=== PATIENT | female | born 1960 | race Caucasian/White ===

== ENCOUNTER 2023-03-23 12:19 | Inpatient (IN) | payer MEDICARE, MEDICAID, SELFPAY ==
[2023-03-23] VITALS (34 sets, daily range): BP systolic 110–135; BP diastolic 51–84; PULSE 70–110; RESP 12–26; TEMP 36.4–37.1; O2SAT 91–100; BMI 48.9
--- NOTE | ~2023-03-23 | XR_ITS ---
EXAMINATION: XR chest 2V DATE: 03/23/2023 13:04 INDICATION: Shortness of breath TECHNIQUE: AP and lateral views of the chest are obtained. COMPARISON: None available FINDINGS: There are airspace opacities of the right middle lower lung zone. There is a small right pl eural effusion. No pneumothorax is identified. Cardiomegaly is noted. There is a mild diffuse interst itial pattern. A dual-lead cardiac pacemaker of the left chest wall ends with leads in expected locat ions. There is mild thoracic spondylosis. IMPRESSION: 1. Small right pleural effusion. 2. Right basilar airspace opacities, consistent with atelectasis versus pneumonia. 3. Cardiomegaly with mild pulmonary edema. Reviewed, dictated and finalized at location F. COLOR PRESS OPERATOR IMPRESSION: 1. Small right pleural effusion. 2. Right basilar airspace opacities, consistent with atelectasis versus pneumon ia. 3. Cardiomegaly with mild pulmonary edema.
--- NOTE | 2023-03-23 12:25 | ECG_ITS ---
Measurements Intervals [place] Rate: 85 P: DE: 0 QRS: 11 QRSD: 100 T: -29 QT: 302 QTc: 361 Interpretive Statements ATRIAL FIBRILLATION LOW QRS VOLTAGE IN PRECORDIAL LEADS BORDERLINE ST-T WAVE ABNORMALITY- DIFFUSE LEADS ABNORMAL ECG NO PREVIOUS ECG AVAILABLE FOR COMPARISON Electronically Signed On 03-23-2023 15:41:55 CHECKER LOADER by Yared Briceno D.O.
[2023-03-23 12:47] LABS: Basophils Percent Auto 0.8 % (0.2-1.2); Eosinophils Absolute Auto 0.1 K/mm3 (0-0.3); Eosinophils Percent Auto 1.2 % (0-4.4); Immature Granulocyte Absolute 0.02 K/mm3 (0.00-0.031); Immature Granulocyte Percent A 0.4 % (0-0.5); Lymphocytes Percent Auto 23.9 % (18.3-44.2); Mean Corpuscular HGB Conc 26.5 g/dl (32-36); Mean Corpuscular Hemoglobin 19.2 pg (26-34); Mean Corpuscular Volume 72.7 fl (80-100); Mean Platelet Volume 10.1 fl (7.4-10.4); Monocytes Absolute Auto 0.5 K/mm3 (0.1-0.6); Monocytes Percent Auto 10.5 % (2.6-8.5); Neutrophils Absolute Auto 3.2 K/mm3 (1.3-6.7); Neutrophils Percent Auto 63.2 % (45.5-73.1); Platelet Count Result 189 k/mm3 (150-375); Red Cell Distribution Width 20.9 % (11.5-14.5)
[2023-03-23 12:53] LABS: Hematocrit 18.9 % (37.0-47.0)
[2023-03-23 13:04] LABS: Alanine Aminotransferase 17 U/L (6-35); Albumin Level 3.8 g/dL (3.5-5.1); Alkaline Phosphatase 65 U/L (38-126); Anion Gap 15 mmol/L (8-16); Aspartate Amino Transferase 43 U/L (14-36); Bilirubin,Total 1.4 mg/dL (0.2-1.3); Blood Urea Nitrogen 13 mg/dL (7-17); Carbon Dioxide 25 mmol/L (22-30); Chloride 98 mmol/L (98-107); Estimated CRCL calculation 94 ml/min; Estimated Glomerular Filt Rate > 60; Glucose 123 mg/dL (65-110); Potassium 3.4 mmol/L (3.4-5.0); Sodium 138 mmol/L (137-145)
[2023-03-23 13:05] LABS: Anisocytosis 2+ (NORMAL); Hypochromasia 2+ (NORMAL); Platelet Estimate Adequate (Adequate); Schistocytes None Seen (NORMAL); Target Cells 2+ (NORMAL)
--- NOTE | 2023-03-23 13:21 | PC.NURSE ---
unable to visualize veins for IV and type and screen. 2 attempts made by DHEERAJ Chávez. called Edwina from vascular access for assistance. no further orders at this time
--- NOTE | 2023-03-23 13:38 | ED.RECABL ---
HPI - Recheck/Abnormal Lab/Rx General Chief Complaint: Recheck/Abnormal Lab/Rx Stated Complaint: low hemoglobin Time Seen by Provider: 03/23/23 13:09 History of Present Illness HPI narrative: Patient is a 62-year-old female with history of AFib, CHF, hypothyroidism, hyperlipidemia presenting with low hemoglobin. Patient states that she struggles with chronic dyspnea related to her heart failure. States that she always feels somewhat unwell but she has been more short of breath lately. She saw her PCP recently obtained blood work and she received a call today that her hemoglobin is low. She reports chronic lightheadedness. No chest pain or palpitations. States that her legs are little bit swollen. She denies hemoptysis, hematemesis, melena, hematochezia. Related Data Home Medications Medication Instructions Recorded Confirmed Farxiga 10 mg PO DAILY 03/23/23 03/23/23 Vitamin D2 50,000 units PO DAILY 03/23/23 03/23/23 acetaminophen 1,000 mg PO Q6H PRN Pain (Scale 03/23/23 03/23/23 Score 1-3) bumetanide 2 mg tablet 2 mg PO DAILY 03/23/23 03/23/23 diltiazem HCl 360 mg capsule,24 360 mg PO DAILY 03/23/23 03/23/23 hr,extended release ferrous sulfate 325 mg PO DAILY 03/23/23 03/23/23 folic acid 1,000 mcg PO DAILY 03/23/23 03/23/23 levothyroxine 25 mcg tablet 25 mcg PO DAILY 03/23/23 03/23/23 potassium chloride 20 mEq 20 meq PO BID 03/23/23 03/23/23 tablet,extended release rivaroxaban 20 mg tablet (Xarelto) 20 mg PO DAILY 03/23/23 03/23/23 Allergies Allergy/AdvReac Type Severity Reaction Status Date / Time No Known Allergies Allergy Unknown Verified 03/23/23 12:20 Review of Systems Review of Systems: All systems reviewed & are unremarkable except as noted in HPI and below PMFSH Past Medical History Medical History (Updated 04/02/23 @ 22:18 by Britney Vallejo MD) Chronic anticoagulation Chronic atrial fibrillation Congestive heart failure Diverticulitis Dyslipidemia Hypothyroidism Obstructive sleep apnea on CPAP Surgical History Surgical History (Updated 03/26/23 @ 12:23 by Raisa Burton APRN) History of permanent cardiac pacemaker placement (09/2016) Biotronik dual chamber pacemaker implant by Dr. Garvey Family History Family History Mother Acute myocardial infarction, Onset Age: 73 Cerebrovascular accident, Onset Age: 73 Diabetes mellitus Father Multiple myeloma Social History Social History (Updated 03/23/23 @ 15:51 by Sumaya Hyatt PA-C) Social History: Surrogate medical decision maker: Gracy Mouser, friend. Code status: Do not resuscitate. Smoking status: Former smoker Alcohol intake: current Alcohol use details: Social alcohol use in moderation. Substance use: never Lack of Transportation: No Lack of Food: Never True Current Housing: I Have Housing Concerned About Future Housing: No Difficulty Paying Gas/Electric Bills: No Difficulty Paying for Meds: No Currently Unemployed: No Education: High School Diploma/GED Difficulty w/ Childcare or Family Care: No Additional living arrangements comments: The patient lives alone. She has no children. Caregiver comes in 3 days weak. Spiritual care concerns: No Exam Narrative: GENERAL: Chronically ill-appearing female sitting in bed in no acute distress, pleasant and cooperative HEAD: Normocephalic, atraumatic. EYES: PERRLA and EOMI. ENT: grossly unremarkable NECK: Supple. CHEST: Clear to auscultation. No respiratory distress. HEART: irregularly irregular rhythm, normal rate ABDOMEN: Soft, nontender, nondistended EXTREMITIES: Normal range of motion. bilateral lower extremity edema to upper calves SKIN: Warm, dry, no rash. NEURO: No focal deficits. Alert and oriented x3. PSYCH: Normal mood and affect. Course Vital Signs Vital signs: Vital Signs Temperature 97.7 F 03/23/23 12:21 Pulse Rate 98
[2023-03-23 14:35] LABS: Lipase 137 U/L (23-300); Magnesium 1.7 mg/dL (1.6-2.3)
[2023-03-23 14:37] LABS: NT Pro B Type Natriuretic Pept 332 pg/mL (19.9-100); Troponin I < 0.012 ng/mL (0.000-0.034)
[2023-03-23 14:38] LABS: Influenza A QL RT-PCR Negative (Negative); Influenza B QL RT-PCR Negative (Negative); SARS-CoV-2 RNA PCR Negative (Negative)
[2023-03-23 14:40] LABS: INR 2.7; Partial Thromboplastin Time 39.7 SECONDS (22.3-36.8); Prothrombin Time 30.9 Seconds (11.1-14.7)
[2023-03-23 14:49] LABS: Iron 19 ug/dL (37-170)
[2023-03-23 14:58] LABS: Percent Iron Saturation 4 % (20-50)
[2023-03-23] MEDS: SODIUM CHLORIDE 0.9% IV 250 ML 30 ML IV CONT (15:03)
[2023-03-23] MEDS: TUBING, BLOOD PLUM PUMP TUBING 1 EACH XX ×2 (15:04→18:58)
--- NOTE | 2023-03-23 15:44 | PM.IMHP ---
H&P: HPI History of Present Illness Date/Time: 03/23/23 15:30 Chief Complaint: Anemia. Narrative: This is a pleasant 62-year-old female with chronic atrial fibrillation on anticoagulation, congestive heart failure, and obstructive sleep apnea on CPAP who presented to the emergency department for evaluation of anemia. The patient provides the following history. She had routine labs drawn a couple of days ago and received a call today that she needed to come to the ED as her hemoglobin was low. With further questioning she endorses fatigue, weakness, and increasing dyspnea on lesser and lesser exertion. She has not noticed any source for blood loss and denies epistaxis, hematemesis, hematochezia, melena, and hematuria. Her stool is light brown and Hemoccult negative on ED physician exam today. She has a history of anemia had been prescribed iron supplementations although she stopped taking them as it caused her significant constipation. Vital signs have been stable since arrival. Hemoglobin and hematocrit were 5.0 and 18.9% respectively with an MCV of 72.7, INR was 2.7. She is being admitted in this setting for blood transfusion and anemia workup. She has never had a colonoscopy however reports having a negative Cologuard 3 years ago. Review of Systems Review of Systems: Twelve systems were reviewed. No fever, chills, or sweats. She has been feeling a bit lightheaded. No syncope. She denies exertional chest pain. Mild chest tightness which she attributes to the shortness of breath. No cough. Appetite has been okay. No epigastric or abdominal pain. She denies bloating and belching. No indigestion symptoms. Except as documented, all other systems were reviewed and are negative. [facility] Past Medical History Medical History (Updated 03/23/23 @ 15:59 by Sumaya Hyatt PA-C) Chronic anticoagulation Chronic atrial fibrillation Congestive heart failure Diverticulitis Dyslipidemia Hypothyroidism Obstructive sleep apnea on CPAP Surgical History Surgical History (Updated 03/23/23 @ 15:54 by Sumaya Hyatt PA-C) History of permanent cardiac pacemaker placement (09/2016) Biotronik dual chamber pacemaker implant by Dr. Garvey Family History Family History Mother Acute myocardial infarction, Onset Age: 73 Cerebrovascular accident, Onset Age: 73 Diabetes mellitus Father Multiple myeloma Social History Social History (Updated 03/23/23 @ 15:51 by Sumaya Hyatt PA-C) Social History: Surrogate medical decision maker: Gracy Ramyr, friend. Code status: Do not resuscitate. Smoking status: Former smoker Alcohol intake: current Alcohol use details: Social alcohol use in moderation. Substance use: never Lack of Transportation: No Lack of Food: Never True Current Housing: I Have Housing Concerned About Future Housing: No Difficulty Paying Gas/Electric Bills: No Difficulty Paying for Meds: No Currently Unemployed: No Education: High School Diploma/GED Difficulty w/ Childcare or Family Care: No Additional living arrangements comments: The patient lives alone. She has no children. Caregiver comes in 3 days weak. Spiritual care concerns: No Meds Home Medications and Allergies Home Medications Medication Instructions Recorded Confirmed Type Farxiga 10 mg PO DAILY 03/23/23 03/23/23 History Vitamin D2 50,000 units PO DAILY 03/23/23 03/23/23 History acetaminophen 1,000 mg PO Q6H PRN Pain (Scale 03/23/23 03/23/23 History Score 1-3) bumetanide 2 mg tablet 2 mg PO DAILY 03/23/23 03/23/23 History diltiazem HCl 360 mg capsule,24 360 mg PO DAILY 03/23/23 03/23/23 History hr,extended release ferrous sulfate 325 mg PO DAILY 03/23/23 03/23/23 History folic acid 1,000 mcg PO DAILY 03/23/23 03/23/23 History levothyroxine 25 mcg tablet 25 mcg PO DAILY 03/23/23 03/23/23 History potassium chloride 20 mEq 20 meq PO BID 03/23/23
[2023-03-23 15:56] LABS: Ferritin 6.74 ng/mL (11.1-264)
--- NOTE | 2023-03-23 16:38 | ADMGEN ---
This patient, Michelle Odom, was admitted to Medical Room 250-01. Patient/family oriented to hospital policies and general routines including ID bracelet, bed and alarms, visiting hours, pain management, procedures, bathroom and other care routines, personal items, smoking policy, room service/diet, and visiting hours. Information on how to activate the Rapid Response Team has been discussed. Patient/Family are encouraged to report perceived risks to care and to ask questions if they do not understand what they are told or what they should do.
[2023-03-23] MEDS: SODIUM CHLORIDE 0.9% IV 250 ML 30 ML (18:58)
[2023-03-23 21:33] LABS: Hematocrit 22.1 % (37.0-47.0)
[2023-03-23 21:54] LABS: Hemoglobin 6.5 g/dL (12.0-15.0)
[2023-03-23 21:56] LABS: Troponin I < 0.012 ng/mL (0.000-0.034)
[2023-03-23] MEDS: FUROSEMIDE INJ 40 MG/4 ML VIAL 20 MG IV PUSH (22:20)
[2023-03-23] MEDS: IRON SUCROSE COMPLEX 500 MG in SODIUM CHLORIDE 0.9% IV 250 ML 78.57 MG IVPB (23:08)
[2023-03-24] VITALS (14 sets, daily range): BP systolic 99–125; BP diastolic 51–78; PULSE 63–98; RESP 16–20; TEMP 36.3–37.1; O2SAT 89–94
[2023-03-24 05:51] LABS: Mean Corpuscular HGB Conc 29.1 g/dl (32-36); Mean Corpuscular Hemoglobin 21.5 pg (26-34); Mean Corpuscular Volume 73.8 fl (80-100); Platelet Count Result 141 k/mm3 (150-375); Red Blood Count 2.98 M/mm3 (4.2-5.4); Red Cell Distribution Width 20.9 % (11.5-14.5); White Blood Count 4.1 K/mm3 (4.5-10.0)
[2023-03-24 06:04] LABS: Hemoglobin 6.4 g/dL (12.0-15.0)
[2023-03-24 06:06] LABS: Anion Gap 13 mmol/L (8-16); Blood Urea Nitrogen 14 mg/dL (7-17); Calcium 8.3 mg/dL (8.4-10.2); Carbon Dioxide 25 mmol/L (22-30); Chloride 99 mmol/L (98-107); Estimated CRCL calculation 94 ml/min; Estimated Glomerular Filt Rate > 60; Glucose 130 mg/dL (65-110); Magnesium 1.6 mg/dL (1.6-2.3); Potassium 2.6 mmol/L (3.4-5.0); Sodium 137 mmol/L (137-145)
[2023-03-24] MEDS: LEVOTHYROXINE SODIUM 25 MCG TABLET PO (06:25)
[2023-03-24] MEDS: POTASSIUM CHLORIDE 20 MEQ ER TABLET 80 MEQ PO (07:07)
[2023-03-24] MEDS: POTASSIUM CHLORIDE INJ 40 MEQ in SODIUM CHLORIDE 0.9% IV 500 ML 130 MEQ IVPB (07:07)
[2023-03-24] MEDS: MAGNESIUM SULF 4 GM/WATER100ML 4 GM/100 ML BAG IVPB (07:08)
[2023-03-24] MEDS: FERROUS SULFATE 325 MG TABLET DR PO (08:17)
[2023-03-24] MEDS: FOLIC ACID 1 MG TABLET PO (08:17)
[2023-03-24] MEDS: EMPAGLIFLOZIN 25 MG TABLET PO (08:17)
[2023-03-24] MEDS: POTASSIUM CHLORIDE 20 MEQ ER TABLET PO ×2 (08:17→16:02)
[2023-03-24] MEDS: dilTIAZem HCL CD 180 MG CAP.24HR 360 MG PO (08:18)
[2023-03-24 09:06] LABS: Immature Reticulocyte Fraction 44.2 % (3.0-15.9); Reticulocyte Percent 1.04 % (0.7-4.3); Reticulocytes Absolute 0.03 M/mm3 (0.02-0.1)
[2023-03-24] MEDS: SODIUM CHLORIDE 0.9% IV 250 ML 30 ML IV CONT (09:34)
[2023-03-24 09:48] LABS: Free T4 Free Thyroxine Reflex 1.96 ng/dL (0.78-2.19)
[2023-03-24 10:28] LABS: Total Triiodothyronine (T3) 1.08 NG/ML (0.97-1.69)
--- NOTE | 2023-03-24 14:16 | PM.IMPN ---
Progress Note: A&P Assessment and Plan (1) Microcytic anemia: Code(s): D50.9 - Iron deficiency anemia, unspecified Status: Chronic Assessment and Plan: H&H 6.4, 22 this morning. Finished 3/3 units of blood and H&H at 7.6. hematology consulted for input on further evaluation and treatment. non-compliant with iron supplementation due to constipation no evidence of bleeding, occult stool ordered retic count and iron panel indicative of iron deficiency anemia Will repeat iron infusion (2) Congestive heart failure: Code(s): I50.9 - Heart failure, unspecified Status: Chronic Assessment and Plan: Monitor daily weights and I/O. s/p 1 dose Lasix (3) Hypothyroidism: Code(s): E03.9 - Hypothyroidism, unspecified Status: Chronic Assessment and Plan: TSH elevated on admission, T4/T3 WNL continue levothyroxine and follow up outpatient as she was recently started on medication (4) Chronic atrial fibrillation: Code(s): I48.20 - Chronic atrial fibrillation, unspecified Status: Chronic Assessment and Plan: controlled, continue home meds (5) Chronic anticoagulation: Code(s): Z79.01 - long term care social worker (current) use of anticoagulants Status: Chronic Assessment and Plan: will hold anticoagulants for now (6) Obstructive sleep apnea on CPAP: Code(s): G47.33 - Obstructive sleep apnea (adult) (pediatric) Status: Chronic Assessment and Plan: bipap/cpap ordered Subjective Date/time seen: 03/24/23 14:16 Interval history: Patient is a 62 YO female with PMH of chronic atrial fibrillation on anticoagulation, congestive heart failure, recent hypothyroidism diagnosis, chronic iron deficiency anemia, and obstructive sleep apnea on CPAP who admitted from ED for evaluation of anemia. She does report feeling fatigued, weakness, and increasing dyspnea on lesser and lesser exertion. She has not noticed any source for blood loss and denies epistaxis, hematemesis, hematochezia, melena, and hematuria. Her stool is light brown and Hemoccult negative on ED physician exam. Occult stool ordered. She had been prescribed iron supplementations, but stopped taking them after only a few days due to constipation. H&H this morning was 6.4 & 22, still awaiting her 3rd unit of blood. Potassium came up to 3.3 and H&H 2 hours post transfusion was 7.6, hematology consulted for input. Her TSH is elevated, but T4 and T3 WNL and she has only been on levothyroxine for a short time. She also wanted her code status changed to DNR, and says she can provide the paperwork for this. Will continue to monitor and transfuse if needed, electrolyte repletion and iron supplementation. Review of Systems Review of Systems: Twelve systems were reviewed. No fever, chills, or sweats. She has been feeling a bit lightheaded. No syncope. She denies exertional chest pain. Mild chest tightness which she attributes to the shortness of breath. No cough. Appetite has been okay. No epigastric or abdominal pain. She denies bloating and belching. No indigestion symptoms. Except as documented, all other systems were reviewed and are negative. Exam Narrative: General: Nontoxic-appearing female sitting up in bed. HEENT: PERRL, EOMI. Neck: Supple. No JVD. Respiratory: Respirations are nonlabored. Lungs clear to auscultation. Cardiovascular: Irregularly irregular rate and rhythm. Gastrointestinal: Abdomen is soft, obese, nontender, and nondistended with positive bowel sounds. No guarding or rebound tenderness. Skin: Warm and dry. Generalized pallor. Extremities: No cyanosis or clubbing. Legs are large with nonpitting and pitting edema. Neurological: Alert and oriented x3. Cranial nerves 2-12 are grossly intact. No gross focal deficits to casual conversation. Psychiatric: Pleasant and cooperative with appropriate mood and affect. Objective Data Vital Signs Vital Signs: Vi
[2023-03-24 14:39] LABS: Hematocrit 26.2 % (37.0-47.0); Hemoglobin 7.6 g/dL (12.0-15.0)
[2023-03-24 14:47] LABS: Potassium 3.3 mmol/L (3.4-5.0)
[2023-03-24] MEDS: IRON SUCROSE COMPLEX 500 MG in SODIUM CHLORIDE 0.9% IV 250 ML 78.57 MG IVPB (16:02)
[2023-03-25] VITALS (10 sets, daily range): BP systolic 98–128; BP diastolic 55–68; PULSE 55–95; RESP 16–18; TEMP 36.4–36.8; O2SAT 90–94
[2023-03-25] MEDS: LEVOTHYROXINE SODIUM 25 MCG TABLET PO (05:18)
[2023-03-25 05:42] LABS: Hematocrit 25.6 % (37.0-47.0); Hemoglobin 7.5 g/dL (12.0-15.0); Mean Corpuscular HGB Conc 29.3 g/dl (32-36); Mean Corpuscular Hemoglobin 22.4 pg (26-34); Mean Corpuscular Volume 76.4 fl (80-100); Mean Platelet Volume 9.4 fl (7.4-10.4); Platelet Count Result 144 k/mm3 (150-375); Red Blood Count 3.35 M/mm3 (4.2-5.4); Red Cell Distribution Width 20.7 % (11.5-14.5); White Blood Count 4.9 K/mm3 (4.5-10.0)
[2023-03-25 05:52] LABS: Anion Gap 8 mmol/L (8-16); Blood Urea Nitrogen 11 mg/dL (7-17); Calcium 8.3 mg/dL (8.4-10.2); Carbon Dioxide 27 mmol/L (22-30); Chloride 103 mmol/L (98-107); Estimated CRCL calculation 83 ml/min; Estimated Glomerular Filt Rate > 60; Glucose 136 mg/dL (65-110); Potassium 3.5 mmol/L (3.4-5.0); Sodium 138 mmol/L (137-145)
[2023-03-25 06:37] LABS: IFOB Positive Control Positive; Immunochemical Fecal Occult Bl Negative (N)
[2023-03-25] MEDS: FERROUS SULFATE 325 MG TABLET DR PO (08:10)
[2023-03-25] MEDS: dilTIAZem HCL CD 180 MG CAP.24HR 360 MG PO (08:10)
[2023-03-25] MEDS: EMPAGLIFLOZIN 25 MG TABLET PO (08:10)
[2023-03-25] MEDS: FOLIC ACID 1 MG TABLET PO (08:10)
[2023-03-25] MEDS: POTASSIUM CHLORIDE 20 MEQ ER TABLET PO ×2 (08:10→16:40)
--- NOTE | 2023-03-25 12:15 | PM.IMPN ---
Progress Note: A&P Assessment and Plan (1) Microcytic anemia: Code(s): D50.9 - Iron deficiency anemia, unspecified Status: Chronic Assessment and Plan: H&H 6.4, 22 this morning. Finished 3/3 units of blood and H&H at 7.6. hem/onc consulted for input on further evaluation and treatment. non-compliant with iron supplementation due to constipation no evidence of bleeding, occult stool negative retic count and iron panel indicative of iron deficiency anemia Will repeat iron infusion (2) Congestive heart failure: Code(s): I50.9 - Heart failure, unspecified Status: Chronic Assessment and Plan: Monitor daily weights and I/O. restart Bumex 2 mg today, continue to monitor BP (3) Hypothyroidism: Code(s): E03.9 - Hypothyroidism, unspecified Status: Chronic Assessment and Plan: TSH elevated on admission, T4/T3 WNL continue levothyroxine and follow up outpatient as she was recently started on medication (4) Chronic atrial fibrillation: Code(s): I48.20 - Chronic atrial fibrillation, unspecified Status: Chronic Assessment and Plan: controlled, continue home meds (5) Chronic anticoagulation: Code(s): Z79.01 - manager terminal (current) use of anticoagulants Status: Chronic Assessment and Plan: will hold anticoagulants for now (6) Obstructive sleep apnea on CPAP: Code(s): G47.33 - Obstructive sleep apnea (adult) (pediatric) Status: Chronic Assessment and Plan: bipap/cpap ordered Subjective Date/time seen: 03/25/23 12:15 Interval history: Patient sitting up in chair this morning, denies any pain or abdominal discomfort, but feels bloated after eating. She has not had her Bumex since admission and lung sounds are mildly diminshed at the bases. She is satting fine on room air, but will restart today and monitor BP as she has been running soft. Her H&H improved only to 7.5 after 3 units of PRBC yesterday. Consult placed to hem/onc for further evaluation and recommendations, may need to take place outpatient if not available inpatient. Occult stool was negative. Will continue to monitor, replete iron. Transfuse if needed. Review of Systems Review of Systems: Twelve systems were reviewed. No fever, chills, or sweats. She has been feeling a bit lightheaded. No syncope. She denies exertional chest pain. Mild chest tightness which she attributes to the shortness of breath. No cough. Appetite has been okay. No epigastric or abdominal pain. She denies bloating and belching. No indigestion symptoms. Except as documented, all other systems were reviewed and are negative. Exam Narrative: General: Nontoxic-appearing female sitting up in chair. HEENT: PERRL, EOMI. Neck: Supple. No JVD. Respiratory: Respirations are nonlabored. Lungs clear to auscultation. Cardiovascular: Irregularly irregular rate and rhythm. Gastrointestinal: Abdomen is soft, obese, nontender, and nondistended with positive bowel sounds. No guarding or rebound tenderness. Skin: Warm and dry. Generalized pallor. Extremities: No cyanosis or clubbing. Legs are large with nonpitting and pitting edema in feet. Neurological: Alert and oriented x3. Cranial nerves 2-12 are grossly intact. No gross focal deficits to casual conversation. Psychiatric: Pleasant and cooperative with appropriate mood and affect. Objective Data Vital Signs Vital Signs: Vital Signs - 24 hr 03/24/23 13:53 03/24/23 16:00 03/24/23 20:16 Temperature 97.7 F 97.5 F L Pulse Rate 64 73 74 Respiratory Rate 16 20 Blood Pressure 99/51 L 125/69 Pulse Oximetry 91 90 Oxygen Delivery 03/24/23 20:00 03/24/23 20:00 03/25/23 00:00 Temperature Pulse Rate 76 81 Respiratory Rate Blood Pressure Pulse Oximetry Oxygen Delivery Room Air 03/25/23 04:00 03/25/23 05:27 03/25/23 08:09 Temperature 97.5 F L Pulse Rate 69 64 95 Respiratory Rate 16
[2023-03-25] MEDS: IRON SUCROSE COMPLEX 500 MG in SODIUM CHLORIDE 0.9% IV 250 ML 78.57 MG IVPB (13:08)
[2023-03-26] VITALS (10 sets, daily range): BP systolic 97–119; BP diastolic 49–64; PULSE 60–77; RESP 17–18; TEMP 36.4–36.8; O2SAT 90–93
[2023-03-26 05:33] LABS: Hematocrit 26.5 % (37.0-47.0); Hemoglobin 7.7 g/dL (12.0-15.0); Mean Corpuscular HGB Conc 29.1 g/dl (32-36); Mean Corpuscular Hemoglobin 22.9 pg (26-34); Mean Corpuscular Volume 78.9 fl (80-100); Mean Platelet Volume 10.1 fl (7.4-10.4); Platelet Count Result 146 k/mm3 (150-375); Red Blood Count 3.36 M/mm3 (4.2-5.4); Red Cell Distribution Width 21.8 % (11.5-14.5); White Blood Count 5.6 K/mm3 (4.5-10.0)
[2023-03-26 05:38] LABS: Anion Gap 5 mmol/L (8-16); Blood Urea Nitrogen 9 mg/dL (7-17); Calcium 8.5 mg/dL (8.4-10.2); Carbon Dioxide 28 mmol/L (22-30); Chloride 104 mmol/L (98-107); Estimated CRCL calculation 94 ml/min; Estimated Glomerular Filt Rate > 60; Glucose 128 mg/dL (65-110); Lipase 77 U/L (23-300); Potassium 3.8 mmol/L (3.4-5.0); Sodium 137 mmol/L (137-145)
[2023-03-26] MEDS: LEVOTHYROXINE SODIUM 25 MCG TABLET PO (06:06)
[2023-03-26] MEDS: BUMETANIDE 1 MG TABLET 2 MG PO (08:13)
[2023-03-26] MEDS: EMPAGLIFLOZIN 25 MG TABLET PO (08:14)
[2023-03-26] MEDS: FOLIC ACID 1 MG TABLET PO (08:14)
[2023-03-26] MEDS: dilTIAZem HCL CD 180 MG CAP.24HR 360 MG PO (08:14)
[2023-03-26] MEDS: POTASSIUM CHLORIDE 20 MEQ ER TABLET PO ×2 (08:14→17:34)
[2023-03-26] MEDS: FERROUS SULFATE 325 MG TABLET DR PO ×2 (08:14→17:34)
--- NOTE | 2023-03-26 09:03 | P.CDI_ITS ---
CDI Query Clarification Request Documented history of CHF. CHF noted in the assessment. Bumex listed as a home medication. Patient receiving Bumex. Elevated BNP on 03/23/23 lab work. Pulmonary edema noted on the 03/23/23 chest xray. Please specify type and acuity of heart failure if known. * Acute * Chronic * Acute on Chronic * Unknown * Systolic * Diastolic * Combined Systolic and Diastolic * Unknown
--- NOTE | 2023-03-26 12:08 | PDONCCN ---
HPI - Date of Consult Date/Time: 03/26/23 17:47 <Stef Carreon - 03/26/23 17:50> 03/26/23 12:08 <Raisa Burton - 03/26/23 12:23> Requesting Physician: Anirudh Dhaliwal MD <Stef Carreon - 03/26/23 17:50> Anirudh Dhaliwal MD <Raisa Burton - 03/26/23 12:23> Primary Care Provider: Jayson Chandra MD <Stef Carreon - 03/26/23 17:50> Jayson Chandra MD <Raisa Burton - 03/26/23 12:23> - Consult Narrative Reason for consult: anemia <Raisa Burton - 03/26/23 12:23> Narrative: Michelle Odom is a 62 year old female <Stef Carreon - 03/26/23 17:50> Michelle Odom is a 62 year old female with a past medical history of Afib, CHF, diverticulitis, HLD, BHAVIN, admitted to the hospital for anemia after having routine labs drawn at her PCP (Hgb 5, Hct 18.9, MCV 72.7). She denies any blood in her stool or urine. She endorses being more fatigued, weak, and short of breath on exertion. She states she has never had a colonoscopy but her last Cologuard was negative 3 years ago. She had a negative occult stool test this hospital stay. She has received 3 units of blood and 3 iron infusions. She has been taking oral iron but reports some constipation with it. Most recent labs are are notable for Hgb 7.7, Hct 26.5, MCV 78.9, Plt 146,000, Iron 19, TIBC 483, % sat 4, Ferritin 6.74, Vit B 12 743. <Raisa Burton - 03/26/23 12:23> Review of Systems - Review of Systems All systems reviewed & are unremarkable except as noted in HPI and bel <Raisa Burton - 03/26/23 12:23> - Constitutional Reports fatigue, Reports lack of energy, Reports weakness <Raisa Burton - 03/26/23 12:23> - Cardiovascular Reports shortness of breath with activity <KddominickPayamRaisa - 03/26/23 12:23> - Respiratory Reports dyspnea on exertion <KddominickRaisa - 03/26/23 12:23> - Gastrointestinal Denies black, tarry stools, Denies change in stools <KddominickRaisa - 03/26/23 12:23> [facility] Medical History: Medical History (Last Updated 03/23/23 @ 15:54 by Sumaya Hyatt PA-C) Chronic anticoagulation Chronic atrial fibrillation Congestive heart failure Diverticulitis Dyslipidemia Hypothyroidism Obstructive sleep apnea on CPAP <LauriStefvasquez Ayoub - 03/26/23 17:50> Medical History (Last Updated 03/23/23 @ 15:54 by Sumaya Hyatt PA-C) Chronic anticoagulation Chronic atrial fibrillation Congestive heart failure Diverticulitis Dyslipidemia Hypothyroidism Obstructive sleep apnea on CPAP <KddominickRaisa - 03/26/23 12:23> Surgical History: Surgical History (Last Updated 03/23/23 @ 15:54 by Sumaya Hyatt PA-C) History of permanent cardiac pacemaker placement Onset Date: 09/2016 Biotronik dual chamber pacemaker implant by Dr. Garvey <LauriStef eaton - 03/26/23 17:50> Surgical History (Last Updated 03/23/23 @ 15:54 by Sumaya Hyatt PA-C) History of permanent cardiac pacemaker placement Onset Date: 09/2016 Biotronik dual chamber pacemaker implant by Dr. Garvey <KddominickRaisa - 03/26/23 12:23> Family History: Family History (Last Reviewed 03/23/23 @ 17:41 by Telma Balderas, DHEERAJ) Mother Acute myocardial infarction, Onset Age: 73 Cerebrovascular accident, Onset Age: 73 Diabetes mellitus Father Multiple myeloma <LauriStefvasquez Ayoub - 03/26/23 17:50> Family History (Last Reviewed 03/23/23 @ 17:41 by Telma Balderas, DHEERAJ) Mother Acute myocardial infarction, Onset Age: 73 Cerebrovascular accident, Onset Age: 73 Diabetes mellitus Father Multiple myeloma <MichealRaisa - 03/26/23 12:23> - Social History Social History: Social History (Last Updated 03/23/23 @ 15:51 by Sumaya Hyatt PA-C) Alcohol Use: Alcohol intake: current Alcohol use details: Social alcohol use in moderation. Substance
--- NOTE | 2023-03-26 14:45 | PM.IMPN ---
Progress Note: A&P Assessment and Plan (1) Microcytic anemia: Code(s): D50.9 - Iron deficiency anemia, unspecified Status: Chronic Assessment and Plan: Finished 3/3 units of blood on 03/23/23 hem/onc consulted for input on further evaluation and treatment. non-compliant with iron supplementation due to constipation no evidence of bleeding, occult stool negative Retic count and iron panel indicative of iron deficiency anemia. Iron infusion 500 mg IV push x3. Heme Onc recommending repeat iron studies, MMA, T ESR and nutritional studies. If severe iron deficiency is not corrected may need bone marrow biopsy as an outpatient. H&H today 7.7/26.5 -stable (2) Congestive heart failure: Code(s): I50.9 - Heart failure, unspecified Status: Chronic Assessment and Plan: Monitor daily weights and I/O. restart Bumex 2 mg, continue to monitor BP (3) Hypothyroidism: Code(s): E03.9 - Hypothyroidism, unspecified Status: Chronic Assessment and Plan: TSH elevated on admission, T4/T3 WNL continue levothyroxine and follow up outpatient as she was recently started on medication (4) Chronic atrial fibrillation: Code(s): I48.20 - Chronic atrial fibrillation, unspecified Status: Chronic Assessment and Plan: controlled, continue home meds (5) Chronic anticoagulation: Code(s): Z79.01 - snf (current) use of anticoagulants Status: Chronic Assessment and Plan: will hold anticoagulants for now (6) Obstructive sleep apnea on CPAP: Code(s): G47.33 - Obstructive sleep apnea (adult) (pediatric) Status: Chronic Assessment and Plan: bipap/cpap ordered Subjective Date/time seen: 03/26/23 14:45 Interval history: Patient is doing well today but does continue to complain shortness of breath. She has been diagnosed with COPD in the past. She has not put inhalers although she does not think this helps. Discussed with her this could be her anemia were also her heart and lower lungs. She states that she has had this problem for many months which makes me believe this is probably more pulmonary related. Hematology consulting on patient today a recommending further testing. Hopeful for discharge tomorrow if hematology clears her. Will continue to monitor her labs. Exam Narrative: GENERAL: Comfortable, no acute distress HENMT: moist mucous membranes EYES: EOM intact b/l NECK: no lymphadenopathy RESPIRATORY: distant breath sounds although clear CARDIO: distant heart sounds, irregular rhythm, rate controlled GI: soft, nontender, bowel sounds present SKIN: no rashes EXTREMITIES: no edema, redness or tenderness Objective Data Vital Signs Vital Signs: Vital Signs - 24 hr 03/25/23 16:00 03/25/23 19:51 03/25/23 20:00 Temperature 98.2 F Pulse Rate 62 58 L Respiratory Rate 18 Blood Pressure 128/68 Pulse Oximetry 94 Oxygen Delivery Room Air 03/25/23 20:00 03/26/23 00:00 03/26/23 04:00 Temperature Pulse Rate 79 77 72 Respiratory Rate Blood Pressure Pulse Oximetry Oxygen Delivery 03/26/23 06:00 03/26/23 08:00 03/26/23 13:34 Temperature 97.6 F 98.3 F Pulse Rate 60 64 Respiratory Rate 18 17 Blood Pressure 119/62 97/49 L Pulse Oximetry 90 93 Oxygen Delivery Room Air 03/26/23 14:10 03/26/23 08:00 03/26/23 12:00 Temperature Pulse Rate 74 72 Respiratory Rate Blood Pressure 104/60 Pulse Oximetry Oxygen Delivery Intake/Output Intake/Output: Intake & Output 03/23/23 03/24/23 03/25/23 03/26/23 23:59 23:59 23:59 23:59 Intake Total 1380 2860 1425 1030 Output Total 250 7018 720 3127 Balance 1130 1860 1125 370 Meds/Results Medications: Active Medications Generic Name Dose Route Start Last Admin Trade Name Freq PRN Reason Stop Dose Admin Acetaminophen 1,000 mg 03/23/23 20:44
[2023-03-27] VITALS: PULSE 68
[2023-03-27 04:00] VITALS: PULSE 70
[2023-03-27 04:53] VITALS: BP 113/58; PULSE 98; RESP 18; TEMP 36.4; O2SAT 86
[2023-03-27] MEDS: LEVOTHYROXINE SODIUM 25 MCG TABLET PO (05:55)
[2023-03-27 06:15] LABS: Hematocrit 27.1 % (37.0-47.0); Hemoglobin 7.7 g/dL (12.0-15.0); Mean Corpuscular HGB Conc 28.4 g/dl (32-36); Mean Corpuscular Hemoglobin 23.4 pg (26-34); Mean Corpuscular Volume 82.4 fl (80-100); Mean Platelet Volume 10.2 fl (7.4-10.4); Platelet Count Result 167 k/mm3 (150-375); Red Blood Count 3.29 M/mm3 (4.2-5.4); Red Cell Distribution Width 23.3 % (11.5-14.5); White Blood Count 5.8 K/mm3 (4.5-10.0)
[2023-03-27 06:52] LABS: Iron 175 ug/dL (37-170)
[2023-03-27 07:02] LABS: Percent Iron Saturation 41 % (20-50)
[2023-03-27 07:18] LABS: Anion Gap 8 mmol/L (8-16); Blood Urea Nitrogen 8 mg/dL (7-17); Calcium 8.5 mg/dL (8.4-10.2); Carbon Dioxide 26 mmol/L (22-30); Chloride 102 mmol/L (98-107); Estimated CRCL calculation 95 ml/min; Estimated Glomerular Filt Rate > 60; Glucose 121 mg/dL (65-110); Potassium 3.5 mmol/L (3.4-5.0); Sodium 136 mmol/L (137-145)
[2023-03-27 08:00] VITALS: PULSE 80
[2023-03-27 08:01] LABS: Folic Acid 17.1 ng/mL (2.76->20)
[2023-03-27 10:14] VITALS: BP 118/59; PULSE 70; O2SAT 95
[2023-03-27] MEDS: dilTIAZem HCL CD 180 MG CAP.24HR 360 MG PO (10:16)
[2023-03-27] MEDS: BUMETANIDE 1 MG TABLET 2 MG PO (10:16)
[2023-03-27] MEDS: ASCORBIC ACID 500 MG TABLET PO (10:17)
[2023-03-27] MEDS: FOLIC ACID 1 MG TABLET PO (10:17)
[2023-03-27] MEDS: POTASSIUM CHLORIDE 20 MEQ ER TABLET PO (10:17)
[2023-03-27] MEDS: EMPAGLIFLOZIN 25 MG TABLET PO (10:17)
[2023-03-27] MEDS: FERROUS SULFATE 325 MG TABLET DR PO (10:17)
--- NOTE | 2023-03-27 10:53 | PM.DS ---
DS: Admitting Diagnosis Discharge Date 03/27/23 Admitting Diagnosis Iron deficiency anemia DS: Discharge Diagnosis Discharge Diagnosis (1) Microcytic anemia: Code(s): D50.9 - Iron deficiency anemia, unspecified Status: Chronic (2) Congestive heart failure: Code(s): I50.9 - Heart failure, unspecified Status: Chronic (3) Hypothyroidism: Code(s): E03.9 - Hypothyroidism, unspecified Status: Chronic (4) Chronic atrial fibrillation: Code(s): I48.20 - Chronic atrial fibrillation, unspecified Status: Chronic (5) Chronic anticoagulation: Code(s): Z79.01 - snf (current) use of anticoagulants Status: Chronic (6) Obstructive sleep apnea on CPAP: Code(s): G47.33 - Obstructive sleep apnea (adult) (pediatric) Status: Chronic DS: Summary Hospital Course Hospital Course: This is a 62-year-old female with chronic AFib on anticoagulation, CHF and obstructive sleep apnea the presents to the ED for evaluation knee me a. She was found to have a low hemoglobin hematocrit on labs she had done as an outpatient and was told to come to the ED. upon arrival her vital signs were stable and her hemoglobin macro 4 5/18.9 with an MCV of 72.7 and INR of 2.7. She was scheduled for 3 units of blood. She did states that she had Cologuard 3 years ago that came back clear but is never had a colonoscopy. Her occult stool was negative. She does have a family history of anemia where her siblings and mother have all needed transfusions in the past although this is the extent of information she has. Her anemia panel was consistent with iron deficiency anemia and she received 3 days of iron infusions as well. Hematology was consulted. Hematology ran further blood work on the patient and her requesting that she follow-up in their office. After transfusion patient's H&H remained stable. Recommend supplementation at home and a follow-up with Hematology as an outpatient. Time Spent with Patient Time attestation: Total time spent providing and/or coordinating discharge services: DS: Data Data Completed and Pending Labs on day of discharge: Labs from last 24 hours 03/27/23 05:21 WBC 5.8 RBC 3.29 L Hgb 7.7 L Hct 27.1 L MCV 82.4 MCH 23.4 L MCHC 28.4 L RDW 23.3 H Plt Count 167 MPV 10.2 Sodium 136 L Potassium 3.5 Chloride 102 Carbon Dioxide 26 Anion Gap 8 BUN 8 Creatinine 0.70 Estim Creat Clear Calc 95 Estimated GFR > 60 Glucose 121 H Calcium 8.5 Iron 175 H TIBC 425 % Saturation 41 Nely Transferrin Receptr Pending Ferritin 623.00 H Vitamin B12 830.0 Methylmalonic Acid Pending Folate 17.1 Discharge Plan Discharge Attending physician on discharge: Shun Masters Consulting providers: Stef Carreon Discharging Clinician: Eboni Hall Patient Disposition: Home, Self-Care Activity: as tolerated Diet: regular Discharge Instructions: Please make an outpatient follow up appointment with [facility] for further work up for anemia. [phone]. Continue oral iron twice daily with vitamin c 500mg daily. Discharge disposition: Take medications as prescribed Advise iron supplementation as an outpatient. To help with constipation can take MiraLax or Colace tablet as needed. Please take Vitamin C with iron supplement Do not take Iron supplement with milk Monitor blood pressures Avoid social areas, you wear a mask when in social settings Encouraged to continue with yearly vaccinations Return to the emergency department if he developed sudden shortness of breath, chest pain, dizziness, loss of consciousness, nausea, vomiting, upset stomach or intractable diarrhea Return to the emergency department if you develop fever greater than 100.4 Outpatient labs ordered and advise repeat labs in 1 week. Can follow up with PCP or GI reguarding lab results. Please follow-up with GI as an outpatient.
[2023-03-30 05:06] LABS: Methylmalonic Acid 145 nmol/L (87-318)
[2023-03-31 18:41] LABS: Soluble Transferrin Receptor 8.01 mg/L (0.76-1.76)
== END 2023-03-27 12:00 | disposition home or self-care (01) | DRG 812 ==
LOC: ANHED 13:45 → ANH2MED 15:42
PROVIDERS: Emergency Medicine; Internal Medicine; Nurse Practitioner; Nurse Practitioner Family; Physician Assistant; Admitting Provider Internal Medicine; Emergency Provider Emergency Medicine; PCP Family Medicine Adolescent Medicine; Visit Provider Internal Medicine Critical Care Medicine
DX: D50.9 Iron deficiency anemia, unspecified (principal); I48.20 Chronic atrial fibrillation, unspecified; K59.00 Constipation, unspecified; E03.9 Hypothyroidism, unspecified; G47.33 Obstructive sleep apnea (adult) (pediatric); I50.9 Heart failure, unspecified; Z20.822 Contact with and (suspected) exposure to COVID-19; E78.5 Hyperlipidemia, unspecified; Z66 Do not resuscitate; Z79.01 Long term (current) use of anticoagulants; Z95.0 Presence of cardiac pacemaker; Z87.891 Personal history of nicotine dependence; Z91.198 Patient's noncompliance with other medical treatment and regimen for other reason
CPT/HCPCS: 36415; 36430; 71046; 80048; 80053; 82274; 82607; 82728; 82746; 83540; 83550; 83690; 83735; 83880; 83921; 84132; 84238; 84439; 84443; 84480; 84484; 85014; 85018; 85025; 85027; 85046; 85610; 85730; 86850; 86900; 86901; 86920; 87636; 93005; 96361; 96365; 96366; 96367; 96375; 99285; A9270; G0378; J1756; J1940; J3475; J3480; J7040; J7050; P9016

== ENCOUNTER 2023-05-09 00:13 | Day surgery (SDC) | payer MEDICARE, MEDICAID, SELFPAY ==
[2023-04-27 13:50] VITALS: BMI 48.7
--- NOTE | 2023-05-07 12:02 | SUR.PREOP ---
Patient called regarding upcoming procedure. Reviewed preop instructions, appointment times, and procedure prep.
--- NOTE | 2023-05-08 15:20 | PM.HPGS ---
History of Present Illness History of Present Illness Consent: Risks, benefits, and alternatives have been discussed and questions answered. Patient agrees to proceed with procedure. Chief complaint: Iron Deficiency Anemia Narrative: Michelle Odom is a 62 year old female Was recently admitted for severe anemia. She received 3 units of blood. Hemoglobin was 5.0 before transfusion. When she was admitted in February a stool Hemoccult done by the emergency room physician was negative. Review of Systems Review of Systems: All systems reviewed & are unremarkable except as noted in HPI and below PMFSH Past Medical History Medical History Chronic anticoagulation Chronic atrial fibrillation Congestive heart failure Diverticulitis Dyslipidemia Hypothyroidism Obstructive sleep apnea on CPAP Surgical History Surgical History History of permanent cardiac pacemaker placement (09/2016) Biotronik dual chamber pacemaker implant by Dr. Garvey Family History Family History Mother Acute myocardial infarction, Onset Age: 73 Cerebrovascular accident, Onset Age: 73 Diabetes mellitus Father Multiple myeloma Social History Social History Social History: Surrogate medical decision maker: Gracy Banuelos, friend. Code status: Do not resuscitate. Years smoked: 35 Smoking status: Former smoker Tobacco type: cigarettes Alcohol intake: current Alcohol use details: Social alcohol use in moderation. Substance use: never Substance use type: does not use Lack of Transportation: No Lack of Food: Never True Current Housing: I Have Housing Concerned About Future Housing: No Difficulty Paying Gas/Electric Bills: No Difficulty Paying for Meds: No Currently Unemployed: No Education: High School Diploma/GED Difficulty w/ Childcare or Family Care: No Living arrangements: with family Additional living arrangements comments: The patient lives alone. She has no children. Caregiver comes in 3 days weak. Spiritual care concerns: No Meds Home Medications and Allergies Home Medications Medication Instructions Recorded Confirmed Type Vitamin D2 50,000 units PO WEEKLY 03/23/23 05/09/23 History acetaminophen 1,000 mg PO Q6H PRN Pain (Scale 03/23/23 05/09/23 History Score 1-3) bumetanide 2 mg tablet 2 mg PO DAILY 03/23/23 05/09/23 History diltiazem HCl 360 mg capsule,24 360 mg PO DAILY 03/23/23 05/09/23 History hr,extended release folic acid 1,000 mcg PO DAILY 03/23/23 05/09/23 History levothyroxine 25 mcg tablet 25 mcg PO DAILY 03/23/23 05/09/23 History potassium chloride 20 mEq 20 meq PO BID 03/23/23 05/09/23 History tablet,extended release rivaroxaban 20 mg tablet (Xarelto) 20 mg PO DAILY 03/23/23 05/09/23 History ascorbic acid (vitamin C) 500 mg 500 mg PO DAILY #30 tabs 03/27/23 05/09/23 Rx tablet (Vitamin C) ferrous sulfate 325 mg (65 mg 325 mg PO BID #60 tabs 03/27/23 05/09/23 Rx iron) tablet,delayed release dapagliflozin propanediol 10 mg 10 mg PO DAILY 04/27/23 05/09/23 History tablet (Farxiga) Allergies Allergy/AdvReac Type Severity Reaction Status Date / Time amiodarone Allergy Severe Hives Verified 05/09/23 09:11 Exam Const: General: alert Orientation/consciousness: patient oriented x3 Resp: Auscultation: clear to auscultation bilaterally Cardio: Rhythm: regular rhythm GI: GI Palp: Yes Soft to palpation and No Tenderness to palpation present (GI) Neuro: General: patient oriented x3 Assessment and Plan Assessment and plan (1) Microcytic anemia: Code(s): D50.9 - Iron deficiency anemia, unspecified Status: Chronic Assessment and Plan: EGD with possible biopsy or dilatation or cautery.Colonoscopy with
[2023-05-09 09:13] VITALS: BP 138/72; PULSE 85; RESP 18; TEMP 36.2; O2SAT 95; BMI 48.4
[2023-05-09] MEDS: LACTATED RINGERS 1,000 ML 150 ML IV CONT (09:24)
--- NOTE | 2023-05-09 09:30 | WPDANESEPPF ---
Anes - Initial Pre Proc Eval Procedure: Operation Date: 05/09/23 10:30 Proposed Procedures p Esophagogastroduodenoscopy & Colonoscopy - Facundo Loja MD Date/Time: 05/09/23 09:30 Surgeon: Facundo Loja MD Pre Op Diagnosis: Iron Deficiency Anemia Patient Data Age: 62 Gender: F Height: 1.6 m Weight: 124.1 kg Last Vital Signs Temp 97.1 F L 05/09/23 09:13 Pulse 85 05/09/23 09:13 Resp 18 05/09/23 09:13 BP 138/72 05/09/23 09:13 Pulse Ox 95 05/09/23 09:13 O2 Del Method Room Air 05/09/23 09:13 Allergies Allergy/AdvReac Type Severity Reaction Status Date / Time amiodarone Allergy Severe Hives Verified 05/09/23 09:11 Home Medications Medication Instructions Recorded Confirmed Type Vitamin D2 50,000 units PO WEEKLY 03/23/23 05/09/23 History acetaminophen 1,000 mg PO Q6H PRN Pain (Scale 03/23/23 05/09/23 History Score 1-3) bumetanide 2 mg tablet 2 mg PO DAILY 03/23/23 05/09/23 History diltiazem HCl 360 mg capsule,24 360 mg PO DAILY 03/23/23 05/09/23 History hr,extended release folic acid 1,000 mcg PO DAILY 03/23/23 05/09/23 History levothyroxine 25 mcg tablet 25 mcg PO DAILY 03/23/23 05/09/23 History potassium chloride 20 mEq 20 meq PO BID 03/23/23 05/09/23 History tablet,extended release rivaroxaban 20 mg tablet (Xarelto) 20 mg PO DAILY 03/23/23 05/09/23 History ascorbic acid (vitamin C) 500 mg 500 mg PO DAILY #30 tabs 03/27/23 05/09/23 Rx tablet (Vitamin C) ferrous sulfate 325 mg (65 mg 325 mg PO BID #60 tabs 03/27/23 05/09/23 Rx iron) tablet,delayed release dapagliflozin propanediol 10 mg 10 mg PO DAILY 04/27/23 05/09/23 History tablet (Farxiga) Patient hx anesthesia problems: none Family hx anesthesia problems: none Results Review: All pre-operative results and documents have been reviewed as part of the pre-operative evaluation. [facility] Past Medical History Medical History (Updated 04/02/23 @ 22:18 by Britney Vallejo MD) Chronic anticoagulation Chronic atrial fibrillation Congestive heart failure Diverticulitis Dyslipidemia Hypothyroidism Obstructive sleep apnea on CPAP Surgical History Surgical History (Updated 03/26/23 @ 12:23 by Raisa Burton APRN) History of permanent cardiac pacemaker placement (09/2016) Biotronik dual chamber pacemaker implant by Dr. Garvey Family History Family History Mother Acute myocardial infarction, Onset Age: 73 Cerebrovascular accident, Onset Age: 73 Diabetes mellitus Father Multiple myeloma Social History Social History (Updated 03/23/23 @ 15:51 by Sumaya Hyatt PA-C) Social History: Surrogate medical decision maker: Gracy Ramyr, friend. Code status: Do not resuscitate. Years smoked: 35 Smoking status: Former smoker Tobacco type: cigarettes Alcohol intake: current Alcohol use details: Social alcohol use in moderation. Substance use: never Substance use type: does not use Lack of Transportation: No Lack of Food: Never True Current Housing: I Have Housing Concerned About Future Housing: No Difficulty Paying Gas/Electric Bills: No Difficulty Paying for Meds: No Currently Unemployed: No Education: High School Diploma/GED Difficulty w/ Childcare or Family Care: No Living arrangements: with family Additional living arrangements comments: The patient lives alone. She has no children. Caregiver comes in 3 days weak. Spiritual care concerns: No Anes - Eval Final PreProcedure Day of Procedure 05/09/23 09:30 Patient weight: morbidly obese Heart: irregular rhythm Lungs: clear to auscultation Airway: Mallampati scale Neurological: alert and oriented Last oral intake: >/= 8 hours ASA classification: III Emergent: no Anesthetic plan: proceed Anesthesia type and monitoring: general GIVS and standard monitoring Results Review: All pre-operative results and documents hav
--- NOTE | 2023-05-09 10:49 | SUR.OPER ---
EGD: Start 10:39, End 10:44 Colonoscopy: Start 10:49, End 10:59
[2023-05-09 11:08] VITALS: BP 106/62; PULSE 59; RESP 20; O2SAT 92
[2023-05-09 11:18] VITALS: BP 108/64; PULSE 52; RESP 18; O2SAT 92
[2023-05-09 11:28] VITALS: BP 115/75; PULSE 52; RESP 16; O2SAT 94
== END 2023-05-09 11:46 | disposition home or self-care (01) ==
PROVIDERS: PCP Internal Medicine; Visit Provider Internal Medicine Gastroenterology
PROC: 0DJ08ZZ Inspection of Upper Intestinal Tract, Via Natural or Artificial Opening Endoscopic (ICD-10-PCS; CPT 43235; principal; 2023-05-09 10:30)
DX: D50.9 Iron deficiency anemia, unspecified (principal); K57.30 Diverticulosis of large intestine without perforation or abscess without bleeding; K64.8 Other hemorrhoids; K21.00 Gastro-esophageal reflux disease with esophagitis, without bleeding; K29.70 Gastritis, unspecified, without bleeding; I48.20 Chronic atrial fibrillation, unspecified; I50.9 Heart failure, unspecified; E78.5 Hyperlipidemia, unspecified; E03.9 Hypothyroidism, unspecified; G47.33 Obstructive sleep apnea (adult) (pediatric); Z79.01 Long term (current) use of anticoagulants; Z79.84 Long term (current) use of oral hypoglycemic drugs; Z95.0 Presence of cardiac pacemaker; Z87.891 Personal history of nicotine dependence; E66.01 Morbid (severe) obesity due to excess calories; Z68.42 Body mass index [BMI] 45.0-49.9, adult
CPT/HCPCS: 45378; 43239; 88305; J2704; J7120

== ENCOUNTER 2023-06-13 09:21 | Outpatient (CLI) | payer MEDICARE, MEDICAID, SELFPAY ==
[2023-06-13 09:44] LABS: Hematocrit 44.2 % (37.0-47.0); Hemoglobin 14.7 g/dL (12.0-15.0); Mean Corpuscular HGB Conc 33.3 g/dl (32-36); Mean Corpuscular Hemoglobin 32.3 pg (26-34); Mean Corpuscular Volume 97.1 fl (80-100); Mean Platelet Volume 10.2 fl (7.4-10.4); Platelet Count Result 162 k/mm3 (150-375); Red Blood Count 4.55 M/mm3 (4.2-5.4); Red Cell Distribution Width 21.7 % (11.5-14.5); White Blood Count 4.2 K/mm3 (4.5-10.0)
[2023-06-13 15:43] LABS: Iron 121 ug/dL (37-170)
[2023-06-13 15:55] LABS: Anion Gap 7 mmol/L (8-16); Blood Urea Nitrogen 11 mg/dL (7-17); Carbon Dioxide 24 mmol/L (22-30); Chloride 108 mmol/L (98-107); Estimated Glomerular Filt Rate > 60; Glucose 113 mg/dL (65-110); Percent Iron Saturation 38 % (20-50); Potassium 4.8 mmol/L (3.4-5.0); Sodium 139 mmol/L (137-145)
== END 2023-06-13 09:22 | disposition home or self-care (01) ==
LOC: ANHLAB 09:24
PROVIDERS: PCP Internal Medicine; Visit Provider Internal Medicine Hematology & Oncology
DX: D64.9 Anemia, unspecified (principal)
CPT/HCPCS: 36415; 80048; 82607; 82728; 83540; 83550; 85027

== ENCOUNTER 2024-01-10 08:41 | Outpatient (CLI) | payer MEDICARE, MEDICAID, SELFPAY ==
[2024-01-10 11:08] LABS: Basophils Absolute Auto 0.1 K/mm3 (0.0-0.1); Basophils Percent Auto 1.3 % (0.2-1.2); Eosinophils Absolute Auto 0.1 K/mm3 (0-0.3); Eosinophils Percent Auto 2.9 % (0-4.4); Hematocrit 44.1 % (37.0-47.0); Hemoglobin 14.2 g/dL (12.0-15.0); Immature Granulocyte Absolute 0.01 K/mm3 (0.00-0.031); Immature Granulocyte Percent A 0.2 % (0-0.5); Immature Platelet Fraction Pct 6.6 % (0.9-11.2); Lymphocytes Absolute Auto 1.31 K/mm3 (0.9-3.2); Lymphocytes Percent Auto 29.1 % (18.3-44.2); Mean Corpuscular HGB Conc 32.2 g/dl (32-36); Mean Corpuscular Hemoglobin 34.9 pg (26-34); Mean Corpuscular Volume 108.4 fl (80-100); Mean Platelet Volume 11.2 fl (7.4-10.4); Monocytes Absolute Auto 0.7 K/mm3 (0.1-0.6); Monocytes Percent Auto 16.2 % (2.6-8.5); Neutrophils Absolute Auto 2.3 K/mm3 (1.3-6.7); Neutrophils Percent Auto 50.3 % (45.5-73.1); Platelet Count Result 143 k/mm3 (150-375); Red Blood Count 4.07 M/mm3 (4.2-5.4); Red Cell Distribution Width 14.7 % (11.5-14.5); White Blood Count 4.5 K/mm3 (4.5-10.0)
[2024-01-10 11:28] LABS: Iron 106 ug/dL (37-170)
[2024-01-10 11:38] LABS: Percent Iron Saturation 28 % (20-50)
[2024-01-10 13:03] LABS: Platelet Estimate Slightly Decreased (Adequate)
[2024-01-10 13:04] LABS: Anisocytosis 1+; Macrocytosis 1+ (NORMAL); Schistocytes None Seen
== END 2024-01-10 08:42 | disposition home or self-care (01) ==
PROVIDERS: PCP Internal Medicine; Visit Provider Internal Medicine Hematology & Oncology
DX: D64.9 Anemia, unspecified (principal)
CPT/HCPCS: 36415; 82728; 83540; 83550; 85025; 85055

== ENCOUNTER 2024-06-12 09:32 | Outpatient (CLI) | payer MEDICARE, MEDICAID, SELFPAY ==
--- NOTE | ~2024-06-12 | XR_ITS ---
Right Knee Technique: AP and lateral views were obtained. Clinical History: Pain Findings: No fracture or dislocation is seen. There is severe degenerative change of the medial and p atellofemoral compartments, with joint space narrowing and extensive osteophyte formation. There is m oderate degenerative change of the lateral compartment. Soft tissues are unremarkable. No joint effus ion is seen. Impression: Advanced tricompartmental degenerative change of the knee, as detailed above. Reviewed, dictated and finalized at location [facility] Impression: Advanced tricompartmental degenerative change of the knee, as detailed above.
--- NOTE | ~2024-06-12 | XR_ITS ---
Left Knee Technique: AP, lateral, and sunrise views were obtained. Clinical History: Patellofemoral disorder Findings: No fracture or dislocation is seen. Osseous alignment is anatomic. There is moderate tricom partmental degenerative change with tricompartmental osteophyte formation. No joint effusion is seen. Impression: Moderate tricompartmental degenerative change. Reviewed, dictated and finalized at [facility]. E RACE TIMER Impression: Moderate tricompartmental degenerative change.
--- OUTSIDE RECORDS SUMMARY | 2024-06-12 09:57 | XMS_ITS | Patient Health Record ---
Author Organization [facility] Address [address] [place] [address] Care Team Providers Care Grants Specialist Name Role Phone Jahaira Luis Primary Care Provider [phone] Allergies Allergen (clinical drug ingredient) Drug/Non Drug Allergy documented on EMR Reaction Allergy Type Onset Date Status amiodarone Amiodarone Unknown Drug Allergy Activ e codeine Codeine Unknown Drug Allergy Active Results Component Value Reference Range Notes Urinalysis In-House, Routine Reviewed date:12/10/2023 10:38:57 AM Interpretation: Performing Lab: Notes/Report: Urine-Color dark brown Appearance clear Leukocytes small Nitrite, Urine positive Urobilinogen,Semi-Qn 1.0 Protein 30 pH 6.5 Occult Blood small Specific [place] 1.020 Ketones trace Bilirubin small Glucose 250 Hemoglobin A1c CLIA Waived Reviewed date:05/28/2024 09:46:21 AM Interpretation: Performing Lab: Notes/Report: Hemoglobin A1c 5.7 4.0 - 6.4 % CMP 14 Comprehensive Metabol ic Panel* Reviewed date:06/04/2024 05:27:32 PM Interpretation: Performing Lab:[facility] [place], [address] [facility], [place], Phone - [phone], Director - Mak Notes/Report: Glucose 140 70-99 mg/dL BUN 11 8-27 mg/dL Creatinine 0.70 0.57-1.00 mg/dL eGFR 98 >59 mL/min/1.73 BUN/Creatinine Ratio 16 12-28 Sodium 140 134-144 mmol/L Potassium 3.7 3.5-5.2 mmol/L Chloride 99 96-106 mmol/L Carbon Dioxide, Total 22 20-29 mmol/L Calcium 8.8 8.7-10.3 mg/dL Protein, Total 8.0 6.0-8.5 g/dL Albumin 3.4 3.9-4.9 g/dL Globulin, Total 4.6 1.5-4.5 g/dL Bilirubin, Total 3.8 0.0-1.2 mg/dL Alkaline Phosphatase 143 44-121 IU/L AST (SGOT) 104 0-40 IU/L ALT (SGPT) 48 0-32 IU/L C-Reactive Protein, Quant Reviewed date:06/11/2024 04:26:10 PM Interpretation: Performing [facility] [address] [place] [address], Phone - [phone], [facility] Notes/Report: Test(s) 386900-Xuup-Pbjfz/Kidney Ab (RDL) was developed and its performance characteristics determined by [facility]. It has not been cleared or approved by the Food and Drug Administration. C-Reactive Protein, Quant 10 0-10 mg/L Hepatic Function Panel (7)* Reviewed date:06/11/2024 04:26:10 PM Interpretation: Performing Lab:[facility] [address] [facility], Phone - [phone], [facility] Notes/Report: Test(s) 216639-Vutq-Dlkbg/Kidney Ab (RDL) was developed and its performance characteristics determined by [employer] It has not been cleared or approved by the Food and Drug Administration. Protein, Total 7.4 6.0-8.5 g/dL Albumin 3.3 3.9-4.9 g/dL Bilirubin, Total 3.4 0.0-1.2 mg/dL Bilirubin, Direct 1.57 0.00-0.40 mg/dL Alkaline Phosphatase 130 44-121 IU/L AST (SGOT) 134 0-40 IU/L ALT (SGPT) 60 0-32 IU/L Prothrombin Time (PT) Reviewed date:06/11/2024 04:26:10 PM Interpretation: Performing Lab:[facility] [place], [address] [facility], Phone - [phone], [facility] Notes/Report: Test(s) 158092-Uiid-Baqqb/Kidney Ab (RDL) was developed and its performance characteristics determined by [employer]). It has not been cleared or approved by the Food and Drug Administration. INR 1.7 0.9-1.2 Reference interval is for non-anticoagulated patients. . Suggested INR therapeutic range for Vitamin K antagonist therapy: Standard Dose (moderate intensity therapeutic range): 2.0 - 3.0 Higher intensity therapeutic range 2.5 - 3.5 Prothrombin Time 18.3 9.1-12.0 sec Anti-liver/kidney Ab (LKM-1) Reviewed date:06/11/2024 04:26:10 PM Interpretation: Performing Lab:[facility], Phone - [phone], Director - [facility] Notes/Report: Test(s) 391389-Jhor-Wipcc/Kidney Ab (RDL) was developed and its performance characteristics determined by [employer] It has not been cleared or approved by the Food and Drug Administration. Anti-Liver/Kidney Ab (RDL) <20 <20 Units Negative: <20 Equivocal: 20 - 25 Positive: >25 Lipid Panel* Reviewed date:06/04/2024 05:27:32 PM Interpretation: Performing Lab:[facility], Phone - [phone], Director - [facility] Notes/Report: Cholesterol, Total 126 100-199 mg/dL Triglycerides 119 0-149 mg/dL HDL Cholesterol 28 >39 mg/dL VLDL Cholesterol Wilner 22 5-40 mg/dL LDL Chol Calc ([facility]) 76 0-99 mg/dL TSH Rfx on Abnormal to Free T4 Reviewed date:06/04/2024 05:27:32 PM Interpretation: Performing Lab:[facility], Phone - [phone], Director - [facility] Notes/Report: TSH 2.930 0.450-4.500 uIU/mL CBC With Differential/Platel et* Reviewed date:06/04/2024 05:27:32 PM Interpretation: Performing Lab:[facility], Phone - [phone], Director - [facility] Notes/Report: WBC 7.3 3.4-10.8 x10E3/uL RBC 3.72 3.77-5.28 x10E6/uL Hemoglobin 11.4 11.1-15.9 g/dL Hematocrit 35.8 34.0-46.6 % MCV 96 79-97 fL MCH 30.6 26.6-33.0 pg MCHC 31.8 31.5-35.7 g/dL RDW 19.0 11.7-15.4 % Platelets 167 150-450 x10E3/uL Neutrophils 69 Not Estab. % Lymphs 17 Not Estab. % Monocytes 12 Not Estab. % Eos 1 Not Estab. % Basos 1 Not Estab. % Neutrophils (Absolute) 5.1 1.4-7.0 x10E3/uL Lymphs (Absolute) 1.3 0.7-3.1 x10E3/uL Monocytes(Absolute) 0.8 0.1-0.9 x10E3/uL Eos (Absolute) 0.0 0.0-0.4 x10E3/uL Baso (Absolute) 0.1 0.0-0.2 x10E3/uL Immature Granulocytes 0 Not Estab. % Immature Grans (Abs) 0.0 0.0-0.1 x10E3/uL Iron and TIBC* Reviewed date:06/04/2024 05:27:32 PM Interpretation: Performing Lab:[facility] [address], Phone - [phone], Director - [facility] Notes/Report: Iron Bind.Cap.(TIBC) 353 250-450 ug/dL UIBC 210 118-369 ug/dL Iron 143 27-139 ug/dL Iron Saturation 41 15-55 % HIV Screen *HIV 1, 2 Ab, p24 Ag Reviewed date:06/04/2024 05:27:32 PM Interpretation: Performing Lab:[facility] [place], [address] [place], [place] [address] [facility], Phone - [phone], Director - [facility] Notes/Report: HIV Ab/p24 Ag Screen Non Reactive Non Reactive HIV-1/HIV-2 antibodies and HIV-1 p24 antigen were NOT detected. There is no laboratory evidence of HIV infection. HIV Negative Hepatitis B Surface Antigen (HBsAg Screen) Reviewed date:06/04/2024 05:27:32 PM Interpretation: Performing Lab:[facility] [address] [place] [address], Phone - [phone], Director - Mak Notes/Report: HBsAg Screen Negative Negative Hepatitis C Virus Antibody w /Rflx to Quantitative Real-time PCR ([id number]) Reviewed date:06/04/2024 05:27:32 PM Interpretation: Performing Lab:[facility] [place], [address] [facility], Phone - [phone], Director - Mak Notes/Report: HCV Ab Non Reactive Non Reactive Interpretation: Not infected with HCV unless early or acute infection is suspected (which may be delayed in an immunocompromised individual), or other evidence exists to indicate HCV infection. Reason For Referral Reason [facility] [place] Diagnosis 1 Chronic diastolic co ngestive heart failure (I50.32) Referral Organization [facility] Referring Provider First Name Luis Referring Provider Last Name Jahaira Referring Provider Speciality Internal edicine Referred Provider Specialty Cardiology General Notes Kat Geronimo 01:56:02 PM >Referral Faxed., Kat Geronimo 06/29/2023 01:58:17 PM >Referral Letter & message sent to client Clinical Notes [facility], [address], [place] [address], , New Pt , Referral Priority Routine 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 Kirby in [facility] . Referral sent to Dr. Kirby and Letter to patient. Clinical Notes Dr. Inder Kirby, [address], [address], [facility] [address], , Referral Priority Routine Reason BILATERAL KNEE PAIN, SUSPECTED PATELLOFEMORAL SYNDROME Diagnosis 1 Patellofemoral disor ders, unspecified knee (M22.2X9) Referral Organization [facility] Referring Provider First Name Luis Referring Provider Last Name Jahaira Referring Provider Speciality Internal M edicine Referred Provider Specialty Orthopedic S urgery Referral Priority Routine Reason ABNL and worsening L FT's. Diagnosis 1 Abnormal liver enzym es (R74.8) Referral Organization [facility] Referring Provider First Name Luis Referring Provider Last Name Jahaira Referring Provider Speciality Internal M edicine Referred Provider Specialty Gastroentero logy Referral Priority Routine Medications Medication SIG (Take, Route, Frequency, Duration) Notes Start Date End Date Status Semaglutide 3 MG 1 tablet Orally daily for 30 days stop acetaminophen and iron 05/28/2024 Active Farxiga 10 MG 1 tablet Orally Once a day for 30 days Active Folic Acid 1 MG 1 tablet Orally Once a day Not-Taking hydrOXYzine Pamoate 25 MG 1 capsule Orally every 6 hours for 15 days As needed itching 06/04/2024 Active Klor-Con M20 20 MEQ 2 TABLETS Orally twice a day Active Omeprazole 40 MG 1 capsule 30 minutes before morning meal Orally Once a day for 30 day(s) 05/23/2023 Active Cyproheptadine HCl 4 MG 1 tablet Orally at night for 30 days As needed itching stop acetaminophen and iron Active Bumetanide 2 MG 1 tablet Orally TWICE DAILY Active Macrobid 100 MG 1 capsule with food Orally twice a day for 5 12/10/2023 Active Xarelto 20 MG 1 tablet with food Orally Once a day for 30 days Active Levothyroxine Sodium 50 MCG 1 tablet in the morning on an empty stomach Orally Once a day for 30 days Active dilTIAZem HCl ER 360 MG 1 capsule Orally Once a day for 30 days Active Ergocalciferol 1.25 MG (01535 UT) 1 capsule Orally weekly Active Baclofen 10 MG 1 tablet as needed Orally Twice a day for 7 days As needed pain 02/15/2024 Active Immunizations Vaccine Route Administration Date Status Comme nts FLU VAC NO PRSV 4VAL 6 mo+ IM Intramuscular 02/07/2023 Adm inistered Social History Tobacco Use: Social History Observation Description Date Details (start date - stop date) Never Smoker NA - NA Sex Assigned At : Social History Observation Description Sex Assigned At Female Dont use, Tobacco Use/Smoking Question Answer Notes Are you a nonsmoker Tobacco Control (Standard) Question Answer Notes Tobacco use: Nonsmoker Problems Problem Type SNOMED Code ICD Code Onset Dates Problem Status W/U Status Risk Notes Problem Morbid obesity (disorder) (699400870) Morbid (severe) obesity due to excess calories (E66.01) Active confirmed Problem Disorder of patellofemoral joint (342853753) Patellofemoral disorders, unspecified knee (M22.2X9) Active confirmed Problem Hyperlipidemia (10461759) Hyperlipidemia (E78.5) Active confirmed Problem Vitamin D deficiency (10412576) Vitamin D deficiency (E55.9) Active confirmed Problem Iron deficiency anemia (75579477) Iron deficiency anemia (D50.9) Active confirmed Problem Restless legs syndrome (44318104) Restless leg syndrome (G25.81) 01/11/20 Active confirmed Problem Chronic fatigue syndrome (05119547) Chronic fatigue (R53.82) Active confirmed Problem Atrial fibrillation (35319291) Atrial fibrillation (I48.91) Active confirmed Problem Disorder caused by alcohol (disorder) (721887842) Alcohol use disorder (F10.99) Active confirmed Problem Obstructive sleep apnea syndrome (82410582) BHAVIN on CPAP (G47.33) Active confirmed Problem Type II diabetes mellitus without complication (639095884) Controlled type 2 diabetes mellitus without complication, without long-term current use of insulin (E11.9) 01/11/20 Active confirmed Problem Hypothyroidism (67348415) Hypothyroidism (acquired) (E03.9) Active confirmed Problem Chronic diastolic heart failure (716822483) Chronic diastolic congestive heart failure (I50.32) 01/11/20 Active confirmed Vital Signs Heart Rate 98 /min 05/28/2024 Temperature 97.2 degrees Fahrenheit 12/10/2023 Respiratory Rate 16 /min 05/28/2024 Blood pressure diastolic 80 mm Hg 05/28/2024 Oximetry 95 % 05/28/2024 Height 63 in 05/28/2024 Blood pressure systolic 122 mm Hg 05/28/2024 Weight 303.0 lbs 05/28/2024 BMI 53.67 kg/m2 05/28/2024 Encounters Encounter Location Date Provider Diagnosis [address] [place] [address] 12/10/2023 Luis Campo [address] [place] [address] 06/04/2024 Luis Campo [address] [address] 06/27/2023 Luis Campo Chronic diastolic congestive heart failure I50.32 ; Atrial fibrillation I48.91 ; Controlled type 2 diabetes mellitus without complication, without long-term current use of insulin E11.9 ; Hyperlipidemia E78.5 ; Vitamin D deficiency E55.9 ; Alcohol use disorder F10.99 ; Iron deficiency anemia D50.9 and Hypothyroidism (acquired) E03.[address] [place] [address] 12/10/2023 Luis Campo UTI (urinary tract infection) N39.0 ; Chronic diastolic congestive heart failure I50.32 ; Atrial fibrillation I48.91 ; Controlled type 2 diabetes mellitus without complication, without long-term current use of insulin E11.9 ; Hyperlipidemia E78.5 ; Nutritional counseling Z71.3 ; Restless leg syndrome G25.81 ; Chronic fatigue R53.82 ; Hypothyroidism (acquired) E03.9 and Vitamin D deficiency E55.[address] [address] 05/28/2024 Luis Campo Controlled type 2 diabetes mellitus without complication, without long-term current use of insulin E11.9 ; Patellofemoral disorders, unspecified knee M22.2X9 ; Chronic diastolic congestive heart failure I50.32 ; Hyperlipidemia E78.5 ; Atrial fibrillation I48.91 ; Hypothyroidism (acquired) E03.9 ; Restless leg syndrome G25.81 ; Exposure to potential infection Z20.9 ; Abnormal liver enzymes R74.8 ; Screening for colon cancer Z12.11 ; Breast cancer screening by mammogram Z12.31 and Pruritus L29.[address] [place] [address] 07/06/2023 Luis Campo [address] [place] [address] 07/27/2023 Luis Campo [place] [address] [address] [place] [address] 06/18/2023 Luis Campo [address] [address] 07/10/2023 Luis Campo [address] [address] 07/19/2023 Luis Campo [address] [address] 09/17/2023 Luis Campo BHAVIN on CPAP G47.[address] [address] 10/08/2023 Luis Campo Controlled type 2 diabetes mellitus without complication, without long-term current use of insulin E11.[address] [address] 01/03/2024 Luis Campo Atrial fibrillation I48.[address] [address] 02/05/2024 Luis Campo Atrial fibrillation I48.[address] [address] 02/15/2024 Luis Campo [address] [address] 05/28/2024 Luis Campo [address] [address] 05/29/2024 Luis Campo Abnormal liver enzym es R74.8 and Patellofemoral disorders, unspecified knee M22.2X9 [address] [address] 06/04/2024 Luis Campo Pruritus L29.9 Assessments Encounter Date Diagnosis (ICD Code) Assessment Notes Treatment Notes Treatment Clinical Notes Section Notes 05/29/2024 Abnormal liver enzymes (ICD-10 - R74.8) 06/04/2024 Pruritus (ICD-10 - L29.9) 02/05/2024 Atrial fibrillation (ICD-10 - I48.91) 01/03/2024 Atrial fibrillation (ICD-10 - I48.91) 05/28/2024 Controlled type 2 diabetes mellitus without complication, without long-term current use of insulin (ICD-10 - E11.9) 06/27/2023 Atrial fibrillation (ICD-10 - I48.91) 06/27/2023 Chronic diastolic congestive heart failure (ICD-10 - I50.32) DISCUSSED DIET, ACTIVITY, MED SCHEDULE. 09/17/2023 BHAVIN on CPAP (ICD-10 - G47.33) 10/08/2023 Controlled type 2 diabetes mellitus without complication, without long-term current use of insulin (ICD-10 - E11.9) 12/10/2023 UTI (urinary tract infection) (ICD-10 - N39.0) 12/10/2023 Chronic diastolic congestive heart failure (ICD-10 - I50.32) 05/28/2024 Patellofemoral disorders, unspecified knee (ICD-10 - M22.2X9) 05/29/2024 Patellofemoral disorders, unspecified knee (ICD-10 - M22.2X9) 06/27/2023 Controlled type 2 diabetes mellitus without complication, without long-term current use of insulin (ICD-10 - E11.9) 12/10/2023 Atrial fibrillation (ICD-10 - I48.91) 05/28/2024 Chronic diastolic congestive heart failure (ICD-10 - I50.32) 12/10/2023 Controlled type 2 diabetes mellitus without complication, without long-term current use of insulin (ICD-10 - E11.9) 05/28/2024 Hyperlipidemia (ICD-10 - E78.5) 06/27/2023 Hyperlipidemia (ICD-10 - E78.5) 12/10/2023 Hyperlipidemia (ICD-10 - E78.5) 05/28/2024 Atrial fibrillation (ICD-10 - I48.91) 05/28/2024 Hypothyroidism (acquired) (ICD-10 - E03.9) 12/10/2023 Nutritional counseling (ICD-10 - Z71.3) 06/27/2023 Vitamin D deficiency (ICD-10 - E55.9) 06/27/2023 Alcohol use disorder (ICD-10 - F10.99) 05/28/2024 Restless leg syndrome (ICD-10 - G25.81) 12/10/2023 Restless leg syndrome (ICD-10 - G25.81) 12/10/2023 Chronic fatigue (ICD-10 - R53.82) 06/27/2023 Iron deficiency anemia (ICD-10 - D50.9) 05/28/2024 Exposure to potential infection (ICD-10 - Z20.9) 05/28/2024 Abnormal liver enzymes (ICD-10 - R74.8) 12/10/2023 Hypothyroidism (acquired) (ICD-10 - E03.9) 06/27/2023 Hypothyroidism (acquired) (ICD-10 - E03.9) 12/10/2023 Vitamin D deficiency (ICD-10 - E55.9) 05/28/2024 Screening for colon cancer (ICD-10 - Z12.11) 05/28/2024 Breast cancer screening by mammogram (ICD-10 - Z12.31) 05/28/2024 Pruritus (ICD-10 - L29.9) Plan Of Treatment Future Test Test Name Order Date Xray : Knee, left 2 views 05/28/2024 Xray : Knee, right 2 views 05/28/2024 Ultrasound : Right Upper Quadrant 2024 Insurance Providers Payer Name Payer Address Payer Phone Subscriber Number Group Number Insured Name Patient Relationship to Insured Coverage Start Date Coverage End Date MEDICARE PART A [address] [place] [phone] [id number] Sarah Odom Self - patient is the insured 9 MEDICAID [address] [place] [address] [id number] Sarah Odom Self - patient is the insured 9 Medical (General) History Surgical History Surgery Date(Month/Year) Hospitalization History Reason Date(Month/Year) Fluid in chest 12/2021 Pacemaker 2017
--- OUTSIDE RECORDS SUMMARY | 2024-06-12 09:57 | XMS_ITS | Data Portability ---
Author Organization [facility] CTPatti Barth Address [address] [place] [address] Assessment No assessment recorded. Plan of Treatment Reminders Order Date Submit Date Provider Last Modified By Organization Details Last Modified Time Details Appointments None recorded. Lab afp (alpha-fet oprotein) tumor marker, serum or plasma 2016 KIRSTY CADET, [facility], [place], [address], 7 06:16:09 lipid panel, serum 2016 017 KIRSTY SCHULZRP, [address] [facility] [address], [address], [place], [address], 7 06:16:08 CMP, serum or plasma 2016 017 KIRSTY CADET, [address] [facility] [address], [address], [place], [address], 7 06:16:07 unlisted lab - compliance drug analysis, ur 2016 017 KIRSTY LABTELLYRP, [address] [facility] [address], [address], [place], [address], 7 06:16:06 PT/PTT, plasma 2016 017 KIRSTY CADET, [address] [facility] [address], [address], [place], [address], 7 06:16:08 Referral home health referral - Please call patient to schedule appt. Thank you 2018 019 [facility], 7 [facility], [place], [address], 0 13:57:29 gastroente rologist referral - Please call patient to schedule appt. Thank you 2016 017 kathe Sommer MD, [address] [place], [address], 7 14:26:30 Procedures None recorded. Surgeries None recorded. Imaging None recorded. Medication Orders folic acid 1 mg tablet 2018 019 [facility], [address] [place], [address], 9 13:57:40 thiamine HCl (vitamin B1) 100 mg tablet 2018 019 [facility], [address] [place], [address], 9 13:57:42 Ativan 1 mg tablet 2018 019 [facility] [address], [address] [place], [address], 9 13:37:34 Ativan 1 mg tablet 2018 019 [facility] [address], [address] [place], [address], 9 13:37:34 hydroxyzin e HCl 25 mg tablet 2018 019 [facility] [address], [address] [place], [address], 9 13:57:41 baclofen 10 mg tablet 2016 017 [email or web address] [address], [address] [place], [address], 9 12:40:50 thiamine HCl (vitamin B1) 100 mg tablet 2016 017 [facility], [address] [place], [address], 7 16:01:05 folic acid 1 mg tablet 2016 017 [email or web address] [address], [address] [place], [address], 9 12:40:41 Patient TargetsNo targets recorded. Patient Instructions Encounter Date Encounter Id Patient Instructions Last Modified By Organization Details Last Modified Time 02/08/2017 [id number] influenza (flu) vaccine: care instructions [facility] Not available 02/08/2017 15:58:10 knee arthritis: care instructions [facility] Not available 02/08/2017 15:58:10 mammogram: about this test si Not available 02/08/2017 15:58:09 deciding about using medicines to quit smoking si Not available 02/08/2017 15:58:09 Quitting Tobacco : Care Instructions [facility] Not available 02/08/2017 15:58:09 substance use disorder: care instructions [facility] Not available 02/08/2017 15:58:10 chronic obstructive pulmonary disease (COPD): care instructions [facility] Not available 02/08/2017 15:58:10 learning about copd and how to prevent lung infections [facility] Not available 02/08/2017 15:58:10 sleep apnea: car e instructions [facility] Not available 02/08/2017 15:58:09 12/18/2018 [id number] substance use disorder: care instructions [facility] Not available 12/18/2018 13:37:15 Reason for Referral Please call patient to sched e appt. Thank you Referring Physician: Lorena Rios, Internal Medicine, Encounter Date: 02/08/2017 Home Health Referral for Alc oholism Please call patient to schedule appt. Thank you Referring Physician: Lorena Rios, Internal Medicine, Encounter Date: 12/18/2018 Results Created Date Observation Date Name Description Value Unit Range Abnormal Flag Note LastModifiedBy Organization Detail LastModifiedTime 02/09/20 17 02/14/2017 drug scree n, urine summary FINAL ===== ===== ===== ===== ===== ===== ===== ===== ===== ===== ===== ===== ===== === TOXAS SURE COMP DRUG EDWARD SIS,U R ===== ===== ===== ===== ===== ===== ===== ===== ===== ===== ===== ===== ===== === Test Resul t Flag Units Drug Prese nt Cital opram PRESE NT Desme thylc alexandra pram PRESE NT Desme thylc alexandra pram is an expec laina metab olite of cital opram or the enant iomer ic form, escit alopr am. Aceta minop hen PRESE NT Dilti azem PRESE NT ===== ===== ===== ===== ===== ===== ===== ===== ===== ===== ===== ===== ===== === Test Resul t Flag Units Ref Range Creat inine 92 mg/dL >=20 ===== ===== ===== ===== ===== ===== ===== ===== ===== ===== ===== ===== ===== === Decla red Medic ation s: Medic ation list was not provi ded. ===== ===== ===== ===== ===== ===== ===== ===== ===== ===== ===== ===== ===== === For clini jose consu ltati on, plezan e call . ===== ===== ===== ===== ===== ===== ===== ===== ===== ===== ===== ===== ===== === Not Available [facility] [address] [facility] [address], [place], [address], 02/15/2017 06:16:06 02/09/20 17 02/14/2017 drug scree n, urine pdf . Not Available [facility] [address] [facility], [place], [address], 02/15/2017 06:16:06 02/09/2002/09/2017 CMP, serum or plasm a glucose, serum TNP Test not perfo rmed Not Available [facility] ([facility]) [address] [place], [address], 02/15/2017 06:16:07 02/09/2002/09/2017 CMP, serum or plasm a BUN TNP mg/dL No urine speci men recei alexandra. Not Available [facility] ([facility]) [address] [place], [address], 02/15/2017 06:16:07 02/09/2002/09/2017 CMP, serum or plasm a creatinine, serum TNP Test not perfo rmed Not Available [facility] ([facility]) [address] [place], [address], 02/15/2017 06:16:07 02/09/2002/09/2017 CMP, serum or plasm a eGFR if nonafricn AM TNP mL/mi n/1.7 3 Unabl e to calcu late resul t since non-n umeri c resul t obtai joe for compo nent test. Not Available [facility] ([facility]) [address] [place], [address], 02/15/2017 06:16:07 02/09/20 17 02/09/2017 CMP, serum or plasm a eGFR if africn AM TNP mL/mi n/1.7 3 Unabl e to calcu late resul t since non-n umeri c resul t obtai joe for compo nent test. Not Available [facility] ([facility]) [address] [facility], [place], [address], 02/15/2017 06:16:07 02/09/20 17 02/09/2017 CMP, serum or plasm a BUN/creatini ne ratio TNP No urine speci men recei alexandra. Not Available [facility] ([facility]) [address] [place], [address], 02/15/2017 06:16:07 02/09/20 17 02/09/2017 CMP, serum or plasm a sodium, serum TNP Test not perfo rmed Not Available [facility] ([facility]) [address] [place], [address], 02/15/2017 06:16:07 02/09/2002/09/2017 CMP, serum or plasm a potassium, serum TNP Test not perfo rmed Not Available [facility] ([facility]) [address] [place], [address], 02/15/2017 06:16:07 02/09/2002/09/2017 CMP, serum or plasm a chloride, serum TNP Test not perfo rmed Not Available [facility] ([facility]) [address] [place], [address], 02/15/2017 06:16:07 02/09/2002/09/2017 CMP, serum or plasm a carbon dioxide, total TNP mmol/ L No urine speci men recei alexandra. Not Available [facility] ([facility]) [address] [place], [address], 02/15/2017 06:16:07 02/09/2002/09/2017 CMP, serum or plasm a calcium, serum TNP Test not perfo rmed Not Available [facility] ([facility]) [address] [place], [address], 02/15/2017 06:16:07 02/09/2002/09/2017 CMP, serum or plasm a protein, total, serum TNP Test not perfo rmed Not Available [facility] ([facility]) [address] [facility], [place], [address], 02/15/2017 06:16:07 02/09/2002/09/2017 CMP, serum or plasm a albumin, serum TNP Test not perfo rmed Not Available [facility] ([facility]) [address] [place], [address], 02/15/2017 06:16:07 02/09/2002/09/2017 CMP, serum or plasm a globulin, total TNP g/dL Unabl e to calcu late resul t since non-n umeri c resul t obtai joe for compo nent test. Not Available [facility] ([facility]) [address] [facility], [place], [address], 02/15/2017 06:16:07 02/09/2002/09/2017 CMP, serum or plasm a A/G ratio TNP No urine speci men recei alexandra. Not Available [facility] ([facility]) [address] [facility], [place], [address], 02/15/2017 06:16:07 02/09/2002/09/2017 CMP, serum or plasm a bilirubin, total TNP Test not perfo rmed Not Available [facility] ([facility]) [address] [place], [address], 02/15/2017 06:16:07 02/09/2002/09/2017 CMP, serum or plasm a alkaline phosphatase, S TNP Test not perfo rmed Not Available [facility] ([facility]) [address] [facility], [place], [address], 02/15/2017 06:16:07 02/09/2002/09/2017 CMP, serum or plasm a AST (SGOT) TNP IU/L No urine speci men recei alexandra. Not Available [facility] ([facility]) [address] [facility], [place], [address], 02/15/2017 06:16:07 02/09/2002/09/2017 CMP, serum or plasm a ALT (SGPT) TNP Test not perfo rmed Not Available [facility] ([facility]) [address] [facility], [place], [address], 02/15/2017 06:16:07 02/09/2002/09/2017 lipid panel , serum cholesterol, total TNP mg/dL No urine speci men recei alexandra. Not Available [facility] ([facility]) [address] [facility], [place], [address], 02/15/2017 06:16:07 02/09/2002/09/2017 lipid panel , serum triglyceride s TNP mg/dL No urine speci men recei alexandra. Not Available [facility] ([facility]) [address] [facility], [place], [address], 02/15/2017 06:16:07 02/09/2002/09/2017 lipid panel , serum HDL cholesterol TNP Test not perfo rmed Not Available [facility] ([facility]) [address] [place], [address], 02/15/2017 06:16:07 02/09/2002/09/2017 lipid panel , serum VLDL cholesterol jose TNP mg/dL No urine speci men recei alexandra. Not Available [facility] ([facility]) [address] [place], [address], 02/15/2017 06:16:07 02/09/2002/09/2017 lipid panel , serum LDL cholesterol calc TNP mg/dL No urine speci men recei alexandra. Not Available [facility] ([facility]) [address] [facility], [place], [address], 02/15/2017 06:16:07 02/09/2002/09/2017 lipid panel , serum comment: MEDICAID NURSE Not Available [facility] ([facility]) [address] [facility], [place], [address], 02/15/2017 06:16:07 02/09/2002/09/2017 lipid panel , serum LDL/HDL ratio TNP ratio _unit s Unabl e to calcu late resul t since non-n umeri c resul t obtai joe for compo nent test. LDL/H DL Ratio Men Women 1/2 Avg.R isk 1.0 1.5 Avg.R isk 3.6 3.2 2X Avg.R isk 6.2 5.0 3X Avg.R isk 8.0 6.1 Not Available [facility] ([facility]) [address] [facility], [place], [address], 02/15/2017 06:16:07 02/09/2002/09/2017 PT/PT T, plasm a INR TNP No urine speci men recei alexandra. Refer ence inter guadalupe is for non-a ntico agula laina patie nts. Sugge sted INR thera peuti c range for Vitam in K antag onist thera py: Stand polo Dose (mode rate inten sity thera peuti c range ): 2.0 - 3.0 Highe r inten sity thera peuti c range 2.5 - 3.5 Not Available [facility] ([facility]) [address] [facility], [place], [address], 02/15/2017 06:16:08 02/09/2002/09/2017 PT/PT T, plasm a prothrombin time TNP sec No urine speci men recei alexandra. Not Available [facility] ([facility]) [address] [facility], [place], [address], 02/15/2017 06:16:08 02/09/20 17 02/09/2017 PT/PT T, plasm a APTT TNP Test not perfo rmed Not Available [facility] ([facility]) [address] [facility], [place], [address], 02/15/2017 06:16:08 02/09/20 17 02/09/2017 afp (alph a-fet oprot ein) tumor marke r, serum or plasm a AFP, serum, tumor marker TNP NG/mL No urine speci men recei alexandra. Eusebio ECLIA metho dolog y Not Available [facility] ([facility]) [address] [facility], [place], [address], 02/15/2017 06:16:09 02/09/20 17 02/09/[address] probl em request problem TNP No urine speci men recei alexandra. TEST: 81377 0 Comp. Metab olic Panel (14) 24091 0 Lipid Panel With LDL/H DL Ratio 77881 1 PT and PTT 47229 3 AFP, Serum , Tumor Marke r Not Available [facility] ([facility]) [address] [facility], [place], [address], 02/15/2017 06:16:09 09/20/19 18 09/19/2017 cardi ac stres s test No observ ation record ed. [email or web address] [address], [place], [address], 09/20/2017 16:57:00 10/02/19 18 10/01/2017 XR, chest , 2 view No observ ation record ed. [facility] (Imaging) [address] [place], [address], 10/01/2017 15:22:44 07/10/19 21 07/09/2020 XR, shoul elvira, 2 or more view No observ ation record ed. [facility] [address] [place], [address], 07/09/2020 15:38:27 01/10/20 22 01/09/2022 XR, chest No observ ation record ed. [address] [facility] [address] [place], [address], 01/13/2022 09:42:27 01/10/20 22 01/09/2022 CT, abdom en + pelvi s, w/o contr ast No observ ation record ed. [address] [facility] [address] [place], [address], 01/13/2022 09:43:16 01/11/20 22 01/09/2022 CT, abdom en + pelvi s, w/o contr ast No observ ation record ed. [address] [facility] [address] [place], [address], 01/13/2022 09:43:31 01/29/20 22 01/28/2022 XR, chest No observ ation record ed. [facility] [address] [place], [address], 01/31/2022 12:36:56 01/31/20 22 01/30/2022 XR, chest No observ ation record ed. [facility] [address] [place], [address], 01/31/2022 14:46:51 Result Notes None recorded. Problems Name Problem SNOMED Code Status Onset Date Resolution Date Notes Provider Name and Address Organization Details Recorded Time Cardiac pacemaker in situ 078217120 Active 019 TAINA Arceo [place] - [place] 9 12:42:39 Current drinker 706896 Active 019 TAINA Arceo [place] [facility] 9 12:43:09 Problem Notes None recorded. Procedures Surgical History Date Name Laterality Status Provider Name and Address Organization Details Recorded Time Pacemaker completed [employer] Gaming [place] [facility] 02/08/2017 15:01:52 Imaging Results Imaging Date Name Status LastModified by Organiz [facility] Details LastModified Time 09/19/2017 cardiac stress test completed [facility] [address], [place], [address], 09/20/2017 16:57:00 10/01/2017 XR, chest, 2 view completed [facility] ([facility] [address] [place], [address], 10/01/2017 15:22:44 07/09/2020 XR, shoulder, 2 or more view completed [facility] [address] [place], [address], 07/09/2020 15:38:27 01/09/2022 XR, chest completed [email or web address] [address] [place], [address], 01/13/2022 09:42:27 01/09/2022 CT, abdomen + pelvis, w/o contrast completed [email or web address] [address] [place], [address], 01/13/2022 09:43:16 01/09/2022 CT, abdomen + pelvis, w/o contrast completed [email or web address] [address] [place], [address], 01/13/2022 09:43:31 01/28/2022 XR, chest completed [email or web address] [address] [place], [address], 01/31/2022 12:36:56 01/30/2022 XR, chest completed [facility] [address] [place], [address], 01/31/2022 14:46:51 Procedure Notes None recorded. Medical Equipment None Reported. Allergies Allergen ID Allergen Name Allergen Category Reaction Reaction Severity Criticality Documentation Date Start Date Code Code System Note Provider Name and Address Organization Details Recorded Time 186706 Wellbutri n medicatio n hives itching moderate Not available Not available 12/18/2018 37306 RxNorm Not Available Not Available Not Available Medications Name Sig Start Date Stop Date Status Note LastModified by Organization Details LastModified Time furosemide 40 mg tablet active Not Available Not Available Not Available metformin 500 mg tablet active Not Available Not Available Not Available atorvastati n 20 mg tablet active Not Available Not Available Not Available bumetanide 2 mg tablet TAKE 1 TABLET BY MOUTH TWICE DAILY active Not Available Not Available No t Available flecainide 150 mg tablet active Not Available Not Available Not Available amiodarone 200 mg tablet TAKE 1 TABLET BY MOUTH TWICE DAILY active Not Available Not Available No t Available warfarin 7.5 mg tablet active Not Available Not Available Not Available Ativan 1 mg tablet Take 1 tablet every day by oral route as directed for 7 days. 2018 active Not Available Not Available Not Avai lable diltiazem ER 360 mg capsule,24 hr,extended release active Not Available Not Available Not Available diltiazem CD 360 mg capsule,ext ended release 24 hr active Not Available Not Available Not Available levothyroxi ne 25 mcg tablet active Not Available Not Available Not Available ketorolac 0.5 % eye drops active Not Available Not Available Not Available cyproheptad ine 4 mg tablet TAKE 1 TABLET BY MOUTH AT NIGHT active Not Available Not Available No t Available citalopram 20 mg tablet TAKE ONE TABLET DAILY 12/18 completed Not Available Not Available Not Available potassium chloride ER 20 mEq tablet,exte nded release(par t/cryst) active Not Available Not Available Not Available prednisolon e acetate 1 % eye drops,suspe nsion active Not Available Not Available Not Available magnesium oxide 400 mg (241.3 mg magnesium) tablet active Not Available Not Available Not Available ciprofloxac in 0.3 % eye drops active Not Available Not Available No t Available baclofen 10 mg tablet Take 1 tablet 3 times a day by oral route as needed for 30 days. 12/18 completed Not Available Not Available Not Available levothyroxi ne 50 mcg tablet Take 1 tablet every day by oral route. 12/18 completed Not Available Not Available Not Available warfarin 5 mg tablet 12/18 completed Not Available Not Available Not Available flecainide 100 mg tablet Take 1 tablet every 12 hours by oral route. active Not Available Not Available No t Available folic acid 1 mg tablet TAKE ONE TABLET DAILY 2018 active Not Available Not Available Not Avai lable hydroxyzine HCl 25 mg tablet TAKE 1 TABLET BY MOUTH EVERY DAY NEEDED active Not Available Not Available No t Available hydrochloro thiazide 25 mg tablet Take 1 tablet every day by oral route. 12/18 completed Not Available Not Available Not Available methylpredn isolone 4 mg tablets in a dose pack active Not Available Not Available Not Available Vitamin D2 1,250 mcg (50,000 unit) capsule 12/18 completed Not Available Not Available Not Available Vitamin B-1 100 mg tablet TAKE ONE TABLET DAILY 2018 active Not Available Not Available Not Avai lable metformin ER 500 mg tablet,exte nded release 24 hr active Not Available Not Available Not Available Ventolin HFA 90 mcg/actuati on aerosol inhaler active Not Available Not Available Not Available bupropion HCl XL 150 mg 24 hr tablet, extended release 12/18 completed Not Available Not Available Not Available Xarelto 20 mg tablet active Not Available Not Available No t Available Eliquis 5 mg tablet Take 1 tablet twice a day by oral route. 12/18 completed Not Available Not Available Not Available Farxiga 10 mg tablet TAKE 1 TABLET BY MOUTH EVERY DAY active Not Available Not Available No t Available Incruse Ellipta 62.5 mcg/actuati on powder for inhalation active Not Available Not Available N ot Available Vitals Date Recorded Body height Body mass index (BMI) Body weight Systolic blood pressure Diastolic blood pressure Provider Name and Address Organization Details Last Updated DateTime 12/18/2018 161.93 cm 51 kg/m2 210548.7 5 g 112 mm[Hg] 64 mm[Hg] Ivelisse Gray [place] [facility] 9 12:54:00 Date Recorded Body height Body mass index (BMI) Body weight Body temperature Oxygen saturation Oxygen saturation in Arterial blood by Pulse oximetry Heart rate Systolic blood pressure Diastolic blood pressure Provider Name and Address Organization Details Last Updated DateTime 7 161.93 cm 47.7 kg/m2 573767. 49 g 98 [degF] 95 % 95 % 78 /min 128 mm[Hg] 78 mm[Hg] [employer] MA [facility] 7 15:07:44 Social History Question Answer Notes LastModified by Organizat ion Details LastModified Time Tobacco Smoking Status Former Smoker cigarettes [employer] [place] null, [facility] 02/08/2017 15:03:47 Do You Or Have You Ever Used E-cigarettes Or Vape? Never Used Electronic Cigarettes [email or web address] Information not available 12/18/2018 What Was The Date Of Your Most Recent Tobacco Screening? 02/08/2017 Information not available 11/21/2018 Do You Or Have You Ever Used Smokeless Tobacco? Never Used Smokeless Tobacco [email or web address] Information not available 12/18/2018 How Much Tobacco Do You Smoke? 1 PPW Information not available 02/08/2017 How Many Years Have You Smoked Tobacco? 30 Information not available 02/08/2017 Sex: Unknown Functional Status None recorded. Mental Status None recorded. Family History Relationship Description Onset Age of this Age Resolved Age Notes LastModified by Organization Details LastModified Time Mother Diabetes mellitus [email or web address] Not available 02/08 15:02:30 Mother Heart disease [email or web address] Not available 02/08 15:03:06 Mother Hypertensive disorder [email or web address] Not available 02/08 15:03:15 Mother Myocardial infarction [email or web address] Not available 01/28 15:03:30 Brother Heart disease [email or web address] Not available 02/08 15:03:06 Brother Myocardial infarction [email or web address] Not available 01/28 15:03:30 Maternal Grandmother Diabetes mellitus [email or web address] Not available 12/18 12:44:43 Maternal Aunt Diabetes mellitus [email or web address] Not available 12/18 12:44:51 Medical History Condition Response Coronary Artery Disease N Other N High Blood Pressure N Atrial Fibrillation Y Kidney or Bladder Problems N Thyroid Problems N COPD Y Blood Clots N GI Problems N Skin Problems N Anemia N Heart Attack ([place]) N Diabetes N Muscle, Joint, or Bone Problems N Seizures/Epilepsy N Acid Reflux (GERD) N Cancer N Stroke N Asthma N Allergies N High Cholesterol N Hepatitis N Liver Disease N Headaches N Heart Failure N Osteoporosis N Gynecological History Statement/Question Response If Post Menopausal, Age at Menopause 51 Date of LMP Age at Menarche 12 Current Control Method Menopause Age at First Child LMP Unknown Obstetrics History GPAL:G 0 P 0 0 0 0 Type Value Living 0 Total 0 Immunizations Vaccine Type Date Status Note Provider Nam e and Address Organization Details Recorded Time Influenza, split virus, quadrivalent, preservative 7 completed Not Available [facility] 05/17/2019 02:39:18 Past Encounters Encounter ID Performer Location Encounter Start Date Encounter Closed Date Diagnosis/Indication Diagnosis SNOMED-CT Code Diagnosis ICD10 Code Diagnosis Note [id number] [facility] [address] [place] [id number] 02/08/2017 14:29:17 02/12/2017 11:32:03 Screening for malignant neoplasm of colon 696020931 Z12.11 she refuses now. Screening mammography 24 020211 Z12.31 She refuses . Cardiac pa cemaker in situ 533473334 Z95.0 uNDER THE CARE OF HER CARDIOLOGI ST. On examina tion - edema of legs 391421314 R60.0 UNDER THE CARE OF HER CARDIOLOGI ST. Chronic ob structive pulmonary disease 54643452 J44.9 STABLE. 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 Alcoholism 7495936 F10.2 0 Administra tion of influenza vaccine [id number] Z23 Osteoarthr itis of knee [id number] M17.0 SHE REFUSES THE X-RAY. OR PT. Adult heal th examination [id number] Z00.00 wILL OBTAIN COPIES OF MEDICAL RECORD FROM [facility]. [id number] MD Kyle Coker (Adult Med) [address] [place] [phone] 12/18/2018 11:42:09 12/18/2018 13:55:58 Alcoholism 2621318 F10.20 Discussed with patient, will prescribe ativan for 2 weeks , hopefully will help her to quit drinking. Pruritic disorder 205355 002 L29.9 Health Concerns Section Related Observation LastModified by Organization Detai ls LastModified Time None Recorded Concern Status LastModified by Organization Details LastModified Time None Recorded Advance Directives Directive None Recorded Payers Encounter Date Sequence Insurance Name Policy Number Policy Kidd Covered Member ID Kidd Member ID Guarantor Name 02/08/2017 1 [facility] (MEDICAID HMO) [id number] Sarah Odom [id number] Sarah Odom 12/18/2018 1 [facility] (MEDICAID HMO) [id number] Sarah Odom [id number] Sarah Odom Notes Date Note Type Note Provider Name and Address Organization Details Recorded Time 02/08/2017 text/html First time. history of pacemaker seeing her bagman/woman, alcoholism, a cigarettes smoker 20 pK-year, chronic swelling of legs. Still drinks Griselda. NKDA. had bursted appendix about 10 years ago. On CAPA for thr Sleep apnea. Lorena Rios MD Attn: Accounting,[address] [place], [address], [facility] 02/08/2017 16:04:17 12/18/2018 text/html Skin rashes with itching, on wellbutrin from her bagman/woman, but she dose not like, so she stopped, a regular drinker, allergic to wellbutrin. Lorena Rios MD Attn: Accounting[address] [place], [address], [facility] 12/18/2018 16:29:55 OBGyn Episode No OBEpisode recorded.
--- OUTSIDE RECORDS SUMMARY | 2024-06-12 09:57 | XMS_ITS ---
Author Organization [facility] Address [address] [place] [address] Care Team Providers Care Fishery Division Chief Name Role Phone Luis Campo Primary Care Provider [phone] Medications Medication SIG (Take, Route, Frequency, Duration) Notes Start Date End Date Status hydrOXYzine Pamoate 25 MG 1 capsule Orally every 6 hours for 15 days As needed itching 06/04/2024 Active Social History Sex Assigned At : Social History Observation Description Sex Assigned At Female Encounters Encounter Location Date Provider Diagnosis [address] [address] 06/04/2024 Luis Campo Pruritus L29.9 Assessments Encounter Date Diagnosis (ICD Code) Assessment Notes Treatment Notes Treatment Clinical Notes Section Notes 06/04/2024 Pruritus (ICD-10 - L29.9) Plan Of Treatment Medication Medication Name Sig Start Date Stop Date Notes hydrOXYzine Pamoate 25 MG 1 capsule Oral ly every 6 hours for 15 days 06/04/2024 Progress Notes * Sarah PATELDOB:1960 ( 63 yo F)Acc No.[id number]:06/04/2024 Patient: Sarah WICK :1960 A ge:63 Y S ex:Female Address:[address] [place] [address], [phone] * Refills Start hydrOXYzine Pamoate Capsule, 25 MG, Orally, 60 Capsule, 1 capsule, every 6 hours, 15 days, Refills=1 Subjective: * Chief Complaints: * * Medical History: * Surgical History: * Hospitalization/Major Diagno stic Procedure: * Medications: Objective: * Vitals: * Physical Examination: Assessment: * Assessment: 1. dEgardo fitzpatrick - L29.9 (Primary) Plan: * Treatment: * Procedure Codes: * true * Date: Generated for Kelly castrejon/David/Beth on: 0 06/12/2024 09:57 AM POLICE MANAGER
--- OUTSIDE RECORDS SUMMARY | 2024-06-12 09:57 | XMS_ITS | Clinical Summary ---
Author Organization [facility] Address [address] [place] [address] Care Team Providers Care Shooter Helper Name Role Phone Luis Campo MD Primary Care Provider [phone] Allergies Active Allergy Reactions Criticality Noted Date Comments Amiodarone Hives High 06/13/2023 Medications bumetanide (BUMEX) 2 mg tablet Take 2 mg by mouth daily. 05/30/2023 Active diltiaZEM (CARDIZEM CD) 360 mg Controlled Delivery 24 hour capsule Take 360 mg by mouth daily. 04/28/2023 Active ferrous sulfate 325 mg (65 mg iron) Tablet, Delayed Release (E.C.) Take 325 mg by mouth 2 times daily. 03/27/2023 Active levothyroxine 25 mcg tablet Take 25 mcg by mouth daily. 03/09/2023 Active potassium chloride (KLOR-CON) 20 mEq Extended Release tablet Take 20 mEq by mouth daily. 05/30/2023 Active folic acid (FOLVITE) 1 mg tablet Take 1 mg by mouth daily. Active dapagliflozin propanediol (Farxiga) 10 mg Tablet Take 5 mg by mouth daily. Active rivaroxaban (Xarelto) 20 mg Tablet Take 20 mg by mouth daily with supper. Active Active Problems No known active problems Encounters Date Type Department Care Team Description 05/22/2024 External Device Data [facility] ABSTRACTION Provider, Abstract 05/13/2024 External Device Data [facility] ABSTRACTION Provider, Abstract from Last 3 Months Family History Medical History Relation Name Comments Heart Disease Brother Multiple myeloma Father Diabetes Mother Heart Disease Mother Relation Name Status Comments Brother Father Mother Social History Tobacco Use Types Packs/Day Years Used Date Smoking Tobacco: Former Cigarettes 0.3 30 Q uit: 2011 Smokeless Tobacco: Never Tobacco Cessation:Counseling Given: Not Answered Comments Unknown Sex and Gender Information Value Date Recorded Sex Assigned at Not on file Legal Sex Female 10:38 AM LABOR TRAINING MANAGER Gender Identity Not on file Sexual Orientation Not on file Last Filed Vital Signs Vital Sign Reading Time Taken Comments Blood Pressure 116/77 06/13/2023 8:35 AM LABOR TRAINING MANAGER Pulse 93 06/13/2023 8:35 AM LABOR TRAINING MANAGER Temperature 36.4 C (97.6 F) 06/13/2023 8:35 AM LABOR TRAINING MANAGER Respiratory Rate 18 06/13/2023 8:35 AM LABOR TRAINING MANAGER Oxygen Saturation 90% 06/13/2023 8:35 AM LABOR TRAINING MANAGER Inhaled Oxygen Concentration - - Weight 122.7 kg (270 lb 6.4 oz) 06/13/2023 8:35 AM LABOR TRAINING MANAGER Height 160 cm (5' 3 ) 06/13/2023 8:35 AM LABOR TRAINING MANAGER Body Mass Index 47.9 06/13/2023 8:35 AM LABOR TRAINING MANAGER Plan of Treatment Health Maintenance Due Date Last Done Comments Pre-Diabetes and Diabetes Screening 1960 DTAP/TDAP/TD VACCINES (1 - Tdap) 1980 CERVICAL CANCER SCREENING 10/28/1991 BREAST CANCER SCREENING 2001 FIT-DNA Q 3 years 2006 FIT/FOBT Q 1 year 2006 Flex Sig/CT Colonography Q 5 years 2006 ZOSTER VACCINE (1 of 2) 10/28/2011 RSV VACCINE (60+ or ) (1 - Risk 60-74 years 1-dose series) 2021 INFLUENZA VACCINE (#1) 2023 COLORECTAL SCREENING 05/09/2033 05/09/2023 Colorectal Cancer Screening 05/09/2033 PNEUMOCOCCAL VACCINE 0-64 YEARS Aged Out No longer eligible based on patient's age to complete this topic Insurance MEDICAID [place] MEDICARE PART A AND B Care Teams Shooter Helper Relationship Specialty Start Date End Date Luis Campo MD [address] [facility] [address] [place] [address] PCP - General Internal Medicine 04/16/23
--- OUTSIDE RECORDS SUMMARY | 2024-06-12 09:58 | XMS_ITS ---
Author Organization [facility] Address [address] [place] [address] Care Team Providers Care Hvac Mechanic Name Role Phone Luis Campo Primary Care Provider Reason For Referral Reason ABNL and worsening L FT's. Diagnosis 1 Abnormal liver enzym es (R74.8) Referral Organization [facility] Referring Provider First Name Luis Referring Provider Last Name Jahaira Referring Provider Speciality Internal M edicine Referred Provider Specialty Gastroentero logy Referral Priority Routine REASON FOR VISIT imaging order Social History Sex Assigned At : Social History Observation Description Sex Assigned At Female Encounters Encounter Location Date Provider Diagnosis [address] [address] 05/29/2024 Luis Campo Abnormal liver enzym es R74.8 and Patellofemoral disorders, unspecified knee M22.2X9 Assessments Encounter Date Diagnosis (ICD Code) Assessment Notes Treatment Notes Treatment Clinical Notes Section Notes 05/29/2024 Abnormal liver enzymes (ICD-10 - R74.8) 05/29/2024 Patellofemoral disorders, unspecified knee (ICD-10 - M22.2X9) Plan Of Treatment Medication Medication Name Sig Start Date Stop Date Notes Naproxen 500 MG 1 tablet with food o r milk as needed Orally every 12 hrs 05/28/2024 stop acetaminophen a nd iron Future Test Test Name Order Date Ultrasound : Right Upper Quadrant 2024 Referrals Referral Date Details 05/29/2024 05/29/2024, ABNL and worsening LFT's. Progress Notes * Aletha PATEL:1960 ( 63 yo F)Acc No.[id number]:05/29/2024 Patient: Sarah WICK :1960 A ge:63 Y S ex:Female Address:[address] [place] [address], [phone] * Refills Stop Naproxen Tablet, 500 MG, Orally, 1 tablet with food or milk as needed, every 12 hrs Subjective: * Chief Complaints: * I maging order * Medical History: * Surgical History: * Hospitalization/Major Diagno stic Procedure: * Medications: Objective: * Vitals: * Physical Examination: Assessment: * Assessment: 1. A bnormal liver enzymes - R74.8 (Primary) 2 . P atellofemoral disorders, unspecified knee - M22.2X9 Plan: * Treatment: 2. P atellofemoral disorders, unspecified knee Stop Naproxen Tablet, 500 MG, 1 tablet with food or milk as needed, Orally, every 12 hrs As needed KNEE PAIN, Notes to Pharmacist: stop acetaminophen and iron. * Procedure Codes: * true * Date: Generated for Kelly castrejon/David/Funmilayosmitting on: 0 06/12/2024 09:57 AM DROSS SKIMMER Consultation Request Notes Referral Date Referring Provider Referred Provider Not es 05/29/2024 Luis Campo , ROZ and sheryl aguillon LFT's.
--- OUTSIDE RECORDS SUMMARY | 2024-06-12 09:58 | XMS_ITS ---
Author Organization [facility] Address [address] [place] [address] Care Team Providers Care Certified Nurses Aide Name Role Phone Luis Campo Primary Care Provider REASON FOR VISIT Labs-fasting Social History Sex Assigned At : Social History Observation Description Sex Assigned At Female Encounters Encounter Location Date Provider Diagnosis [address] [address] 06/04/2024 Luis Campo Plan Of Treatment No Information Progress Notes * Sarah PATELDOB:1960 ( 63 yo F)Acc No.[id number]:06/04/2024 UNLOCKED PROGRESS NOTE Patient: Sarah WICK Provider: Devyn Campo :1960 A ge:63 Y S ex:Female Date:06/04/2024 Address:[address] [place], [place] [phone] Check In:09:15 AM AIRFLIGHT ATTENDANTS SUPERVISOR Subjective: * Chief Complaints: * 1 . Labs-fasting. * Medical History: Objective: * Vitals: Assessment: Plan: * Treatment: * * Electronic signature of Larry Campo , [id number] on 06/12/2024 at 09:57 AM AIRFLIGHT ATTENDANTS SUPERVISOR Sign off status: Pending * Provider: Devyn Campo Date: 0 06/04/2024 Generated for Kelly castrejon/David/eTransmitting on: 0 06/12/2024 09:57 AM AIRFLIGHT ATTENDANTS SUPERVISOR
== END 2024-06-12 09:33 | disposition home or self-care (01) ==
PROVIDERS: PCP Internal Medicine; Visit Provider Internal Medicine
DX: M17.0 Bilateral primary osteoarthritis of knee (principal); M22.2X9 Patellofemoral disorders, unspecified knee
CPT/HCPCS: 73560

== ENCOUNTER 2024-07-06 10:58 | Inpatient (IN) | payer MEDICARE, MEDICAID, SELFPAY ==
[2024-07-06] VITALS (39 sets, daily range): BP systolic 78–114; BP diastolic 45–80; PULSE 69–140; RESP 12–24; TEMP 36.4–36.9; O2SAT 96–100; BMI 54.0
--- NOTE | ~2024-07-06 | XR_ITS ---
Portable chest x-ray Comparison: 07/06/2024 Clinical History: Effusion Findings: Small right pleural effusion present. Left lung clear. Cardiomediastinal silhouette is st able, with pacemaker device. Bones and soft tissues are unremarkable. Impression: Small right pleural effusion. Reviewed, dictated and finalized at [facility]. Impression: Small right pleural effusion.
--- NOTE | ~2024-07-06 | US_ITS ---
EXAMINATION: US abdomen limited DATE: 07/07/2024 14:14 INDICATION: Abnormal liver function tests. TECHNIQUE: Multiple grayscale and Doppler ultrasound images of the abdomen were obtained. COMPARISON: CT abdomen 08/23/2005 FINDINGS: The pancreas is not well visualized. There is diffuse hepatic steatosis. The gallbladder is normal in size and contains sludge. No gallstones or gallbladder wall thickening. There is no sonogr aphic Skelton's sign. The common duct is not visualized. IMPRESSION: 1. Diffuse hepatic steatosis. 2. Common duct not visualized. Reviewed, dictated and finalized at location B.
--- NOTE | ~2024-07-06 | XR_ITS ---
Clinical Indication: Shortness of breath PA and lateral views of the chest: Comparison: 03/23/2023 Findings: Moderate right pleural effusion present. Left lung clear. Cardiomediastinal silhouette is stable, with pacemaker device. Bones and soft tissues are unremarkable. Impression: Moderate right pleural effusion. Reviewed, dictated and finalized at location . Impression: Moderate right pleural effusion.
--- NOTE | 2024-07-06 11:05 | ED.SOB ---
HPI - SOB/Dyspnea General Chief Complaint: Shortness of Breath/Dyspnea Stated Complaint: SOB Time Seen by Provider: 07/06/24 11:04 Source: patient Mode of arrival: EMS Limitations: no limitations History of Present Illness HPI Narrative: 63 years old white female came to the ED from home by ambulance complaining of shortness of breath on exertion, dizziness, feeling like about to pass out with standing and any activities for the last 7 days. Patient lives alone, have a caregiver, She is telling me that she been vomiting in the last 4-5 days on average 1 vomitus every 2 hours, no diarrhea, constipation lately. Patient's drinks alcohol daily, did not drink for over 1 week. History of atrial fibrillation, chronic anticoagulation, congestive heart failure, diverticulitis, hyperlipidemia, hypothyroidism, sleep apnea on CPAP and iron deficiency anemia, unspecified Patient currently on Xarelto Related Data Home Medications ?Medication ?Instructions ?Recorded ?Confirmed ?Last Taken ?Type Vitamin D2 50,000 units PO WEEKLY 03/23/23 07/06/24 Unknown History bumetanide 2 mg tablet 2 mg PO DAILY 03/23/23 07/06/24 07/05/24 History diltiazem HCl 360 mg capsule,24 360 mg PO DAILY 03/23/23 07/06/24 07/06/24 History hr,extended release levothyroxine 25 mcg tablet 25 mcg PO DAILY 03/23/23 07/06/24 07/06/24 History potassium chloride 20 mEq 20 meq PO BID 03/23/23 07/06/24 07/06/24 History tablet,extended release rivaroxaban 20 mg tablet (Xarelto) 20 mg PO DAILY 03/23/23 07/06/24 07/06/24 History dapagliflozin propanediol 10 mg 10 mg PO DAILY 04/27/23 07/06/24 07/06/24 History tablet (Farxiga) Allergies Allergy/AdvReac Type Severity Reaction Status Date / Time amiodarone Allergy Severe Hives Verified 07/08/24 09:24 codeine AdvReac Mild Itching Verified 07/08/24 09:24 Review of Systems Review of Systems: All systems reviewed & are unremarkable except as noted in HPI and below PMFSH Past Medical History Medical History Hypothyroidism Congestive heart failure Dyslipidemia Obstructive sleep apnea on CPAP Diverticulitis Chronic anticoagulation Chronic atrial fibrillation Surgical History Surgical History History of permanent cardiac pacemaker placement (09/2016) Biotronik dual chamber pacemaker implant by Dr. Garvey Family History Family History Mother Acute myocardial infarction, Onset Age: 73 Cerebrovascular accident, Onset Age: 73 Diabetes mellitus Father Multiple myeloma Social History Social History Social History: Surrogate medical decision maker: Gracy Ramyr, friend. Code status: Do not resuscitate. Years smoked: 35 Smoking status: Former smoker Tobacco type: cigarettes Smoking end date: 06/28/16 Alcohol intake: current Drinks per week: 21 Alcohol use details: Social alcohol use in moderation. Substance use: never Substance use type: does not use Do You Feel Safe in your Home?: Yes Lack of Transportation: No Lack of Food: Never True Current Housing: I Have Housing Concerned About Future Housing: No Difficulty Paying Gas/Electric Bills: No Difficulty Paying for Meds: No Currently Unemployed: No Education: High School Diploma/GED Difficulty w/ Childcare or Family Care: No Living arrangements: with family Additional living arrangements comments: The patient lives alone. She has no children. Caregiver comes in 3 days weak. Spiritual care concerns: No Exam Narrative: General appearance: Well-developed, well-nourished Skin: Pale, multiple skin sores on the abdomen and forearms, trace edema lower extremity bilaterally Head: Normocephalic, nontraumatic Eyes: Clear conjunctiva ENT: Oropharynx normal, ears normal, nose normal Neck: Supple, nontender Chest and respiratory: Airway patent, no respiratory distress, no accessory muscle use Heart: Tachycardia, irregular irregularity Abdomen: Soft, nontender, no organomegaly, quiet bowel sounds, rectal exam showed hard stool, guaiac positive, no gross blood Vascular: Normal peripheral pulses, normal capillary refill. Musculoskeletal: Normal range of motion, nontender back Neurologic: Alert and oriented ?3, JUSTICE COURT DEPUTY CLERK is normal as tested, no gross motor deficit Course Vital Signs Vital signs: Vital Signs Temperature 36.9 C 07/06/24 10:55 Pulse Rate 122 H 07/06/24 10:55 Respiratory Rate 18 03/09/25 10:55 Blood Pressure 112/65 07/06/24 10:55 Pulse Oximetry 97 07/06/24 10:55 Oxygen Delivery Room Air 07/06/24 10:55 Temperature 36.8 C 07/09/24 00:00 Pulse Rate 110 H 07/08/24 20:28 Respiratory Rate 18 07/09/24 00:00 Blood Pressure 116/71 07/09/24 00:00 Pulse Oximetry 96 07/09/24 00:00 Oxygen Delivery Room Air 07/08/24 20:00 Oxygen Flow Rate 8 07/08/24 10:22 MDM - SOB/Dyspnea MDM Narrative Medical decision making narrative: Patient came to the ED with shortness of breath, weakness, near-syncope Vital signs showing heart rate of 122, AFib with RVR otherwise insignificant Physical examination showing very exhausted tired looking patient, tachycardia, irregular irregularity, pale skin, positive guaiac stool Differential diagnosis include alcohol withdrawal, anemia, GI bleed, electrolyte imbalance, dehydration, urinary tract infection, pneumonia, AFib with RVR, coronary artery disease Blood workup today includes CBC, CMP, troponin hemoglobin of 4.6, hematocrit 16.0, potassium 3.2, creatinine 1.1, calcium 8.0, total bilirubin 3.6 AST 87 ALT 48 Chest x-ray showed no acute abnormality Urine analysis showed Diagnosis anemia secondary to GI bleed, AFib with heart rate fluctuated between 90 and 120 Admit to hospitalist Differential Diagnosis Differential diagnosis: Likely other (As above) Medical Records Attestation: I reviewed the patient's medical records. Lab Data Attestation: I reviewed the patient's lab results. 07/08/24 04:20 07/08/24 04:20 Labs: Lab Results 07/06/24 07/06/24 Range/Units 11:37 12:24 WBC 10.2 H (4.5-10.0) K/mm3 RBC 1.62 L (4.2-5.4) M/mm3 Hgb 4.6 L* D (12.0-15.0) g/dL Hct 16.0 L* (37.0-47.0) % MCV 98.8 (80-100) fl MCH 28.4 (26-34) pg MCHC 28.8 L (32-36) g/dl RDW 22.7 H (11.5-14.5) % Plt Count 266 D (150-375) k/mm3 MPV 11.3 H (7.4-10.4) fl Immature Gran % (Auto) 0.5 (0-0.5) % Neut % (Auto) 75.6 H (45.5-73.1) % Lymph % (Auto) 14.0 L (18.3-44.2) % [place] % (Auto) 9.3 H (2.6-8.5) % Eos % (Auto) 0.4 (0-4.4) % Baso % (Auto) 0.2 (0.2-1.2) % Lymph # (Auto) 1.43 (0.9-3.2) K/mm3 [place] # (Auto) 1.0 H (0.1-0.6) K/mm3 Eos # (Auto) 0.0 (0-0.3) K/mm3 Baso # (Auto) 0.0 (0.0-0.1) K/mm3 Abs Immat Gran (auto) 0.05 H (0.00-0.031) K/mm3 Absolute Neuts (auto) 7.7 H (1.3-6.7) K/mm3 Absolute Nucleated RBC 0.140 H (0.0-0.012) K/mm3 Band Neutrophils % Not Reportable Nucleated RBC % 1.4 H (0.0-0.2) % Platelet Estimate Adequate (Adequate) Polychromasia 1+ Hypochromasia 2+ Anisocytosis 2+ Target Cells 1+ Schistocytes None seen Sodium 134 L (137-145) mmol/L Potassium 3.2 L (3.4-5.0) mmol/L Chloride 100 (98-107) mmol/L Carbon Dioxide 20 L (22-30) mmol/L Anion Gap 14 H (4-12) mmol/L BUN 30 H D (7-17) mg/dL Creatinine 1.14 H (0.7-1.0) mg/dL Estim Creat Clear Calc 61 ml/min Estimated GFR 48 L (59 - ) Glucose 182 H (65-110) mg/dL Calcium 8.0 L (8.4-10.2) mg/dL Total Bilirubin 3.6 H (0.2-1.3) mg/dL AST 87 H (14-36) U/L ALT 43 H (6-35) U/L Alkaline Phosphatase 105 (38-126) U/L Total Protein 7.0 (6.3-8.2) g/dL Albumin 2.7 L (3.5-5.1) g/dL Lipase 171 (23-300) U/L Influenza A (RT-PCR) Negative (Negative) Influenza B (RT-PCR) Negative (Negative) RSV (RT-PCR) Negative (Negative) SARS-CoV-2 RNA (RT-PCR) Negative (Negative) Blood Type A Positive Antibody Screen Negative Crossmatch See Detail Imaging Data Radiologist's impression: Impressions Chest X-Ray 07/06/24 11:35 Impression: Moderate right pleural effusion. ECG Data EKG #1: Attestation: I personally reviewed and interpreted this ECG as follows: ECG completion date: 07/06/24 Prior ECG tracings: available for review Interpretation: Atrial fibrillation with RVR at 1:22 a.m., nonspecific ST and T-wave abnormality, no previous EKG available for comparison Critical Care Time Critical Care Time Critical Care Time: Yes Total Critical Care Time: 30 Discharge Plan Discharge Clinical Impression: GI bleed, Anemia, Atrial fibrillation Patient Disposition: Still a Patient Condition: Stable
--- NOTE | 2024-07-06 11:06 | ECG_ITS ---
Test Date: 2024-07-06 11:09:06 Measurements Intervals [place] Rate: 122 P: 0 [place]: 0 QRS: 10 QRSD: 95 T: 208 QT: 252 QTc: 360 Interpretive Statements ATRIAL FIBRILLATION WITH RAPID VENTRICULAR RESPONSE NONSPECIFIC ST & T-WAVE ABNORMALITY No previous ECG available for comparison Electronically Signed On 07-07-2024 11:11:31 CDT by Dudley Abernathy M.D.
--- OUTSIDE RECORDS SUMMARY | 2024-07-06 11:16 | XMS_ITS ---
Author Organization [facility] Address [address] [place] [address] Care Team Providers Care Water Fitness Instructor Name Role Phone Luis Campo Primary Care Provider [phone] Medications Medication SIG (Take, Route, Frequency, Duration) Notes Start Date End Date Status hydrOXYzine Pamoate 25 MG 1 capsule Orally every 6 hours for 15 days As needed itching 06/04/2024 Active Social History Sex Assigned At : Social History Observation Description Sex Assigned At Female Encounters Encounter Location Date Provider Diagnosis [address] [address] 06/04/2024 Luis Campo Pruritus L29.9 Assessments Encounter Date Diagnosis (ICD Code) Assessment Notes Treatment Notes Treatment Clinical Notes Section Notes 06/04/2024 Pruritus (ICD-10 - L29.9) Plan Of Treatment Medication Medication Name Sig Start Date Stop Date Notes hydrOXYzine Pamoate 25 MG 1 capsule Oral ly every 6 hours for 15 days 06/04/2024 Progress Notes * Sarah PATELDOB:1960 ( 63 yo F)Acc No.[id number]:06/04/2024 Patient: Sarah WICK :1960 A ge:63 Y S ex:Female Address:[address] [place] [address], [address] * Refills Start hydrOXYzine Pamoate Capsule, 25 MG, Orally, 60 Capsule, 1 capsule, every 6 hours, 15 days, Refills=1 Subjective: * Chief Complaints: * * Medical History: * Surgical History: * Hospitalization/Major Diagno stic Procedure: * Medications: Objective: * Vitals: * Physical Examination: Assessment: * Assessment: 1Wade fitzpatrick - L29.9 (Primary) Plan: * Treatment: * Procedure Codes: * true * Date: Generated for Kelly castrejon/David/Beth on: 0 07/06/2024 11:16 AM CDT
--- OUTSIDE RECORDS SUMMARY | 2024-07-06 11:16 | XMS_ITS | Data Portability ---
Author Organization [place] - [facility] [employer], Main Office Address [address] [place] [address] Assessment Encounter Date Assessment Date Assessment LastModified by Organization Details LastModified Time 11/08/2023 11/08/2023 Assessment: Mild COPD Persistent early REM onset Very severe OSAHS, AHI = 68 Atrial fibrillation s/p 8 cardioversions Plan: The following were reviewed and explained to the patient: primary care/referral note PFT 10/08/17 FEV1 2.03 L (83%), BD 150 mL = 8% [facility] home sleep study 08/14/16 AHI = 68 [facility] titration sleep study 10/18/16, sleep onset = 136 minutes, REM onset = 28 minutes, ResMed AirFit P10 nasal pillows @ 12 cmH2O, PLMI = 0.0 [facility] titration sleep study 06/24/20 sleep onset = 59 minutes, REM onset = 47 minutes, ResMed AirFit P10 nasal pillows @ 14 cmH2O, PLMI = 0.0 PAP compliance downloaded and interpreted x 20 minutes. Data reviewed and explained to the patient. Average apnea/hypopnea index (AHI) is 1.7. Patient used PAP > 4 hours 68% of the time. PAP is set at 14 cmH2O. PAP will remain at 14 cmH2O. Keep humidifier level at 5. Keep ramp automatic mode. Keep humidifier level at 5. Keep EPR off. Oxygen supplementation: none Patient is benefiting from PAP therapy. Encouraged patient to maintain PAP use more than 70% of the time. Statement of PAP use and benefits will be sent to the home care store. Educated the patient on problems and solutions associated with positive airway pressure (PAP) use. Difficulty tolerating pressure, mask leaks, intolerance of interface, nasal congestion, claustrophobic response, dry mouth, and unintentional mask removal during sleep were covered. Dry mouth is a normal occurrence for people who just start out on PAP therapy because they are not used to air blowing in to the throat to hold open. Dry mouth is exacerbated for people who wear nasal PAP mask and whose jaw drops open during sleep. Not only does this create a much less efficient therapy because of leakage, it also causes dry mouth. There are a couple solutions to help prevent this type of problem. A simple solution would be to wear a chinstrap which essentially holds the jaw in place. A second solution would be a switch to a full face mask which covers both the nose and mouth. Although this is another easy solution, using a full face mask for some could seem claustrophobic or confining. There is no silver bullet solution as no single mask is right for everybody. Sometimes it takes a bit of experimentation to find a PAP mask which best meets the patient's needs as well as fits comfortably. Another tactic is to use a humidifier on your PAP machine. Most new PAP machines have integrated humidifiers. Humidification is ames when dealing with symptoms of dry mouth because the humidifier can supply both warm and room temperate air. Even a small amount of humidity in the airflow will help nasal passages to stay hydrated. If a person is using both a full face mask and a PAP machine with a heated humidifier and is still experiencing dry mouth, an ill-fitted PAP mask might be causing the problem. Leakage can be caused by a mask that is to large or small, the wrong style mask, the cushion is degraded or simply because the mask's straps aren't adjusted correctly. If leakage occurs, dry air from the room can leak in while humidification escapes. The result is reduced humidification within the circuit and resulting in dry throat and mouth. Finally, beyond factors involving the PAP machine and mask, dry mouth can also be caused or worsened by dehydration. The general recommendation to during eight 8 oz. glasses of water a day might be too little for many people. When people drink large amounts of coffee or other caffeine beverages, or sweat a lot during the day, making sure to rehydrate is an important part of PAP therapy. ResMed Air Sense 11 auto set unit with heated humidifier, supplies and ResMed small AirFit P10 for Her nasal pillows at 14 cmH2O ordered. Further titration will be based on clinical response. Provided the patient with a list of local home care stores where positive airway pressure (PAP) units, accoutrement, and services are available. Home care store selection is based on patient's insurance carrier. Patient will setup an appointment with [facility] for supplies and pressure adjustments. A major predictor of success with use of PAP is follow-up with both the respiratory supplier and the treating physician. The respiratory supplier optimally will follow-up within two weeks after starting use while the treating physician optimally will follow-up within 90 days after starting therapy to assess adherence and effectiveness of treatment. The download results can show the treating physician information about adherence to treatment, residual AHI while on treatment and presence of large mask leakage. This information is especially helpful if the patient has residual sleepiness despite treatment. General information on sleep disordered breathing, evaluation of sleep disordered breathing, treatment with PAP therapy, and living with PAP therapy were covered. We discussed with the patient the impact of weight on: Sleep disordered breathing Hyperlipidemia Hypertension CHF We discussed with the patient the benefit of PAP therapy on: Sleep disordered breathing Hypertension Atrial fibrillation CHF Educated the patient on sleep hygiene measures. Relaxing rituals to rest easy, understanding foods with positive and negative impact on sleep, creating a peaceful sleep environment, timing of exercise, using herbal sleep aids, and practicing sleep-friendly meditation were covered. To determine how much sleep is needed, the patient will assess where she falls on the spectrum, examine what lifestyle factors such as work schedules and stress are affecting the quality and quantity of sleep. In general, adults need 7-9 hours of sleep. Educated the patient regarding foods that promote sleep. These include but are not limited to cherries, bananas, toast, oatmeal, and warm milk. Educated the patient regarding foods and drinks to avoid before bedtime. These include but are not limited to aged cheese, chocolate, spicy foods, tomato-based sauces, soy, ginseng tea and processed meat. Advocated influenza vaccination annually and pneumonia vaccination in 2026. Advocated weight loss through diet and exercise. Patient's ideal body weight according to height and gender is up to 125 lbs. Encouraged patient to adjust caloric intake to maintain/achieve ideal body weight, emphasizing on fruits, vegetables, whole grains, and fat-free or low-fat products. These include lean meats, poultry, fish, beans, eggs, and nuts and foods that are low in saturated fats, trans-fats, cholesterol, salt (sodium), and glycemic index. Stressed the importance of regular exercise up to the patient's capacity limits. In this case, we recommend regular (4 x a week or more) walking or other light activity. Patient to monitor BP daily and bring records to PCP for further management. Follow-up: 3 months, January 2024 Not available 11/08/2023 09:54:41 03/12/2024 03/12/2024 Assessment: Mild COPD Persistent early REM onset Very severe OSAHS, AHI = 68 Atrial fibrillation s/p 8 cardioversion Plan: The following were reviewed and explained to the patient: PFT 10/08/17 FEV1 2.03 L (83%), BD 150 mL = 8% [facility] home sleep study 08/14/16 AHI = 68 [facility] titration sleep study 10/18/16, sleep onset = 136 minutes, REM onset = 28 minutes, ResMed AirFit P10 nasal pillows @ 12 cmH2O, PLMI = 0.0 [facility] titration sleep study 06/24/20 sleep onset = 59 minutes, REM onset = 47 minutes, ResMed AirFit P10 nasal pillows @ 14 cmH2O, PLMI = 0.0 PAP compliance downloaded and interpreted x 20 minutes. Data reviewed and explained to the patient. Average apnea/hypopnea index (AHI) is 1.4. Patient used PAP > 4 hours 64% of the time. PAP is set at 14 cmH2O. PAP will remain at 14 cmH2O. Keep ramp off Keep EPR off. Keep humidifier level at 5. Oxygen supplementation: none Patient is benefiting from PAP therapy. Encouraged patient to maintain PAP use more than 70% of the time. Statement of PAP use and benefits will be sent to the home care store. Educated the patient on problems and solutions associated with positive airway pressure (PAP) use. Difficulty tolerating pressure, mask leaks, intolerance of interface, nasal congestion, claustrophobic response, dry mouth, and unintentional mask removal during sleep were covered. Dry mouth is a normal occurrence for people who just start out on PAP therapy because they are not used to air blowing in to the throat to hold open. Dry mouth is exacerbated for people who wear nasal PAP mask and whose jaw drops open during sleep. Not only does this create a much less efficient therapy because of leakage, it also causes dry mouth. There are a couple solutions to help prevent this type of problem. A simple solution would be to wear a chinstrap which essentially holds the jaw in place. A second solution would be a switch to a full face mask which covers both the nose and mouth. Although this is another easy solution, using a full face mask for some could seem claustrophobic or confining. There is no silver bullet solution as no single mask is right for everybody. Sometimes it takes a bit of experimentation to find a PAP mask which best meets the patient's needs as well as fits comfortably. Another tactic is to use a humidifier on your PAP machine. Most new PAP machines have integrated humidifiers. Humidification is ames when dealing with symptoms of dry mouth because the humidifier can supply both warm and room temperate air. Even a small amount of humidity in the airflow will help nasal passages to stay hydrated. If a person is using both a full face mask and a PAP machine with a heated humidifier and is still experiencing dry mouth, an ill-fitted PAP mask might be causing the problem. Leakage can be caused by a mask that is to large or small, the wrong style mask, the cushion is degraded or simply because the mask's straps aren't adjusted correctly. If leakage occurs, dry air from the room can leak in while humidification escapes. The result is reduced humidification within the circuit and resulting in dry throat and mouth. Finally, beyond factors involving the PAP machine and mask, dry mouth can also be caused or worsened by dehydration. The general recommendation to during eight 8 oz. glasses of water a day might be too little for many people. When people drink large amounts of coffee or other caffeine beverages, or sweat a lot during the day, making sure to rehydrate is an important part of PAP therapy. Provided the patient with a list of local home care stores where positive airway pressure (PAP) units, accoutrement, and services are available. Home care store selection is based on patient's insurance carrier. Patient will setup an appointment with [facility] for supplies and pressure adjustments. A major predictor of success with use of PAP is follow-up with both the respiratory supplier and the treating physician. The respiratory supplier optimally will follow-up within two weeks after starting use while the treating physician optimally will follow-up within 90 days after starting therapy to assess adherence and effectiveness of treatment. The download results can show the treating physician information about adherence to treatment, residual AHI while on treatment and presence of large mask leakage. This information is especially helpful if the patient has residual sleepiness despite treatment. General information on sleep disordered breathing, evaluation of sleep disordered breathing, treatment with PAP therapy, and living with PAP therapy were covered. We discussed with the patient the impact of weight on: Sleep disordered breathing Hyperlipidemia Hypertension CHF We discussed with the patient the benefit of PAP therapy on: Sleep disordered breathing Hypertension Atrial fibrillation CHF Educated the patient on sleep hygiene measures. Relaxing rituals to rest easy, understanding foods with positive and negative impact on sleep, creating a peaceful sleep environment, timing of exercise, using herbal sleep aids, and practicing sleep-friendly meditation were covered. To determine how much sleep is needed, the patient will assess where she falls on the spectrum, examine what lifestyle factors such as work schedules and stress are affecting the quality and quantity of sleep. In general, adults need 7-9 hours of sleep. Educated the patient regarding foods that promote sleep. These include but are not limited to cherries, bananas, toast, oatmeal, and warm milk. Educated the patient regarding foods and drinks to avoid before bedtime. These include but are not limited to aged cheese, chocolate, spicy foods, tomato-based sauces, soy, ginseng tea and processed meat. Advocated influenza vaccination annually and pneumonia vaccination in 2026. Advocated weight loss through diet and exercise. Patient's ideal body weight according to height and gender is up to 125 lbs. Encouraged patient to adjust caloric intake to maintain/achieve ideal body weight, emphasizing on fruits, vegetables, whole grains, and fat-free or low-fat products. These include lean meats, poultry, fish, beans, eggs, and nuts and foods that are low in saturated fats, trans-fats, cholesterol, salt (sodium), and glycemic index. Stressed the importance of regular exercise up to the patient's capacity limits. In this case, we recommend regular (4 x a week or more) walking or other light activity. Patient to monitor BP daily and bring records to PCP for further management. Follow-up: 1 year, February 2025 Not available 03/12/2024 10:27:04 Plan of Treatment Reminders Order Date Submit Date Provider Last Modified By Organization Details Last Modified Time Details Appointments Any 15 025 09:15AM Inder Kirby MD Not available Not available Not available Lab None record ed. Referral None record ed. Procedures None record ed. Surgeries None record ed. Imaging None record ed. Medication Orders None record ed. Patient TargetsNo targets recorded. Patient InstructionsNo instructions recorded. Reason for Referral None Reported. Results Created Date Observation Date Name Description Value Unit Range Abnormal Flag Note LastModifiedBy Organization Detail LastModifiedTime 11/07/19 24 10/08/2017 compl ete PFT w/ post [facility] hodil ator denia metry * No observ ation record ed. [facility] Not Available 2023 18:08:51 11/07/19 24 10/18/2016 polys omnog lula, titra tion study No observ ation record ed. [facility] Not Available 2023 18:08:51 11/07/19 24 08/14/2016 home sleep study No observ ation record ed. [facility] Not Available 2023 18:08:51 11/08/19 24 06/24/2020 polys omnog lula, titra tion study No observ ation record ed. [facility] Not Available 2023 10:17:44 11/08/19 24 10/18/2016 polys omnog lula, titra tion study No observ ation record ed. [facility] Not Available 2023 15:05:21 Result Notes None recorded. Problems Name Problem SNOMED Code Status Onset Date Resolution Date Notes Provider Name and Address Organization Details Recorded Time Body mass index 40+ - severely obese 730497230 Active 2017 Not Available [facility] 3 01:07:53 Cardiac pacemaker in situ 758770499 Active 2019 Not Available [facility] 3 01:07:54 Atrial fibrillation 83094026 Active 2019 Not Available [facility] 3 01:07:54 Hyperlipidemi a 49104147 Active 2019 Not Available [facility] 3 01:07:54 Obstructive sleep apnea syndrome 00476493 Active 2017 Not Available [facility] 3 01:07:54 Notes:Medical History: Alcoh ol abuse Persistent early REM onset Obesity with very severe OSAHS, AHI = 68, 08/14/16, on CPAP c/o IVRC Hypothyroidism Hyperlipidemia Hypertension Atrial fibrillation on Xarelto/diltiazem Diastolic CHF RLS Iron deficiency Vit D deficiency Procedure History: Pacemaker placement 2017 Bilateral cataract extraction with IOL 2022 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 Procedures Surgical History Date Name Laterality Status Provider Name and Address Organization Details Recorded Time cardioversion completed Not Available [facility] 06/28/2022 00:54:26 Pacemaker completed Not Available [facility] 0 06/28/2022 00:54:26 Imaging Results Imaging Date Name Status LastModified by Organization Details LastModified Time 10/08/2017 complete PFT w/ post bronchodilator spirometry* completed [facility] Information not available 11/07/2023 18:08:51 10/18/2016 polysomnogram, titration study completed [facility] Information not available 11/07/2023 18:08:51 08/14/2016 home sleep study completed [facility] Informat ion not available 11/07/2023 18:08:51 06/24/2020 polysomnogram, titration study completed [facility] Information not available 11/08/2023 10:17:44 10/18/2016 polysomnogram, titration study completed [facility] Information not available 11/08/2023 15:05:21 Procedure Notes None recorded. Medical Equipment None Reported. Allergies Allergen ID Allergen Name Allergen Category Reaction Reaction Severity Criticality Documentation Date Start Date Code Code System Note Provider Name and Address Organization Details Recorded Time 49980 amiodaron e medicatio n hives severe Not available 11/08/2023 703 RxNorm Teresa Casillas CMA null, [place] - [facility] [employer] [facility] 4 09:14:47 Medications Name Sig Start Date Stop Date Status Note LastModified by Organization Details LastModified Time furosemide 40 mg tablet TAKE 1 TABLET DAILY IN THE MORNING active Not Available Not Available No t Available metformin 500 mg tablet Take 1 tablet twice a day by oral route. 11/07 completed Not Available Not Available Not Available atorvastati n 20 mg tablet Take 1 tablet every day by oral route. active Not Available Not Available No t Available bumetanide 2 mg tablet active Not Available Not Available Not Available diltiazem ER 180 mg capsule,24 hr,extended release active Not Available Not Available Not Available flecainide 150 mg tablet TAKE 1/2 TABLET BY MOUTH TWICE DAILY 12/18 completed Not Available Not Available Not Available diltiazem CD 180 mg capsule,ext ended release 24 hr TAKE ONE CAPSULE DAILY AT BEDTIME 02/09 completed Not Available Not Available Not Available tizanidine 4 mg tablet Take 1 tablet as needed by oral route at bedtime. active Not Available Not Available No t Available amiodarone 200 mg tablet TAKE ONE TABLET 3 TIMES DAILY 11/07 completed Not Available Not Available Not Available warfarin 7.5 mg tablet 05/07 completed Not Available Not Available Not Available Claritin 10 mg tablet Take 1 tablet every day by oral route for 90 days. 05/06 completed Not Available Not Available Not Available milk thistle 175 mg tablet Take by oral route. 05/06 completed Not Available Not Available Not Available warfarin 2.5 mg tablet Take 1 tablet every day by oral route. 06/27 completed Not Available Not Available Not Available diltiazem ER 360 mg capsule,24 hr,extended release TAKE 1 CAPSULE DAILY 11/07 completed Not Available Not Available Not Available diltiazem CD 360 mg capsule,ext ended release 24 hr active Not Available Not Available Not Available omeprazole 40 mg capsule,del ayed release active Not Available Not Available Not Available levothyroxi ne 25 mcg tablet 11/07 completed Not Available Not Available Not Available ketorolac 0.5 % eye drops active Not Available Not Available Not Available cyproheptad ine 4 mg tablet TAKE 1 TABLET BY MOUTH AT NIGHT active Not Available Not Available No t Available citalopram 20 mg tablet TAKE ONE TABLET DAILY 05/07 completed Not Available Not Available Not Available potassium chloride ER 20 mEq tablet,exte nded release(par t/cryst) Take 1 tablet every day by oral route. active Not Available Not Available No t Available prednisolon e acetate 1 % eye drops,suspe nsion active Not Available Not Available Not Available magnesium oxide 400 mg (241.3 mg magnesium) tablet TAKE ONE TABLET TWICE DAILY active Not Available Not Available No t Available lorazepam 0.5 mg tablet 06/27 completed Not Available Not Available Not Available ciprofloxac in 0.3 % eye drops 11/07 completed Not Available Not Available Not Available baclofen 10 mg tablet active Not Available Not Available No t Available Tylenol 500 mg tablet Take 2 tablets every 6 hours by oral route. 11/07 completed Not Available Not Available Not Available levothyroxi ne 50 mcg tablet TAKE 1 TABLET BY MOUTH EVERY DAY IN THE MORNING ON AN EMPTY STOMACH active Not Available Not Available No t Available cephalexin 500 mg capsule 11/21 completed Not Available Not Available Not Available lisinopril 10 mg tablet 02/09 completed Not Available Not Available Not Available promethazin e 25 mg tablet 11/07 completed Not Available Not Available Not Available warfarin 5 mg tablet Take 1 tablet every day by oral route. 05/07 completed Not Available Not Available Not Available flecainide 100 mg tablet TAKE ONE TABLET TWICE DAILY 11/21 completed Not Available Not Available Not Available folic acid 1 mg tablet TAKE ONE TABLET DAILY active Not Available Not Available No t Available hydroxyzine HCl 25 mg tablet TAKE 1 TABLET BY MOUTH EVERY DAY NEEDED active Not Available Not Available No t Available hydrochloro thiazide 25 mg tablet TAKE ONE TABLET DAILY IN THE MORNING 12/18 completed Not Available Not Available Not Available lorazepam 1 mg tablet TAKE ONE TABLET DAILY FOR 7 DAYS 12/02 completed Not Available Not Available Not Available ferrous sulfate 325 mg (65 mg iron) tablet,marvin yed release TAKE 1 TABLET BY MOUTH TWICE DAILY active Not Available Not Available No t Available Vitamin D2 1,250 mcg (50,000 unit) capsule Take 1 capsule every week by oral route. active Not Available Not Available No t Available Vitamin B-1 100 mg tablet TAKE ONE TABLET DAILY 05/07 completed Not Available Not Available Not Available cefdinir 300 mg capsule Take 1 capsule every 12 hours by oral route for 7 days. 12/18 completed Not Available Not Available Not Available metformin ER 500 mg tablet,exte nded release 24 hr 11/07 completed Not Available Not Available Not Available Ventolin HFA 90 mcg/actuati on aerosol inhaler INHALE 2 PUFFS EVERY 4-6 HOURS NEEDED active Not Available Not Available No t Available escitalopra m 10 mg tablet active Not Available Not Available Not Available bupropion HCl XL 150 mg 24 hr tablet, extended release Take 1 tablet every day by oral route. 2019 active Not Available Not Available Not Avai lable nitrofurant oin monohydrate /macrocryst als 100 mg capsule active Not Available Not Available Not Available Xarelto 20 mg tablet Take 1 tablet every day by oral route. active Not Available Not Available No t Available Eliquis 5 mg tablet Take 1 tablet twice a day by oral route. 06/27 completed Not Available Not Available Not Available Farxiga 10 mg tablet active Not Available Not Available No t Available Incruse Ellipta 62.5 mcg/actuati on powder for inhalation INHALE 1 PUFF ONCE EVERY DAY DIRECTED active Not Available Not Available No t Available Spiriva Respimat 1.25 mcg/actuati on solution for inhalation Inhale 2 puffs every day by inhalatio n route as directed for 30 days. 11/21 completed Not Available Not Available Not Available Vitals Date Recorded Body mass index (BMI) Body height Pain severity - 0-10 verbal numeric rating [Score] - Reported Body weight Provider Name and Address Organization Details Last Updated DateTime 08/18/2020 53.1 kg/m2 160.02 cm 2 954183.71 g Not Available [facility] 06/28/2022 00:55:34 Date Recorded Body height Provider Name an d Address Organization Details Last Updated DateTime 10/05/2020 160.02 cm Not Available [facility] 3 00:55:31 Date Recorded Body height Provider Name an d Address Organization Details Last Updated DateTime 06/21/2021 160.02 cm Not Available [facility] 3 00:55:31 Date Recorded Body weight Body mass index (BMI) Body height Body temperature Heart rate Oxygen saturation Oxygen saturation in Arterial blood by Pulse oximetry Systolic blood pressure Diastolic blood pressure Provider Name and Address Organization Details Last Updated DateTime 4 672525. 05 g 50 kg/m2 160.02 cm 98.1 [degF] 67 /min 97 % 97 % 118 mm[Hg] 64 mm[Hg] Teresa Casillas CMA [facility] [employer] 4 09:13:00 Date Recorded Heart rate Respiratory rate Provider N kal and Address Organization Details Last Updated DateTime 11/08/2023 67 /min 15 /min Inder Kirby MD [address] [place] [address], [facility] [address], [place], [address], [facility] [employer] 11/08/2023 09:27:39 Date Recorded Body height Body mass index (BMI) Body weight Body temperature Heart rate Oxygen saturation Oxygen saturation in Arterial blood by Pulse oximetry Systolic blood pressure Diastolic blood pressure Provider Name and Address Organization Details Last Updated DateTime 160.02 cm 51 kg/m2 307721. 6 g 98.1 [degF] 92 /min 95 % 95 % 120 mm[Hg] 66 mm[Hg] Kassandra Lilly MA [employer] 4 10:28:34 Date Recorded Heart rate Respiratory rate Provider N kal and Address Organization Details Last Updated DateTime 03/12/2024 92 /min 14 /min Inder Kirby MD [address] [facility], [facility] [address], [place], [address], [employer] 03/12/2024 10:31:02 Social History Question Answer Notes LastModified by Organization Details LastModified Time Tobacco Smoking Status Former Smoker quit 2017 [facility] 06/28/2022 00:48:51 Do You Have An Advance Directive? Yes MIGRATION.0301 [id number] Information not available 06/28/2022 What Is Your Level Of Alcohol Consumption? Occasional MIGRATION.0301 [id number] Information not available 06/28/2022 What Is Your Level Of Caffeine Consumption? Moderate MIGRATION.0301 [id number] Information not available 06/28/2022 How Much Tobacco Do You Chew? None MIGRATION.0301 [id number] Information not available 06/28/2022 In The 14 Days Before Symptom Onset, Have You Had Close Contact With A Laboratory-confi rmed COVID-19 While That Case Was Ill? No MIGRATION.0301 [id number] Information not available 06/28/2022 In The 14 Days Before Symptom Onset, Have You Had Close Contact With A Person Who Is Under Investigation For COVID-19 While That Person Was Ill? No MIGRATION.0301 [id number] Information not available 06/28/2022 What Type Of Diet Are You Following? REGULAR MIGRATION.0301 [id number] Information not available 06/28/2022 Which Illicit Or Recreational Drugs Have You Used? None MIGRATION.0301 [id number] Information not available 06/28/2022 Do You Or Have You Ever Used E-cigarettes Or Vape? Never Used Electronic Cigarettes MIGRATION.0301 903745 Information not available 06/28/2022 Do You Have An Electrostatic Air Filter? Yes Information not available 03/12/2024 What Is Your Occupation? Disabled MIGRATION.0301 [id number] Information not available 06/28/2022 Have There Been Any Changes To Your Family Or Social Situation? No MIGRATION.0301 [id number] Information not available 06/28/2022 What Is The Fluoride Status Of Your Home? Unknown MIGRATION.0301 557095 Information not available 06/28/2022 Are There Any Guns Present In Your Home? No MIGRATION.0301 521072 Information not available 06/28/2022 Do You Have A Humidifier? No Information not available 03/12/2024 Do You Use Insect Repellent Routinely? No MIGRATION.0301 943136 Information not available 06/28/2022 Where Do You Live? SingleLevelHouse MIGRATION.0301 [id number] Information not available 06/28/2022 Do You Have Moisture Problems In Your Home? No Information not available 03/12/2024 What Was The Date Of Your Most Recent Tobacco Screening? 03/12/2024 Information not available 03/12/2024 Do You Have Any Pets? Yes MIGRATION.0301 506374 Information not available 06/28/2022 Do You Use Your Seat Belt Or Car Seat Routinely? Yes MIGRATION.0301 612137 Information not available 06/28/2022 Do You Have Smoke And Carbon Monoxide Detectors In Your Home? Yes MIGRATION.0301 106534 Information not available 06/28/2022 At What Age Did You Start Smoking Tobacco? 16 MIGRATION.0301 940924 Information not available 06/28/2022 Are You Passively Exposed To Smoke? No MIGRATION.0301 652961 Information not available 06/28/2022 Do You Or Have You Ever Used Smokeless Tobacco? Never Used Smokeless Tobacco MIGRATION.0301 686440 Information not available 06/28/2022 Are There Any Smokers In Your House? No MIGRATION.0301 474287 Information not available 06/28/2022 Do You Feel Stressed (tense, Restless, Nervous, Or Anxious, Or Unable To Sleep At Night)? AP9940-7 MIGRATION.0301 523703 Information not available 06/28/2022 Do You Use Sunscreen Routinely? No MIGRATION.0301 300471 Information not available 06/28/2022 Have You Recently Traveled Abroad? No MIGRATION.0301 714192 Information not available 06/28/2022 Sex: Unknown Functional Status Question Answer Note LastModified by Organizat ion Details LastModified Time What is your exercise level? None [id number] Information not available 06/28/2022 Mental Status None recorded. Family History Relationship Description Onset Age of this Age Resolved Age Notes LastModified by Organization Details LastModified Time Mother Heart disease MIGRATION.107 [id number] Not available 06/28/2022 00:54:28 Brother Heart disease MIGRATION.652 [id number] Not available 06/28/2022 00:54:29 Mother Hypertensive disorder [email or web address] Not available 2023 09:35:45 Mother Diabetes mellitus [email or web address] Not available 2023 09:35:51 Mother Cerebrovascu lar accident [email or web address] Not available 02/2024 09:35:27 Brother Obstructive sleep apnea syndrome [email or web address] Not available 2023 09:35:14 Father Multiple myeloma [email or web address] Not available 2023 09:35:40 Maternal Grandmother Neoplasm of brain [email or web address] Not available 2023 09:36:09 Paternal Grandfather Malignant tumor of larynx [email or web address] Not available 2023 09:36:27 Maternal Grandfather Myocardial infarction [email or web address] Not available 11/07 09:36:38 Maternal Aunt Heart disease [email or web address] Not available 2023 09:36:49 Maternal Aunt End-stage renal disease [email or web address] Not available 2023 09:36:56 Medical History Condition Response NERVE DISEASE N BLINDNESS N RHEUMATIC FEVER N KIDNEY STONES N BLADDER PROBLEMS N OTHER # 1 N POLIO N LUNG DISEASE/DISORDER N RADIATION / CHEMOTHERAPY N COPD Y Other # 2 N BLOOD DISEASES N SURGERY N EAR OR HEARING PROBLEMS N MUMPS N BOWEL PROBLEMS N DEPRESSION (INCLUDING POST ) N STROKE/TIA N ULCERS N BENIGN PROSTATIC HYPERPLASIA N MEASLES N MYOCARDIAL INFARCTION N OBESITY N GERD/NAUSEA N ANEURYSM N URINARY/BLADDER/KIDNEY PROBLEMS N INPATIENT PSYCH CARE N CORONARY ARTERY DISEASE (CAD) N ADDICTION CONCERNS Y Impotence N ENDOMETRIOSIS N USE OF BLOOD THINNERS N SKIN PROBLEMS N GASTROINTESTINAL DISORDER N PERIPHERAL VASCULAR DISEASE N MUSCLE,JOINT OR BONE PROBLEMS N GASTROINTESTINAL BLEEDING N BLOOD CLOTS N ASTHMA N CATARACTS N ERECTILE DYSFUNCTION N VARICOSITIES N GI PROBLEMS N Low Testosterone N INFERTILITY N AIDS/HIV N LIVER DISEASE N MALE HYPOGONADISM N HYPERTENSION N Deficiency Y ANXIETY DISORDER Y BLOOD TRANSFUSION N ANEMIA/BLOOD DISORDER N CHRONIC EAR INFECTIONS N BRONCHITIS N TUBERCULOSIS N GLAUCOMA N FOOT PROBLEM N DIVERTICULITIS N SLEEP APNEA N CHICKENPOX N INFECTIOUS DISEASE N PROSTATE N HEART ARRHYTHMIA N INSOMNIA N HIGH CHOLESTEROL / HYPERLIPIDEMIA Y EYE PROBLEMS N HYPERTHYROIDISM N NEUROLOGICAL PROBLEMS N EDEMA N CHRONIC PAIN SYNDROME N HYPOTHYROIDISM N CONSTIPATION N CAROTID BLOCKAGE N BACK / NECK PROBLEMS N HAVE YOU BEEN HOSPITALIZED OR SEEN IN [facility] IN THE PAST YEAR ? N ATHEROSCLEROSIS N BREAST PROBLEMS N DIALYSIS N ECZEMA N OSTEOPOROSIS N ARTHRITIS N APPENDICITIS N DIABETES, TYPE Y BAD TEETH N ENT N HEARTBURN / REFLUX N AUTISM SPECTRUM DISORDER (ASD) N HEPATITIS / LIVER DISEASE N PULMONARY DISEASE N GOUT N SLEEP DISORDER N ALZHEIMER'S DISEASE N Brain Problems N DEMENTIA N HERPES N SEIZURES/EPILEPSY N HEADACHES/MIGRAINES N VASCULAR DISEASE N PACEMAKER N Blood Disorder N DIZZINESS N HEART DISEASE/HEART PROBLEMS N KIDNEY DISEASE N MULTIPLE SCLEROSIS N CANCER: SPECIFY N CARDIAC ARRHYTHMIA N ANESTHESIA COMPLICATIONS N ATRIAL FIBRILLATION Y Gall Stones N PULMONARY EMBOLISM N AUTOIMMUNE DISEASE N Gynecological History Statement/Question Response Menses Monthly N If Post Menopausal, Age at Menopause 51 Obstetrics History GPAL:G 0 P 0 0 0 0 Immunizations Vaccine Type Date Status Note Provider Nam e and Address Organization Details Recorded Time pneumococcal polysaccharide PPV23 0 completed Not Available [employer] 06/28/2022 01:26:25 Past Encounters Encounter ID Performer Location Encounter Start Date Encounter Closed Date Diagnosis/Indication Diagnosis SNOMED-CT Code Diagnosis ICD10 Code Diagnosis Note [id number] [facility] [address] [place] [id number] 0 06/28/2020 00:00:00 06/28/2020 14:15:58 [id number] [facility] Internal Med [address] [address] 07/09/2020 00:00:00 07/09/2020 14:24:10 [id number] [facility] Ortho [address] [address] 08/18/2020 00:00:00 08/18/2020 15:39:52 [id number] [facility] Internal Med [facility] [address] [place] [address] 10/05/2020 00:00:00 10/19/2020 21:54:12 [id number] [facility] Med [facility] [address] [place] [address] [address] 06/21/2021 00:00:00 06/21/2021 11:56:37 [id number] Inder Kirby MD [facility] Pulmon[address] [address] 11/08/2023 08:50:58 11/09/2023 08:33:22 Obstructive sleep apnea syndrome 76747205 G47.33 [id number] Inder Kirby MD [facility] [address] [address] 03/12/2024 10:12:02 04/28/2024 10:29:11 Obstructive sleep apnea syndrome 34950925 G47.33 Health Concerns Section Related Observation LastModified by Organization Detai ls LastModified Time None Recorded Concern Status LastModified by Organization Details LastModified Time None Recorded Advance Directives Directive Y: Payers Encounter Date Sequence Insurance Name Policy Number Policy Kidd Covered Member ID Kidd Member ID Guarantor Name 11/08/2023 1 [place]ARE[place] Michelle D Ardison [id number] Michelle Ardison 11/08/2023 2 [place] [facility] Michelle Ardison [id number] Michelle Ardison 03/12/2024 1 [place] Michelle D Ardison [id number] Michelle Ardison 03/12/2024 2 [place] [facility] Michelle Ardison [id number] Michelle Ardison Notes Date Note Type Note Provider Name and Address Organization Details Recorded Time 11/08/2023 text/html Primary care/Ref erring provider: Luis Campo MD CC: My CPAP unit is showing a warning message that it needs to be replaced soon. During the [facility] home sleep study on 08/14/16, AHI = 68. During the [facility] titration sleep study 10/18/16 During the [facility] titration sleep study on 06/24/20, sleep onset = 59 minutes, REM onset = 47 minutes, PLMI = 0.0. At home since 06/28/20, the patient uses a [employer]Med AirSense 10 autoset unit with heated humidification. The patient does not need the ramp to start low and go up slowly on the pressure anymore. There is some xerostomia in a.m. There is no hose/mask condensation with water.The patient wears a [employer] small AirFit P10 for Her nasal pillows without chin strap. There is no claustrophobia, no nostril/nose bridge irritation, no facial rash, no facial numbness, no nosebleeding. The patient feels more refreshed upon waking and daytime alertness is improved. Energy levels are sustained for the remainder of the day. At home, the patient sleeps from 10 pm to 6 am and wakes up without an alarm. Snoring: heavy, since .Snorting: noChoking: noCoughing: yesGasping: noGagging: noSighing: yesWitnessed apnea: yesTwitching or jerking of leg(s), arm(s), body, head: noTeeth grinding: noTeeth clenching: noSleeptalking: noSleepwalking: noSleep crying: noBedwetting: noTongue/lip/gum/cheek biting: noSleeping with open mouth: yesSleep paralysis: noHypnagogic hallucinations: noHypnopompic hallucinations: noVivid dreams: noDifficulty with sleep onset: yesDifficulty with sleep maintenance: yesSleep interruptions: nocturia x 4Patient wakes up with: xerostomia, mobility impairment, dexterity impairmentDaytime cataplexy: noMorning hypersomnolence: noAfternoon hypersomnolence: noCaffeine sources in diet: tea 3 glasses per day, soda 1 can per day, chocolate 1 candy bar per week Associated medical and psychiatric conditions:Congestive heart failure: yesCoronary artery disease: noMyocardial infarction: noHypertension: yesArrhythmias: yesStroke: noBronchial asthma: noChronic obstructive pulmonary disease: noDepression: noBipolar disorder: noAnxiety: noPanic disorder: noPosttraumatic stress disorder: noAttention deficit and hyperactivity disorder: noObsessive Compulsive disorder: noSchizophrenia: noSchizoaffective disorder: noPersonality disorder: noChronic analgesic use: noChronic sedative/hypnotic use: no EPWORTH SLEEPINESS SCALE (ESS) CHANCE OF DOZING SCORE0 = would never doze1 = slight chance of dozing2 = moderate chance of dozing3 = high chance of dozing SITUATION AND CHANCE OF DOZINGSitting and reading - 0Watching television - 1Sitting inactive in a public place (e.g. a theater or meeting) - 0As a passenger in a car for an hour without a break - 0Lying down to rest in the afternoon when circumstances permit - 0Sitting and talking to someone - 0Sitting quietly after lunch without alcohol - 0In a car, while stopped for a few minutes in the traffic - 0TOTAL SCORE 1Subjectively, patient has a slight chance of dozing. Inder Kirby MD [address] [place] [address], [address], [place] [facility] 11/08/2023 09:54:55 03/12/2024 text/html Primary care/Ref erring provider: Luis Campo MD During the [facility] home sleep study on 08/14/16, AHI = 68. During the [facility] titration sleep study 10/18/16 During the [facility] titration sleep study on 06/24/20, sleep onset = 59 minutes, REM onset = 47 minutes, PLMI = 0.0. At home since 12/07/23, the patient uses a ResMed AirSense 11 autoset unit with heated humidification. The patient does not need the ramp to start low and go up slowly on the pressure anymore. There is some xerostomia in a.m. There is no hose/mask condensation with water.The patient wears [employer]Med small AirFit P10 for Her nasal pillows without chin strap. There is no claustrophobia, no nostril/nose bridge irritation, no facial rash, no facial numbness, no nosebleeding. The patient feels more refreshed upon waking and daytime alertness is improved. Energy levels are sustained for the remainder of the day. At home, the patient sleeps from 10 pm to 6 am and wakes up without an alarm. Snoring: heavy, since .Snorting: noChoking: noCoughing: yesGasping: noGagging: noSighing: yesWitnessed apnea: yesTwitching or jerking of leg(s), arm(s), body, head: noTeeth grinding: noTeeth clenching: noSleeptalking: noSleepwalking: noSleep crying: noBedwetting: noTongue/lip/gum/cheek biting: noSleeping with open mouth: yesSleep paralysis: noHypnagogic hallucinations: noHypnopompic hallucinations: noVivid dreams: noDifficulty with sleep onset: yesDifficulty with sleep maintenance: yesSleep interruptions: nocturia x 4Patient wakes up with: xerostomia, mobility impairment, dexterity impairmentDaytime cataplexy: noMorning hypersomnolence: noAfternoon hypersomnolence: noCaffeine sources in diet: tea 3 glasses per day, soda 1 can per day, chocolate 1 candy bar per week Associated medical and psychiatric conditions:Congestive heart failure: yesCoronary artery disease: noMyocardial infarction: noHypertension: yesArrhythmias: yesStroke: noBronchial asthma: noChronic obstructive pulmonary disease: noDepression: noBipolar disorder: noAnxiety: noPanic disorder: noPosttraumatic stress disorder: noAttention deficit and hyperactivity disorder: noObsessive Compulsive disorder: noSchizophrenia: noSchizoaffective disorder: noPersonality disorder: noChronic analgesic use: noChronic sedative/hypnotic use: no EPWORTH SLEEPINESS SCALE (ESS) CHANCE OF DOZING SCORE0 = would never doze1 = slight chance of dozing2 = moderate chance of dozing3 = high chance of dozing SITUATION AND CHANCE OF DOZINGSitting and reading - 0Watching television - 0Sitting inactive in a public place (e.g. a theater or meeting) - 0As a passenger in a car for an hour without a break - 0Lying down to rest in the afternoon when circumstances permit - 0Sitting and talking to someone - 0Sitting quietly after lunch without alcohol - 0In a car, while stopped for a few minutes in the traffic - 0TOTAL SCORE 0Subjectively, patient has no chance of dozing. Inder Kirby MD [address] [place] [address], [place], [address], [place] [facility] 03/12/2024 10:36:27 OBGyn Episode No OBEpisode recorded.
--- OUTSIDE RECORDS SUMMARY | 2024-07-06 11:16 | XMS_ITS | Data Portability ---
Author Organization [facility] CTPatti Barth Address [address] [place] [address] Assessment No assessment recorded. Plan of Treatment Reminders Order Date Submit Date Provider Last Modified By Organization Details Last Modified Time Details Appointments None recorded. Lab afp (alpha-fet oprotein) tumor marker, serum or plasma 2016 KIRSTY CADET, [facility] [place], [address], [place], [address], 7 06:16:09 lipid panel, serum 2016 017 KIRSTY SCHULZRP, [address] [facility], [address], [place], [address], 7 06:16:08 CMP, serum or plasma 2016 017 KIRSTY CADET, [address] [facility], [address], [place], [address], 7 06:16:07 unlisted lab - compliance drug analysis, ur 2016 017 KIRSTY LABTELLYRP, [address] [facility] [address], [address], [place], [address], 7 06:16:06 PT/PTT, plasma 2016 017 KIRSTY CADET, [address] [facility] [address], [address], [place], [address], 7 06:16:08 Referral home health referral - Please call patient to schedule appt. Thank you 2018 019 [facility], 7 [facility], [place], [address], 0 13:57:29 gastroente rologist referral - Please call patient to schedule appt. Thank you 2016 017 kathe Sommer MD, [address] [place], [address], 7 14:26:30 Procedures None recorded. Surgeries None recorded. Imaging None recorded. Medication Orders folic acid 1 mg tablet 2018 019 [facility], [address] [place], [address], 9 13:57:40 thiamine HCl (vitamin B1) 100 mg tablet 2018 019 [facility], [address] [place], [address], 9 13:57:42 Ativan 1 mg tablet 2018 019 [facility], [address] [place], [address], 9 13:37:34 Ativan 1 mg tablet 2018 019 [facility], [address] [place], [address], 9 13:37:34 hydroxyzin e HCl 25 mg tablet 2018 019 [facility], [address] [place], [address], 9 13:57:41 baclofen 10 mg tablet 2016 017 [facility], [address] [place], [address], 9 12:40:50 thiamine HCl (vitamin B1) 100 mg tablet 2016 017 [facility], [address] [place], [address], 7 16:01:05 folic acid 1 mg tablet 2016 017 [email or web address], [address] [place], [address], 9 12:40:41 Patient TargetsNo targets recorded. Patient Instructions Encounter Date Encounter Id Patient Instructions Last Modified By Organization Details Last Modified Time 02/08/2017 [id number] influenza (flu) vaccine: care instructions [facility] Not available 02/08/2017 15:58:10 knee arthritis: care instructions [facility] Not available 02/08/2017 15:58:10 mammogram: about this test si Not available 02/08/2017 15:58:09 deciding about using medicines to quit smoking si Not available 02/08/2017 15:58:09 Quitting Tobacco : Care Instructions [facility] Not available 02/08/2017 15:58:09 substance use disorder: care instructions [facility] Not available 02/08/2017 15:58:10 chronic obstructive pulmonary disease (COPD): care instructions [facility] Not available 02/08/2017 15:58:10 learning about copd and how to prevent lung infections [facility] Not available 02/08/2017 15:58:10 sleep apnea: car e instructions [facility] Not available 02/08/2017 15:58:09 12/18/2018 [id number] substance use disorder: care instructions [facility] Not available 12/18/2018 13:37:15 Reason for Referral [...] jose consu ltati on, plezan e call [phone]. ===== ===== ===== ===== ===== ===== ===== ===== ===== ===== ===== ===== ===== === Not Available [facility] [address], [place], [address], 02/15/2017 06:16:06 02/09/20 17 02/14/2017 drug scree n, urine pdf . Not Available [facility] [address] [facility], [place], [address], 02/15/2017 06:16:06 02/09/2002/09/2017 CMP, serum or plasm a glucose, serum TNP Test not perfo rmed Not Available [facility] ([facility]) [address] [place], [address], 02/15/2017 06:16:07 02/09/2002/09/2017 CMP, serum or plasm a BUN TNP mg/dL No urine speci men recei alexandra. Not Available [facility] ([facility]) [address] [place], [address], 02/15/2017 06:16:07 02/09/2002/09/2017 CMP, serum or plasm a creatinine, serum TNP Test not perfo rmed Not Available [facility] ([facility]) [address] [place], [address], 02/15/2017 06:16:07 02/09/2002/09/2017 CMP, serum or plasm a eGFR if nonafricn AM TNP mL/mi n/1.7 3 Unabl e to calcu late resul t since non-n umeri c resul t obtai joe for compo nent test. Not Available [facility] ([facility]) [address] [place], [address], 02/15/2017 06:16:07 02/09/20 17 02/09/2017 CMP, serum or plasm a eGFR if africn AM TNP mL/mi n/1.7 3 Unabl e to calcu late resul t since non-n umeri c resul t obtai joe for compo nent test. Not Available [facility] ([facility]) [address] [facility], [place], [address], 02/15/2017 06:16:07 02/09/20 17 02/09/2017 CMP, serum or plasm a BUN/creatini ne ratio TNP No urine speci men recei alexandra. Not Available [facility] ([facility]) [address] [place], [address], 02/15/2017 06:16:07 02/09/20 17 02/09/2017 CMP, serum or plasm a sodium, serum TNP Test not perfo rmed Not Available [facility] ([facility]) [address] [place], [address], 02/15/2017 06:16:07 02/09/2002/09/2017 CMP, serum or plasm a potassium, serum TNP Test not perfo rmed Not Available [facility] ([facility]) [address] [place], [address], 02/15/2017 06:16:07 02/09/2002/09/2017 CMP, serum or plasm a chloride, serum TNP Test not perfo rmed Not Available [facility] ([facility]) [address] [place], [address], 02/15/2017 06:16:07 02/09/2002/09/2017 CMP, serum or plasm a carbon dioxide, total TNP mmol/ L No urine speci men recei alexandra. Not Available [facility] ([facility]) [address] [place], [address], 02/15/2017 06:16:07 02/09/2002/09/2017 CMP, serum or plasm a calcium, serum TNP Test not perfo rmed Not Available [facility] ([facility]) [address] [place], [address], 02/15/2017 06:16:07 02/09/2002/09/2017 CMP, serum or plasm a protein, total, serum TNP Test not perfo rmed Not Available [facility] ([facility]) [address] [facility], [place], [address], 02/15/2017 06:16:07 02/09/2002/09/2017 CMP, serum or plasm a albumin, serum TNP Test not perfo rmed Not Available [facility] ([facility]) [address] [place], [address], 02/15/2017 06:16:07 02/09/2002/09/2017 CMP, serum or plasm a globulin, total TNP g/dL Unabl e to calcu late resul t since non-n umeri c resul t obtai joe for compo nent test. Not Available [facility] ([facility]) [address] [facility], [place], [address], 02/15/2017 06:16:07 02/09/2002/09/2017 CMP, serum or plasm a A/G ratio TNP No urine speci men recei alexandra. Not Available [facility] ([facility]) [address] [facility], [place], [address], 02/15/2017 06:16:07 02/09/2002/09/2017 CMP, serum or plasm a bilirubin, total TNP Test not perfo rmed Not Available [facility] ([facility]) [address] [place], [address], 02/15/2017 06:16:07 02/09/2002/09/2017 CMP, serum or plasm a alkaline phosphatase, S TNP Test not perfo rmed Not Available [facility] ([facility]) [address] [facility], [place], [address], 02/15/2017 06:16:07 02/09/2002/09/2017 CMP, serum or plasm a AST (SGOT) TNP IU/L No urine speci men recei alexandra. Not Available [facility] ([facility]) [address] [facility], [place], [address], 02/15/2017 06:16:07 02/09/2002/09/2017 CMP, serum or plasm a ALT (SGPT) TNP Test not perfo rmed Not Available [facility] ([facility]) [address] [facility], [place], [address], 02/15/2017 06:16:07 02/09/2002/09/2017 lipid panel , serum cholesterol, total TNP mg/dL No urine speci men recei alexandra. Not Available [facility] ([facility]) [address] [facility], [place], [address], 02/15/2017 06:16:07 02/09/2002/09/2017 lipid panel , serum triglyceride s TNP mg/dL No urine speci men recei alexandra. Not Available [facility] ([facility]) [address] [facility], [place], [address], 02/15/2017 06:16:07 02/09/2002/09/2017 lipid panel , serum HDL cholesterol TNP Test not perfo rmed Not Available [facility] ([facility]) [address] [place], [address], 02/15/2017 06:16:07 02/09/2002/09/2017 lipid panel , serum VLDL cholesterol jose TNP mg/dL No urine speci men recei alexandra. Not Available [facility] ([facility]) [address] [place], [address], 02/15/2017 06:16:07 02/09/2002/09/2017 lipid panel , serum LDL cholesterol calc TNP mg/dL No urine speci men recei alexandra. 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 LDL/H DL Ratio Men Women 1/2 Avg.R isk 1.0 1.5 Avg.R isk 3.6 3.2 2X Avg.R isk 6.2 5.0 3X Avg.R isk 8.0 6.1 Not Available [facility] ([facility]) [address] [facility], [place], [address], 02/15/2017 06:16:07 02/09/2002/09/2017 PT/PT T, plasm a [...] range 2.5 - 3.5 Not Available [facility] ([facility]) [address] [facility], [place], [address], 02/15/2017 06:16:08 02/09/2002/09/2017 PT/PT T, plasm a prothrombin time TNP sec No urine speci men recei alexandra. Not Available [facility] ([facility]) [address] [facility], [place], [address], 02/15/2017 06:16:08 02/09/20 17 02/09/2017 PT/PT T, plasm a APTT TNP Test not perfo rmed Not Available [facility] ([facility]) [address] [facility], [place], [address], 02/15/2017 06:16:08 02/09/20 17 02/09/2017 afp (alph a-fet oprot ein) tumor marke r, serum or plasm a AFP, serum, tumor marker TNP NG/mL No urine speci men recei alexandra. Eusebio ECLIA metho dolog y Not Available [facility] ([facility]) [address] [facility], [place], [address], 02/15/2017 06:16:09 02/09/20 17 02/09/[address] probl em request problem TNP No urine speci men recei alexandra. TEST: 95793 0 Comp. Metab olic Panel (14) 17645 0 Lipid Panel With LDL/H DL Ratio 29799 1 PT and PTT 30545 3 AFP, Serum , Tumor Marke r Not Available [facility] ([facility]) [address] [facility], [place], [address], 02/15/2017 06:16:09 09/20/19 18 09/19/2017 cardi ac stres s test No observ ation record ed. [email or web address] [facility] [address], [place], [address], 09/20/2017 16:57:00 10/02/19 18 10/01/2017 XR, chest , 2 view No observ ation record ed. [facility] (Im[facility]) [address] [place], [address], 10/01/2017 15:22:44 07/10/19 21 07/09/2020 XR, shoul elvira, 2 or more view No observ ation record ed. [facility] [address] [place], [address], 07/09/2020 15:38:27 01/10/20 22 01/09/2022 XR, chest No observ ation record ed. [address] [facility] [address] [place], [address], 01/13/2022 09:42:27 01/10/20 22 01/09/2022 CT, abdom en + pelvi s, w/o contr ast No observ ation record ed. [address] [facility] [address] [place], [address], 01/13/2022 09:43:16 01/11/20 22 01/09/2022 CT, abdom en + pelvi s, w/o contr ast No observ ation record ed. [address] [facility] [address] [place], [address], 01/13/2022 09:43:31 01/29/20 22 01/28/2022 XR, chest No observ ation record ed. [facility] [address] [place], [address], 01/31/2022 12:36:56 01/31/20 22 01/30/2022 XR, chest No observ ation record ed. [facility] [address] [place], [address], 01/31/2022 14:46:51 Result Notes None recorded. Problems Name Problem SNOMED Code Status Onset Date Resolution Date Notes Provider Name and Address Organization Details Recorded Time Cardiac pacemaker in situ 411800251 Active 019 TAINA Arceo [place] - [place] 9 12:42:39 Current drinker 946932 Active 019 TAINA Arceo [place] - [place] 9 12:43:09 Problem Notes None recorded. Procedures Surgical History Date Name Laterality Status Provider Name and Address Organization Details Recorded Time Pacemaker completed Pee Gaming [place] [facility] [address] [address] 02/08/2017 15:01:52 Imaging Results Imaging Date Name Status LastModified by [facility] Details LastModified Time 09/19/2017 cardiac stress test completed [facility] [address], [place], [address], 09/20/2017 16:57:00 10/01/2017 XR, chest, 2 view completed [facility] ([facility]) [address] [place], [address], 10/01/2017 15:22:44 07/09/2020 XR, shoulder, 2 or more view completed [facility] [address] [place], [address], 07/09/2020 15:38:27 01/09/2022 XR, chest completed [email or web address] [address] [place], [address], 01/13/2022 09:42:27 01/09/2022 CT, abdomen + pelvis, w/o contrast completed [email or web address] [address] [place], [address], 01/13/2022 09:43:16 01/09/2022 CT, abdomen + pelvis, w/o contrast completed [email or web address] [address] [place], [address], 01/13/2022 09:43:31 01/28/2022 XR, chest completed [email or web address] [address] [place], [address], 01/31/2022 12:36:56 01/30/2022 XR, chest completed [email or web address] [address] [place], [address], 01/31/2022 14:46:51 Procedure Notes None recorded. Medical Equipment None Reported. Allergies Allergen ID Allergen Name Allergen Category Reaction Reaction Severity Criticality Documentation Date Start Date Code Code System Note Provider Name and Address Organization Details Recorded Time 550412 Wellbutri n medicatio n hives itching moderate Not available Not available 12/18/2018 63064 RxNorm Not Available Not Available Not Available [...] Updated DateTime 12/18/2018 161.93 cm 51 kg/m2 105646.7 5 g 112 mm[Hg] 64 mm[Hg] Ivelisse Gray [place] - [facility] 9 12:54:00 Date Recorded Body height Body mass index (BMI) Body weight Body temperature Oxygen saturation Oxygen saturation in Arterial blood by Pulse oximetry Heart rate Systolic blood pressure Diastolic blood pressure Provider Name and Address Organization Details Last Updated DateTime 7 161.93 cm 47.7 kg/m2 366454. 49 g 98 [degF] 95 % 95 % 78 /min 128 mm[Hg] 78 mm[Hg] Pee Gaming MA [facility] [address] 7 15:07:44 Social History Question Answer Notes LastModified by Organizat ion Details LastModified Time Tobacco Smoking Status Former Smoker cigarettes Pee Gaming [place] null, [facility] [address] 02/08/2017 15:03:47 Do You Or Have You Ever Used E-cigarettes Or Vape? Never Used Electronic Cigarettes [email or web address] Information not available 12/18/2018 What Was The Date Of Your Most Recent Tobacco Screening? 02/08/2017 Information not available 11/21/2018 Do You Or Have You Ever Used Smokeless Tobacco? Never Used Smokeless Tobacco [email or web address] Information not available 12/18/2018 How Much Tobacco [...] available 01/28 15:03:30 Maternal Grandmother Diabetes mellitus [email or web address] Not available 12/18 12:44:43 Maternal Aunt Diabetes mellitus [email or web address] Not available 12/18 12:44:51 Medical History Condition Response Coronary Artery Disease N Other N High Blood Pressure N Atrial Fibrillation Y Kidney or Bladder Problems N Thyroid Problems N GI Problems N COPD Y Blood Clots N Skin Problems N Anemia N Heart Attack (NM) N Diabetes N Muscle, Joint, or Bone Problems N Seizures/Epilepsy N Acid Reflux (GERD) N Cancer N Stroke N Asthma N Allergies N High Cholesterol N Hepatitis N Liver Disease N Headaches N Osteoporosis N Heart Failure N Gynecological History Statement/Question Response If Post [...] virus, quadrivalent, preservative 7 completed Not Available [facility] 05/17/2019 02:39:18 Past Encounters Encounter ID Performer Location Encounter Start Date Encounter Closed Date Diagnosis/Indication Diagnosis SNOMED-CT Code Diagnosis ICD10 Code Diagnosis Note [id number] [facility] [address] [place] [phone] 02/08/2017 14:29:17 02/12/2017 11:32:03 Screening for malignant neoplasm of colon 872001352 Z12.11 she refuses now. Screening mammography 24 811608 Z12.31 She refuses . Cardiac pa cemaker in situ 565840625 Z95.0 uNDER THE CARE OF HER CARDIOLOGI ST. On examina tion - edema of legs 988789154 R60.0 UNDER THE CARE OF HER CARDIOLOGI ST. Chronic ob structive pulmonary disease 59135958 J44.9 STABLE. 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 Alcoholism 7417075 F10.2 0 Administra tion of influenza vaccine 06938307 Z23 Osteoarthr itis of knee 488448072 M17.0 SHE REFUSES THE X-RAY. OR PT. Adult heal th examination 669944398 Z00.00 wILL OBTAIN COPIES OF MEDICAL RECORD FROM [facility]. [id number] MD Kyle Coker (Adult Med) [address] [place] [phone] 12/18/2018 11:42:09 12/18/2018 13:55:58 Alcoholism 2935576 F10.20 Discussed with patient, will prescribe ativan for 2 weeks , hopefully will help her to quit drinking. Pruritic disorder 640337 002 L29.9 Health Concerns Section Related Observation LastModified by Organization Detai ls LastModified Time None Recorded Concern Status LastModified by Organization Details LastModified Time None Recorded Advance Directives Directive None Recorded Payers Encounter Date Sequence Insurance Name Policy Number Policy Kidd Covered Member ID Kidd Member ID Guarantor Name 02/08/2017 1 [facility] (MEDICAID HMO) [id number] Sarah Odom [id number] Sarah Odom 12/18/2018 1 [facility] (MEDICAID HMO) [id number] Sarah Odom [id number] Sarah Odom Notes Date Note Type Note Provider Name and Address Organization Details Recorded Time 02/08/2017 text/html First time. 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 Still drinks Griselda. NKDA. had bursted appendix about 10 years ago. On CAPA for thr Sleep apnea. Lorena Rios MD Attn: Accounting,[address] [place], [address], [facility] 02/08/2017 16:04:17 12/18/2018 text/html Skin rashes with itching, on wellbutrin from her yard worker, but she dose not like, so she stopped, a regular drinker, allergic to wellbutrin. Lorena Rios MD Attn: Accounting,[address] [place], [address], [facility] 12/18/2018 16:29:55 OBGyn Episode No OBEpisode recorded.
--- OUTSIDE RECORDS SUMMARY | 2024-07-06 11:17 | XMS_ITS | Clinical Summary ---
Author Organization [facility] Address [address] [place] [address] Care Team Providers Care Architect Name Role Phone Luis Campo MD Primary Care Provider [phone] Allergies Active Allergy Reactions Criticality Noted Date [...] Encounters Date Type Department Care Team Description 06/18/2024 External Device Data [facility] ABSTRACTION Provider, Abstract 05/22/2024 External Device Data [facility] ABSTRACTION Provider, Abstract 05/13/2024 External Device Data [facility] ABSTRACTION Provider, Abstract from Last 3 Months Family History Medical History Relation Name Comments Heart Disease Brother Multiple myeloma Father Diabetes Mother Heart Disease Mother Relation Name Status Comments Brother Father Mother Social History Tobacco Use Types Packs/Day Years Used Date Smoking Tobacco: Former Cigarettes 0.3 30 Q uit: 2012 Smokeless Tobacco: Never Tobacco Cessation:Counseling Given: Not Answered Comments Unknown Sex and Gender Information Value Date Recorded Sex Assigned at Not on file Legal Sex Female 10:38 AM 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 Gender Identity Not on file Sexual Orientation Not on file Last Filed Vital Signs Vital Sign Reading Time Taken Comments Blood Pressure 116/77 06/13/2023 8:35 AM RADAR ENGINEER Pulse 93 06/13/2023 8:35 AM RADAR ENGINEER Temperature 36.4 C (97.6 F) 06/13/2023 8:35 AM RADAR ENGINEER Respiratory Rate 18 06/13/2023 8:35 AM RADAR ENGINEER Oxygen Saturation 90% 06/13/2023 8:35 AM RADAR ENGINEER Inhaled Oxygen Concentration - - Weight 122.7 kg (270 lb 6.4 oz) 06/13/2023 8:35 AM RADAR ENGINEER Height 160 cm (5' 3 ) 06/13/2023 8:35 AM RADAR ENGINEER Body Mass Index 47.9 06/13/2023 8:35 AM RADAR ENGINEER Plan of Treatment Health Maintenance Due Date Last Done Comments DTAP/TDAP/TD VACCINES (1 - Tdap) 1980 CERVICAL CANCER SCREENING 10/28/1991 BREAST CANCER SCREENING 2001 FIT-DNA Q 3 years 2006 FIT/FOBT Q 1 year 2006 Flex Sig/CT Colonography Q 5 years 2006 ZOSTER VACCINE (1 of 2) 10/28/2011 RSV VACCINE (60+ or ) (1 - Risk 60-74 years 1-dose series) 2021 INFLUENZA VACCINE (#1) 2023 COLORECTAL SCREENING 05/09/2033 05/09/2023 Colorectal Cancer Screening 05/09/2033 Insurance MED[place]ID [place]ARE PART A AND B Care Teams Architect Relationship Specialty Start Date End Date Luis Campo MD [address] [facility] [address] [place] [address] PCP - General Internal Medicine 04/16/23
--- OUTSIDE RECORDS SUMMARY | 2024-07-06 11:17 | XMS_ITS | CONTINUITY OF CARE DOCUMENT ---
Author Name mario martin Address Unknown Organization [facility] Address [address] [place] [address] Phone [phone] Care Team Providers Care Assembly Loader Name Role Phone Timbo BELTRÁN, Melvina Unavailable SHMUEL ABDUL MD Unavailable SHMUEL ABDUL MD Unavailable [phone] PROBLEMS Condition Status Date Provider Notes CHF active Melvina Izquierdo MD Atrial fibrillation - on joonr win, nl LV fcn 03/16,m s/p unsuccessful CDVN 10/2017 active Melvina Izquierdo MD FAMILY HISTORY OF HEART DISEASE active Juan Izquierdo MD Shortness of breath, BHAVIN on CPAP active Med Izquierdo MD HTN essential active Melvina Izquierdo MD Obesity active Melvina Izquierdo MD [place]ron[place] dc (MRI Safe) pm active Melvina hampton MD Family History of CVA or Stroke: completed - T suzette Izquierdo MD Family History of Hyperlipidemia: completed - Melvina Izquierdo MD Family History of Hypertension: completed - To alicia Izquierdo MD Family History of Hypertension: completed - To alicia Izquierdo MD Family History of Sudden Car diac : completed - Melvina Izquierdo MD Sleep apnea, obstructive active James Barker Sick sinus syndrome active Angela presley MD Itching active Melvina Izquierdo MD ENCOUNTERS Date Type Provider Location Encounter Diag nosis - In-person encounter Office Visit Melvina Izquierdo MD [facility] - In-person encounter Office Visit Melvina Izquierdo MD [facility] Itching - In-person encounter Office Visit [facility] - In-person encounter Office Visit Angela Garvey MD [facility] Sick sinus syndrome - In-person encounter Office Visit Angela Garvey MD [facility] - In-person encounter Office Visit Melvina Izquierdo MD [facility] Atrial fibrillation - on xarelto, nl LV fcn 03/16,m s/p unsuccessful CDVN 10/2017 - In-person encounter Office Visit Melvina Izquierdo MD [facility] Atrial fibrillation - on xarelto, nl LV fcn 03/16,m s/p unsuccessful CDVN 10/2017 - In-person encounter Office Visit Melvina Izquierdo MD [facility] - In-person encounter Office Visit Angela Garvey MD [facility] Sleep apnea, obstructive - In-person encounter Office Visit Angela Garvey MD [facility] - In-person encounter Office Visit Melvina Izquierdo MD [facility] Biotron[place] dc (MRI Safe) pm - In-person encounter Office Visit Melvina Izquierdo MD [facility] - In-person encounter Office Visit Melvina Izquierdo MD [facility] Atrial fibrillation - on xarelto, nl LV fcn 03/16,m s/p unsuccessful CDVN 10/2017Family History of CVA or Stroke:Family History of Hyperlipidemia:Family History of Hypertension:Family History of Hypertension:Family History of Sudden Cardiac : - In-person encounter Office Visit Melvina Izquierdo MD [facility] Shortness of breath, BHAVIN on CPAP - In-person encounter Office Visit Angela Garvey MD [facility] - In-person encounter Office Visit Angela Garvey MD [facility] - In-person encounter Office Visit Angela Garvey MD [facility] - In-person encounter Office Visit Angela Garvey MD [facility] - In-person encounter Office Visit Angela Garvey MD [facility] - In-person encounter Office Visit Angela Garvey MD [facility] - In-person encounter Office Visit Melvina Izquierdo MD [facility] - In-person encounter Office Visit Melvina Izquierdo MD [facility] FAMILY HISTORY OF HEART DISEASEShortness of breath, BHAVIN on CPAPHTN essentialObesity VITAL SIGNS Date Observation Value Provider Body Mass Index (Ratio) 46.86 kg/m2 Giorgio Tinoco blood pressure, diastolic 71 mm[Hg] Dc subhash Acosta blood pressure, systolic 131 mm[Hg] [facility] mo Acosta oxygen saturation, oximetry 94 % Michaelle Acosta pulse rate 100 /min Michaelle jacobo blood pressure, cuff size large Kelly Acosta respiratory rate E&M 16 /min Sammie Acosta weight E&M 273 [lb_av] Michaelle jacobo height E&M 64 [in_i] Michaelle jacobo Body Mass Index (Ratio) 53.38 kg/m2 Juan Izquierdo MD blood pressure, diastolic 87 mm[Hg] Roberto Corrales blood pressure, systolic 131 mm[Hg] Parisa stity Antoni respiratory rate E&M 16 /min Chastit elva Amatoue weight E&M 311 [lb_av] Chastity Antoni pulse rate 83 /min Chastity Antoni height E&M 64 [in_i] Chastity Antoni Body Mass Index (Ratio) 48.91 kg/m2 Taew on Prem blood pressure, diastolic 86 mm[Hg] Cy vera Adams blood pressure, systolic 130 mm[Hg] Mary yanelis Adams pulse rate 94 /min Sabrina Campbel l oxygen saturation, oximetry 93 % Sabrinayanelis Adams respiratory rate E&M 18 /min Sabrina Adams blood pressure, cuff size regular Cy vera Adams weight E&M 285 [lb_av] Sabrina Campbel l height E&M 64 [in_i] Sabrina Campbel l Body Mass Index (Ratio) 49.77 kg/m2 Jord en Paxton blood pressure, cuff size regular Cy vera Adams blood pressure, diastolic 90 mm[Hg] Cy jasmynea Adams blood pressure, systolic 126 mm[Hg] Mary yanelis Adams oxygen saturation, oximetry 95 % Sabrinayanelis Adams respiratory rate E&M 16 /min Sabrina Adams pulse rate 89 /min Sabrina Lachobel l weight E&M 290 [lb_av] Sabrina Campbel l height E&M 64 [in_i] Sabrina Campbel l Body Mass Index (Ratio) 50.46 kg/m2 Juan Izquierdo MD blood pressure, diastolic 93 mm[Hg] To nsha Castillo blood pressure, systolic 135 mm[Hg] Med Castillo respiratory rate E&M 16 /min Tonsha Castillo oxygen saturation, oximetry 95 % Tonsha Castillo pulse rate 82 /min Tonsha Castillo weight E&M 294 [lb_av] Tonsha Castillo height E&M 64 [in_i] Tonsha Castillo Body Mass Index (Ratio) 50.63 kg/m2 Juan Izquierdo MD blood pressure, cuff size large Ke rri Gruenenfelder blood pressure, diastolic 60 mm[Hg] Ke rri Gruenenfelder blood pressure, systolic 110 mm[Hg] Ker ri Temouenenfelder oxygen saturation, oximetry 96 % Carol Havener respiratory rate E&M 18 /min Carol G jonasnfelder pulse rate 103 /min Carol Grharoldoe lder weight E&M 295 [lb_av] Carol Gradelanenfe lder height E&M 64 [in_i] Carol Gradelanenfe lder Body Mass Index (Ratio) 50.46 kg/m2 Juan Izquierdo MD blood pressure, diastolic 80 mm[Hg] Da jacky Ezio blood pressure, systolic 138 mm[Hg] Dac ia Ezio oxygen saturation, oximetry 92 % Ynes Ezio respiratory rate E&M 18 /min Ynes V oss pulse rate 91 /min Ynes Ezio weight E&M 294 [lb_av] Ynes Ezio height E&M 64 [in_i] Ynes Ezio Body Mass Index (Ratio) 50.97 kg/m2 Warren Barker blood pressure, cuff size large Ke rri Gruenenfelder blood pressure, diastolic 82 mm[Hg] Ke rri Gruenenfelder blood pressure, systolic 130 mm[Hg] Ker ri Eloinaelder oxygen saturation, oximetry 95 % Carol Gruenenfelder respiratory rate E&M 20 /min Carol G ruenenfelder pulse rate 105 /min Carol Gruenenfe lder weight E&M 297 [lb_av] Carol Gruenenfe lder height E&M 64 [in_i] Carol Gruenenfe lder Body Mass Index (Ratio) 50.12 kg/m2 Paolo deepti Grangerte blood pressure, cuff size large Ke rri Gruenenfelder blood pressure, diastolic 80 mm[Hg] Ke rri Gruenenfelder blood pressure, systolic 110 mm[Hg] Ker ri Gruenenfelder oxygen saturation, oximetry 95 % Carol Gruenenfelder respiratory rate E&M 22 /min Carol G ruenenfelder pulse rate 107 /min Acrol Gruenenfe lder weight E&M 292 [lb_av] Carol Gruenenfe lder height E&M 64 [in_i] Carol Gruenenfe lder Body Mass Index (Ratio) 50.97 kg/m2 Juan Izquierdo MD blood pressure, cuff size large Ke rri Gruenenfelder blood pressure, diastolic 90 mm[Hg] Ke rri Gruenenfelder blood pressure, systolic 122 mm[Hg] Ker ri Gruenenfelder oxygen saturation, oximetry 96 % Carol Gruenenfelder respiratory rate E&M 22 /min Carol G ruenenfelder pulse rate 100 /min Carol Gruenenfe lder weight E&M 297 [lb_av] Carol Gruenenfe lder height E&M 64 [in_i] Carol Gruenenfe lder Body Mass Index (Ratio) 48.91 kg/m2 Juan Izquierdo MD blood pressure, diastolic 90 mm[Hg] Jeffry Bellodeepti Calabrese blood pressure, systolic 131 mm[Hg] Sherie Calabrese oxygen saturation, oximetry 94 % Ayaan Calabrese respiratory rate E&M 20 /min Jarrett Calabrese pulse rate 95 /min Ayaan cabral weight E&M 285 [lb_av] Ayaan Cortez nspablo height E&M 64 [in_i] Ayaan cabral Body Mass Index (Ratio) 49.84 kg/m2 Juan Izquierdo MD blood pressure, diastolic 90 mm[Hg] Jeffry Madhu Calabrese blood pressure, systolic 147 mm[Hg] Sherie Yocasta Calabrese oxygen saturation, oximetry 96 % Ayaan Calabrese respiratory rate E&M 18 /min Jarrett Calabrese pulse rate 94 /min Ayaan cabral weight E&M 290.4 [lb_av] Ayaan zunigaon height E&M 64 [in_i] Ayaan cabral Body Mass Index (Ratio) 47.13 kg/m2 Juan Izquierdo MD blood pressure, diastolic 92 mm[Hg] Jeffry Calabrese blood pressure, systolic 142 mm[Hg] Sherie Dorcasmark anthony Calabrese oxygen saturation, oximetry 98 % Ayaan Calabrese respiratory rate E&M 18 /min Jarrett Calabrese pulse rate 96 /min Ayaan cabral weight E&M 274.6 [lb_av] Ayaan khan height E&M 64 [in_i] Ayaan cabral Body Mass Index (Ratio) 48.91 kg/m2 Toñito Garvey MD blood pressure, diastolic 90 mm[Hg] Jeffry Calabrese blood pressure, systolic 140 mm[Hg] Sherie Calabrese oxygen saturation, oximetry 96 % Ayaan Calabrese respiratory rate E&M 18 /min Jarrett Calabrese pulse rate 82 /min Ayaan cabral weight E&M 285 [lb_av] Ayaan cabral height E&M 64 [in_i] Ayaan cabral Body Mass Index (Ratio) 45.96 kg/m2 Toñito Garvey MD blood pressure, diastolic 98 mm[Hg] Jeffry Calabrese blood pressure, systolic 154 mm[Hg] Sherie Calabrese oxygen saturation, oximetry 97 % Ayaan Calabrese respiratory rate E&M 18 /min Jarrett Calabrese pulse rate 79 /min Ayaan cabral weight E&M 267.8 [lb_av] Ayaan khan height E&M 64 [in_i] Ayaan cabral height E&M 64 [in_i] Carol michael Body Mass Index (Ratio) 45.31 kg/m2 Toñito Garvey MD blood pressure, cuff size regular Ke rri Maya blood pressure, diastolic 83 mm[Hg] Ke rri Maya blood pressure, systolic 123 mm[Hg] Khushbu Trejo oxygen saturation, oximetry 93 % Carol Trejo respiratory rate E&M 16 /min Carol christopher pulse rate 95 /min Carol michael weight E&M 264 [lb_av] Carol dodgeer height E&M 64 [in_i] Carol dodgeer Body Mass Index (Ratio) 43.05 kg/m2 Toñito Garvey MD blood pressure, diastolic 99 mm[Hg] Jeffry Calabrese blood pressure, systolic 144 mm[Hg] Sherie Calabrese oxygen saturation, oximetry 96 % AyaanJenny Thorpeenson respiratory rate E&M 20 /min Nathalie Thorpeenson pulse rate 63 /min Ayaan Cortez janpablo weight E&M 250.8 [lb_av] Ayaan zunigaon height E&M 64 [in_i] Ayaan Cortez jan Body Mass Index (Ratio) 42.74 kg/m2 Toñito Garvey MD blood pressure, cuff size regular Ke fermin Trejo blood pressure, diastolic 94 mm[Hg] Ke rrkhoa Trejo blood pressure, systolic 126 mm[Hg] Khushbu Trejo oxygen saturation, oximetry 95 % Carol Trejo respiratory rate E&M 16 /min Carol christopher pulse rate 67 /min Carol Christina [facility] weight E&M 249 [lb_av] Carol Christina [facility] height E&M 64 [in_i] Carol Chirstina [facility] Body Mass Index (Ratio) 42.32 kg/m2 Juna Izquierdo MD blood pressure, resting Yes Mary Calabrese blood pressure, diastolic 93 mm[Hg] Jeffry Calabrese blood pressure, systolic 131 mm[Hg] Sherie Calabrese oxygen saturation, oximetry 93 % Ayaan Calabrese respiratory rate E&M 18 /min Jarrett Calabrese pulse rate 80 /min Ayaan Cortez misha weight E&M 246.6 [lb_av] Ayaan khan height E&M 64 [in_i] Ayaan montoyaon Body Mass Index (Ratio) 40.85 kg/m2 Juan Izquierdo MD blood pressure, cuff size regular Ke rri Eloinaioana blood pressure, diastolic 66 mm[Hg] Dale rrkhoa Duvallioana blood pressure, systolic 99 mm[Hg] Khushbu Duvallioana oxygen saturation, oximetry 96 % Carol Duvallioana respiratory rate E&M 16 /min Carol Ruiz patriciabrianaroyce pulse rate 126 /min Carol Christina lder weight E&M 238 [lb_av] Carol Christina lder height E&M 64 [in_i] Carol Christina lder ALLERGIES No Known Drug Allergies RESULTS Date Observation Value Provider Reference Range Interpretation Location 06/10 magnesium, serum 2.2 mg/dL [facility] 1.6-2.3 06/10 prothrombin time (patient) 11.5 s [facility] 9.1-12.0 06/10 international normalized ratio (INR) 1.1 [facility] 0.8-1.2 06/10 lipoprotein, beta, serum, point, quantitative, calculated 97 mg/dL [facility] 0-99 06/10 very low density lipoproteins 20 mg/dL [facility] 5-40 06/10 HDL cholesterol, serum 95 mg/dL [facility] >39 06/10 triglyceride, serum, random 99 mg/dL [facility] 0-149 06/10 cholesterol, serum 212 mg/dL [facility] 100-199 High 06/10 calcium, serum 9.2 mg/dL [facility] 8.7-10.2 06/10 carbon dioxide, venous blood 24 mmol/L [facility] 20-29 06/10 chloride, serum 103 mmol/L [facility] 96-106 06/10 potassium, serum 4.6 mmol/L [facility] 3.5-5.2 06/10 sodium, serum 143 mmol/L [facility] 594-976 9380/0 2/11 urea nitrogen/creatinin e ratio, serum 18 [facility] 9-23 06/10 eGFR if 106 mL/min/{1.7 3_m2} [facility] >59 06/10 eGFR if not 92 mL/min/{1.7 3_m2} [facility] >59 06/10 creatinine, serum 0.73 mg/dL [facility] 0.57-1.00 06/10 urea nitrogen, blood 13 mg/dL [facility] 6-24 06/10 blood glucose, random 101 mg/dL [facility] 65-99 High 06/10 basophil count, absolute 0.0 x10E3/uL [facility] 0.0-0.2 06/10 Eosinophil Absolute Count 0.1 X10E3/UL [facility] 0.0-0.4 06/10 monocyte count, blood, automated 0.5 X10E3/UL [facility] 0.1-0.9 06/10 lymphocyte count, blood, automated 1.3 X10E3/UL [facility] 0.7-3.1 06/10 Absolute Neutrophils 3.7 X10E3/UL [facility] 1.4-7.0 06/10 basophils as percent of blood leukocytes 1 % [facility] Not Estab. 06/10 eosinophils as percent of blood leukocytes 1 % [facility] Not Estab. 06/10 monocytes as percent of blood leukocytes 9 % [facility] Not Estab. 06/10 lymphocytes as percent of blood leukocytes 22 % [facility] Not Estab. 06/10 neutrophils as percent of blood leukocytes 67 % [facility] Not Estab. 06/10 platelet count 214 X10E3/UL [facility] 280-349 7707/0 2/11 red blood cell distribution width 11.6 % [facility] 11.7-15.4 Low 06/10 mean corpuscular hemoglobin concentration, RBC 33.7 G/DL [facility] 31.5-35.7 06/10 mean corpuscular hemoglobin, RBC 32.9 pg [facility] 26.6-33.0 06/10 mean corpuscular volume, RBC 97 fL [facility] 79-97 06/10 hematocrit, blood 41.5 % [facility] 34.0-46.6 06/10 hemoglobin, blood 14.0 g/dL [facility] 11.1-15.9 06/10 erythrocyte (RBC) count 4.26 X10E6/UL [facility] 3.77-5.28 06/10 leukocyte count, blood 5.6 X10E3/UL [facility] 3.4-10.8 07/09 thyroid stimulating hormone, serum 3.050 u[IU]/mL [facility] 0.450-4.500 07/09 hemoglobin A1C, blood, as % of total hemoglobin 6.2 % [facility] 4.8-5.6 High 07/09 lipoprotein, beta, serum, point, quantitative, calculated 78 mg/dL [facility] 0-99 07/09 very low density lipoproteins 20 mg/dL [facility] 5-40 07/09 HDL cholesterol, serum 85 mg/dL [facility] >39 07/09 triglyceride, serum, random 101 mg/dL [facility] 0-149 07/09 cholesterol, serum 183 mg/dL [facility] 262-703 2817/0 3/12 alanine aminotransferase (SGPT), serum 67 1/L [facility] 0-32 High 07/09 aspartate aminotransferase (SGOT), serum 42 1/L [facility] 0-40 High 07/09 alkaline phosphatase, serum 93 1/L [facility] 39-117 07/09 bilirubin, serum, total 0.6 mg/dL [facility] 0.0-1.2 07/09 albumin/globulin ratio, serum 1.3 [facility] 1.2-2.2 07/09 globulin, serum 3.3 [facility] 1.5-4.5 07/09 albumin, serum 4.2 g/dL [facility] 3.5-5.5 07/09 protein, total, serum 7.5 g/dL [facility] 6.0-8.5 07/09 calcium, serum 9.4 mg/dL [facility] 8.7-10.2 07/09 carbon dioxide, venous blood 25 mmol/L [facility] 20-29 07/09 chloride, serum 99 mmol/L [facility] 96-106 07/09 potassium, serum 4.2 mmol/L [facility] 3.5-5.2 07/09 sodium, serum 143 mmol/L [facility] 053-218 4514/0 3/12 urea nitrogen/creatinin e ratio, serum 20 [facility] 9-23 07/09 eGFR if 93 mL/min/{1.7 3_m2} [facility] >59 07/09 eGFR if not 80 mL/min/{1.7 3_m2} [facility] >59 07/09 creatinine, serum 0.82 mg/dL [facility] 0.57-1.00 07/09 urea nitrogen, blood 16 mg/dL [facility] 6-24 07/09 blood glucose, random 109 mg/dL [facility] 65-99 High 07/09 basophil count, absolute 0.0 x10E3/uL [facility] 0.0-0.2 07/09 Eosinophil Absolute Count 0.1 X10E3/UL [facility] 0.0-0.4 07/09 monocyte count, blood, automated 0.7 X10E3/UL [facility] 0.1-0.9 07/09 lymphocyte count, blood, automated 1.7 X10E3/UL [facility] 0.7-3.1 07/09 Absolute Neutrophils 4.6 X10E3/UL [facility] 1.4-7.0 07/09 basophils as percent of blood leukocytes 0 % [facility] Not Estab. 07/09 eosinophils as percent of blood leukocytes 1 % [facility] Not Estab. 07/09 monocytes as percent of blood leukocytes 9 % [facility] Not Estab. 07/09 lymphocytes as percent of blood leukocytes 24 % [facility] Not Estab. 07/09 neutrophils as percent of blood leukocytes 66 % [facility] Not Estab. 07/09 platelet count 237 X10E3/UL [facility] 778-377 8260/0 3/12 red blood cell distribution width 14.1 % [facility] 12.3-15.4 07/09 mean corpuscular hemoglobin concentration, RBC 33.3 G/DL [facility] 31.5-35.7 07/09 mean corpuscular hemoglobin, RBC 33.7 pg [facility] 26.6-33.0 High 07/09 mean corpuscular volume, RBC 101 fL [facility] 79-97 High 07/09 hematocrit, blood 41.4 % [facility] 34.0-46.6 07/09 hemoglobin, blood 13.8 g/dL [facility] 11.1-15.9 07/09 erythrocyte (RBC) count 4.09 X10E6/UL [facility] 3.77-5.28 07/09 leukocyte count, blood 7.0 X10E3/UL [facility] 3.4-10.8 06/02 coagulation managed by Bessy Mendoza RN Bessy Mendoza 06/02 international normalized ratio (INR) 1.8 Sabrina Adams Normal 06/02 prothrombin time (patient) 21.5 s Sabrina Adams 05/18 coagulation managed by Manisha Blakely RN Manisha Blakely RN 05/18 international normalized ratio (INR) 1.4 Sabrinayanelis Adams Normal 05/18 prothrombin time (patient) 16.9 s Sabrina Adams 05/04 coagulation managed by Kenneth Meza RN Kenneth Meza RN 05/04 international normalized ratio (INR) 3.2 Sabrinayanelis Adams Normal 05/04 prothrombin time (patient) 37.8 s Sabrina Adams coagulation managed by Lolly Gary international normalized ratio (INR) 3.3 Ayaan Calabrese Normal prothrombin time (patient) 40.1 s Ayaan Calabrese coagulation managed by Lolly Gary international normalized ratio (INR) 1.9 Sabrina Adams Normal prothrombin time (patient) 23.1 s Sabrina Adams coagulation managed by Michelle Urban international normalized ratio (INR) 11.6 Michelle Urban Normal prothrombin time (patient) 100 s Michelle Urban coagulation managed by Michelle Urban international normalized ratio (INR) 8 Sabrina Adams Normal prothrombin time (patient) 96.0 s Sabrina Adams coagulation managed by Kenneth Meza RN international normalized ratio (INR) 2.1 Estevan Swenson Normal prothrombin time (patient) 25.1 s Albert Lea Swenson 01/22 coagulation managed by Michelle Urban 01/22 international normalized ratio (INR) 1.7 Ynes Ezio Normal 01/22 prothrombin time (patient) 20.6 s Ynes Ezio 12/06 coagulation managed by Michelle Urban 12/06 international normalized ratio (INR) 2.3 Ynes Ezio Normal 12/06 prothrombin time (patient) 27.8 s Ynes Ezio 11/29 coagulation managed by Kenneth Meza RN 11/29 international normalized ratio (INR) 1.6 Sabrina Adams Normal 11/29 prothrombin time (patient) 18.9 s Sabrina Adams 11/22 coagulation managed by Kenneth Meza RN 11/22 prothrombin time (patient) 18.9 s Kenneth Meza RN 11/22 international normalized ratio (INR) 1.9 Kenneth Meza RN Normal 11/17 magnesium, serum 2.1 mg/dL [facility] 1.6-2.3 11/17 prothrombin time (patient) 17.7 s [facility] 9.1-12.0 High 11/17 international normalized ratio (INR) 1.8 [facility] 0.8-1.2 High 11/17 calcium, serum 9.2 mg/dL [facility] 8.7-10.2 11/17 carbon dioxide, venous blood 22 mmol/L [facility] 20-29 11/17 chloride, serum 103 mmol/L [facility] 96-106 11/17 potassium, serum 4.4 mmol/L [facility] 3.5-5.2 11/17 sodium, serum 141 mmol/L [facility] 633-013 1212/0 7/21 urea nitrogen/creatinin e ratio, serum 27 [facility] 9-23 High 11/17 eGFR if 106 mL/min/{1.7 3_m2} [facility] >59 11/17 eGFR if not 92 mL/min/{1.7 3_m2} [facility] >59 11/17 creatinine, serum 0.73 mg/dL [facility] 0.57-1.00 11/17 urea nitrogen, blood 20 mg/dL [facility] 6-24 11/17 blood glucose, random 108 mg/dL [facility] 65-99 High 11/12 coagulation managed by Kenneth Meza RN 11/12 international normalized ratio (INR) 2.0 Ynes Ezio Normal 11/12 prothrombin time (patient) 24.3 s Ynes Ezio 10/22 coagulation managed by Kenneth Meza RN 10/22 international normalized ratio (INR) 2.0 Sabrina Adams Normal 10/22 prothrombin time (patient) 24.5 s Sabrina Adams 09/19 coagulation managed by Kenneth Meza RN 09/19 international normalized ratio (INR) 2.1 Ynes Ezio Normal 09/19 prothrombin time (patient) 25.0 s Ynes Ezio 08/14 coagulation managed by Manisha Blakely RN 08/14 international normalized ratio (INR) 3.0 Ynes Ezio Normal 08/14 prothrombin time (patient) 36.5 s Ynes Ezio 07/30 coagulation managed by Kenneth Meza RN 07/30 international normalized ratio (INR) 2.8 Ynes Ezio Normal 07/30 prothrombin time (patient) 33.8 s Ynes Ezio 07/23 coagulation managed by Kenneth Meza RN 07/23 international normalized ratio (INR) 1.6 Ynes Ezio Normal 07/23 prothrombin time (patient) 19.5 s Ynes Ezio 07/17 pro brain natriuretic peptide 277 pg/mL [facility] 0-287 07/17 magnesium, serum 2.2 mg/dL [facility] 1.6-2.3 07/17 lipoprotein, beta, serum, point, quantitative, calculated 153 mg/dL [facility] 0-99 High 07/17 very low density lipoproteins 22 mg/dL [facility] 5-40 07/17 HDL cholesterol, serum 95 mg/dL [facility] >39 07/17 triglyceride, serum, random 110 mg/dL [facility] 0-149 07/17 cholesterol, serum 270 mg/dL [facility] 100-199 High 07/17 hemoglobin A1C, blood, as % of total hemoglobin 5.5 % [facility] 4.8-5.6 07/17 alanine aminotransferase (SGPT), serum 49 1/L [facility] 0-32 High 07/17 aspartate aminotransferase (SGOT), serum 33 1/L [facility] 0-40 07/17 alkaline phosphatase, serum 73 1/L [facility] 39-117 07/17 bilirubin, serum, total 0.5 mg/dL [facility] 0.0-1.2 07/17 albumin/globulin ratio, serum 1.4 [facility] 1.2-2.2 07/17 globulin, serum 3.1 [facility] 1.5-4.5 07/17 albumin, serum 4.2 g/dL [facility] 3.5-5.5 07/17 protein, total, serum 7.3 g/dL [facility] 6.0-8.5 07/17 calcium, serum 8.9 mg/dL [facility] 8.7-10.2 07/17 carbon dioxide, venous blood 23 mmol/L [facility] 18-07/17 chloride, serum 97 mmol/L [facility] 96-106 07/17 potassium, serum 4.4 mmol/L [facility] 3.5-5.2 07/17 sodium, serum 136 mmol/L [facility] 865-085 6065/0 3/20 urea nitrogen/creatinin e ratio, serum 18 [facility] 9-23 07/17 eGFR if 99 mL/min/{1.7 3_m2} [facility] >59 07/17 eGFR if not 86 mL/min/{1.7 3_m2} [facility] >59 07/17 creatinine, serum 0.78 mg/dL [facility] 0.57-1.00 07/17 urea nitrogen, blood 14 mg/dL [facility] 6-24 07/17 blood glucose, random 93 mg/dL [facility] 65-99 07/16 coagulation managed by Kenneth Meza RN 07/16 international normalized ratio (INR) 1.2 Ynes Ezio Normal 07/16 prothrombin time (patient) 14.8 s Ynes Ezio 05/30 coagulation managed by Kenneth Meza RN 05/30 international normalized ratio (INR) 2.1 Ynes Ezio Normal 05/30 prothrombin time (patient) 24.9 s Ynes Ezio 05/23 coagulation managed by Mary Barajas RN 05/23 international normalized ratio (INR) 1.9 Ynes Ezio Normal 05/23 prothrombin time (patient) 22.8 s Ynes Ezio 05/16 coagulation managed by Mary Barajas RN Mary Barajas RN 05/16 international normalized ratio (INR) 1.3 Ynes Ezio Normal 05/16 prothrombin time (patient) 15.9 s Ynes Ezio coagulation managed by Zara Karl Barajas RN international normalized ratio (INR) 2.1 Carol Trejo Normal prothrombin time (patient) 24.8 s Carol Trejo 06/21 coagulation managed by Kenneth Meza RN 06/21 international normalized ratio (INR) 1.3 Ynes Ezio Normal 06/21 prothrombin time (patient) 15.8 s Ynes Ezio 06/17 coagulation managed by Kenneth Meza RN 06/17 international normalized ratio (INR) 1.3 Ynes Ezio Normal 06/17 prothrombin time (patient) 15.5 s Ynes Ezio 05/12 international normalized ratio (INR) 1.2 Kenneth Meza RN Normal 05/12 prothrombin time (patient) 14.0 s Kenneth Meza RN 10/07 anion gap, serum 17.3 [facility] - 10/07 albumin/globulin ratio, serum 1.6 g/dL [facility] 1.1 - 2.5 10/07 globulin, serum 2.8 [facility] 2.3 - 3.8 10/07 urea nitrogen/creatinin e ratio, serum 25.0 [facility] - 10/07 Estimated Glomerular Filtration Rate (calc) 79.4 (?) [facility] 59.0 - 10/07 chloride, serum 98.7 mmol/L [facility] 98.0 - 107.0 10/07 potassium, serum 4.3 mmol/L [facility] 3.5 - 5.1 10/07 sodium, serum 139.0 mmol/L [facility] 136.0 - 145.0 10/07 creatinine, serum 0.8 mg/dL [facility] 0.5 - 1.0 10/07 carbon dioxide, venous blood 23.0 mmol/L [facility] 22.0 - 29.0 10/07 albumin, serum 4.5 g/dL [facility] 3.5 - 5.2 10/07 calcium, serum 9.0 mg/dL [facility] 8.6 - 10.2 10/07 aspartate aminotransferase (SGOT), serum 18.0 1/L [facility] 0.0 - 32.0 10/07 alkaline phosphatase, serum 65.0 1/L [facility] 40.0 - 130.0 10/07 alanine aminotransferase (SGPT), serum 32.0 1/L [facility] 0.0 - 33.0 10/07 protein, total, serum 7.3 g/dL [facility] 6.6 - 8.7 10/07 bilirubin, serum, total 0.4 mg/[facility] - 1.2 10/07 urea nitrogen, blood 20.0 mg/dL [facility] 6.0 - 20.0 10/07 blood glucose, random 113.0 mg/dL [facility] 74.0 - 99.0 High 10/07 red blood cell distribution width, size density 51.8 fL [facility] 10/07 immature granulocytes, percentage of total cells, blood 0.1 % [facility] 10/07 nucleated red blood cells as percent of blood leukocytes 0.3 % [facility] 10/07 red blood cell (erythrocyte) count, per high power field 0.0 10*3/UL [facility] 10/07 eosinophils as percent of blood leukocytes 1.4 % [facility] 10/07 neutrophils as percent of blood leukocytes 69.3 % [facility] 10/07 Absolute Neutrophils 4.9 CELLS/UL [facility] 1.5 - 7.8 10/07 basophils as percent of blood leukocytes 0.4 % [facility] - 10/07 Absolute Basophils 0.0 CELLS/UL [facility] 0.0 - 0.2 10/07 monocytes as percent of blood leukocytes 6.2 % [facility] - 10/07 Absolute Monocytes 0.4 CELLS/UL [facility] 0.2 - 1.0 10/07 lymphocytes as percent of blood leukocytes 22.6 % [facility] 10/07 Absolute Lymphocytes 1.6 CELLS/UL [facility] 0.9 - 3.9 10/07 mean platelet volume 10.9 (?) [facility] - 10/07 platelet count 208.0 THOUSAND/UL [facility] 100.0 - 400.0 10/07 mean corpuscular hemoglobin concentration, RBC 31.7 G/DL [facility] 31.0 - 38.0 10/07 mean corpuscular hemoglobin, RBC 32.8 pg [facility] 25.0 - 35.0 10/07 mean corpuscular volume, RBC 103.6 fL [facility] 75.0 - 100.0 High 10/07 hematocrit, blood 42.6 % [facility] 35.0 - 55.0 10/07 hemoglobin, blood 13.5 g/dL [facility] 11.5 - 16.5 10/07 erythrocyte count, whole blood 4.1 MILLION/UL [facility] 3.5 - 5.5 10/07 trichomonas vaginalis, urine None seen [facility] 10/07 urine crystals, microscopic None seen [facility] 10/07 casts, urine, microscopic None seen [facility] 10/07 mucus on urinalysis None seen [facility] Not Estab. 10/07 bacteria, urine microscopy Moderate [facility] None seen / Few 10/07 epithelial cells, urine > 10 / lpf [facility] 0 - 10 /lpf (non renal) 10/07 RBC urine by microscopy 4 - 10 /hpf [facility] 0 - 3 /hpf 10/07 WBC urine on microscopy 0 - 5 /hpf [facility] 0 - 5 /hpf 10/07 Nitrite Urine Negative [facility] Negative 10/07 urobilinogen, urine 0.2 E.U./dL mg/dl [facility] 0.2 - 1.0 10/07 specific gravity, urine 1.020 [facility] 1.001 - 1.035 10/07 KETONES, URINE Negative [facility] Negative 10/07 bilirubin, urine Negative [facility] Negative 10/07 Glucose Urine Negative [facility] Negative 10/07 clarity, urine, point Cloudy [facility] Clear Abnormal 10/07 urine color Yellow [facility] yellow to beatriz 2017/0 6/10 activated partial thromboplastin time 32.4 SECONDS [facility] 23.0 - 33.0 10/07 prothrombin time (patient) 10.2 s [facility] 9.0 - 11.5 10/07 international normalized ratio (INR) 1.0 [facility] 0.9 - 1.1 08/15 magnesium, serum 2.2 mg/dL [facility] 1.6 - 2.6 08/15 urea nitrogen/creatinin e ratio, serum 25.0 [facility] - 08/15 Estimated Glomerular Filtration Rate (calc) 110.7 (?) [facility] 59.0 - 08/15 chloride, serum 98.3 mmol/L [facility] 98.0 - 107.0 08/15 potassium, serum 4.2 mmol/L [facility] 3.5 - 5.1 08/15 sodium, serum 140.0 mmol/L [facility] 136.0 - 145.0 08/15 creatinine, serum 0.6 mg/dL [facility] 0.5 - 1.0 08/15 carbon dioxide, venous blood 23.0 mmol/L [facility] 22.0 - 29.0 08/15 calcium, serum 9.2 mg/dL [facility] 8.6 - 10.2 08/15 urea nitrogen, blood 15.0 mg/dL [facility] 6.0 - 20.0 08/15 blood glucose, random 108.0 mg/dL [facility] 74.0 - 99.0 High 08/15 prothrombin time (patient) 10.5 s [facility] 9.0 - 11.5 08/15 international normalized ratio (INR) 1.0 [facility] 0.9 - 1.1 HISTORY OF MEDICATION USE Medication Status Instructions Dates Provider Indications Com ments diltiazem HCl 360 mg capsule,extended release 24hr active Take 1 capsule by mouth once a day 06/26 Zehra Zapata Farxiga 10 mg tablet active TAKE 1 TABL ET ONCE DAILY [facility] bumetanide 2 mg tablet active TAKE 1 TABLET ONCE DAILY metformin 500 mg tablet extended release 24 hr completed TAKE 1 TABLET ONCE DAILY 01/15 - 01/15 Melvina Izquierdo MD methylprednisolone 4 mg tablets,dose pack active Take 1 tablet as directed Take tablets per package instructions. 08/30 Giorgio Tinoco hydroxyzine HCl 25 mg tablet active Take 1 tablet by mouth once a day as needed 08/30 Giorgio Tinoco Klor-Con M20 20 mEq tablet,ER particles/crystals active TAKE 1 TABLET ONCE A DAY 08/02 Renita Wolff diltiazem HCl 360 mg capsule,extended release 24hr completed TAKE 1 CAPSULE ONCE DAILY 05/05 - 06/26 Zehra Benny Xarelto 20 mg tablet active TAKE 1 TABL ET EVERY NIGHT 05/04 [facility] amiodarone 200 mg tablet completed Take 1 tablet once a day - 08/30 Giorgio Tinoco amiodarone 200 mg tablet completed Take 1 tablet by mouth once a day 06/08 - 01/15 Melvina Izquierdo MD atorvastatin 20 mg tablet active TAKE 1 TABLET ONCE DAILY 06/08 [facility] metformin 500 mg tablet extended release 24hr completed Take 1 tablet by mouth once a day 05/28 - 01/15 [facility] Farxiga 10 mg tablet completed Take 1 tabl et by mouth once a day - [facility] amiodarone 200 mg tablet completed Take 1 tablet by mouth once a day - 06/08 Zehra Zapata bumetanide 2 mg tablet completed Take 1 tablet by mouth once a day - [facility] flecainide 150 mg tablet completed TAKE 1 TABLET TWICE A DAY. 10/14 - 05/07 Melvina Izquierdo MD potassium chloride 20 mEq tablet,ER particles/crystals completed Take 1 tablet by mouth once a day 07/15 - 08/02 Renita Wolff furosemide 40 mg tablet completed TAKE 1 TABLET EVERY MORNING - 05/07 Giorgio Quick M20 20 mEq tablet,ER particles/crystals completed - 01/12 Kindra Corrales diltiazem HCl 360 mg capsule,extended release 24hr completed Take 1 capsule by mouth once a day - 05/05 Kenneth Meza RN furosemide 40 mg tablet completed Take 1 tablet by mouth once a day - Melvina Izquierdo MD Cardizem CD 360 mg capsule,extended release 24hr completed Take 1 capsule by mouth every night 11/12 - 01/02 Lin Navas TRAZODONE HCL 50 MG TABS completed 1 tablet every night 06/09 - 01/12 Melvina Izquierdo MD metformin 500 mg tablet completed TAKE ONE TABLET BY MOUTH TWICE DAILY 06/08 - 01/07 Melvina Izquierdo MD VITAMIN D3 99756 UNIT ORAL TABLET completed Take 1 tablet by mouth once a week 07/10 - 01/19 Zehra Zapata bupropion HCl 150 mg tablet extended release 24 hr completed Take 1 tablet once a day 05/24 - 01/12 Kindra Corrales Xarelto 20 mg tablet completed Take 1 tabl et by mouth every night 05/14 - 05/04 Shanon Rushing COUMADIN 7.5 MG ORAL TABLET completed Take 1 tab on Sat and Sun 01/23 - 06/02 Melvina Izquierdo MD magnesium oxide 400 mg (241.3 mg magnesium) tablet completed Take 1 tablet by mouth twice a day 11/16 - 01/12 Melvina Izquierdo MD ADVAIR DISKUS 250-50 MCG/DOSE INHALATION AEROSOL POWDER BREATH ACTIVATED completed 1 puff twice daily 08/14 - 11/26 Carol Trejo atorvastatin 20 mg tablet completed Take 1 tablet by mouth once a day 06/20 - 06/08 Bright Catalan furosemide 40 mg tablet completed Take 1 tablet by mouth every morning 05/24 - 01/02 Lin Navas COUMADIN 5 MG ORAL TABLET completed one one tab Mon through Fri ONLY 06/17 - 06/02 Bessy Mendoza COUMADIN 5 MG ORAL TABLET completed one tab daily 05/09 - 11/26 Ayaan Calabrese THIAMINE CAPSULE completed once a day - 01/12 Ayaan Calabrese FOLIC ACID 1 MG ORAL TABLET completed ONE TAB. DAILY - 11/26 Carol Trejo ELIQUIS 5 MG ORAL TABLET completed one tablet twice daily 05/08 - 05/09 Kenneth Meza RN levothyroxine 50 mcg tablet completed T1 AM ES 12/16 - 01/12 Kindra Corrales flecainide 150 mg tablet completed Take 1 tablet by mouth twice a day 12/20 - 10/14 Malissa Amaro potassium chloride 20 mEq tablet,ER particles/crystals completed 1 tablet by mouth once a day 11/06 - 06/13 Melvina Izquierdo MD HYDROCHLOROTHIAZIDE 25 MG ORAL TABLET completed one tablet each AM 11/06 - 07/16 Melvina Izquierdo MD CEPHALEXIN 500 MG ORAL CAPSULE completed one tablet 4 times a day 10/27 - 11/26 Ayaan Calabrese PERCOCET 5-325 MG ORAL TABLET completed one tablet each 6 hours PRN moderate pain 10/27 - 11/26 Ayaan Calabrese AMIODARONE HCL 200 MG ORAL TABLET completed ONE TAB.three times daily 09/15 - 11/26 Ayaan Calabrese AMIODARONE HCL 200 MG ORAL TABLET completed ONE TAB.three times DAILY 06/05 - 11/26 Ayaan Calabrese FLECAINIDE ACETATE 100 MG ORAL TABLET completed one tab twice daily 08/28 - 09/15 Angela Garvey MD MAGNESIUM OXIDE 400 MG ORAL TABLET completed ONE TAB TWICE A DAY 08/28 - 11/26 Ayaan Calabrese POTASSIMIN TABLET completed take one pill a day 06/05 - 11/26 Carol Trejo CITALOPRAM HYDROBROMIDE 20 MG ORAL TABLET completed take one pill a day 06/05 - 11/26 Carol Trejo YISEL LA 360 MG ORAL TABLET EXTENDED RELEASE 24 HOUR completed TAKE ONE TAB AT NIGHT 06/05 - 01/01 Malissa Amaro previous dose doubled XARELTO 20 MG ORAL TABLET completed Take one tablet daily 06/05 - 05/08 Gail Rodrigues RN SOCIAL HISTORY Date Observation Value Provider social history reviewed E&M revi ewed - no changes required Giorgio Ahmedzai smoking, year quit 2016 Michaelle Acosta number of years as a smoker 30 a Michaelle Acosta smoking history, tot al pack/day 0.5 Michaelle Acosta cigarette use yes Michaelle Brantley ceci smoking status Former smoker Michaelle ramirez social history reviewed E&M revi ewed - no changes required Giorgio Ahmedzai smoking, year quit 2016 Chastity Antoni number of years as a smoker 30 a Chastity Antoni smoking history, tot al pack/day 0.5 Chastity Antoni cigarette use yes Chastity Antoni smoking status Former smoker Parisastestiven Hog ue social history reviewed E&M revi ewed - no changes required Melvina Izquierdo MD social history E&M S moking History: Edgardo mares is a former smoker. Malissa Amaro social history reviewed E&M revi ewed - no changes required Mailssa Amaro smoking, year quit 2017 Sabrina leiva number of years as a smoker 30 a Sabrina Adams smoking history, tot al pack/day 0.5 Sabrina Adams cigarette use yes Sabrina lezama smoking status Former smoker Sabrina watson social history reviewed E&M revi ewed - no changes required Miguel Angel Matta smoking, year quit 2017 Sabirna Denise leiva number of years as a smoker 30 a Sabrina Adams smoking history, tot al pack/day 0.5 Sabrina Adams cigarette use yes Sabrina Davies teja smoking status Former smoker Sabrina watson social history E&M S moking History: P atjoselyn is a former smoker. Melvina Izquierdo MD social history reviewed E&M revi ewed - no changes required Melvina Izquierdo MD smoking, year quit 2016 Tonsha Mo ss number of years as a smoker 30 a Tonsha Castillo smoking history, tot al pack/day 0.5 Tonsha Castillo cigarette use yes Tonsha Castillo smoking status Former smoker Tonsha Castillo social history E&M S moking History: P suzan is a former smoker. Melvina Izquierdo MD social history reviewed E&M revi ewed - no changes required Melvina Izquierdo MD alcohol use, average drinks per day social Carol Trejo alcohol use yes Carol dodgeer smoking, year quit 2016 Carol rangel number of years as a smoker 30 a Carol Orourkeer smoking history, tot al pack/day 0.5 Carol Orourkeer cigarette use yes Carol triplett smoking status Former smoker Carol garciaer social history reviewed E&M revi ewed - no changes required Melvina Izquierdo MD alcohol use, average drinks per day social Ynes Ezio alcohol use yes Ynes Ezio smoking, year quit 2017 Ynes Nina s number of years as a smoker 30 a Ynes Ezio smoking history, tot al pack/day 0.5 Ynes Ezio cigarette use yes Ynes Ezio smoking status Former smoker Ynes Ezio social history reviewed E&M revi ewed - no changes required James Barker social history E&M S moking History: Edgardo mares is a former smoker. James Barker alcohol use, average drinks per day social Carol Gradelanemitchelder alcohol use yes Carol Grharoldoe lder smoking, year quit 2016 Carol Tiffany enenfelder number of years as a smoker 30 a Carol Eloinaelder smoking history, tot al pack/day 0.5 Carol Gradelanemitchelder cigarette use yes Carol Eloina elder smoking status Former smoker Carol Swenson nfelder number of grandchildren Angela Schuster social history E&M S moking History: Edgardo mares is a former smoker. Ko Schuster social history reviewed E&M revi ewed - no changes required Ko Schuster alcohol use, average drinks per day social Carol Katherinnemitchelder alcohol use yes Carol Sanford lder smoking, year quit 2016 Carol Allen enenfelder number of years as a smoker 30 a Carol Eloinaelder smoking history, tot al pack/day 0.5 Carol Gradelanemitchelder cigarette use yes Carol Eloina elder smoking status Former smoker Carol Pandeyne nfelder social history E&M S moking History: Edgardo mares is a former smoker. Melvina Izquierdo MD social history reviewed E&M revi ewed - no changes required Melvina Izquierdo MD alcohol use, average drinks per day social Carol Gruenenfelder alcohol use yes Carol Eloinae lder smoking, year quit 2017 Carol Allen enmassieler number of years as a smoker 30 a Carol Orourkeer smoking history, tot al pack/day 0.5 Carol Orourkeer cigarette use yes Carol triplett smoking status Former smoker Carol garciaer social history E&M S moking History: Edgardo mares is a former smoker. Melvina Izquierdo MD social history reviewed E&M revi ewed - no changes required Melvina Izquierdo MD alcohol use, average drinks per day social Ayaan Calabrese alcohol use yes Ayaan Cortez nson smoking, year quit 2016 Ayaan Calabrese number of years as a smoker 30 a Ayaan Thorpeenson smoking history, tot al pack/day 0.5 Ayaan Calabrese cigarette use yes Ayaan Thorpe enson smoking status Former smoker Ayaan Woods alcohol use, average drinks per day social Ayaan Calabrese alcohol use yes Ayaan Thorpee nson smoking, year quit 2016 Ayaan Calabrese number of years as a smoker 30 a Ayaan Thorpeenson smoking history, tot al pack/day 0.5 Ayaan Calabrese cigarette use yes Ayaan Maurilio enson smoking status Former smoker Ayaan Woods number of grandchildren Melvina Izquierdo MD T suzette Izquierdo MD social history reviewed E&M revi ewed - no changes required Melvina Izquierdo MD social history E&M S moking History: Edgardo mares is a former smoker. Melvina Izquierdo MD alcohol use, average drinks per day social Ayaan Calabrese alcohol use yes Ayaan Cortez nson smoking, year quit 2016 Ayaan Calabrese number of years as a smoker 30 a Ayaan Calabrese smoking history, tot al pack/day 0.5 Ayaan Calabrese cigarette use yes Ayaan khan smoking status Former smoker Ayaan Woods smoking status Former smoker Angela kang MD social history E&M S moking History: Edgardo mares is a former smoker. Angela Garvey MD social history reviewed E&M revi ewed - no changes required Angela Garvey MD alcohol use, average drinks per day social Ayaan Calabrese alcohol use yes Ayaan cabral smoking, year quit 2016 Ayaan Calabrese number of years as a smoker 30 a Ayaan Calabrese smoking history, tot al pack/day 0.5 Ayaan Calabrese cigarette use yes Ayaan khan social history reviewed E&M revi ewed - no changes required Mary Noe alcohol use, average drinks per day social Ayaan Calabrese alcohol use yes Ayaan cabral smoking, year quit 2016 Ayaan Calabrese number of years as a smoker 30 a Ayaan Calabrese smoking history, tot al pack/day 0.5 Ayaan Calabrese cigarette use yes Ayaan khan smoking status Former smoker Ayaan Woods alcohol use, average drinks per day social Mary Noe alcohol use yes Mary Noe smoking, year quit 2016 Mary Sin nicholson number of years as a smoker 30 a Mary Noe smoking history, tot al pack/day 0.5 Mary Neo cigarette use yes Mary Noe smoking status Former smoker Mary Noe social history reviewed E&M revi ewed - no changes required Mary Noe social history E&M S moking History: Edgardo mares is a former smoker. [facility] social history reviewed E&M revi ewed - no changes required [facility] smoking, year quit 2017 Carol Allen juan carlos alcohol use, average drinks per day social Carol Swensonroyce alcohol use yes Carol Christina fernanda number of years as a smoker 30 a Carol Swensonjoseer smoking history, tot al pack/day 0.5 Carol Swensonjoseer cigarette use yes Carol Duvall ioana smoking status Former smoker Carol meyerioana social history E&M S moking History: Edgardo mares currently smokes every day. P atient has been counseled to quit. [facility] social history reviewed E&M revi ewed - no changes required [facility] alcohol use, average drinks per day social Ayaan Calabrese smoking/tobacco cess ation, patient education and counseling yes Ayaan Calabrese alcohol use yes Ayaan Cortez misha number of years as a smoker 30 a Ayaan Calabrese smoking history, tot al pack/day 0.5 [facility] cigarette use yes Ayaan Thorpe bill smoking status Current every day smoker Kal Calabrese number of grandchildren Angela Garvey MD smoking/tobacco cess ation, patient education and counseling yes Angela Garvey MD social history E&M S moking History: P atjoselyn currently smokes every day. P atient has been counseled to quit. Angela Garvey MD social history reviewed E&M revi ewed - no changes required Angela Garvey MD alcohol use, average drinks per day social Carol Trejo alcohol use yes Carol Plascenciahollyparish fernanda number of years as a smoker 30 a Carol Maya smoking history, tot al pack/day 2 a day Carol Maya cigarette use yes Carol Plascenciahollymitch ioana smoking status Current every day smoker K lilakhoa Maya social history reviewed E&M revi ewed - no changes required Melvina Izquierdo MD alcohol use, average drinks per day social Ayaan Thorpeenson alcohol use yes Ayaan Cortez nson number of years as a smoker 30 a Ayaan Thorpeenson smoking history, tot al pack/day 2 a day Ayaan Thorpeenson cigarette use yes Ayaan Thorpe enson smoking status Current every day smoker M mikaylaLashaenavneet Calabrese social history reviewed E&M revi ewed - no changes required Melvina Izquierdo MD alcohol use, average drinks per day social Carol Trejo alcohol use yes Carol Sanford michael number of years as a smoker 30 a Carol Maya smoking history, tot al pack/day 2 a day Carol Trejo cigarette use yes Carol Eloina triplett smoking status Current every day smoker Devyn choudhury Maya FAMILY HISTORY Family Member Condition Mother Family History of Koenig dden Cardiac : Mother Family History of Hy pertension: Mother Family History of Di abetes: Mother Family History of Hy pertension: Mother Family History of Hy perlipidemia: Mother Family History of Di abetes: Mother Family History of CV A or Stroke: Father Negative FH of Coron prabhakar Artery Disease Mother Family History of Koenig dden Cardiac : Mother Family History of Hy pertension: Mother Family History of Hy perlipidemia: Mother Family History of Di abetes: Mother Family History of CV A or Stroke: INSURANCE PROVIDERS Payer name Policy type / Coverage type Shlomo red constitution party ID [place] Medicare [id number] [facility] Medicaid 3 [id number] ADVANCE DIRECTIVES Name Date DISCUSSED - NO DECISION MADE TREATMENT PLAN Date Name Performer [id number],S, Giorgio Ahmedza i [id number],S, Giorgio Ahmedza i [id number],S, Giorgio Ahmedza i [id number],S, Giorgio Ahmedza i [id number],S, Giorgio Ahmedza i [id number],S, Giorgio Ahmedza i [id number],S, Giorgio Ahmedza i [id number],S, Giorgio Ahmedza i [id number],S, Giorgio Ahmedza i [id number],S, Giorgio Ahmedza i [id number],S, Giorgio Ahmedza i [id number],S, Giorgio Ahmedza i [id number],B, Melvina Izquierdo MD [id number],W, Melvina Izquierdo MD [id number],S, Melvina Izquierdo MD [id number],S, Melvina Izquierdo MD [id number],W, Melvina Izquierdo MD Cardiology Giorgio Ahmedzai Cardiology Giorgio Ahmedzai Cardiology Giorgio Ahmedzai Cardiology Giorgio Ahmedzai Cardiology Giorgio Ahmedzai Cardiology Giorgio Ahmedzai Telehealth Giorgio Ahmedzai Telehealth Giorgio medzai Telehealth Giorgio Ahmedzai Telehealth Giorgio Ahmedzai Telehealth Giorgio Ahmedzai Telehealth Giorgio Ahmedza Cardiology Melvina Izquierdo MD Cardiology Melvina Izquierdo MD Cardiology Melvina Izquierdo MD Cardiology Melvina Izquierdo MD Cardiology Melvina Izquierdo MD Electrophysiology fo llow up: H er updated medication list for this problem includes: Cardizem Cd 360 Mg Oral Capsule Extended Release 24 Hour (Diltiazem hcl coated beads) ..... One daily at night Flecainide 150mg (Flecainide acetate) ..... Half a tablet twice a day Malissa Amaro Electrophysiology fo llow up: B P today: 130/86 P rior BP: 126/90 (06/27/2019) Labs Reviewed: C reat: 0.73 (06/10/2019) C hol: 212 (06/10/2019) HDL: 95 (06/10/2019) Malissa Amaro Electrophysiology fo llow up: H er updated medication list for this problem includes: Cardizem Cd 360 Mg Oral Capsule Extended Release 24 Hour (Diltiazem hcl coated beads) ..... One daily at night Furosemide 40mg (Furosemide) ..... Take 1 tablet daily in the morning Orders: 9 9214 MOD Complex ([id number]) F VC - 65925 (89315) F RC - 81147 (02569) D LCO - 69993 (22569) S chedule Followup (*) Malissa Amaro Electrophysiology fo llow up: T he following medications were removed from the medication list: Cardizem La 360 Mg Oral Tablet Extended Release 24 Hour (Diltiazem hcl coated beads) ..... Take one tab at night Her updated medication list for this problem includes: Cardizem Cd 360 Mg Oral Capsule Extended Release 24 Hour (Diltiazem hcl coated beads) ..... One daily at night Flecainide 150mg (Flecainide acetate) ..... Half a tablet twice a day Malissa Amaro Electrophysiology fo llow up: H er updated medication list for this problem includes: Flecainide 150mg (Flecainide acetate) ..... Half a tablet twice a day Malissa Amaro Electrophysiology ho spital follow up : H er updated medication list for this problem includes: Furosemide 40mg (Furosemide) ..... Take 1 tablet daily in the morning Cardizem La 360 Mg Oral Tablet Extended Release 24 Hour (Diltiazem hcl coated beads) ..... Once daily Miguel Angel Matta Electrophysiology ho spital follow up : B P today: 126/90 P rior BP: 135/93 (06/09/2019) Prior 10 Yr Risk Heart Disease: Not enough information (01/22/2018) Labs Reviewed: C reat: 0.73 (06/10/2019) C hol: 212 (06/10/2019) HDL: 95 (06/10/2019) Her updated medication list for this problem includes: Furosemide 40mg (Furosemide) ..... Take 1 tablet daily in the morning Cardizem La 360 Mg Oral Tablet Extended Release 24 Hour (Diltiazem hcl coated beads) ..... Once daily Miguel Angel Matta Electrophysiology ho spital follow up : H er updated medication list for this problem includes: Flecainide 150mg (Flecainide acetate) ..... One tablet twice a day Miguel Angel Matta Electrophysiology ho spital follow up :Needs to be reporgrammed to a lower rate of 70bpm n ormal device function w ell healing scar Miguel Angel Matta Cardiology Melvina Izquierdo MD Cardiology Melvina Izquierdo MD Cardiology Melvina Izquierdo MD Cardiology Melvina Izquierdo MD Cardiology Follow up Melvina devine MD Cardiology Follow up Melvina devine MD Cardiology Follow up Melvina devine MD Cardiology Follow up Melvina devine MD Cardiology Follow up Melvina devine MD Cardiology Follow up Melvina devine MD Cardiology follow up :Her activity has increased, and she walks 2-3 miles a day. Melvina Izquierdo MD Cardiology follow up :Wears CPAP daily. Melvina Izquierdo MD Cardiology follow up:Wears CPAP daily. Melvina Izquierdo MD Cardiology follow up :The patient complains of palpitations and dizziness, but denies syncope and presyncope. Her symptoms are unchanged since her last visit. She has increased her activity by walking for 2-3 months. Patient has been treated with coumadin, Flecainide and cardioversion. I NR 1.7 Melvina Izquierdo MD Electrophysiology Fo llow u p:CDVN on 11/23/17, successfully converted to SR, but reverted back into a-fib in <30 seconds. Echo at that time showed normal LVF with EF 55%, mod LAE, and mild-mod MR. EKG today shows A-fib with HR 92 bpm. H x of prior synchronized CDVN 09/15/16. I recommend that the patient lose 40 pounds before attempting EP ablation for A-fib. I offered the patient to get second opinion at [facility] for [facility]. Her updated medication list for this problem includes: Flecainide Acetate 150 Mg Oral Tablet (Flecainide acetate) ..... One tablet twice a day, increased from 100mg twice a day Coumadin 5 Mg Oral Tablet (Warfarin sodium) ..... 1 & 1/2 tab daily Orders: E KG (CPT-99745) C OMPREHENSIVE METABOLIC PANEL, W/EGFR (83521) THYROID PANEL WITH TSH, 3RD GENERATION (6044) O ther ([id number]) S chedule Followup (*) 9 5706 HIGH Complex (CPT-69172) M AGNESIUM (622) James Barker Electrophysiology Follow u p:Com pliant with CPAP. James Barker Electrophysiology Fo llow u p:BP today: 130/82 P rior BP: 110/80 (11/16/2017) Labs Reviewed: C reat: 0.73 (11/17/2017) C hol: 270 (07/17/2017) HDL: 95 (07/17/2017) Her updated medication list for this problem includes: Lasix 40 Mg Oral Tablet (Furosemide) ..... One tablet once daily in the morning Cardizem La 360 Mg Oral Tablet Extended Release 24 Hour (Diltiazem hcl coated beads) ..... Once daily James Barker Electrophysiology Fo llow u p:Her updated medication list for this problem includes: Lasix 40 Mg Oral Tablet (Furosemide) ..... One tablet once daily in the morning Cardizem La 360 Mg Oral Tablet Extended Release 24 Hour (Diltiazem hcl coated beads) ..... Once daily Orders: F VC - 22506 (20871) F RC - 43097 (46271) D LCO - 29826 (30636) 9 9296 HIGH Complex (CPT-38747) James Barker Electrophysiology Follow up Paolo Schuster Electrophysiology Fo llow up :The patient was encouraged to lose weight for better health. Ko Schuster Electrophysiology Fo llow up :Most recent device check shows 100% Afib burden. [facility] [place] Electrophysiology Fo llow up : B P today: 110/80 P rior BP: 122/90 (11/12/2017) Labs Reviewed: C reat: 0.78 (07/17/2017) C hol: 270 (07/17/2017) HDL: 95 (07/17/2017) Ko Schuster Cardiology Follow up Melvina devine MD Cardiology Follow up Melvina devine MD Cardiology Follow up Melvina devine MD Cardiology Follow up Melvina devine MD Cardiology Follow up Melvina devine MD Cardiology Melvina Izquierdo MD Cardiology: B P today: 131/90 P rior BP: 147/90 (07/16/2017) Labs Reviewed: C reat: 0.78 (07/17/2017) C hol: 270 (07/17/2017) HDL: 95 (07/17/2017) Melvina Izquierdo MD Cardiology:May be an ginal equivalent, but as patient is a former smoker, will first attempt medical therapy with inhaler and referring to pulmonology as there was moderate obstruction on her last PFT. Melvina Izquierdo MD Cardiology Melvina Izquierdo MD Cardiology Melvina Izquierdo MD Cardiology Melvina Izquierdo MD Cardiology:Check TSH and mag. Ad d Lasix, stop HCTZ. Melvina Izquierdo MD Cardiology:Check TSH and mag. Ad d Lasix, stop HCTZ. Melvina Izquierdo MD Cardiology Melvina Izquierdo MD Cardiology:Has lost 11 pounds si nce last month. Melvina Izquierdo MD Cardiology Melvina Izquierdo MD Cardiology Melvina Izquierdo MD Cardiology: s/p card ioversion on 03/12/2017. Remote check shows patient is back in afib. However, her sxs have significantly improved. Continue present medication. Patient is going to go back on Coumadin and will follow witht he office for protimes. Her insurance denied NOAC. Melvina Izquierdo MD Electrophysiology: B P today: 140/90 P rior BP: 154/98 (12/01/2016) Labs Reviewed: C reat: 0.8 (10/07/2016) Angela Garvey MD Electrophysiology:EK G shows intermittent ventricular paced rhythm. Plan for JUANA/Cardioversion with Dr. Izquierdo. She will start Coumadin 5mg daily. The following medications were removed from the medication list: Amiodarone Hcl 200 Mg Oral Tablet (Amiodarone hcl) ..... One tab.three times daily Her updated medication list for this problem includes: Flecainide Acetate 100 Mg Oral Tablet (Flecainide acetate) ..... One tablet twice daily Angela Garvey MD Cardiology:She will take Amiodarone once daily until finished with current Rx S tart Flecinide 100mg twice daily once finished with Amiodarone Orders: S NOMED-CT: [id number] Current Medications Documented (SCT-[id number]) 9 9214 MOD Complex (CPT-78538) Her updated medication list for this problem includes: Flecainide Acetate 100 Mg Oral Tabs (Flecainide acetate) ..... One tablet twice daily Amiodarone Hcl 200 Mg Tabs (Amiodarone hcl) ..... One tab.three times daily [facility] Electrophysiology Ho [facility]ital Follow up :Plan for cardioversion. H er updated medication list for this problem includes: Amiodarone Hcl 200 Mg Tabs (Amiodarone hcl) ..... One tab.three times daily [facility] Cardiology [facility] Cardiology:Successfu l synchronized cardioversion on 09/15/2016. She was started on Amiodarone 200mg daily. EKG shows AFIB with rate of 90 bpm. Permanent PM vs ablation. With patient with severe sleep apnea reccommend permanent pacemaker implantation. [facility] EP Faxed 09/01/16 1108 : H er updated medication list for this problem includes: Cardizem Cd 180 Mg Oral [id number]-ome (Diltiazem hcl coated beads) ..... Take one pill twice a day Orders: C ardioversion - [facility] (CPT-17295) 9 9245 HIGH Complex (CPT-37883) [facility] EP Faxed 09/01/16 1108 : O rders: C ardioversion - [facility] (CPT-10359) 9 9245 HIGH Complex (CPT-10942) Her updated medication list for this problem includes: Flecainide Acetate 100 Mg Oral Tabs (Flecainide acetate) ..... One tab twice daily [facility] Cardiology Melvina Izquierdo MD Cardiology Melvina Izquierdo MD Cardiology Melvina Izquierdo MD Cardiology Melvina Izquierdo MD Cardiology [facility] Follow up To alicia Izquierdo MD Cardiology [facility] Follow up To alicia Izquierdo MD Cardiology [facility] Follow up To alicia Izquierdo MD Cardiology [facility] Follow up To alicia Izquierdo MD Cardiology [facility] Follow up :will schedule JUANA/cv and an EP consult Melvina Izquierdo MD Date Name DLCO - 46967 FRC - 10390 FVC - 80062 MAGNESIUM PROTHROMBIN TIME WIT H INR LIPID PANEL CBC (INCLUDES DIFF/P LT) BASIC METABOLIC PANE L W/EGFR JUANA/CV - GC Vitamin D, 25-Hydrox y TSH, 3RD GENERATION W/REFLEX TO FT4 HEMOGLOBIN A1c CBC (INCLUDES DIFF/P LT) COMPREHENSIVE METABO LIC PANEL, W/EGFR LIPID PANEL TSH, 3RD GENERATION W/REFLEX TO FT4 Vitamin D, 25-Hydrox y COMPREHENSIVE METABO LIC PANEL, W/EGFR LIPID PANEL CBC (H/H, RBC, INDIC ES, WBC, PLT) HEMOGLOBIN A1c INR Strip MAGNESIUM Other THYROID PANEL WITH T SH, 3RD GENERATION COMPREHENSIVE METABO LIC PANEL, W/EGFR DLCO - 09742 FRC - 92661 FVC - 50931 MAGNESIUM PROTHROMBIN TIME WIT H INR BASIC METABOLIC PANE L W/EGFR DLCO - 71213 FRC - 53120 FVC - 14845 JUANA/CV - GC INR Strip TSH, 3RD GENERATION W/REFLEX TO FT4 HEMOGLOBIN A1c MAGNESIUM PROBNP, N TERMINAL LIPID PANEL COMPREHENSIVE METABO LIC PANEL, W/EGFR JUANA/CV - GC BASIC METABOLIC PANE L W/EGFR COMPREHENSIVE METABO LIC PANEL, W/EGFR DLCO - 49939 FRC - 10309 FVC - 23343 Cardioversion - GC Cardioversion - GC Other THYROID PANEL WITH T SH, 3RD GENERATION PROTHROMBIN TIME WIT H INR CBC (INCLUDES DIFF/P LT) PARTIAL THROMBOPLAST IN TIME, ACTIVATED URINALYSIS, COMPLETE W/REFLEX TO CULTURE COMPREHENSIVE METABO LIC PANEL W/EGFR Pacemaker Dual Chamb er - GC Complete Echo BASIC METABOLIC PANE L W/EGFR PROTHROMBIN TIME WIT H INR Cardioversion - [facility] BASIC METABOLIC PANE L W/EGFR PROTHROMBIN TIME WIT H INR MAGNESIUM HISTORY OF PROCEDURES Procedure Date Procedure Name Provider Procedure Notes S mesha Schedule Followup Angela castellanos MD SK 1 year completed Schedule Followup Angela castellanos MD Please schedule a follow-up appointment with Dr. Izquierdo in 3 months. Edgardo mancilla schedule a follow-up appointment with me in 1 year. completed EKG Angela presley MD completed EKG Melvina Izquierdo MD completed ICM Interrogation, Remote (Prof) Melvina Izquierdo MD INTERROGATION EVAL REMOTE </30 D CV MNTR SYS completed ICM Interrogation, Remote (Tech) Melvina Izquierdo MD INTERROGATION EVAL REMOTE </30 D TECH REVIEW completed ICM Interrogation, Remote (Prof) Melvina Izquierdo MD INTERROGATION EVAL REMOTE </30 D CV MNTR SYS completed ICM Interrogation, Remote (Tech) Melvina Izquierdo MD INTERROGATION EVAL REMOTE </30 D TECH REVIEW completed ICM Interrogation, Remote (Prof) Melvina Izquierdo MD INTERROGATION EVAL REMOTE </30 D CV MNTR SYS completed Pacemaker Interrogation, Remote (Tech) Melvina Izquierdo MD INTERROGATION REMOTE </90 D HANDSTITCHING MACHINE ARMHOLE FELLER REVIEW completed Pacemaker Interrogation, Remote (Prof) Melvina Izquierdo MD INTERROGATION EVAL REMOTE </90 D 1/2/FIRE LIEUTENANT LEAD P completed ICM Interrogation, Remote (Prof) Melvina Izquierdo MD INTERROGATION EVAL REMOTE </30 D CV MNTR SYS completed ICM Interrogation, Remote (Tech) Melvina Izquierdo MD INTERROGATION EVAL REMOTE </30 D TECH REVIEW completed ICM Interrogation, Remote (Prof) Melvina Izquierdo MD INTERROGATION EVAL REMOTE </30 D CV MNTR SYS completed ICM Interrogation, Remote (Tech) Melvina Izquierdo MD INTERROGATION EVAL REMOTE </30 D TECH REVIEW completed ICM Interrogation, Remote (Prof) Melvina Izquierdo MD INTERROGATION EVAL REMOTE </30 D CV MNTR SYS completed Pacemaker Interrogation, Remote (Tech) Melvina Izquierdo MD INTERROGATION REMOTE </90 D HANDSTITCHING MACHINE ARMHOLE FELLER REVIEW completed Pacemaker Interrogation, Remote (Prof) Melvina Izquierdo MD INTERROGATION EVAL REMOTE </90 D 1/2/FIRE LIEUTENANT LEAD P completed ICM Interrogation, Remote (Prof) Melvina Izquierdo MD INTERROGATION EVAL REMOTE </30 D CV MNTR SYS completed ICM Interrogation, Remote (Tech) Melvina Izquierdo MD INTERROGATION EVAL REMOTE </30 D TECH REVIEW completed ICM Interrogation, Remote (Prof) Melvina Izquierdo MD INTERROGATION EVAL REMOTE </30 D CV MNTR SYS completed ICM Interrogation, Remote (Tech) Melvina Izquierdo MD INTERROGATION EVAL REMOTE </30 D TECH REVIEW completed Poonam Izquierdo MD completed Poonam Black MD completed Poonam Black MD completed ICM Interrogation, Remote (Prof) Melvina Izquierdo MD INTERROGATION EVAL REMOTE </30 D CV MNTR SYS completed Pacemaker Interrogation, Remote (Tech) Melvina Izquierdo MD INTERROGATION REMOTE </90 D HANDSTITCHING MACHINE ARMHOLE FELLER REVIEW completed Pacemaker Interrogation, Remote (Prof) Melvina Izquierdo MD INTERROGATION EVAL REMOTE </90 D 1/2/FIRE LIEUTENANT LEAD P completed Poonam Black MD completed Poonam Izquierdo MD completed ICM Interrogation, Remote (Prof) Melvina Izquierdo MD INTERROGATION EVAL REMOTE </30 D CV MNTR SYS completed ICM Interrogation, Remote (Tech) Melvina Izquierdo MD INTERROGATION EVAL REMOTE </30 D TECH REVIEW completed Poonam Haines MD complet ed Schedule Followup Angela castellanos MD in [address] Izquierdo completed EKG Angela presley MD completed ICM Interrogation, Remote (Prof) Melvina Izquierdo MD INTERROGATION EVAL REMOTE </30 D CV MNTR SYS completed ICM Interrogation, Remote (Tech) Melvina Izquierdo MD INTERROGATION EVAL REMOTE </30 D TECH REVIEW completed Poonam Mcclure MD complet ed Poonam Marrero MD complete d Poonam Mcclure MD complet ed Schedule Followup Angela castellanos MD 1 week after procedure completed EKG Angela presley MD completed Poonam Izquierdo MD completed ICM Interrogation, Remote (Prof) Melvina Izquierdo MD INTERROGATION EVAL REMOTE </30 D CV MNTR SYS completed Pacemaker Interrogation, Remote (Tech) Melvina Izquierdo MD INTERROGATION REMOTE </90 D HANDSTITCHING MACHINE ARMHOLE FELLER REVIEW completed Pacemaker Interrogation, Remote (Prof) Melvina Izquierdo MD INTERROGATION EVAL REMOTE </90 D 1/2/FIRE LIEUTENANT LEAD P completed Regadenoson, 4 units Melvina Izquierdo MD completed Cardiolite, 2 units Melvina Izquierdo MD completed SPECT Images Frederic Mcclure MD compl eted Stress EKG Frederic Mcclure MD complet ed Poonam presley MD completed ICM Interrogation, Remote (Prof) Melvina Izquierdo MD INTERROGATION EVAL REMOTE </30 D CV MNTR SYS completed ICM Interrogation, Remote (Tech) Melvina Izquierdo MD INTERROGATION EVAL REMOTE </30 D TECH REVIEW completed Poonam Izquierdo MD completed Poonam presley MD completed ICM Interrogation, Remote (Prof) Melvina Izquierdo MD INTERROGATION EVAL REMOTE </30 D CV MNTR SYS completed ICM Interrogation, Remote (Tech) Melvina Izquierdo MD INTERROGATION EVAL REMOTE </30 D TECH REVIEW completed Poonam presley MD completed Poonam Izquierdo MD completed ICM Interrogation, Remote (Prof) Melvina Izquierdo MD INTERROGATION EVAL REMOTE </30 D CV MNTR SYS completed Pacemaker Interrogation, Remote (Tech) Melvina Izquierdo MD INTERROGATION REMOTE </90 D HANDSTITCHING MACHINE ARMHOLE FELLER REVIEW completed Pacemaker Interrogation, Remote (Prof) Melvina Izquierdo MD INTERROGATION EVAL REMOTE </90 D 1/2/FIRE LIEUTENANT LEAD P completed Poonam presley MD completed ICM Interrogation, Remote (Prof) Melvina Izquierdo MD INTERROGATION EVAL REMOTE </30 D CV MNTR SYS completed ICM Interrogation, Remote (Tech) Melvina Izquierdo MD INTERROGATION EVAL REMOTE </30 D TECH REVIEW completed Poonam presley MD completed Poonam Izquierdo MD completed Poonam Izquierdo MD completed Poonam Izquierdo MD completed SNOMED-CT: [id number] Current Medications Documented Melvina Izquierdo MD completed ICM Interrogation, Remote (Prof) Melvina Izquierdo MD INTERROGATION EVAL REMOTE </30 D CV MNTR SYS completed ICM Interrogation, Remote (Tech) Melvina Izquierdo MD INTERROGATION EVAL REMOTE </30 D TECH REVIEW completed FVC / MVV with bronchodilator - 41449 Angela Garvey MD completed BLOOD COUNT HEMOGLOBIN Angela almonte MD completed FRC - 88671 Angela presley MD completed SpO2 - 68187 Angela presley MD completed DLCO - 43034 Angela presley MD completed EKG Angela presley MD completed SNOMED-CT: 961775816531475 Current Medications Documented Angela Garvey MD completed ICM Interrogation, Remote (Prof) Melvina Izquierdo MD INTERROGATION EVAL REMOTE </30 D CV MNTR SYS completed Pacemaker Interrogation, Remote (Tech) Melvina Izquierdo MD INTERROGATION REMOTE </90 D HANDSTITCHING MACHINE ARMHOLE FELLER REVIEW completed Pacemaker Interrogation, Remote (Prof) Melvina Izquierdo MD INTERROGATION EVAL REMOTE </90 D 1/2/FIRE LIEUTENANT LEAD P completed ICM Interrogation, Remote (Prof) Melvina Izquierdo MD INTERROGATION EVAL REMOTE </30 D CV MNTR SYS completed ICM Interrogation, Remote (Tech) Melvina Izquierdo MD INTERROGATION EVAL REMOTE </30 D TECH REVIEW completed ICM Interrogation, Remote (Prof) Melvina Izquierdo MD INTERROGATION EVAL REMOTE </30 D CV MNTR SYS completed ICM Interrogation, Remote (Tech) Melvina Izquierdo MD INTERROGATION EVAL REMOTE </30 D TECH REVIEW completed Schedule Followup Angela castellanos MD In 3 months completed SNOMED-CT: [id number] Current Medications Documented Angela Garvey MD completed SNOMED-CT: 242422523562724 Current Medications Documented Angela Garvey MD completed EKG Angela presley MD completed SNOMED-CT: 011200768173612 Current Medications Documented Angela Garvey MD completed EKG Angela presley MD completed EKG Angela presley MD completed EKG Angela presley MD completed FVC / MVV with bronchodilator - 48149 Angela Garvey MD completed BLOOD COUNT HEMOGLOBIN Angela almonte MD completed FRC - 88618 Angela presley MD completed SpO2 - 26110 Angela presley MD completed DLCO - 23225 Angela presley MD completed EKG Angela presley MD completed SNOMED-CT: 628710952577462 Current Medications Documented Angela Garvey MD completed HAYLEE Izquierdo MD co mpleted SNOMED-CT: 40361694 Physical Exam, Performed: Pulse Exam of Foot Melvina Izquierdo MD completed SNOMED-CT: 226864241161610 Current Medications Documented Melvina Izquierdo MD completed SNOMED-CT: 50383199 Physical Exam, Performed: Pulse Exam of Foot Melvina Izquierdo MD completed EKG Melvina Izquierdo MD completed SNOMED-CT: 810170730558813 Current Medications Documented Melvina Izquierdo MD completed Event Monitor Melvina Izquierdo MD comple laina
--- OUTSIDE RECORDS SUMMARY | 2024-07-06 11:17 | XMS_ITS ---
Author Organization [facility] Address [address] [place] [address] Care Team Providers Care Sexual Assault Response Coordinator Name Role Phone Luis Campo Primary Care Provider REASON FOR VISIT itching medication not working Medications Medication SIG (Take, Route, Frequency, Duration) Notes Start Date End Date Status Cholestyramine 4 GM 1 packet mixed with water or non-carbonated drink Orally twice a day for 30 days for itching due to liver disease 06/17/2024 Active Cyproheptadine HCl 4 MG 1 tablet Orally Twice a day for 30 days As needed itching stop acetaminophen and iron Active Social History Sex Assigned At : Social History Observation Description Sex Assigned At Female Encounters Encounter Location Date Provider Diagnosis [address] [address] 06/16/2024 Luis Campo Pruritus L29.9 Assessments Encounter Date Diagnosis (ICD Code) Assessment Notes Treatment Notes Treatment Clinical Notes Section Notes 06/16/2024 Pruritus (ICD-10 - L29.9) Plan Of Treatment Medication Medication Name Sig Start Date Stop Date Notes Cholestyramine 4 GM 1 packet mixed with water or non-carbonated drink Orally twice a day for 30 days 06/17/2024 Cyproheptadine HCl 4 MG 1 tablet Orally Twice a day for 30 days stop acetaminophen a nd iron Progress Notes * Michelle PATELDOB: [birth year] (63 yo F)Acc No.[id number]:06/16/2024 Patient: Christiana RDISON, Michelle :1960 A ge:63 Y S ex:Female Address:[address] [place] [address], [id number] * Refills Refill Cyproheptadine HCl Tablet, 4 MG, Orally, 60 Tablet, 1 tablet, Twice a day, 30 days, Refills=1 Start Cholestyramine Packet, 4 GM, Orally, 60, 1 packet mixed with water or non-carbonated drink, twice a day, 30 days, Refills=1 Subjective: * Chief Complaints: * I tching medication not working * Medical History: * Surgical History: * Hospitalization/Major Diagno stic Procedure: * Medications: Objective: * Vitals: * Physical Examination: Assessment: * Assessment: 1. Edgardo fitzpatrick - L29.9 S pecify :POSSIBLE DRUG REACTION (AMIODARONE) Plan: * Treatment: * Procedure Codes: * true * Date: Generated for Kelly castrejon/David/Beth on: 0 07/06/2024 11:17 AM CDT
--- OUTSIDE RECORDS SUMMARY | 2024-07-06 11:17 | XMS_ITS ---
Author Organization [facility] Address [address] [place] [address] Care Team Providers Care Rad Tech Name Role Phone Luis Campo Primary Care Provider REASON FOR VISIT Labs-fasting Social History Sex Assigned At : Social History Observation Description Sex Assigned At Female Encounters Encounter Location Date Provider Diagnosis [address] [address] 06/04/2024 Luis Campo Plan Of Treatment No Information Progress Notes * Michelle PATELDOB: [birth year] (63 yo F)Acc No.[id number]:06/04/2024 UNLOCKED PROGRESS NOTE Patient: Michelle WICK Provider: Devyn Campo :1960 A ge:63 Y S ex:Female Date:06/04/2024 Address:[address] [place], [place] [id number] Check In:09:15 AM METAL POURER Subjective: * Chief Complaints: * 1 . Labs-fasting. * Medical History: Objective: * Vitals: Assessment: Plan: * Treatment: * * Electronic signature of Larry Campo , [id number] on 07/06/2024 at 11:17 AM CDT Sign off status: Pending * Provider: Devyn Campo Date: 0 06/04/2024 Generated for Kelly castrejon/David/Funmilayosmitting on: 0 07/06/2024 11:17 AM CDT
[2024-07-06 11:41] LABS: Basophils Percent Auto 0.2 % (0.2-1.2); Eosinophils Percent Auto 0.4 % (0-4.4); Immature Granulocyte Absolute 0.05 K/mm3 (0.00-0.031); Immature Granulocyte Percent A 0.5 % (0-0.5); Lymphocytes Absolute Auto 1.43 K/mm3 (0.9-3.2); Mean Corpuscular HGB Conc 28.8 g/dl (32-36); Mean Corpuscular Hemoglobin 28.4 pg (26-34); Mean Corpuscular Volume 98.8 fl (80-100); Mean Platelet Volume 11.3 fl (7.4-10.4); Monocytes Percent Auto 9.3 % (2.6-8.5); Neutrophils Absolute Auto 7.7 K/mm3 (1.3-6.7); Neutrophils Percent Auto 75.6 % (45.5-73.1); Nucleated Red Blood Cells Perc 1.4 % (0.0-0.2); Platelet Count Result 266 k/mm3 (150-375); Red Blood Count 1.62 M/mm3 (4.2-5.4); Red Cell Distribution Width 22.7 % (11.5-14.5); White Blood Count 10.2 K/mm3 (4.5-10.0)
[2024-07-06 11:54] LABS: Alanine Aminotransferase 43 U/L (6-35); Albumin Level 2.7 g/dL (3.5-5.1); Alkaline Phosphatase 105 U/L (38-126); Anion Gap 14 mmol/L (4-12); Aspartate Amino Transferase 87 U/L (14-36); Bilirubin,Total 3.6 mg/dL (0.2-1.3); Blood Urea Nitrogen 30 mg/dL (7-17); Carbon Dioxide 20 mmol/L (22-30); Chloride 100 mmol/L (98-107); Estimated CRCL calculation 61 ml/min; Estimated Glomerular Filt Rate 48; Glucose 182 mg/dL (65-110); Potassium 3.2 mmol/L (3.4-5.0); Sodium 134 mmol/L (137-145)
[2024-07-06 12:06] LABS: Hemoglobin 4.6 g/dL (12.0-15.0)
[2024-07-06 12:13] LABS: Anisocytosis 2+; Hypochromasia 2+; Platelet Estimate Adequate (Adequate); Target Cells 1+
[2024-07-06 12:14] LABS: Polychromasia 1+; Schistocytes None Seen
[2024-07-06 12:28] LABS: Lipase 171 U/L (23-300)
--- NOTE | 2024-07-06 12:40 | PC.NURSE ---
this RN spoke to Dr. Mares at this time about the pt low blood pressure. this RN tried adjusting the cuff, repositioning the pt, and a different cuff all with the same results. JEFFERSON Mares gave a verbal order to administer a bolus of sodium chloride, 1L, wide open
[2024-07-06] MEDS: PANTOPRAZOLE SODIUM IV 40 MG VIAL IV PUSH ×2 (12:48→21:35)
[2024-07-06] MEDS: SODIUM CHLORIDE 0.9% IV 1,000 ML 999 ML (12:48)
[2024-07-06 13:06] LABS: Influenza A QL RT-PCR Negative (Negative); Influenza B QL RT-PCR Negative (Negative); RSV RNA, RT-PCR Negative (Negative); SARS-CoV-2 RNA PCR Negative (Negative)
--- NOTE | 2024-07-06 13:28 | PM.IMHP ---
H&P: HPI History of Present Illness Date/Time: 07/06/24 13:28 Chief Complaint: Tired and weak Narrative: 63-year-old female with history of pacemaker, congestive heart failure, atrial fibrillation on anticoagulation, alcohol abuse presents the hospital complaining of being tired and weak. Patient states that she does still sometimes drink. Patient states that she has felt more tired than normal with weakness over the last week or so. She states that she noticed she was looking pale. She states that she did not notice any black tardy stools or bloody stools. Patient denies nausea or vomiting, fevers chills. ED she had anemia of 4.6, potassium of 3.2, creatinine of 1.14, calcium 8, total bili of 3.6 AST and ALT are slightly elevated at 87 and 43. Chest x-ray shows moderate right pleural effusion, EKG shows atrial fibrillation with RVR rate of 122. Review of Systems Review of Systems: 12 systems were reviewed and are negative except for as per HPI. FOR[facility]LY [facility] Past Medical History Medical History Hypothyroidism Congestive heart failure Dyslipidemia Obstructive sleep apnea on CPAP Diverticulitis Chronic anticoagulation Chronic atrial fibrillation Surgical History Surgical History History of permanent cardiac pacemaker placement (09/2016) Biotronik dual chamber pacemaker implant by Dr. Garvey Family History Family History Mother Acute myocardial infarction, Onset Age: 73 Cerebrovascular accident, Onset Age: 73 Diabetes mellitus Father Multiple myeloma Social History Social History Social History: Surrogate medical decision maker: Gracy Banuelos, friend. Code status: Do not resuscitate. Years smoked: 35 Smoking status: Former smoker Tobacco type: cigarettes Smoking end date: 06/28/16 Alcohol intake: current Drinks per week: 21 Alcohol use details: Social alcohol use in moderation. Substance use: never Substance use type: does not use Do You Feel Safe in your Home?: Yes Lack of Transportation: No Lack of Food: Never True Current Housing: I Have Housing Concerned About Future Housing: No Difficulty Paying Gas/Electric Bills: No Difficulty Paying for Meds: No Currently Unemployed: No Education: High School Diploma/GED Difficulty w/ Childcare or Family Care: No Living arrangements: with family Additional living arrangements comments: The patient lives alone. She has no children. Caregiver comes in 3 days weak. Spiritual care concerns: No Meds Home Medications and Allergies Home Medications ?Medication ?Instructions ?Recorded ?Confirmed ?Type Vitamin D2 50,000 units PO WEEKLY 03/23/23 07/06/24 History bumetanide 2 mg tablet 2 mg PO DAILY 03/23/23 07/06/24 History diltiazem HCl 360 mg capsule,24 360 mg PO DAILY 03/23/23 07/06/24 History hr,extended release levothyroxine 25 mcg tablet 25 mcg PO DAILY 03/23/23 07/06/24 History potassium chloride 20 mEq 20 meq PO BID 03/23/23 07/06/24 History tablet,extended release rivaroxaban 20 mg tablet (Xarelto) 20 mg PO DAILY 03/23/23 07/06/24 History ascorbic acid (vitamin C) 500 mg 500 mg PO DAILY #30 tabs 03/27/23 07/06/24 Rx tablet (Vitamin C) dapagliflozin propanediol 10 mg 10 mg PO DAILY 04/27/23 07/06/24 History tablet (Farxiga) Allergies Allergy/AdvReac Type Severity Reaction Status Date / Time amiodarone Allergy Severe Hives Verified 07/06/24 11:15 codeine AdvReac Mild Itching Verified 07/06/24 11:15 Vital Signs Vital Signs - 24 hr 07/06/24 10:55 07/06/24 10:55 07/06/24 10:55 Temperature 98.5 F Pulse Rate 122 H Respiratory Rate 18 Blood Pressure 112/65 Pulse Oximetry 97 100 100 Oxygen Delivery Room Air Room Air Room Air 07/06/24 11:04 07/06/24 11:19 07/06/24 11:33 Temperature Pulse Rate 134 H 140 H 125 H Respiratory Rate 21 H 22 H Blood Pressure 112/65 112/52 L Pulse Oximetry 98 100 Oxygen Delivery 07/06/24 11:47 07/06/24 12:01 07/06/24 12:16 Temperature Pulse Rate 115 H 117 H 104 H Respiratory Rate 21 H 12 19 Blood Pressure 104/61 92/80 L 111/61 Pulse Oximetry Oxygen Delivery 07/06/24 12:32 07/06/24 12:37 07/06/24 12:39 Temperature Pulse Rate 117 H 135 H 116 H Respiratory Rate 19 15 15 Blood Pressure 88/50 L 81/51 L 78/51 L Pulse Oximetry Oxygen Delivery 07/06/24 12:45 07/06/24 13:03 Temperature Pulse Rate 130 H 108 H Respiratory Rate 18 22 H Blood Pressure 85/65 L 84/54 L Pulse Oximetry 96 Oxygen Delivery Exam Narrative: General: well appearing, appears stated age. HEENT: normocephalic, atraumatic. Mucous membranes moist. EOMI, PERRLA, bilateral sclera anicteric, no conjunctival injection. Neck supple without JVD, lymphadenopathy, or bruit. Pale lips Respiratory: clear to ascultation bilaterally. No rales/rhonic/wheezes. Cardiovascular: Regular rate and rhythm, normal S1-S2 upon ascultation. No murmurs, rubs, or clicks. PMI is nondisplaced, capillary refill less than 3 second. Abdomen: Soft, round, no pulsatile masses, nondistended and nontender. No rebound, no guarding. No CVA tenderness, no hepatosplenomegaly. Bowel sounds present to all four quadrants. No high pitch or tinkling sounds, resonant to percussion. Extremities: No cyanosis, clubbing, or edema present. Pulses are palpable 2/2. Active ROM to all four extremities. Neuro: Alert and orientated x 4. PERRLA. Cranial nerves 2-12 intact without focal deficit. Skin: Warm, dry, and intact, without rash, erythema, or lesion. Psych: pleasant, cooperative, normal speech, normal affect, no hallucinations, no dysarthia H&P: Results Labs Labs: Short CBC 07/06/24 Range/Units 11:37 WBC 10.2 H (4.5-10.0) K/mm3 Hgb 4.6 L* D (12.0-15.0) g/dL Hct 16.0 L* (37.0-47.0) % Plt Count 266 D (150-375) k/mm3 BMP 07/06/24 11:37 Sodium 134 L Potassium 3.2 L Chloride 100 Carbon Dioxide 20 L BUN 30 H D Creatinine 1.14 H Glucose 182 H Calcium 8.0 L Liver Function 07/06/24 Range/Units 11:37 Total Bilirubin 3.6 H (0.2-1.3) mg/dL AST 87 H (14-36) U/L ALT 43 H (6-35) U/L Alkaline Phosphatase 105 (38-126) U/L Albumin 2.7 L (3.5-5.1) g/dL Assessment and Plan Assessment and plan (1) GI bleed: Code(s): K92.2 - Gastrointestinal hemorrhage, unspecified Status: Acute Assessment and Plan: GI consulted Plan for scope NPO midnight (2) Acute blood loss anemia: Code(s): D62 - Acute posthemorrhagic anemia Status: Acute Assessment and Plan: Secondary to above, Hemoglobin on admission 4.6 Transfuse 3 units RBC Q.6 hours H&H No signs of acute bleeding (3) Atrial fibrillation with RVR: Code(s): I48.91 - Unspecified atrial fibrillation Status: Acute Assessment and Plan: Telemetry monitoring Continue diltiazem (4) Chronic anticoagulation: 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 Status: Chronic Assessment and Plan: Hold anticoagulation due to GI bleed (5) Congestive heart failure: Code(s): I50.9 - Heart failure, unspecified Status: Chronic Assessment and Plan: Hold diuretics due to hypotension Continue monitor for fluid overload while given blood (6) Hypothyroidism: Code(s): E03.9 - Hypothyroidism, unspecified Status: Chronic Assessment and Plan: Continue levothyroxine (7) Alcohol abuse: Code(s): F10.10 - Alcohol abuse, uncomplicated Status: Acute Assessment and Plan: Monitor for withdrawals (8) Hypokalemia: Code(s): E87.6 - Hypokalemia Status: Acute Assessment and Plan: Replete as needed Daily BMP Quality VTE Prophylaxis VTE prophylaxis: mechanical ordered If No VTE Prophylaxis Answer both mechanical and pharmacologic: Reason no pharmacologic proph: medical contraindication Hospitalist MIPS Advance Care Plan I have confirmed that the patient's Advanced Care Plan is present, code status is documented, or surrogate decision maker is listed in patient medical record.: Yes Medication Reconciliation I have utilized all available resources to obtain, update and review the patients current medications (includes all prescriptions, OTC, herbals, cannabis, and nutritional supplements).: Yes
[2024-07-06] MEDS: TUBING, BLOOD PLUM PUMP TUBING 1 EACH XX (13:53)
[2024-07-06] MEDS: SODIUM CHLORIDE 0.9% IV 250 ML 30 ML IV CONT (13:53)
[2024-07-06] MEDS: POTASSIUM CHLORIDE 20 MEQ ER TABLET 40 MEQ PO (13:54)
--- NOTE | 2024-07-06 15:36 | PC.NURSE ---
Patient arrived to the floor via stretcher from the ER. PRBC's infusing. Vital signs obtained, stable. No acute distress noted. Denies pain at this time. 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 Gown changed.
[2024-07-06] MEDS: methocarbamoL 500 MG TABLET PO (22:09)
[2024-07-06] MEDS: POTASSIUM CHLORIDE 20 MEQ PACKET (FOR LIQUID) 40 MEQ PO (22:10)
[2024-07-07] VITALS (21 sets, daily range): BP systolic 96–126; BP diastolic 50–69; PULSE 80–121; RESP 16–29; TEMP 36.5–36.7; O2SAT 96–99
[2024-07-07 08:12] LABS: Hematocrit 23.7 % (37.0-47.0); Hemoglobin 7.6 g/dL (12.0-15.0)
[2024-07-07] MEDS: PANTOPRAZOLE SODIUM IV 40 MG VIAL IV PUSH ×2 (08:56→20:44)
[2024-07-07] MEDS: dilTIAZem HCL CD 180 MG CAP.24HR 360 MG PO (08:57)
--- NOTE | 2024-07-07 09:47 | P.PNIM_ITS ---
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 She has been vomiting in the last 4-5 days on average 1 vomiting every 2 hours no diarrhea constipation. Patient drinks alcohol daily did not drink for over 1 week. She complained of generalized weakness/tiredness. No black tarry stool or blood in stool reported. In the ED she was tachycardic blood pressure was adequate. EKG showed AFib with RVR. Laboratory studies showed hemoglobin of 4.6 hematocrit of 16 platelet of 266 WBC of 10.2 Chem panel showed mild hypokalemia 3.2 mild acidosis with bicarb of 20 and creatinine of 1.1. Lipase was normal at 171 AST 87 ALT 43 alkaline phosphatase 105 total bilirubin was 3.6 chest x-ray showed moderate right pleural effusion. Severe anemia Xarelto on hold. Ppi b.i.d.. GI has been consulted. Status post transfusion of 3 units of PRBC. H&H 7.6 this a.m.. GI bleed suspected AFib with RVR improved on oral diltiazem Hypotension improved with hydration Moderate right pleural effusion suspected related to CHF. Alcohol use disorder CIWA protocol Elevated LFTs Hypokalemia replace and monitor Hypothyroidism History of congestive heart failure hold diuretics for now may need to slowly diurese Obstructive sleep apnea on CPAP Chronic anticoagulation with Xarelto DVT prophylaxis SCDs Code status do not resuscitate Subjective Date/time seen: 07/07/24 09:47 Interval history: No overnight events. Chart reviewed. Hemoglobin 7.6 this a.m.. Feels better. Review of Systems Review of Systems: All systems reviewed & are unremarkable except as noted in HPI and below Exam Narrative: GENERAL: The patient is well developed, not in acute distress HEENT: Nonicteric sclerae, PERRLA, EOMI. Oropharynx clear. Moist mucous membranes. Conjunctivae appear well perfused. CHEST: Chest wall is nontender. HEART: Regular rate and rhythm without murmur, rubs, or gallops LUNGS: Clear to auscultation bilaterally. no respiratory distress ABDOMEN: Soft, positive bowel sounds, non-tender, no organomegaly. SKIN: No rash, no excessive bruising, petechiae, or purpura. NEUROLOGIC: Cranial nerves II-XII intact, alert and oriented x 3, no gross motor deficits EXTREMITIES: no edema, cyanosis or clubbing Objective Data Vital Signs Vital Signs: Vital Signs - 24 hr 07/06/24 10:55 07/06/24 10:55 07/06/24 10:55 Temperature 98.5 F Pulse Rate 122 H Respiratory Rate 18 Blood Pressure 112/65 Pulse Oximetry 97 100 100 Oxygen Delivery Room Air Room Air Room Air 07/06/24 11:04 07/06/24 11:19 07/06/24 11:33 Temperature Pulse Rate 134 H 140 H 125 H Respiratory Rate 21 H 22 H Blood Pressure 112/65 112/52 L Pulse Oximetry 98 100 Oxygen Delivery 07/06/24 11:47 07/06/24 12:01 07/06/24 12:16 Temperature Pulse Rate 115 H 117 H 104 H Respiratory Rate 21 H 12 19 Blood Pressure 104/61 92/80 L 111/61 Pulse Oximetry Oxygen Delivery 07/06/24 12:32 07/06/24 12:37 07/06/24 12:39 Temperature Pulse Rate 117 H 135 H 116 H Respiratory Rate 19 15 15 Blood Pressure 88/50 L 81/51 L 78/51 L Pulse Oximetry Oxygen Delivery 07/06/24 12:45 07/06/24 13:03 07/06/24 13:16 Temperature Pulse Rate 130 H 108 H 108 H Respiratory Rate 18 22 H 15 Blood Pressure 85/65 L 84/54 L 106/78 Pulse Oximetry 96 Oxygen Delivery 07/06/24 13:33 07/06/24 13:50 07/06/24 13:52 Temperature 98.4 F Pulse Rate 103 H 119 H 112 H Respiratory Rate 20 18 22 H Blood Pressure 92/45 L 96/54 L 96/54 L Pulse Oximetry 99 96 96 Oxygen Delivery 07/06/24 14:06 07/06/24 14:13 07/06/24 14:35 Temperature 97.6 F Pulse Rate 117 H 103 H 98 Respiratory Rate 18 24 H 20 Blood Pressure 94/49 L 94/49 L 93/48 L Pulse Oximetry 98 97 98 Oxygen Delivery 07/06/24 14:45 07/06/24 15:06 07/06/24 15:30 Temperature 97.6 F Pulse Rate 101 H 102 H 82 Respiratory Rate 14 24 H Blood Pressure 114/80 104/49 L 93/67 L Pulse Oximetry 97 100 100 Oxygen Delivery 07/06/24 15:39 07/06/24 16:00 07/06/24 16:06 Temperature 97.6 F Pulse Rate 97 88 93 Respiratory Rate 16 Blood Pressure 110/49 L 96/67 L Pulse Oximetry 98 100 Oxygen Delivery 07/06/24 17:06 07/06/24 17:20 07/06/24 17:22 Temperature 98.0 F 98.0 F 98 F Pulse Rate 97 97 87 Respiratory Rate 16 15 15 Blood Pressure 110/49 L 102/52 L 102/52 L Pulse Oximetry 100 100 100 Oxygen Delivery 07/06/24 17:39 07/06/24 18:00 07/06/24 18:39 Temperature 98.1 F 97.6 F Pulse Rate 93 99 69 Respiratory Rate 16 15 Blood Pressure 107/54 L 112/53 L Pulse Oximetry 100 99 Oxygen Delivery 07/06/24 19:39 07/06/24 20:00 07/06/24 20:10 Temperature 97.6 F Pulse Rate 101 H 105 H 101 H Respiratory Rate 20 20 Blood Pressure 89/57 L Pulse Oximetry 99 99 Oxygen Delivery Room Air 07/06/24 20:19 07/06/24 20:39 07/06/24 21:24 Temperature 97.6 F 97.8 F 98 F Pulse Rate 101 H 98 104 H Respiratory Rate 20 20 16 Blood Pressure 89/57 L 83/58 L 114/60 Pulse Oximetry 99 98 98 Oxygen Delivery 07/06/24 22:00 07/06/24 23:55 07/07/24 00:00 Temperature Pulse Rate 102 H 84 105 H Respiratory Rate 19 Blood Pressure Pulse Oximetry 97 Oxygen Delivery Room Air 07/07/24 00:30 07/07/24 00:48 07/07/24 02:00 Temperature 97.9 F Pulse Rate 87 87 91 Respiratory Rate 20 20 Blood Pressure 96/62 L Pulse Oximetry 99 99 Oxygen Delivery Room Air 07/07/24 03:32 07/07/24 03:55 07/07/24 04:00 Temperature 98.1 F 97.7 F Pulse Rate 89 95 99 Respiratory Rate 16 16 Blood Pressure 99/59 L 114/50 L Pulse Oximetry 99 97 Oxygen Delivery 07/07/24 04:50 07/07/24 04:55 07/07/24 05:55 Temperature 97.7 F 98 F Pulse Rate 95 95 88 Respiratory Rate 16 18 18 Blood Pressure 111/55 L 112/68 Pulse Oximetry 97 98 99 Oxygen Delivery Room Air 07/07/24 06:00 07/07/24 06:55 07/07/24 08:00 Temperature 97.8 F 98.1 F Pulse Rate 100 84 89 Respiratory Rate 18 29 H Blood Pressure 108/62 117/65 Pulse Oximetry 98 97 Oxygen Delivery Intake/Output Intake/Output: Intake & Output 07/04/24 07/05/24 07/07/24 07/07/24 23:59 23:59 00:59 23:59 Intake Total 1940 750 Output Total 500 Balance 1940 250 Meds/Results Medications: Active Medications Generic Name Dose Route Start Last Admin Trade Name Michelle PRN Reason Stop Dose Admin Diltiazem HCl 360 mg 07/07/24 09:00 07/07/24 08:57 Diltiazem Hcl Cd 180 Mg Cap.24hr PO 360 mg QAM JUSTIN Administration Levothyroxine Sodium 25 mcg 07/07/24 06:30 07/07/24 06:23 Levothyroxine Sodium 25 Mcg Tablet PO Not Given DAILY@0630 [facility] Pantoprazole Sodium 40 mg 07/06/24 21:00 07/07/24 08:56 Pantoprazole Sodium Iv 40 Mg Vial IV PUSH 40 mg Q12HR JUSTIN Administration Radiology Results: ITS Impressions Chest X-Ray 07/06/24 11:35 Impression: Moderate right pleural effusion. Labs Labs: Laboratory Results - last 24 hr 07/06/24 07/06/24 07/07/24 11:37 12:24 00:24 WBC 10.2 H RBC 1.62 L Hgb 4.6 L* D Cancelled Hct 16.0 L* Cancelled MCV 98.8 MCH 28.4 MCHC 28.8 L RDW 22.7 H Plt Count 266 D MPV 11.3 H Immature Gran % (Auto) 0.5 Neut % (Auto) 75.6 H Lymph % (Auto) 14.0 L Nolan % (Auto) 9.3 H Eos % (Auto) 0.4 Baso % (Auto) 0.2 Lymph # (Auto) 1.43 Nolan # (Auto) 1.0 H Eos # (Auto) 0.0 Baso # (Auto) 0.0 Abs Immat Gran (auto) 0.05 H Absolute Neuts (auto) 7.7 H Absolute Nucleated RBC 0.140 H Band Neutrophils % Not Reportable Nucleated RBC % 1.4 H Platelet Estimate Adequate Polychromasia 1+ Hypochromasia 2+ Anisocytosis 2+ Target Cells 1+ Schistocytes None seen Sodium 134 L Potassium 3.2 L Chloride 100 Carbon Dioxide 20 L Anion Gap 14 H BUN 30 H D Creatinine 1.14 H Estim Creat Clear Calc 61 Estimated GFR 48 L Glucose 182 H Calcium 8.0 L Total Bilirubin 3.6 H AST 87 H ALT 43 H Alkaline Phosphatase 105 Total Protein 7.0 Albumin 2.7 L Lipase 171 Influenza A (RT-PCR) Negative Influenza B (RT-PCR) Negative RSV (RT-PCR) Negative SARS-CoV-2 RNA (RT-PCR) Negative Blood Type A Positive Antibody Screen Negative Crossmatch See Detail 07/07/24 08:04 WBC RBC Hgb 7.6 L D Hct 23.7 L MCV MCH MCHC RDW Plt Count MPV Immature Gran % (Auto) Neut % (Auto) Lymph % (Auto) Nolan % (Auto) Eos % (Auto) Baso % (Auto) Lymph # (Auto) Nolan # (Auto) Eos # (Auto) Baso # (Auto) Abs Immat Gran (auto) Absolute Neuts (auto) Absolute Nucleated RBC Band Neutrophils % Nucleated RBC % Platelet Estimate Polychromasia Hypochromasia Anisocytosis Target Cells Schistocytes Sodium Potassium Chloride Carbon Dioxide Anion Gap BUN Creatinine Estim Creat Clear Calc Estimated GFR Glucose Calcium Total Bilirubin AST ALT Alkaline Phosphatase Total Protein Albumin Lipase Influenza A (RT-PCR) Influenza B (RT-PCR) RSV (RT-PCR) SARS-CoV-2 RNA (RT-PCR) Blood Type Antibody Screen Crossmatch
[2024-07-07 10:14] LABS: Basophils Absolute Auto 0.1 K/mm3 (0.0-0.1); Basophils Percent Auto 0.5 % (0.2-1.2); Eosinophils Absolute Auto 0.1 K/mm3 (0-0.3); Eosinophils Percent Auto 0.8 % (0-4.4); Hematocrit 24.2 % (37.0-47.0); Hemoglobin 7.6 g/dL (12.0-15.0); Immature Granulocyte Absolute 0.07 K/mm3 (0.00-0.031); Immature Granulocyte Percent A 0.7 % (0-0.5); Lymphocytes Absolute Auto 1.34 K/mm3 (0.9-3.2); Lymphocytes Percent Auto 14.2 % (18.3-44.2); Mean Corpuscular HGB Conc 31.4 g/dl (32-36); Mean Corpuscular Hemoglobin 27.7 pg (26-34); Mean Corpuscular Volume 88.3 fl (80-100); Mean Platelet Volume 10.5 fl (7.4-10.4); Monocytes Absolute Auto 1.2 K/mm3 (0.1-0.6); Monocytes Percent Auto 12.3 % (2.6-8.5); Neutrophils Absolute Auto 6.7 K/mm3 (1.3-6.7); Neutrophils Percent Auto 71.5 % (45.5-73.1); Platelet Count Result 189 k/mm3 (150-375); Red Blood Count 2.74 M/mm3 (4.2-5.4); Red Cell Distribution Width 21.1 % (11.5-14.5); White Blood Count 9.4 K/mm3 (4.5-10.0)
[2024-07-07 10:26] LABS: Alanine Aminotransferase 42 U/L (6-35); Albumin Level 2.5 g/dL (3.5-5.1); Alkaline Phosphatase 84 U/L (38-126); Anion Gap 8 mmol/L (4-12); Aspartate Amino Transferase 86 U/L (14-36); Bilirubin,Total 6.1 mg/dL (0.2-1.3); Blood Urea Nitrogen 23 mg/dL (7-17); Calcium 7.8 mg/dL (8.4-10.2); Carbon Dioxide 22 mmol/L (22-30); Chloride 105 mmol/L (98-107); Estimated CRCL calculation 67 ml/min; Estimated Glomerular Filt Rate 54; Glucose 147 mg/dL (65-110); Magnesium 1.8 mg/dL (1.6-2.3); Potassium 3.5 mmol/L (3.4-5.0); Sodium 135 mmol/L (137-145)
--- NOTE | 2024-07-07 12:33 | P.CDI_ITS ---
CDI Query Clarification Request 1)Please specify type of heart failure if known. * Systolic * Diastolic * Combined Systolic and Diastolic * Unknown 2)Patient with a BMI of 54.7 please provide a diagnosis to accompany this finding: * Overweight * Obesity * Morbid Obesity * Other/Unknown The medical chart reflects the following: Narrative: 63-year-old female with history of pacemaker, congestive heart failure, atrial fibrillation on anticoagulation, alcohol abuse presents the hospital complaining of being tired and weak. Patient states that she does still sometimes drink. Patient states that she has felt more tired than normal with weakness over the last week or so. She states that she noticed she was looking pale. She states that she did not notice any black tardy stools or bloody stools. Patient denies nausea or vomiting, fevers chills. (5) Congestive heart failure: Code(s): I50.9 - Heart failure, unspecified Status: Chronic Assessment and Plan: Hold diuretics due to hypotension Continue monitor for fluid overload while given blood <Dinora Hinkle RN - Last Filed: 07/07/24 12:36> Provider Comments 1. diastolic 2. morbid obesity <Gareth Spicer MD - Last Filed: 07/18/24 07:16>
--- NOTE | 2024-07-07 12:50 | P.CONGI_ITS ---
<Statement entered by Royce Tilley MD - 07/07/24 18:44> I, Royce Tilley MD, have provided a substantive portion of the care of this patient and discussed the patient with my Nurse Practitioner. I have reviewed any new relevant radiographic and laboratory results including medications. I agree with her documentation as noted below.?I personally performed the medical decision making and much of the history and exam for this encounter. briefly, she is an alcoholic here with symptomatic anemia, no overt gib. Hgb 5, also noted bili 6. She had egd/colonoscopy last year, showed esophagitis and gastritis. Probably alcoholic hepatitis, ciwa protocol, nutrition support, thiamine. EGD tomorrow to assess if upper source of anemia given liver disease and alcohol use. Assessment and Plan Assessment and plan (1) Acute blood loss anemia: Code(s): D62 - Acute posthemorrhagic anemia <Amy DWade Means, INVESTMENT FUND MANAGER - Last Filed: 07/07/24 13:17> Status: Acute <Amy DWade Means, INVESTMENT FUND MANAGER - Last Filed: 07/07/24 13:17> (2) Elevated LFTs: Code(s): R79.89 - Other specified abnormal findings of blood chemistry < Amyfarrukh Means, INVESTMENT FUND MANAGER - Last Filed: 07/07/24 13:17> Status: Acute <Amy DWade Means, INVESTMENT FUND MANAGER - Last Filed: 07/07/24 13:17> (3) GERD (gastroesophageal reflux disease): Qualifiers: Esophagitis bleeding: unspecified whether hemorrhage E sophagitis presence: with esophagitis Qualified Code(s): K21.00 - Gastro- esophageal reflux disease with esophagitis, without bleeding <Amy DWade Means, INVESTMENT FUND MANAGER - Last Filed: 07/07/24 13:17> Code(s): K21.9 - Gastro-esophageal reflux disease without esophagitis <Amy DWade Means, INVESTMENT FUND MANAGER - Last Filed: 07/07/24 13:17> Status: Acute <Amy DWade Means, INVESTMENT FUND MANAGER - Last Filed: 07/07/24 13:17> (4) Gastritis: Code(s): K29.70 - Gastritis, unspecified, without bleeding <Amy DWade Means, INVESTMENT FUND MANAGER - Last Filed: 07/07/24 13:17> Status: Acute <Amy Means APRN - Last Filed: 07/07/24 13:17> (5) NSAID long-term use: Code(s): Z79.1 - manager long term care (current) use of non-steroidal anti-inflammatories (NSAID) <Amy Means APRN - Last Filed: 07/07/24 13:17> Status: Acute <Amy Means INVESTMENT FUND MANAGER - Last Filed: 07/07/24 13:17> (6) Atrial fibrillation with RVR: Code(s): I48.91 - Unspecified atrial fibrillation <Amy Means APRN - Last Filed: 07/07/24 13:17> Status: Acute <Amy Means APRN - Last Filed: 07/07/24 13:17> Assessment and Plan: 1. ABLA/ GERD /gastritis/ NSAID use: Last EGD and colonoscopy performed in April of 2023. Colonoscopy showed no findings to explain anemia. EGD showed reflux esophagitis grade 2 in diffuse gastritis. On admission patient shown to have a hemoglobin at 5. Patient has received 3 units of PRBCs since admission H&H today at 12/21. She denies any signs of active GI bleeding to include hematemesis, hematochezia, or melena. Iron panel was last checked in December of 2023 which was normal showing iron 106, TIBC 384, iron saturation 28% and ferritin 92.80. in November of 2023 H&H was normal with HGB 14 HCT 44. Patient states that for the past 3-4 months she has been taking 3600 mg of Motrin daily in combination with Tylenol. Patient is also on Xarelto daily for history of AFib. no recent GI imaging available today's visit. concern for peptic ulcer disease secondary to excessive NSAID use in addition to previously noted reflux esophagitis and gastritis. * Avoid NSAIDs * continue b.i.d. PPI * okay for clear liquid diet today with plans for EGD tomorrow * If EGD is unremarkable will consider colonoscopy inpatient versus outpatient based on clinical presentation * primary care team to continue monitoring H&H and transfuse as needed to keep HGB > 7 2. Elevated LFT's: Patient with a history of EtOH abuse but extent of her drinking is unknown as patient states that she only drinks a few beers occasionally. Total bilirubin increased since admission from 3.6-->6.1. AST 86, ALT 42, alkaline phosphatase 84, albumin 2.7, lipase 171. Platelets 189. No INR available at time of visit. check direct and indirect bilirubin * Liver workup ordered * liver ultrasound ordered, but this may be limited due to body habitus * alcohol cessation recommended Thank you very much for allowing me to share in the care of this very nice patient. This report may have been done utilizing a voice recognition system. Attempts have been made to correct errors. However, there may be uncorrected grammatical, spelling, and recognition errors present. <Amy Means APRN - Last Filed: 07/07/24 13:17> GI Consult Note Consult date/time: 07/07/24 12:50 <Amy Means APRN - Last Filed: 07/07/24 13:17> Reason for consult: Anemia and concern for GI bleed <Amy Means APRN - Last Filed: 07/07/24 13:17> HPI: This is a 63-year-old female with history of AFib on Xarelto, CHF, history of diverticulitis, HLD, hypothyroidism, BHAVIN with CPAP use, history of IgA, ETOH abuse and pacemaker who presented to the emergency room yesterday with complaints of shortness of breath. GI has been consulted for anemia and GI bleed. Patient states that prior to her hospital admission she had been sick for 4-5 days with nausea and vomiting and generalized abdominal pain. She denies any diarrhea during that time. Denies any nausea or vomiting since her admission. She admits to chronic constipation stating that she typically only has 1-2 bowel movements weekly with the use of Metamucil and senna. On her current regimen she denies any straining with defecation. She has never been on any prescription medications for her constipation. She currently denies abdominal bloating, odynophagia, dysphagia, reflux, regurgitation, early satiety, weight loss, appetite loss, diarrhea, hematochezia or melena. She states that prior to her hospitalization she had been taking ibuprofen and Tylenol regularly eats that she was taking up to 3600 mg of ibuprofen per day for 3-4 months for knee pain. she is also on Xarelto daily for AFib. it with a history of EtOH abuse but states that she only drinks occasionally and typically has a few beers. Family history negative for CRC or IBD. ENDOSCOPY HISTORY: EGD: 05/09/[address] Loja for MARISSA Findings: Reflux esophagitis grade II was present in the distal esophagus. The reflux esophagitis appeared at a depth of 36 cm to 38 cm from the incisors. a few cold forceps biopsies were taken from the lower 3rd esophagus to rule out Mullins's One hundred diffuse gastritis seen in the antrum. The gastritis had moderate erythematous and edematous changes. A few cold forceps biopsies were taken from the antrum for pathology and H pylori The bulb and 2nd portion the duodenum was normal no ulcers or mass. Cold forceps biopsies taken to rule out celiac sprue Bx results: Small intestine, small bowel, biopsy (A): - No histologic abnormality - Intact villous and crypt architecture without intraepithelial lymphocytosis Stomach, antrum, biopsy (B): - Mild reactive changes - No H. pylori Esophagus, distal, biopsy (C): - Compatible with reflux esophagitis - No intestinal metaplasia COLONOSCOPY: 05/09/[address] Loja for MARISSA Findings: Multiple diverticula were present in the descending colon and sigmoid colon A few medium-sized internal hemorrhoids were seen in the rectum that were not actively bleeding LABS AND STOOL STUDIES: LABS 07/07/2024: WBCs 9, HGB 8, HCT 24, MCV 88, platelets 189 Sodium 135, potassium 3.5, BUN 23, creatinine 1.03, GFR 54 Total bilirubin 6.1, AST 86, ALT 42, alkaline phosphatase 84 LABS 07/06/2024: Sodium 134, potassium 4 3.2, BUN 30, creatinine 1.14, GFR 48 WBC is 10, HGB 5, HCT 16 Total bilirubin 3.6, AST 87, ALT 43, alkaline phosphatase 105, albumin 2.7, lipase 171 and calcium 8.0 LABS : Iron 106, TIBC 384, iron saturation 28, ferritin 92.80, HGB 14, and HCT 44 IMAGING: No recent GI imaging <Amy Means APRN - Last Filed: 07/07/24 13:17> Review of Systems 2 Constitutional: Constitutional: Reports as per HPI, Reports fatigue and Reports weakness <Amyfarrukh Means APRN - Last Filed: 07/07/24 13:17> ENT: Reports as per HPI <Amy Means APRN - Last Filed: 07/07/24 13:17> Cardiovascular: Cardiovascular: Reports as per HPI, Denies chest pain, Reports pedal edema, Reports leg edema and Reports dyspnea <Amyfarrukh Means APRN - Last Filed: 07/07/24 13:17> Respiratory: Respiratory: Denies cough and Reports dyspnea on exertion < Amyfarrukh Means APRN - Last Filed: 07/07/24 13:17> Gastrointestinal: Gastrointestinal: Reports as per HPI <Amy Means APRN - Last Filed: 07/07/24 13:17> Musculoskeletal: Musculoskeletal: Reports as per HPI <Amy Means APRN - Last Filed: 07/07/24 13:17> Integumentary/Breasts: Skin/Breast: Reports as per HPI <Amy Means APRN - Last Filed: 07/07/24 13:17> Psychiatric: Psychiatric: Reports as per HPI <Amy Means APRN - Last Filed: 07/07/24 13:17> Endocrine: Endocrine: Reports no additional endocrine complaints <Amy Means APRN - Last Filed: 07/07/24 13:17> Hematologic/Lymphatic: Hematologic/Lymphatic: Reports no additional hematologic/lymphatic complaints <Amy Means APRN - Last Filed: 07/07/24 13:17> PMFSH Past Medical History Medical History: Medical History Hypothyroidism Congestive heart failure Dyslipidemia Obstructive sleep apnea on CPAP Diverticulitis Chronic anticoagulation Chronic atrial fibrillation <Amy Means APRN - Last Filed: 07/07/24 13:17> Surgical History Surgical History: Surgical History History of permanent cardiac pacemaker placement (09/2016) Biotronik dual chamber pacemaker implant by Dr. Garvey <Amy Means APRN - Last Filed: 07/07/24 13:17> Family History Family History: Family History Mother Acute myocardial infarction, Onset Age: 73 Cerebrovascular accident, Onset Age: 73 Diabetes mellitus Father Multiple myeloma <Amy Means APRN - Last Filed: 07/07/24 13:17> Social History Social History: Social History Social History: Surrogate medical decision maker: Gracy Mouser, friend. Code status: Do not resuscitate. Years smoked: 35 Smoking status: Former smoker Tobacco type: cigarettes Smoking end date: 06/28/16 Alcohol intake: current Drinks per week: 21 Alcohol use details: Social alcohol use in moderation. Substance use: never Substance use type: does not use Do You Feel Safe in your Home?: Yes Lack of Transportation: No Lack of Food: Never True Current Housing: I Have Housing Concerned About Future Housing: No Difficulty Paying Gas/Electric Bills: No Difficulty Paying for Meds: No Currently Unemployed: No Education: High School Diploma/GED Difficulty w/ Childcare or Family Care: No Living arrangements: with family Additional living arrangements comments: The patient lives alone. She has no children. Caregiver comes in 3 days weak. Spiritual care concerns: No <Amy Means APRN - Last Filed: 07/07/24 13:17> Meds Home Medications and Allergies Home medications: Home Medications ?Medication ?Instructions ?Recorded ?Confirmed ?Type Vitamin D2 50,000 units PO WEEKLY 03/23/23 07/06/24 History bumetanide 2 mg tablet 2 mg PO DAILY 03/23/23 07/06/24 History diltiazem HCl 360 mg capsule,24 360 mg PO DAILY 03/23/23 07/06/24 History hr,extended release levothyroxine 25 mcg tablet 25 mcg PO DAILY 03/23/23 07/06/24 History potassium chloride 20 mEq 20 meq PO BID 03/23/23 07/06/24 History tablet,extended release rivaroxaban 20 mg tablet (Xarelto) 20 mg PO DAILY 03/23/23 07/06/24 History ascorbic acid (vitamin C) 500 mg 500 mg PO DAILY #30 tabs 03/27/23 07/06/24 Rx tablet (Vitamin C) dapagliflozin propanediol 10 mg 10 mg PO DAILY 04/27/23 07/06/24 History tablet (Farxiga) <Amy Means, INVESTMENT FUND MANAGER - Last Filed: 07/07/24 13:17> Allergies/Adverse reactions: Allergies Allergy/AdvReac Type Severity Reaction Status Date / Time amiodarone Allergy Severe Hives Verified 07/06/24 11:15 codeine AdvReac Mild Itching Verified 07/06/24 11:15 <Amy Means APRN - Last Filed: 07/07/24 13:17> Vital Signs Vital Signs - 24 hr 07/06/24 13:03 07/06/24 13:16 07/06/24 13:33 Temperature Pulse Rate 108 H 108 H 103 H Respiratory Rate 22 H 15 20 Blood Pressure 84/54 L 106/78 92/45 L Pulse Oximetry 96 99 Oxygen Delivery 07/06/24 13:50 07/06/24 13:52 07/06/24 14:06 Temperature 98.4 F 97.6 F Pulse Rate 119 H 112 H 117 H Respiratory Rate 18 22 H 18 Blood Pressure 96/54 L 96/54 L 94/49 L Pulse Oximetry 96 96 98 Oxygen Delivery 07/06/24 14:13 07/06/24 14:35 07/06/24 14:45 Temperature Pulse Rate 103 H 98 101 H Respiratory Rate 24 H 20 14 Blood Pressure 94/49 L 93/48 L 114/80 Pulse Oximetry 97 98 97 Oxygen Delivery 07/06/24 15:06 07/06/24 15:30 07/06/24 15:39 Temperature 97.6 F Pulse Rate 102 H 82 97 Respiratory Rate 24 H Blood Pressure 104/49 L 93/67 L Pulse Oximetry 100 100 Oxygen Delivery 07/06/24 16:00 07/06/24 16:06 07/06/24 17:06 Temperature 97.6 F 98.0 F Pulse Rate 88 93 97 Respiratory Rate 16 16 Blood Pressure 110/49 L 96/67 L 110/49 L Pulse Oximetry 98 100 100 Oxygen Delivery 07/06/24 17:20 07/06/24 17:22 07/06/24 17:39 Temperature 98.0 F 98 F 98.1 F Pulse Rate 97 87 93 Respiratory Rate 15 15 16 Blood Pressure 102/52 L 102/52 L 107/54 L Pulse Oximetry 100 100 100 Oxygen Delivery 07/06/24 18:00 07/06/24 18:39 07/06/24 19:39 Temperature 97.6 F 97.6 F Pulse Rate 99 69 101 H Respiratory Rate 15 20 Blood Pressure 112/53 L 89/57 L Pulse Oximetry 99 99 Oxygen Delivery 07/06/24 20:00 07/06/24 20:10 07/06/24 20:19 Temperature 97.6 F Pulse Rate 105 H 101 H 101 H Respiratory Rate 20 20 Blood Pressure 89/57 L Pulse Oximetry 99 99 Oxygen Delivery Room Air 07/06/24 20:39 07/06/24 21:24 07/06/24 22:00 Temperature 97.8 F 98 F Pulse Rate 98 104 H 102 H Respiratory Rate 20 16 Blood Pressure 83/58 L 114/60 Pulse Oximetry 98 98 Oxygen Delivery 07/06/24 23:55 07/07/24 00:00 07/07/24 00:30 Temperature Pulse Rate 84 105 H 87 Respiratory Rate 19 20 Blood Pressure Pulse Oximetry 97 99 Oxygen Delivery Room Air Room Air 07/07/24 00:48 07/07/24 02:00 07/07/24 03:32 Temperature 97.9 F 98.1 F Pulse Rate 87 91 89 Respiratory Rate 20 16 Blood Pressure 96/62 L 99/59 L Pulse Oximetry 99 99 Oxygen Delivery 07/07/24 03:55 07/07/24 04:00 07/07/24 04:50 Temperature 97.7 F Pulse Rate 95 99 95 Respiratory Rate 16 16 Blood Pressure 114/50 L Pulse Oximetry 97 97 Oxygen Delivery Room Air 07/07/24 04:55 07/07/24 05:55 07/07/24 06:00 Temperature 97.7 F 98 F Pulse Rate 95 88 100 Respiratory Rate 18 18 Blood Pressure 111/55 L 112/68 Pulse Oximetry 98 99 Oxygen Delivery 07/07/24 06:55 07/07/24 08:00 07/07/24 09:49 Temperature 97.8 F 98.1 F Pulse Rate 84 89 Respiratory Rate 18 29 H Blood Pressure 108/62 117/65 Pulse Oximetry 98 97 97 Oxygen Delivery Room Air 07/07/24 12:00 Temperature 98.0 F Pulse Rate 100 Respiratory Rate 24 H Blood Pressure 108/69 Pulse Oximetry 99 Oxygen Delivery <Amy Means APRN - Last Filed: 07/07/24 13:17> Exam 2 Const: General: cooperative, comfortable, no acute distress and well developed <Amy Means APRN - Last Filed: 07/07/24 13:17> Nutritional Appearance: obese <Amy Means INVESTMENT FUND MANAGER - Last Filed: 07/07/24 13:17> Orientation/consciousness: oriented to person, oriented to place, oriented to time and patient oriented x3 <Amy Means APRN - Last Filed: 07/07/24 13:17> HENMT: Head: normal to inspection, normocephalic and atraumatic <Amy Maens APRN - Last Filed: 07/07/24 13:17> Mouth: Yes Normal oral and palatal mucosa present and Yes moist mucous membranes <Amy Means APRN - Last Filed: 07/07/24 13:17> Eyes: General: appearance normal, both eyes and all related structures < Amy Means APRN - Last Filed: 07/07/24 13:17> Conjunctivae: conjunctivae normal <Amy Means APRN - Last Filed: 07/07/24 13:17> Sclera: sclerae normal <Amy Means APRN - Last Filed: 07/07/24 13:17> Pupils: Equal, round and reactive pupils present <Amy Means APRN - Last Filed: 07/07/24 13:17> Neck: Neck: normal visual inspection <Amy Means APRN - Last Filed: 07/07/24 13:17> Chest: Chest palpation & inspection: normal inspection of the chest < Amy Means APRN - Last Filed: 07/07/24 13:17> Resp: Effort & Inspection: normal respiratory effort and able to speak in complete sentences <Amy Chavisnaveen INVESTMENT FUND MANAGER - Last Filed: 07/07/24 13:17> Auscultation: clear to auscultation bilaterally <Amy Chavisnaveen INVESTMENT FUND MANAGER - Last Filed: 07/07/24 13:17> Cardio: Jugular venous distension: no JVD <Amy Chavisnaveen INVESTMENT FUND MANAGER - Last Filed: 07/07/24 13:17> Rate: regular rate <Amy Chavisnaveen INVESTMENT FUND MANAGER - Last Filed: 07/07/24 13:17> Rhythm: regular rhythm <Amy Chavistaraluna INVESTMENT FUND MANAGER - Last Filed: 07/07/24 13:17> Heart sounds: S1 normal heart sound present and S2 normal heart sound present <Amy Chavisnaveen INVESTMENT FUND MANAGER - Last Filed: 07/07/24 13:17> GI: Inspection: normal to inspection <Amy Chavisnaveen [facility] Last Filed: 07/07/24 13:17> GI Palp: Yes Soft to palpation, No Tenderness to palpation present (GI), No Guarding due to palpation present (GI) and Yes No hepatosplenomegaly present <Amy Chavisnaveen INVESTMENT FUND MANAGER - Last Filed: 07/07/24 13:17> Auscultation: normal bowel sounds <Amy Chavisnaveen [facility] Last Filed: 07/07/24 13:17> Rectal Exam: deferred <Amy Chavisnaveen [facility] Last Filed: 07/07/24 13:17> Other: large abdomen <Amy Chavisnaveen [facility] Last Filed: 07/07/24 13:17> Skin: General skin exam: normal color and no rashes or lesions noted < Amy Chavisnaveen INVESTMENT FUND MANAGER - Last Filed: 07/07/24 13:17> Neuro: General: oriented to person, oriented to place, oriented to time and patient oriented x3 <[facility]avisCAROLINE [facility] Last Filed: 07/07/24 13:17> Cranial nerves: Yes Equal, round and reactive pupils present <Amy Fields Miguelangel INVESTMENT FUND MANAGER - Last Filed: 07/07/24 13:17> Speech: normal speech <Amy Means APRN - Last Filed: 07/07/24 13:17> Extrem: General: normal to inspection and no clubbing, cyanosis or edema < Amy Means APRN - Last Filed: 07/07/24 13:17> Psych: Appearance: grossly normal and well kempt <Amy Means APRN - Last Filed: 07/07/24 13:17> Affect: normal affect <Amy Means APRN - Last Filed: 07/07/24 13:17> Results Labs CBC & Chem 7: 07/07/24 10:05 07/07/24 10:05 <Amy Means APRN - Last Filed: 07/07/24 13:17> Labs: Short CBC 07/07/24 07/07/24 07/07/24 Range/Units 00:24 08:04 10:05 WBC 9.4 (4.5-10.0) K/mm3 Hgb Cancelled 7.6 L D 7.6 L Hct Cancelled 23.7 L 24.2 L Plt Count 189 (150-375) k/mm3 BMP 07/07/24 10:05 Sodium 135 L Potassium 3.5 Chloride 105 Carbon Dioxide 22 BUN 23 H Creatinine 1.03 H Glucose 147 H Calcium 7.8 L Liver Function 07/07/24 Range/Units 10:05 Total Bilirubin 6.1 H (0.2-1.3) mg/dL AST 86 H (14-36) U/L ALT 42 H (6-35) U/L Alkaline Phosphatase 84 (38-126) U/L Albumin 2.5 L (3.5-5.1) g/dL <Amy Means APRN - Last Filed: 07/07/24 13:17>
[2024-07-07 13:42] LABS: Iron 40 ug/dL (37-170)
[2024-07-07 13:51] LABS: Percent Iron Saturation 12 % (20-50)
[2024-07-07 14:07] LABS: INR 3.2; Prothrombin Time 33.5 Seconds (11.1-14.7)
[2024-07-07 14:11] LABS: Alanine Aminotransferase 45 U/L (6-35); Albumin Level 2.6 g/dL (3.5-5.1); Alkaline Phosphatase 88 U/L (38-126); Aspartate Amino Transferase 100 U/L (14-36); Bilirubin Direct 1.1 mg/dL (0-0.3); Bilirubin Indirect 3.4 mg/dL (0-1.1); Bilirubin,Total 6.2 mg/dL (0.2-1.3)
[2024-07-08] VITALS (12 sets, daily range): BP systolic 95–127; BP diastolic 48–98; PULSE 65–121; RESP 17–20; TEMP 36.2–36.9; O2SAT 93–100
[2024-07-08 04:40] LABS: Basophils Absolute Auto 0.1 K/mm3 (0.0-0.1); Basophils Percent Auto 0.9 % (0.2-1.2); Eosinophils Absolute Auto 0.2 K/mm3 (0-0.3); Eosinophils Percent Auto 1.8 % (0-4.4); Hematocrit 23.5 % (37.0-47.0); Hemoglobin 7.4 g/dL (12.0-15.0); Immature Granulocyte Absolute 0.06 K/mm3 (0.00-0.031); Immature Granulocyte Percent A 0.7 % (0-0.5); Lymphocytes Absolute Auto 1.48 K/mm3 (0.9-3.2); Lymphocytes Percent Auto 16.6 % (18.3-44.2); Mean Corpuscular HGB Conc 31.5 g/dl (32-36); Mean Platelet Volume 10.8 fl (7.4-10.4); Monocytes Percent Auto 11.5 % (2.6-8.5); Neutrophils Absolute Auto 6.1 K/mm3 (1.3-6.7); Neutrophils Percent Auto 68.5 % (45.5-73.1); Nucleated Red Blood Cells Perc 0.6 % (0.0-0.2); Platelet Count Result 202 k/mm3 (150-375); Red Blood Count 2.64 M/mm3 (4.2-5.4); Red Cell Distribution Width 21.2 % (11.5-14.5); White Blood Count 8.9 K/mm3 (4.5-10.0)
[2024-07-08 05:20] LABS: Alanine Aminotransferase 46 U/L (6-35); Albumin Level 2.5 g/dL (3.5-5.1); Alkaline Phosphatase 84 U/L (38-126); Anion Gap 7 mmol/L (4-12); Aspartate Amino Transferase 97 U/L (14-36); Bilirubin,Total 5.1 mg/dL (0.2-1.3); Blood Urea Nitrogen 18 mg/dL (7-17); Calcium 7.9 mg/dL (8.4-10.2); Carbon Dioxide 24 mmol/L (22-30); Chloride 107 mmol/L (98-107); Estimated CRCL calculation 73 ml/min; Estimated Glomerular Filt Rate 60; Glucose 132 mg/dL (65-110); Magnesium 1.9 mg/dL (1.6-2.3); Potassium 3.4 mmol/L (3.4-5.0); Sodium 138 mmol/L (137-145)
[2024-07-08 08:29] LABS: Alpha-1-Antitrypsin, QN 165 mg/dL (83-199); Ceruloplasmin 22 mg/dL (14-48)
[2024-07-08] MEDS: PANTOPRAZOLE SODIUM IV 40 MG VIAL IV PUSH (09:04)
[2024-07-08] MEDS: dilTIAZem HCL CD 180 MG CAP.24HR 360 MG PO (09:04)
[2024-07-08] MEDS: LACTATED RINGERS 1,000 ML 150 ML IV CONT (09:30)
--- NOTE | 2024-07-08 09:52 | WPDANESEPPF ---
Anes - Initial Pre Proc Eval Procedure: Operation Date: 07/08/24 14:30 Proposed Procedures p Esophagogastroduodenoscopy - Royce Tilley MD Date/Time: 07/08/24 09:52 Surgeon: Jose Neri MD Pre Op Diagnosis: GI bleed, anemia, AFIB with RVR, anticoagulated Patient Data Age: 63 Gender: F Height: 1.57 m Weight: 137.4 kg Last Vital Signs Temp 36.2 C L 07/08/24 09:27 Pulse 84 07/08/24 09:27 Resp 18 07/08/24 09:27 BP 120/61 07/08/24 09:27 Pulse Ox 97 07/08/24 09:27 O2 Del Method Room Air 07/08/24 09:27 Allergies Allergy/AdvReac Type Severity Reaction Status Date / Time amiodarone Allergy Severe Hives Verified 07/08/24 09:24 codeine AdvReac Mild Itching Verified 07/08/24 09:24 Home Medications ?Medication ?Instructions ?Recorded ?Confirmed ?Type Vitamin D2 50,000 units PO WEEKLY 03/23/23 07/06/24 History bumetanide 2 mg tablet 2 mg PO DAILY 03/23/23 07/06/24 History diltiazem HCl 360 mg capsule,24 360 mg PO DAILY 03/23/23 07/06/24 History hr,extended release levothyroxine 25 mcg tablet 25 mcg PO DAILY 03/23/23 07/06/24 History potassium chloride 20 mEq 20 meq PO BID 03/23/23 07/06/24 History tablet,extended release rivaroxaban 20 mg tablet (Xarelto) 20 mg PO DAILY 03/23/23 07/06/24 History ascorbic acid (vitamin C) 500 mg 500 mg PO DAILY #30 tabs 03/27/23 07/06/24 Rx tablet (Vitamin C) dapagliflozin propanediol 10 mg 10 mg PO DAILY 04/27/23 07/06/24 History tablet (Farxiga) Laboratory Tests 07/07/24 07/07/24 07/07/24 00:24 10:05 13:45 WBC 9.4 K/mm3 (4.5-10.0) RBC 2.74 L M/mm3 (4.2-5.4) Hgb 7.6 L g/dL (12.0-15.0) Hct 24.2 L % (37.0-47.0) MCV 88.3 D fl (80-100) MCH 27.7 pg (26-34) MCHC 31.4 L g/dl (32-36) RDW 21.1 H % (11.5-14.5) Plt Count 189 k/mm3 (150-375) MPV 10.5 H fl (7.4-10.4) Immature Gran % (Auto) 0.7 H % (0-0.5) Neut % (Auto) 71.5 % (45.5-73.1) Lymph % (Auto) 14.2 L % (18.3-44.2) [place] % (Auto) 12.3 H % (2.6-8.5) Eos % (Auto) 0.8 % (0-4.4) Baso % (Auto) 0.5 % (0.2-1.2) Lymph # (Auto) 1.34 K/mm3 (0.9-3.2) [place] # (Auto) 1.2 H K/mm3 (0.1-0.6) Eos # (Auto) 0.1 K/mm3 (0-0.3) Baso # (Auto) 0.1 K/mm3 (0.0-0.1) Abs Immat Gran (auto) 0.07 H K/mm3 (0.00-0.031) Absolute Neuts (auto) 6.7 K/mm3 (1.3-6.7) Absolute Nucleated RBC 0.090 H K/mm3 (0.0-0.012) Nucleated RBC % 1.0 H % (0.0-0.2) PT INR Sodium 135 L mmol/L (137-145) Potassium 3.5 mmol/L (3.4-5.0) Chloride 105 mmol/L (98-107) Carbon Dioxide 22 mmol/L (22-30) Anion Gap 8 mmol/L (4-12) BUN 23 H mg/dL (7-17) Creatinine 1.03 H mg/dL (0.7-1.0) Estim Creat Clear Calc 67 ml/min Estimated GFR 54 L (59 - ) Glucose 147 H mg/dL (65-110) Calcium 7.8 L mg/dL (8.4-10.2) Magnesium 1.8 mg/dL (1.6-2.3) Iron 40 ug/dL (37-170) TIBC 339 ug/dL (261-462) % Saturation 12 L % (20-50) Ferritin 15.80 ng/mL (11.1-264) Total Bilirubin 6.1 H mg/dL (0.2-1.3) Direct Bilirubin Indirect Bilirubin AST 86 H U/L (14-36) ALT 42 H U/L (6-35) Alkaline Phosphatase 84 U/L (38-126) Liver Fibrosis Ref ID Pending Liver Fibrosis GGTP Pending Liver Total Bilirubin Pending Liver Apolipoprotein A1 Pending Liver Fibrosis ALT Pending Liver Haptoglobin Pending Liver Fib Fibro Score Pending Liver Fib Fibro Interp Pending Liver Fib Fibro Stage Pending Liver Fibrosis Footnote Pending Necroinflammator Score Pending Necroinflammator Grade Pending Necroinflam Interp Pending Total Protein 6.0 L g/dL (6.3-8.2) Albumin 2.5 L g/dL (3.5-5.1) Makkf-4-Xfrqeijtrjs 165 mg/dL (83-199) Ceruloplasmin 22 mg/dL (14-48) Alpha Fetoprotein Pending TSH (Reflex) U Ikiqf-[id number] Pending AMANUEL Screen Pending Mitochondria M2 IgG Ab Pending Actin IgG Antibody Pending 07/07/24 07/08/24 13:46 04:20 WBC 8.9 K/mm3 (4.5-10.0) RBC 2.64 L M/mm3 (4.2-5.4) Hgb 7.4 L g/dL (12.0-15.0) Hct 23.5 L % (37.0-47.0) MCV 89.0 fl (80-100) MCH 28.0 pg (26-34) MCHC 31.5 L g/dl (32-36) RDW 21.2 H % (11.5-14.5) Plt Count 202 k/mm3 (150-375) MPV 10.8 H fl (7.4-10.4) Immature Gran % (Auto) 0.7 H % (0-0.5) Neut % (Auto) 68.5 % (45.5-73.1) Lymph % (Auto) 16.6 L % (18.3-44.2) [place] % (Auto) 11.5 H % (2.6-8.5) Eos % (Auto) 1.8 % (0-4.4) Baso % (Auto) 0.9 % (0.2-1.2) Lymph # (Auto) 1.48 K/mm3 (0.9-3.2) [place] # (Auto) 1.0 H K/mm3 (0.1-0.6) Eos # (Auto) 0.2 K/mm3 (0-0.3) Baso # (Auto) 0.1 K/mm3 (0.0-0.1) Abs Immat Gran (auto) 0.06 H K/mm3 (0.00-0.031) Absolute Neuts (auto) 6.1 K/mm3 (1.3-6.7) Absolute Nucleated RBC 0.050 H K/mm3 (0.0-0.012) Nucleated RBC % 0.6 H % (0.0-0.2) PT 33.5 H Seconds (11.1-14.7) INR 3.2 Sodium 138 mmol/L (137-145) Potassium 3.4 mmol/L (3.4-5.0) Chloride 107 mmol/L (98-107) Carbon Dioxide 24 mmol/L (22-30) Anion Gap 7 mmol/L (4-12) BUN 18 H mg/dL (7-17) Creatinine 0.94 mg/dL (0.7-1.0) Estim Creat Clear Calc 73 ml/min Estimated GFR 60 (59 - ) Glucose 132 H mg/dL (65-110) Calcium 7.9 L mg/dL (8.4-10.2) Magnesium 1.9 mg/dL (1.6-2.3) Iron TIBC % Saturation Ferritin Total Bilirubin 6.2 H mg/dL 5.1 H mg/dL (0.2-1.3) (0.2-1.3) Direct Bilirubin 1.1 H mg/dL (0-0.3) Indirect Bilirubin 3.4 H mg/dL (0-1.1) AST 100 H U/L 97 H U/L (14-36) (14-36) ALT 45 H U/L 46 H U/L (6-35) (6-35) Alkaline Phosphatase 88 U/L 84 U/L (38-126) (38-126) Liver Fibrosis Ref ID Liver Fibrosis GGTP Liver Total Bilirubin Liver Apolipoprotein A1 Liver Fibrosis ALT Liver Haptoglobin Liver Fib Fibro Score Liver Fib Fibro Interp Liver Fib Fibro Stage Liver Fibrosis Footnote Necroinflammator Score Necroinflammator Grade Necroinflam Interp Total Protein 6.0 L g/dL 6.0 L g/dL (6.3-8.2) (6.3-8.2) Albumin 2.6 L g/dL 2.5 L g/dL (3.5-5.1) (3.5-5.1) Blnnr-4-Fbiiuhnrzrz Ceruloplasmin Alpha Fetoprotein TSH (Reflex) 3.910 uIU/mL (0.465-4.68) U Iezwq-1-Kmrvfogifbhar AMANUEL Screen Mitochondria M2 IgG Ab Actin IgG Antibody Patient hx anesthesia problems: none Family hx anesthesia problems: none Results Review: All pre-operative results and documents have been reviewed as part of the pre-operative evaluation. [facility] Past Medical History Medical History Hypothyroidism Congestive heart failure Dyslipidemia Obstructive sleep apnea on CPAP Diverticulitis Chronic anticoagulation Chronic atrial fibrillation Surgical History Surgical History History of permanent cardiac pacemaker placement (09/2016) Biotronik dual chamber pacemaker implant by Dr. Garvey Family History Family History Mother Acute myocardial infarction, Onset Age: 73 Cerebrovascular accident, Onset Age: 73 Diabetes mellitus Father Multiple myeloma Social History Social History Social History: Surrogate medical decision maker: Gracy Mccannr, friend. Code status: Do not resuscitate. Years smoked: 35 Smoking status: Former smoker Tobacco type: cigarettes Smoking end date: 06/28/16 Alcohol intake: current Drinks per week: 21 Alcohol use details: Social alcohol use in moderation. Substance use: never Substance use type: does not use Do You Feel Safe in your Home?: Yes Lack of Transportation: No Lack of Food: Never True Current Housing: I Have Housing Concerned About Future Housing: No Difficulty Paying Gas/Electric Bills: No Difficulty Paying for Meds: No Currently Unemployed: No Education: High School Diploma/GED Difficulty w/ Childcare or Family Care: No Living arrangements: with family Additional living arrangements comments: The patient lives alone. She has no children. Caregiver comes in 3 days weak. Spiritual care concerns: No Anes - Eval Final PreProcedure Day of Procedure 07/08/24 09:52 Patient weight: morbidly obese Heart: regular rate and rhythm Lungs: clear to auscultation Airway: Mallampati scale class II Neurological: alert and oriented Last oral intake: >/= 8 hours ASA classification: IV Emergent: no Anesthetic plan: proceed Anesthesia type and monitoring: general GIVS and standard monitoring Results Review: All pre-operative results and documents have been reviewed as part of the pre-operative evaluation. Informed Consent: The patient's anesthetic plan and its attendant risks and benefits were discussed with the patient/family/POA. Questions were solicited and answers provided to the satisfaction of the patient/family/POA.
--- NOTE | 2024-07-08 12:28 | P.PNIM_ITS ---
Progress Note: A&P Assessment and Plan (1) GI bleed: Code(s): K92.2 - Gastrointestinal hemorrhage, unspecified Status: Acute (2) Acute blood loss anemia: Code(s): D62 - Acute posthemorrhagic anemia Status: Acute (3) Atrial fibrillation with RVR: Code(s): I48.91 - Unspecified atrial fibrillation Status: Acute (4) Chronic anticoagulation: Code(s): Z79.01 - detention (current) use of anticoagulants Status: Chronic (5) Congestive heart failure: Code(s): I50.9 - Heart failure, unspecified Status: Chronic (6) Hypothyroidism: Code(s): E03.9 - Hypothyroidism, unspecified Status: Chronic (7) Alcohol abuse: Code(s): F10.10 - Alcohol abuse, uncomplicated Status: Acute (8) Hypokalemia: Code(s): E87.6 - Hypokalemia Status: Acute Plan This is a 63-year-old female who presents to the ED with shortness of breath on exertion dizziness for the past week. She has been vomiting in the last 4-5 days on average 1 vomiting every 2 hours no diarrhea constipation. Patient drinks alcohol daily did not drink for over 1 week. She complained of generalized weakness/tiredness. No black tarry stool or blood in stool reported. In the ED she was tachycardic blood pressure was adequate. EKG showed AFib with RVR. Laboratory studies showed hemoglobin of 4.6 hematocrit of 16 platelet of 266 WBC of 10.2 Chem panel showed mild hypokalemia 3.2 mild acidosis with bicarb of 20 and creatinine of 1.1. Lipase was normal at 171 AST 87 ALT 43 alkaline phosphatase 105 total bilirubin was 3.6 chest x-ray showed moderate right pleural effusion. Severe anemia Xarelto on hold. Ppi b.i.d.. GI has been consulted. Status post transfusion of 3 units of PRBC. H&H 7.6 and remains stable GI bleed with positive FOBT performed in the ER. On PPI. Status post EGD 07/08/2024 with hiatal hernia and gastritis. AFib with RVR improved on oral diltiazem. Continue same. Xarelto on hold Hypotension improved with hydration Moderate right pleural effusion suspected related to CHF. Alcohol use disorder [facility] protocol Elevated LFTs abdominal ultrasound with diffuse hepatic steatosis. Hypokalemia replace and monitor Hypothyroidism History of congestive heart failure hold diuretics for now may need to slowly diurese. Currently diuretics on hold Obstructive sleep apnea on CPAP Chronic anticoagulation with Xarelto DVT prophylaxis SCDs Code status do not resuscitate Subjective Date/time seen: 07/08/24 12:28 Interval history: No overnight events. Underwent EGD today. Findings reviewed. No new complaints Review of Systems Review of Systems: All systems reviewed & are unremarkable except as noted in HPI and below Exam Narrative: GENERAL: The patient is well developed, not in acute distress HEENT: Nonicteric sclerae, PERRLA, EOMI. Oropharynx clear. Moist mucous membranes. Conjunctivae appear well perfused. CHEST: Chest wall is nontender. HEART: Regular rate and rhythm without murmur, rubs, or gallops LUNGS: Clear to auscultation bilaterally. no respiratory distress ABDOMEN: Soft, positive bowel sounds, non-tender, no organomegaly. SKIN: No rash, no excessive bruising, petechiae, or purpura. NEUROLOGIC: Cranial nerves II-XII intact, alert and oriented x 3, no gross motor deficits EXTREMITIES: no edema, cyanosis or clubbing Objective Data Vital Signs Vital Signs: Vital Signs - 24 hr 07/07/24 14:00 07/07/24 16:00 07/07/24 16:00 Temperature 97.9 F Pulse Rate 101 H 116 H 121 H Respiratory Rate 24 H Blood Pressure 126/60 Pulse Oximetry 98 Oxygen Delivery Oxygen Flow Rate 07/07/24 18:00 07/07/24 20:00 07/07/24 20:00 Temperature 97.7 F Pulse Rate 99 90 Respiratory Rate 17 Blood Pressure 117/50 L Pulse Oximetry 96 Oxygen Delivery Room Air Oxygen Flow Rate 07/07/24 20:00 07/07/24 22:00 07/07/24 23:07 Temperature Pulse Rate 97 80 Respiratory Rate Blood Pressure Pulse Oximetry Oxygen Delivery Room Air Oxygen Flow Rate 07/08/24 00:00 07/08/24 00:00 07/08/24 02:00 Temperature 97.5 F L Pulse Rate 80 104 H 98 Respiratory Rate 17 Blood Pressure 127/98 H Pulse Oximetry 94 Oxygen Delivery Oxygen Flow Rate 07/08/24 04:00 07/08/24 04:00 07/08/24 04:00 Temperature 97.6 F Pulse Rate 121 H 91 Respiratory Rate 18 Blood Pressure 125/63 Pulse Oximetry 93 Oxygen Delivery Room Air Oxygen Flow Rate 07/08/24 06:00 07/08/24 08:00 07/08/24 08:00 Temperature 97.8 F Pulse Rate 83 87 Respiratory Rate 20 Blood Pressure 118/58 L Pulse Oximetry 100 Oxygen Delivery Room Air Oxygen Flow Rate 07/08/24 08:00 07/08/24 09:27 07/08/24 10:00 Temperature 97.1 F L Pulse Rate 105 H 84 98 Respiratory Rate 18 Blood Pressure 120/61 Pulse Oximetry 97 Oxygen Delivery Room Air Oxygen Flow Rate 07/08/24 10:22 07/08/24 10:32 07/08/24 10:42 Temperature Pulse Rate 86 81 65 Respiratory Rate 20 20 20 Blood Pressure 102/61 99/52 L 122/59 L Pulse Oximetry 100 96 99 Oxygen Delivery Nasal Cannula Room Air Room Air Oxygen Flow Rate 8 Intake/Output Intake/Output: Intake & Output 07/05/24 07/07/24 07/07/24 07/08/24 23:59 00:59 23:59 23:59 Intake Total 2025 850 200.0 Output Total 1100 Balance 2025 -250 200.0 Meds/Results Medications: Active Medications Generic Name Dose Route Start Last Admin Trade Name Freq PRN Reason Stop Dose Admin Diltiazem HCl 360 mg 07/07/24 09:00 07/08/24 09:04 Diltiazem Hcl Cd 180 Mg Cap.24hr PO 360 mg QAM [facility] Administration Levothyroxine Sodium 25 mcg 07/07/24 06:30 07/08/24 06:51 Levothyroxine Sodium 25 Mcg Tablet PO Not Given DAILY@0630 [facility] Pantoprazole Sodium 40 mg 07/09/24 09:00 Pantoprazole 40 Mg Tablet PO QAM [facility] Radiology Results: ITS Impressions Chest X-Ray 07/06/24 11:35 Impression: Moderate right pleural effusion. Abdomen Ultrasound 07/07/24 14:21 IMPRESSION: 1. Diffuse hepatic steatosis. 2. Common duct not visualized. Labs Labs: Laboratory Results - last 24 hr 07/07/24 07/07/24 07/07/24 10:05 13:45 13:46 WBC RBC Hgb Hct MCV MCH MCHC RDW Plt Count MPV Immature Gran % (Auto) Neut % (Auto) Lymph % (Auto) [place] % (Auto) Eos % (Auto) Baso % (Auto) Lymph # (Auto) [place] # (Auto) Eos # (Auto) Baso # (Auto) Abs Immat Gran (auto) Absolute Neuts (auto) Absolute Nucleated RBC Nucleated RBC % PT 33.5 H INR 3.2 Sodium Potassium Chloride Carbon Dioxide Anion Gap BUN Creatinine Estim Creat Clear Calc Estimated GFR Glucose Calcium Magnesium Iron 40 TIBC 339 % Saturation 12 L Ferritin 15.80 Total Bilirubin 6.2 H Direct Bilirubin 1.1 H Indirect Bilirubin 3.4 H AST 100 H ALT 45 H Alkaline Phosphatase 88 Total Protein 6.0 L Albumin 2.6 L Hueil-5-Bpihftvdgfo 165 Ceruloplasmin 22 TSH (Reflex) 07/08/24 04:20 WBC 8.9 RBC 2.64 L Hgb 7.4 L Hct 23.5 L MCV 89.0 MCH 28.0 MCHC 31.5 L RDW 21.2 H Plt Count 202 MPV 10.8 H Immature Gran % (Auto) 0.7 H Neut % (Auto) 68.5 Lymph % (Auto) 16.6 L [place] % (Auto) 11.5 H Eos % (Auto) 1.8 Baso % (Auto) 0.9 Lymph # (Auto) 1.48 [place] # (Auto) 1.0 H Eos # (Auto) 0.2 Baso # (Auto) 0.1 Abs Immat Gran (auto) 0.06 H Absolute Neuts (auto) 6.1 Absolute Nucleated RBC 0.050 H Nucleated RBC % 0.6 H PT INR Sodium 138 Potassium 3.4 Chloride 107 Carbon Dioxide 24 Anion Gap 7 BUN 18 H Creatinine 0.94 Estim Creat Clear Calc 73 Estimated GFR 60 Glucose 132 H Calcium 7.9 L Magnesium 1.9 Iron TIBC % Saturation Ferritin Total Bilirubin 5.1 H Direct Bilirubin Indirect Bilirubin AST 97 H ALT 46 H Alkaline Phosphatase 84 Total Protein 6.0 L Albumin 2.5 L Ugole-3-Jjbsfnsoixm Ceruloplasmin TSH (Reflex) 3.910
[2024-07-09] VITALS: BP 116/71; RESP 18; TEMP 36.8; O2SAT 96
[2024-07-09 04:28] LABS: Basophils Absolute Auto 0.1 K/mm3 (0.0-0.1); Basophils Percent Auto 0.9 % (0.2-1.2); Eosinophils Absolute Auto 0.2 K/mm3 (0-0.3); Eosinophils Percent Auto 2.2 % (0-4.4); Hematocrit 24.3 % (37.0-47.0); Hemoglobin 7.4 g/dL (12.0-15.0); Immature Granulocyte Absolute 0.03 K/mm3 (0.00-0.031); Immature Granulocyte Percent A 0.4 % (0-0.5); Lymphocytes Absolute Auto 1.72 K/mm3 (0.9-3.2); Lymphocytes Percent Auto 22.3 % (18.3-44.2); Mean Corpuscular HGB Conc 30.5 g/dl (32-36); Mean Corpuscular Hemoglobin 27.6 pg (26-34); Mean Corpuscular Volume 90.7 fl (80-100); Mean Platelet Volume 10.6 fl (7.4-10.4); Monocytes Percent Auto 12.5 % (2.6-8.5); Neutrophils Absolute Auto 4.8 K/mm3 (1.3-6.7); Neutrophils Percent Auto 61.7 % (45.5-73.1); Nucleated Red Blood Cells Perc 0.4 % (0.0-0.2); Platelet Count Result 200 k/mm3 (150-375); Red Blood Count 2.68 M/mm3 (4.2-5.4); Red Cell Distribution Width 21.2 % (11.5-14.5); White Blood Count 7.7 K/mm3 (4.5-10.0)
[2024-07-09 04:47] LABS: Alanine Aminotransferase 46 U/L (6-35); Albumin Level 2.5 g/dL (3.5-5.1); Alkaline Phosphatase 96 U/L (38-126); Anion Gap 5 mmol/L (4-12); Aspartate Amino Transferase 84 U/L (14-36); Bilirubin,Total 3.3 mg/dL (0.2-1.3); Blood Urea Nitrogen 12 mg/dL (7-17); Calcium 7.9 mg/dL (8.4-10.2); Carbon Dioxide 24 mmol/L (22-30); Chloride 107 mmol/L (98-107); Estimated CRCL calculation 76 ml/min; Estimated Glomerular Filt Rate > 60; Glucose 140 mg/dL (65-110); Magnesium 1.9 mg/dL (1.6-2.3); Potassium 3.4 mmol/L (3.4-5.0); Sodium 136 mmol/L (137-145)
[2024-07-09 05:03] VITALS: BP 100/50; PULSE 75; RESP 17; TEMP 36.4; O2SAT 95
[2024-07-09 05:23] LABS: Hepatitis B Surface Antigen Negative (Negative)
[2024-07-09 05:29] LABS: HAV RESULT Negative (Negative); Hepatitis B Core IgM Result Negative (Negative)
[2024-07-09 05:40] LABS: Hepatitis C Virus Antibody Negative (Negative)
[2024-07-09] MEDS: LEVOTHYROXINE SODIUM 25 MCG TABLET PO (05:55)
[2024-07-09 07:49] VITALS: BP 118/68; PULSE 83; RESP 21; TEMP 36.7; O2SAT 98
--- NOTE | 2024-07-09 07:51 | P.PNIM_ITS ---
Progress Note: A&P Assessment and Plan (1) GI bleed: Code(s): K92.2 - Gastrointestinal hemorrhage, unspecified Status: Acute (2) Acute blood loss anemia: Code(s): D62 - Acute posthemorrhagic anemia Status: Acute (3) Atrial fibrillation with RVR: Code(s): I48.91 - Unspecified atrial fibrillation Status: Acute (4) Chronic anticoagulation: Code(s): Z79.01 - snf (current) use of anticoagulants Status: Chronic (5) Congestive heart failure: Code(s): I50.9 - Heart failure, unspecified Status: Chronic (6) Hypothyroidism: Code(s): E03.9 - Hypothyroidism, unspecified Status: Chronic (7) Alcohol abuse: Code(s): F10.10 - Alcohol abuse, uncomplicated Status: Acute (8) Hypokalemia: Code(s): E87.6 - Hypokalemia Status: Acute Plan This is a 63-year-old female who presents to the ED with shortness of breath on exertion dizziness for the past week. She has been vomiting in the last 4-5 days on average 1 vomiting every 2 hours no diarrhea constipation. Patient drinks alcohol daily did not drink for over 1 week. She complained of generalized weakness/tiredness. No black tarry stool or blood in stool reported. In the ED she was tachycardic blood pressure was adequate. EKG showed AFib with RVR. Laboratory studies showed hemoglobin of 4.6 hematocrit of 16 platelet of 266 WBC of 10.2 Chem panel showed mild hypokalemia 3.2 mild acidosis with bicarb of 20 and creatinine of 1.1. Lipase was normal at 171 AST 87 ALT 43 alkaline phosphatase 105 total bilirubin was 3.6 chest x-ray showed moderate right pleural effusion. Severe anemia Xarelto on hold. Ppi b.i.d.. GI has been consulted. Status post transfusion of 3 units of PRBC. H&H 7.6 and remains stable GI bleed with positive FOBT performed in the ER. On PPI. Status post EGD 07/08/2024 with hiatal hernia and gastritis. AFib with RVR improved on oral diltiazem. Continue same. Xarelto on hold Hypotension improved with hydration Moderate right pleural effusion suspected related to CHF. Alcohol use disorder [facility] protocol Elevated LFTs abdominal ultrasound with diffuse hepatic steatosis. Hypokalemia replace and monitor Hypothyroidism History of congestive heart failure hold diuretics for now may need to slowly diurese. Currently diuretics on hold Obstructive sleep apnea on CPAP Chronic anticoagulation with Xarelto DVT prophylaxis SCDs Code status do not resuscitate Subjective Date/time seen: 07/09/24 07:51 Interval history: Consulted Hem/Oncologist. Discussed with Oncologist who recommends holding Xarelto for now.Possible colonoscopy as OP. Possible discharge tomorrow. Review of Systems Review of Systems: 12 systems were reviewed and are negativ e except for as per HPI. All systems reviewed & are unremarkable except as noted in HPI and below Exam Narrative: GENERAL: The patient is well developed, not in acute distress HEENT: Nonicteric sclerae, PERRLA, EOMI. Oropharynx clear. Moist mucous membranes. Conjunctivae appear well perfused. CHEST: Chest wall is nontender. HEART: Regular rate and rhythm without murmur, rubs, or gallops LUNGS: Clear to auscultation bilaterally. no respiratory distress ABDOMEN: Soft, positive bowel sounds, non-tender, no organomegaly. SKIN: No rash, no excessive bruising, petechiae, or purpura. NEUROLOGIC: Cranial nerves II-XII intact, alert and oriented x 3, no gross motor deficits EXTREMITIES: no edema, cyanosis or clubbing Objective Data Vital Signs Vital Signs: Vital Signs - 24 hr 07/08/24 08:00 07/08/24 08:00 07/08/24 08:00 Temperature 97.8 F Pulse Rate 87 105 H Respiratory Rate 20 Blood Pressure 118/58 L Pulse Oximetry 100 Oxygen Delivery Room Air Oxygen Flow Rate 07/08/24 09:27 07/08/24 10:00 07/08/24 10:22 Temperature 97.1 F L Pulse Rate 84 98 86 Respiratory Rate 18 20 Blood Pressure 120/61 102/61 Pulse Oximetry 97 100 Oxygen Delivery Room Air Nasal Cannula Oxygen Flow Rate 8 07/08/24 10:32 07/08/24 10:42 07/08/24 16:00 Temperature 98.5 F Pulse Rate 81 65 85 Respiratory Rate 20 20 20 Blood Pressure 99/52 L 122/59 L 95/48 L Pulse Oximetry 96 99 95 Oxygen Delivery Room Air Room Air Oxygen Flow Rate 07/08/24 20:00 07/08/24 20:28 07/09/24 00:00 Temperature 98.2 F 98.2 F Pulse Rate 110 H Respiratory Rate 17 18 Blood Pressure 109/68 116/71 Pulse Oximetry 96 96 Oxygen Delivery Room Air Oxygen Flow Rate 07/09/24 05:03 Temperature 97.6 F Pulse Rate 75 Respiratory Rate 17 Blood Pressure 100/50 L Pulse Oximetry 95 Oxygen Delivery Oxygen Flow Rate Intake/Output Intake/Output: Intake & Output 07/07/24 07/07/24 07/08/24 07/09/24 00:59 23:59 23:59 23:59 Intake Total 2025 850 880.0 Output Total 1100 350 400 Balance 2025 -250 530.0 -400 Meds/Results Medications: Active Medications Generic Name Dose Route Start Last Admin Trade Name Freq PRN Reason Stop Dose Admin Diltiazem HCl 360 mg 07/07/24 09:00 07/08/24 09:04 Diltiazem Hcl Cd 180 Mg Cap.24hr PO 360 mg QAM [facility] Administration Levothyroxine Sodium 25 mcg 07/07/24 06:30 07/09/24 05:55 Levothyroxine Sodium 25 Mcg Tablet PO 25 mcg DAILY@0630 [facility] Administration Pantoprazole Sodium 40 mg 07/09/24 09:00 Pantoprazole 40 Mg Tablet PO QAM [facility] Radiology Results: ITS Impressions Abdomen Ultrasound 07/07/24 14:21 IMPRESSION: 1. Diffuse hepatic steatosis. 2. Common duct not visualized. Chest X-Ray 07/09/24 06:34 Impression: Small right pleural effusion. Labs Labs: Laboratory Results - last 24 hr 07/07/24 07/09/24 13:45 03:55 WBC 7.7 RBC 2.68 L Hgb 7.4 L Hct 24.3 L MCV 90.7 MCH 27.6 MCHC 30.5 L RDW 21.2 H Plt Count 200 MPV 10.6 H Immature Gran % (Auto) 0.4 Neut % (Auto) 61.7 Lymph % (Auto) 22.3 [place] % (Auto) 12.5 H Eos % (Auto) 2.2 Baso % (Auto) 0.9 Lymph # (Auto) 1.72 [place] # (Auto) 1.0 H Eos # (Auto) 0.2 Baso # (Auto) 0.1 Abs Immat Gran (auto) 0.03 Absolute Neuts (auto) 4.8 Absolute Nucleated RBC 0.030 H Nucleated RBC % 0.4 H Sodium 136 L Potassium 3.4 Chloride 107 Carbon Dioxide 24 Anion Gap 5 BUN 12 D Creatinine 0.91 Estim Creat Clear Calc 76 Estimated GFR > 60 Glucose 140 H Calcium 7.9 L Magnesium 1.9 Total Bilirubin 3.3 H AST 84 H ALT 46 H Alkaline Phosphatase 96 Total Protein 6.0 L Albumin 2.5 L Drbyd-1-Ibhgjxbmmsb 165 Ceruloplasmin 22 Hepatitis A IgM Ab Negative Hep Bs Antigen Negative Hep B Core IgM Ab Negative Hepatitis C Ab Screen Negative Quality VTE Prophylaxis VTE prophylaxis: mechanical ordered Hospitalist [facility] [place] Advance Care Plan I have confirmed that the patient's Advanced Care Plan is present, code status is documented, or surrogate decision maker is listed in patient medical record.: Yes Medication Reconciliation I have utilized all available resources to obtain, update and review the patients current medications (includes all prescriptions, OTC, herbals, cannabis, and nutritional supplements).: Yes
[2024-07-09] MEDS: PANTOPRAZOLE 40 MG TABLET PO (08:41)
[2024-07-09] MEDS: dilTIAZem HCL CD 180 MG CAP.24HR 360 MG PO (08:41)
--- NOTE | 2024-07-09 12:38 | P.CONONC_ITS ---
Assessment and Plan Assessment and plan (1) Anemia: Code(s): D64.9 - Anemia, unspecified Status: Acute Assessment and Plan: Iron deficiency anemia. Patient was last seen in the office in May 2023 and was stuck to to continue oral iron daily with vitamin-C. At that time her hemoglobin was 14.1. She discontinued oral iron about 6 months ago. Patient is also on Xarelto for atrial fibrillation. She denies any melena hematochezia. Her hemoglobin was found to be 4.6. She received 3 units of packed red blood cell with improvement in hemoglobin. EGD was performed that showed gastritis and hiatal hernia. There is a possibility of iron malabsorption due to hiatal hernia as well. She will start taking iron 65 mg twice a day with vitamin-C. I will give her a round of iron infusion prior to the discharge as well. I would suggest holding Xarelto until hemoglobin stabilizes. She will follow-up with me in the office. HPI Data of Consult Date/Time: 07/09/24 12:38 Requesting Physician: Jose Neri MD Primary Care Provider: Luis Campo MD Consult Narrative Narrative: Michelle Odom is a 63 year old female with history of congestive heart failure, atrial fibrillation and alcohol abuse admitted to the hospital with tiredness and fatigue. She denies any melena hematochezia. Denies any nausea vomiting. Hemoglobin was found to be 4.6. I see have seen this patient last time in May of 2023 and hemoglobin at that time was 14.7. She was instructed to continue oral iron and vitamin-C daily but discontinued 6 months ago. EGD from June showed hiatal hernia and gastritis. Colonoscopy from April 2023 showed diverticulosis with internal hemorrhoids. Hemoglobin has improved after 3 units of packed blood pressures cell transfusion to 7.4. Labs showed iron saturation of 12% she is feeling slightly better. Abdominal ultrasound showed diffuse hepatic steatosis. The L2 was placed on hold due to likely GI bleed. Review of Systems 2 Review of Systems: Review of system as per HPI otherwise negative COUNT INCLUDES THE [facility] Past Medical History Medical History Hypothyroidism Congestive heart failure Dyslipidemia Obstructive sleep apnea on CPAP Diverticulitis Chronic anticoagulation Chronic atrial fibrillation Surgical History Surgical History History of permanent cardiac pacemaker placement (09/2016) Biotronik dual chamber pacemaker implant by Dr. Garvey Family History Family History Mother Acute myocardial infarction, Onset Age: 73 Cerebrovascular accident, Onset Age: 73 Diabetes mellitus Father Multiple myeloma Social History Social History Social History: Surrogate medical decision maker: Gracy Lakisha, friend. Code status: Do not resuscitate. Years smoked: 35 Smoking status: Former smoker Tobacco type: cigarettes Smoking end date: 06/28/16 Alcohol intake: current Drinks per week: 21 Alcohol use details: Social alcohol use in moderation. Substance use: never Substance use type: does not use Do You Feel Safe in your Home?: Yes Lack of Transportation: No Lack of Food: Never True Current Housing: I Have Housing Concerned About Future Housing: No Difficulty Paying Gas/Electric Bills: No Difficulty Paying for Meds: No Currently Unemployed: No Education: High School Diploma/GED Difficulty w/ Childcare or Family Care: No Living arrangements: with family Additional living arrangements comments: The patient lives alone. She has no children. Caregiver comes in 3 days weak. Spiritual care concerns: No Meds Home Medications and Allergies Home Medications ?Medication ?Instructions ?Recorded ?Confirmed ?Type Vitamin D2 50,000 units PO WEEKLY 03/23/23 07/06/24 History bumetanide 2 mg tablet 2 mg PO DAILY 03/23/23 07/06/24 History diltiazem HCl 360 mg capsule,24 360 mg PO DAILY 03/23/23 07/06/24 History hr,extended release levothyroxine 25 mcg tablet 25 mcg PO DAILY 03/23/23 07/06/24 History potassium chloride 20 mEq 20 meq PO BID 03/23/23 07/06/24 History tablet,extended release rivaroxaban 20 mg tablet (Xarelto) 20 mg PO DAILY 03/23/23 07/06/24 History ascorbic acid (vitamin C) 500 mg 500 mg PO DAILY #30 tabs 03/27/23 07/06/24 Rx tablet (Vitamin C) dapagliflozin propanediol 10 mg 10 mg PO DAILY 04/27/23 07/06/24 History tablet (Farxiga) Allergies Allergy/AdvReac Type Severity Reaction Status Date / Time amiodarone Allergy Severe Hives Verified 07/08/24 09:24 codeine AdvReac Mild Itching Verified 07/08/24 09:24 Vital Signs Vital Signs - 24 hr 07/08/24 16:00 07/08/24 20:00 07/08/24 20:28 Temperature 36.9 C 36.8 C Pulse Rate 85 110 H Respiratory Rate 20 17 Blood Pressure 95/48 L 109/68 Pulse Oximetry 95 96 Oxygen Delivery Room Air 07/09/24 00:00 07/09/24 05:03 07/09/24 07:49 Temperature 36.8 C 36.4 C 36.7 C Pulse Rate 75 83 Respiratory Rate 18 17 21 H Blood Pressure 116/71 100/50 L 118/68 Pulse Oximetry 96 95 98 Oxygen Delivery Exam 2 Narrative: Lungs are clear to auscultation bilaterally Cardiovascular regular rate rhythm no murmurs Abdomen soft nontender nondistended Extremities no edema Results Labs 07/09/24 03:55 07/09/24 03:55 Labs: Short CBC 07/09/24 Range/Units 03:55 WBC 7.7 (4.5-10.0) K/mm3 Hgb 7.4 L (12.0-15.0) g/dL Hct 24.3 L (37.0-47.0) % Plt Count 200 (150-375) k/mm3 [facility] 07/09/24 03:55 Sodium 136 L Potassium 3.4 Chloride 107 Carbon Dioxide 24 BUN 12 D Creatinine 0.91 Glucose 140 H Calcium 7.9 L Liver Function 07/09/24 Range/Units 03:55 Total Bilirubin 3.3 H (0.2-1.3) mg/dL AST 84 H (14-36) U/L ALT 46 H (6-35) U/L Alkaline Phosphatase 96 (38-126) U/L Albumin 2.5 L (3.5-5.1) g/dL
[2024-07-09] MEDS: IRON SUCROSE COMPLEX 400 MG, IRON SUCROSE COMPLEX 100 MG in SODIUM CHLORIDE 0.9% IV 250 ML 78.57 MG IVPB (14:33)
[2024-07-09 15:51] VITALS: BP 114/55; PULSE 87; RESP 20; TEMP 36.7; O2SAT 97
--- NOTE | 2024-07-09 16:58 | P.PNGI_ITS ---
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 Status: Chronic Assessment and Plan: no hold given 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 (4) Elevated LFTs: Code(s): R79.89 - Other specified abnormal findings of blood chemistry Status: Acute (5) Alcohol abuse: Code(s): F10.10 - Alcohol abuse, uncomplicated Status: Acute Subjective Date/time seen: 07/09/24 16:58 Interval history: egd with mild gastritis and hiatal hernia she is doing great, eating, denies gib Review of Systems Review of Systems: All systems reviewed & are unremarkable except as noted in HPI and below Exam Const: General: comfortable and no acute distress Other: obese HENMT: Face/Nose/Sinus: Normal nares present Eyes: General: appearance normal, both eyes and all related structures Neck: Neck: supple Resp: Auscultation: clear to auscultation bilaterally Cardio: Rate: regular rate Rhythm: regular rhythm GI: Inspection: non-distended GI Palp: Yes Soft to palpation and No Tenderness to palpation present (GI) Auscultation: normal bowel sounds Skin: Other: pale, few bruises in arm Neuro: Speech: normal speech Motor exam (neuro): 5/5 motor strength present throughout Extrem: General: normal to inspection Psych: Mental Status: mental status grossly normal Objective Data Vital Signs Vital Signs: Vital Signs - 24 hr 07/08/24 20:00 07/08/24 20:28 07/09/24 00:00 Temperature 98.2 F 98.2 F Pulse Rate 110 H Respiratory Rate 17 18 Blood Pressure 109/68 116/71 Pulse Oximetry 96 96 Oxygen Delivery Room Air 07/09/24 05:03 07/09/24 07:49 07/09/24 13:07 Temperature 97.6 F 98.1 F Pulse Rate 75 83 Respiratory Rate 17 21 H Blood Pressure 100/50 L 118/68 Pulse Oximetry 95 98 Oxygen Delivery Room Air 07/09/24 15:51 Temperature 98.1 F Pulse Rate 87 Respiratory Rate 20 Blood Pressure 114/55 L Pulse Oximetry 97 Oxygen Delivery Intake/Output Intake/Output: Intake & Output 07/07/24 07/07/24 07/08/24 07/09/24 00:59 23:59 23:59 23:59 Intake Total 2025 850 880.0 480 Output Total 1100 350 400 Balance 2025 -250 530.0 80 Meds/Results Medications: Active Medications Generic Name Dose Route Start Last Admin Trade Name Freq PRN Reason Stop Dose Admin Diltiazem HCl 360 mg 07/07/24 09:00 07/09/24 08:41 Diltiazem Hcl Cd 180 Mg Cap.24hr PO 360 mg QAM JUSTIN Administration Iron Sucrose 400 mg/ Iron 275 mls @ 78.571 mls/hr 07/09/24 14:00 07/09/24 14:33 Sucrose 100 mg/ Sodium IVPB 07/09/24 17:29 78.57 mls/hr Chloride ONCE ONE Administration Levothyroxine Sodium 25 mcg 07/07/24 06:30 07/09/24 05:55 Levothyroxine Sodium 25 Mcg Tablet PO 25 mcg DAILY@0630 JUSTIN Administration Pantoprazole Sodium 40 mg 07/09/24 09:00 07/09/24 08:41 Pantoprazole 40 Mg Tablet PO 40 mg QAM JUSTIN Administration Radiology Results: ITS Impressions Abdomen Ultrasound 07/07/24 14:21 IMPRESSION: 1. Diffuse hepatic steatosis. 2. Common duct not visualized. Chest X-Ray 07/09/24 06:34 Impression: Small right pleural effusion. Labs Labs: Laboratory Results - last 24 hr 07/09/24 03:55 WBC 7.7 RBC 2.68 L Hgb 7.4 L Hct 24.3 L MCV 90.7 MCH 27.6 MCHC 30.5 L RDW 21.2 H Plt Count 200 MPV 10.6 H Immature Gran % (Auto) 0.4 Neut % (Auto) 61.7 Lymph % (Auto) 22.3 Stanley % (Auto) 12.5 H Eos % (Auto) 2.2 Baso % (Auto) 0.9 Lymph # (Auto) 1.72 Stanley # (Auto) 1.0 H Eos # (Auto) 0.2 Baso # (Auto) 0.1 Abs Immat Gran (auto) 0.03 Absolute Neuts (auto) 4.8 Absolute Nucleated RBC 0.030 H Nucleated RBC % 0.4 H Sodium 136 L Potassium 3.4 Chloride 107 Carbon Dioxide 24 Anion Gap 5 BUN 12 D Creatinine 0.91 Estim Creat Clear Calc 76 Estimated GFR > 60 Glucose 140 H Calcium 7.9 L Magnesium 1.9 Total Bilirubin 3.3 H AST 84 H ALT 46 H Alkaline Phosphatase 96 Total Protein 6.0 L Albumin 2.5 L Hepatitis A IgM Ab Negative Hep Bs Antigen Negative Hep B Core IgM Ab Negative Hepatitis C Ab Screen Negative
[2024-07-09 19:25] VITALS: BP 109/60; PULSE 80; RESP 18; TEMP 36.4; O2SAT 95
--- NOTE | 2024-07-09 22:20 | PC.NURSE ---
This patient, Michelle Odom, was transferred to [Med-surg room 244 ] on 07/09/24 at 2200. Personal belongings sent with patient. Report given to [DHEERAJ Hancock ]. Appropriate documentation sent with patient.
[2024-07-10 04:43] VITALS: BP 101/50; PULSE 79; RESP 16; TEMP 37.2; O2SAT 94
[2024-07-10 05:07] LABS: Hematocrit 25.9 % (37.0-47.0); Hemoglobin 7.8 g/dL (12.0-15.0); Mean Corpuscular HGB Conc 30.1 g/dl (32-36); Mean Corpuscular Hemoglobin 27.7 pg (26-34); Mean Corpuscular Volume 91.8 fl (80-100); Mean Platelet Volume 10.5 fl (7.4-10.4); Platelet Count Result 192 k/mm3 (150-375); Red Blood Count 2.82 M/mm3 (4.2-5.4); Red Cell Distribution Width 20.5 % (11.5-14.5); White Blood Count 8.4 K/mm3 (4.5-10.0)
[2024-07-10] MEDS: LEVOTHYROXINE SODIUM 25 MCG TABLET PO (05:39)
--- NOTE | 2024-07-10 07:37 | P.DS_ITS ---
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 Patient states that she does still sometimes drink. Patient states that she has felt more tired than normal with weakness over the last week or so. She states that she noticed she was looking pale. She states that she did not notice any black tardy stools or bloody stools. Patient denies nausea or vomiting, fevers chills. ED she had anemia of 4.6, potassium of 3.2, creatinine of 1.14, calcium 8, total bili of 3.6 AST and ALT are slightly elevated at 87 and 43. Chest x-ray shows moderate right pleural effusion, EKG shows atrial fibrillation with RVR rate of 122. I assumed care on 07/09-07/10: Record review indicates patient hemoglobin during the admission was 4.6. And she received 3 units of we of PRBC. Patient underwent EGD which shows gastritis and hiatal hernia. Currently her hemoglobin is stable around 7.5. Patient previously followed in 2023. She was briefly taking oral iron for about 6 months. Of note patient takes Xarelto for atrial fibrillation. Advised patient to follow-up with the primary care physician in 1 or 2 weeks upon discharge and check her hemoglobin level. I will hold Xarelto and can be continued at the discretion of PCP. Today explained the risk vs benefit of holding Xarelto. Patient agrees with the plan holding Xarelto and discuss with PCP if can be continued. Patient received IV iron infusion and needs to follow up with . Patient also needs to follow up with GI as an outpatient for colonoscopy.Patient denies any vaginal bleeding and had menopause at the age of 51. Status at Discharge Cognitive/behavioral status at discharge: Stable Time Spent with Patient Time attestation: Total time spent providing and/or coordinating discharge services: 45 minutes Exam Narrative: GENERAL: The patient is well developed, not in acute distress HEENT: Nonicteric sclerae, PERRLA, EOMI. Oropharynx clear. Moist mucous membranes. Conjunctivae appear well perfused. CHEST: Chest wall is nontender. HEART: Regular rate and rhythm without murmur, rubs, or gallops LUNGS: Clear to auscultation bilaterally. no respiratory distress ABDOMEN: Soft, positive bowel sounds, non-tender, no organomegaly. SKIN: No rash, no excessive bruising, petechiae, or purpura. NEUROLOGIC: Cranial nerves II-XII intact, alert and oriented x 3, no gross motor deficits EXTREMITIES: no edema, cyanosis or clubbing DS: Data Data Completed and Pending Labs on day of discharge: Labs from last 24 hours 07/10/24 04:23 WBC 8.4 RBC 2.82 L Hgb 7.8 L Hct 25.9 L MCV 91.8 MCH 27.7 MCHC 30.1 L RDW 20.5 H Plt Count 192 MPV 10.5 H Sodium Pending Potassium Pending Chloride Pending Carbon Dioxide Pending Anion Gap Pending BUN Pending Creatinine Pending Estim Creat Clear Calc Pending Estimated GFR Pending Glucose Pending Calcium Pending Total Bilirubin Pending AST Pending ALT Pending Alkaline Phosphatase Pending Total Protein Pending Albumin Pending Discharge Plan Discharge Attending physician on discharge: Refugio Thompson Consulting providers: Stef Carreon Discharging Clinician: Refugio Thompson Anticipated Discharge Date/Time: 07/10/24 08:01 Patient Disposition: Home, Self-Care Activity: as tolerated Diet: heart healthy Discharge Instructions: Needs hemoglobin check in a week(CBC). Holding Xarelto until further discussion with your PCP. Please take CBC results and discuss with your PCP and continue Xarelto if needed. Needs to follow up with for Iron infusion Needs to follow up with for colonoscopy Needs alcohol cessation Patient Instructions: Antibiotic Form Patient Language: Z[place]ian Stand Alone Forms: General Discharge Information Follow-up/Referrals: Stef Carreon MD [Physician] - ( anemia follow-up) Luis Campo MD [Primary Care Provider] - ( Holding Eliquis due to low hemoglobin. Advised to discussed with PCP and continue if needed) Royce Tilley MD [Physician] - ( colonoscopy) Discharge Medications: New pantoprazole 40 mg Tablet,Delayed Release (Dr/Ec) 40 mg PO QAM Qty: 30 0RF Continued bumetanide 2 mg Tablet 2 mg PO DAILY diltiazem HCl 360 mg Capsule,Extended Release 24 Hr 360 mg PO DAILY levothyroxine 25 mcg Tablet 25 mcg PO DAILY potassium chloride 20 mEq Tablet Extended Release 20 meq PO BID Vitamin D2 50,000 units capsule 50,000 units PO WEEKLY ascorbic acid (vitamin C) [Vitamin C] 500 mg Tablet 500 mg PO DAILY Qty: 30 0RF dapagliflozin propanediol [Farxiga] 10 mg tablet 10 mg PO DAILY Held Xarelto 20 mg Tablet 20 mg PO DAILY Hold Instructions: Resume on 07/31/24. please discuss with your PCP and check a hemoglobin level before continuing Xarelto Patient Comments: ON HOLD Rx Instructions: must administer with evening meal Other Ambulatory Orders: Complete Blood Count no Diff (Routine) Timeframe: 1 Week Location: Determined by Patient Ordered By: Refugio Thompson Date of admission: 07/06/24 12:26 Primary Care Provider: Luis Campo Admitting Provider: Jose Neri Attending physician on admission: Jose Neri Condition: Stable
[2024-07-10 07:48] LABS: Alanine Aminotransferase 48 U/L (6-35); Albumin Level 2.6 g/dL (3.5-5.1); Alkaline Phosphatase 93 U/L (38-126); Anion Gap 6 mmol/L (4-12); Aspartate Amino Transferase 87 U/L (14-36); Blood Urea Nitrogen 9 mg/dL (7-17); Carbon Dioxide 25 mmol/L (22-30); Chloride 105 mmol/L (98-107); Estimated CRCL calculation 86 ml/min; Estimated Glomerular Filt Rate > 60; Glucose 143 mg/dL (65-110); Potassium 3.8 mmol/L (3.4-5.0); Sodium 136 mmol/L (137-145)
[2024-07-10 08:19] VITALS: BP 108/54; PULSE 97; RESP 18; TEMP 36.3; O2SAT 94
[2024-07-10 08:20] VITALS: O2SAT 94
[2024-07-10] MEDS: dilTIAZem HCL CD 180 MG CAP.24HR 360 MG PO (08:20)
[2024-07-10] MEDS: PANTOPRAZOLE 40 MG TABLET PO (08:20)
[2024-07-10 10:52] LABS: Alpha Fetoprotein Tumor Marker 5.4 ng/mL
== END 2024-07-10 11:38 | disposition home or self-care (01) | DRG 812 ==
LOC: ANHED 12:37 → ANHIMU 07-07 15:10 → ANH2MED 07-10 08:04 → ANHIMU 07-11 10:43
PROVIDERS: Internal Medicine; Internal Medicine Gastroenterology; Nurse Practitioner Family; Admitting Provider Family Medicine; Emergency Provider Emergency Medicine; PCP Internal Medicine; Visit Provider General Practice
PROC: 0DJ08ZZ Inspection of Upper Intestinal Tract, Via Natural or Artificial Opening Endoscopic (ICD-10-PCS; principal; 2024-07-08 14:30)
DX: D50.9 Iron deficiency anemia, unspecified (principal); I48.20 Chronic atrial fibrillation, unspecified; Z68.43 Body mass index [BMI] 50.0-59.9, adult; I50.32 Chronic diastolic (congestive) heart failure; K70.11 Alcoholic hepatitis with ascites; K70.0 Alcoholic fatty liver; D63.8 Anemia in other chronic diseases classified elsewhere; D62 Acute posthemorrhagic anemia; K29.70 Gastritis, unspecified, without bleeding; K44.9 Diaphragmatic hernia without obstruction or gangrene; F10.10 Alcohol abuse, uncomplicated; E78.5 Hyperlipidemia, unspecified; E03.9 Hypothyroidism, unspecified; G47.33 Obstructive sleep apnea (adult) (pediatric); E66.01 Morbid (severe) obesity due to excess calories; E87.6 Hypokalemia; Z66 Do not resuscitate; Z79.01 Long term (current) use of anticoagulants; Z87.891 Personal history of nicotine dependence; Z95.0 Presence of cardiac pacemaker
CPT/HCPCS: 36415; 36430; 71045; 71046; 76705; 80053; 80074; 80076; 81596; 82103; 82105; 82390; 82728; 83516; 83520; 83540; 83550; 83690; 83735; 84443; 85014; 85018; 85025; 85027; 85610; 86038; 86850; 86900; 86901; 86923; 87637; 93005; 97161; 97165; 99285; A9270; J1756; J2470; J2704; J7030; J7050; J7120; P9016

== ENCOUNTER 2024-07-16 10:06 | Inpatient (IN) | payer MEDICARE, MEDICAID, SELFPAY ==
[2024-07-16] VITALS (30 sets, daily range): BP systolic 99–140; BP diastolic 20–98; PULSE 80–108; RESP 12–24; TEMP 36.6–36.8; O2SAT 94–100; BMI 56.7
--- NOTE | ~2024-07-16 | CT_ITS ---
CTA chest PE abdomen pel Ordering provider: Elvie Butterfield MD History: . pleural effusion; dimer >1 not on anticoag; abd pa . Comparison: None. Technique: CT angiogram chest was performed following timed intravenous injection of contrast. Thin s lice axial images and reformatted coronal images were obtained. Three dimensional reformatted images of the chest were also obtained using a [employer] workstation. Also, CT of the abdomen and pelvis was pe rformed with IV contrast. . Automated exposure control and iterative reconstruction technique were e mployed. The dose-length product was 2433.29 mGy-cm. 100 mL Omnipaque 350 was given IV. FINDINGS: CHEST: --PULMONARY ARTERIES: No pulmonary embolus. --VISUALIZED THORACIC INLET: Normal. --MEDIASTINUM: Aorta/coronary arteries: Mild atheromatous disease. Heart/other: The heart is slightly enlarged. Lymph nodes: No mediastinal or hilar adenopathy. --LUNGS: Large right pleural effusion with atelectasis versus pneumonia in the upper and lower lobes No pulmon prabhakar nodules or masses. No pneumothorax. --MUSCULOSKELETAL: Bones: Normal spine. Superficial soft tissues: The superficial soft tissues are normal. ABDOMEN/PELVIS: --MUSCULOSKELETAL: Superficial soft tissues: Edema in the abdominal wall is seen posteriorly in the abdomen and in the a altagracia of the pelvis anteriorly. Otherwise The superficial soft tissues are normal. Bones: Degenerative changes of the spine. --UPPER ABDOMINAL ORGANS: Liver: Liver cirrhosis with lobulated outline of the liver. Gallbladder: Distended gallbladder with no stones. Slightly thickened wall. Spleen: Normal. Physis are seen in the splenic bed suggestive of portal hypertension Stomach/duodenum: Normal. Pancreas: Normal. Adrenals: Normal. Kidneys: 1.3 cm cyst in the right kidney upper pole. --PELVIC ORGANS: The bladder is normal. No bladder stones. --BOWEL AND MESENTERY: Colon: No evidence of diverticulitis.. Appendix is not demonstrated. Small Bowel: Normal. No obstruction. Peritoneum/mesentery: No free air. Free fluid is seen in the pelvis and around the liver. Fluid also seen anterior to the right Gerota fascia.. No mesenteric lymphadenopathy. --RETROPERITONEUM: Mild atheromatous disease of the abdominal aorta. No retroperitoneal lymphadenop athy. IMPRESSION: CHEST: 1. Large right pleural effusion with atelectasis versus pneumonia in the right upper and lower lobe. 2. No pulmonary embolism. ABDOMEN/PELVIS: 1. Ascites with fluid around the liver and in the pelvis 2. Liver cirrhosis. 3. Portal hypertension with prominent vessels in the splenic bed. 4. Distended gallbladder with slightly thickened wall. No bladder stones. Reviewed, dictated and finalized at location A.
--- NOTE | ~2024-07-16 | XR_ITS ---
XR chest 1V portable Ordering provider: Elvie Butterfeild MD History: 63 years Female with . SOB, Hx CHF; . Comparison: July 09, 2024 FINDINGS: MEDIASTINUM: The cardiac silhouette is slightly enlarged. Left bipolar pacemaker. Congestive nataliia. LUNGS: No pneumothorax. Right basal atelectasis versus pneumonia with large pleural effusion. OTHER: No free air under the diaphragm. IMPRESSION: Right basal atelectasis versus pneumonia with large pleural effusion. Reviewed, dictated and finalized at location A.
--- NOTE | ~2024-07-16 | NM_ITS ---
EXAMINATION: NM hepatobiliary wo pharm DATE: 07/18/2024 13:04 INDICATION: Acute cholecystitis COMPARISON: Ultrasound dated 07/18/[address] dated 07/16/2024 TECHNIQUE: 3.5 mCi Tc-99m mebrofenin (Choletec) was administered intravenously. Scintigraphic images of the abdomen were obtained for one hour. Patient refused the planned morphine injection and termin ated the study at the 1 hour time point with no delayed imaging. FINDINGS: There is normal clearance of radiotracer from the blood pool. There is homogeneous tracer u ptake by the liver. Activity progresses to the common bile duct and small bowel with small amount ac tivity first visualized at 30-35 minutes. There is delayed hepatic excretion of activity with the vas t majority of activity still within the liver and only small amounts within the duodenum by 60 minute s of imaging. The gallbladder is nonvisualized. IMPRESSION: 1. Delayed hepatic excretion of activity without evident biliary ductal dilation on prior ultrasound or CT which could be consistent with hepatic dysfunction likely related to cirrhosis which is eviden t on the prior CT imaging. 2. No gallbladder activity evident over the course of 1 hour of imaging. In the absence of either mor phine administration or more delayed imaging this remains indeterminate with differential including a cute cholecystitis, chronic cholecystitis, artifact of the poor hepatic excretion of activity or of p rolonged fasting. Reviewed, dictated and finalized at location A. IMPRESSION: 1. Delayed hepatic excretion of activity without evident biliary ductal dilati on on prior ultrasound or CT which could be consistent with hepatic dysfunction likely related to cirrhosis which is evident on the prior CT imaging. 2. No gallbladder activity evident over the course of 1 hour of imaging. In the absence of either morphine administration or more delayed imaging this remains indeterminate with differential including acute cholecystitis, chronic cholecy stitis, artifact of the poor hepatic excretion of activity or of prolonged fast ing.
--- NOTE | ~2024-07-16 | XR_ITS ---
CHEST RADIOGRAPH CLINICAL HISTORY: POST THORA . COMPARISON: 07/16/2024 TECHNIQUE: Single portable view of the chest. FINDINGS The left mid lung is partially obscured due to pacemaker generator. Wires project over the right atrium and right ventricle. The remainder of the cardiomediastinal silhouette is partially obscured. Redemonstration of a large right-sided pleural effusion. The right lung is fully inflated. Increased interstitial markings are identified within the left hemithorax, findings suggesting mild p ulmonary vascular congestion. The remainder of the left lung is clear. IMPRESSION: No pneumothorax following right-sided thoracentesis, as detailed above. Reviewed, dictated and finalized at location A.
--- NOTE | ~2024-07-16 | XR_ITS ---
Portable chest x-ray Comparison: 07/16/2024 Clinical History: Pneumonia Findings: Moderate to large right pleural effusion present. Left lung clear. Cardiomediastinal silh ouette is stable, with pacemaker device. Bones and soft tissues are unremarkable. Impression: Moderate to large right pleural effusion, similar to prior exam. Stable cardiomegaly with pacemaker device. Reviewed, dictated and finalized at location . Impression: Moderate to large right pleural effusion, similar to prior exam. Stable cardiomegaly with pacemaker device.
--- NOTE | ~2024-07-16 | US_ITS ---
EXAMINATION: US thoracentesis DATE: 07/16/2024 17:45 INDICATION: pleural effusion TECHNIQUE: The procedure and its risks and benefits were discussed with the patient. Potential risks discussed included bleeding, infection, and pneumothorax. The patient understood the risks and agreed to proceed. The skin was prepped and draped in sterile fashion. 1% lidocaine was used for local anes thesia. Under ultrasound guidance, a 5 Fr catheter with trochar was advanced into the right pleural e ffusion. Fluid was aspirated. The catheter was removed, and a dressing was applied. There were no imm ediate complications. FINDINGS: Ultrasound images demonstrate a large right pleural effusion and the catheter within the fluid. IMPRESSION: 1. Successful ultrasound-guided thoracentesis yielding 1000 mL of yellow fluid. Reviewed, dictated and finalized at location A. IMPRESSION: 1. Successful ultrasound-guided thoracentesis yielding 1000 mL of yellow fluid .
--- NOTE | ~2024-07-16 | US_ITS ---
Limited ABDOMINAL ULTRASOUND (Doppler ultrasound interrogation techniques used as needed for this exa m.) Ordering provider: Anirudh Dhaliwal MD History: . liver cirrhosis and thickened GB wall . Comparison: None. FINDINGS: PANCREAS: Normal echotexture and size of the visualized portion. PORTAL VEIN: Hepatopedal flow demonstrated. LIVER: Normal size and increased echotexture. Nodular surface is seen suggestive of cirrhosis No foca l hepatic lesions or perihepatic fluid collections are identified. BILIARY DUCTS: No intra or extrahepatic biliary dilation. Common bile duct measures 5 mm in diameter which is normal for patient's age. GALLBLADDER: Distended. No stones, pericholecystic fluid. Sludge is seen in the gallbladder with wall thickening. The wall thickness is 8 mm. Negative sonographic Skelton's sign. FREE FLUID: visualized within the right upper quadrant IMPRESSION: Liver cirrhosis Fat infiltration of the liver. Distended gallbladder with sludge and wall thickening. Possibility of cholecystitis cannot be exclude d. Clinical correlation advised. Minimal free fluid in the right upper quadrant. Reviewed, dictated and finalized at location A. IMPRESSION: Liver cirrhosis Fat infiltration of the liver. Distended gallbladder with sludge and wall thickening. Possibility of cholecyst itis cannot be excluded. Clinical correlation advised. Minimal free fluid in the right upper quadrant.
--- NOTE | ~2024-07-16 | US_ITS ---
BILATERAL LOWER EXTREMITY VENOUS ULTRASOUND Ordering provider: Sumaya Hyatt PA-C History: . Bilateral lower extremity edema . Comparison: None. FINDINGS: RIGHT LOWER EXTREMITY VEINS: --COMMON FEMORAL: Patent and free of thrombus. Normal compressibility, phasic flow and augmentation. --PROXIMAL SUPERFICIAL FEMORAL: Patent and free of thrombus. Normal compressibility, phasic flow and augmentation. --DISTAL SUPERFICIAL FEMORAL: Patent and free of thrombus. Normal compressibility, phasic flow and au gmentation. --POPLITEAL: Patent and free of thrombus. Normal compressibility, phasic flow and augmentation. --POSTERIOR TIBIAL: Patent and free of thrombus. Normal compressibility, phasic flow and augmentation . LEFT LOWER EXTREMITY VEINS: --COMMON FEMORAL: Patent and free of thrombus. Normal compressibility, phasic flow and augmentation. --PROXIMAL SUPERFICIAL FEMORAL: Patent and free of thrombus. Normal compressibility, phasic flow and augmentation. --DISTAL SUPERFICIAL FEMORAL: Patent and free of thrombus. Normal compressibility, phasic flow and au gmentation. --POPLITEAL: Patent and free of thrombus. Normal compressibility, phasic flow and augmentation. --POSTERIOR TIBIAL: Patent and free of thrombus. Normal compressibility, phasic flow and augmentation . IMPRESSION: Negative bilateral lower extremity venous US. No deep vein thrombosis. Reviewed, dictated and finalized at location A.
--- NOTE | 2024-07-16 10:32 | ECG_ITS ---
Test Date: 2024-07-16 10:16:08 Measurements Intervals [place] Rate: 81 P: 0 PA: 0 QRS: 31 QRSD: 90 T: -9 QT: 353 QTc: 411 Interpretive Statements ATRIAL FIBRILLATION LOW QRS VOLTAGE [QRS DEFLECTION < 0.5/1.0 mV IN LIMB/CHEST LEADS] NONSPECIFIC ST & T-WAVE ABNORMALITY ABNORMAL ECG Electronically Signed On 07-16-2024 12:52:44 CDT by Eliud Celis M.D.
[2024-07-16 10:53] LABS: Basophils Absolute Auto 0.1 K/mm3 (0.0-0.1); Basophils Percent Auto 0.7 % (0.2-1.2); Eosinophils Absolute Auto 0.1 K/mm3 (0-0.3); Eosinophils Percent Auto 0.5 % (0-4.4); Hematocrit 32.5 % (37.0-47.0); Hemoglobin 9.8 g/dL (12.0-15.0); Immature Granulocyte Absolute 0.06 K/mm3 (0.00-0.031); Immature Granulocyte Percent A 0.6 % (0-0.5); Lymphocytes Absolute Auto 0.87 K/mm3 (0.9-3.2); Lymphocytes Percent Auto 8.6 % (18.3-44.2); Mean Corpuscular HGB Conc 30.2 g/dl (32-36); Mean Corpuscular Hemoglobin 28.5 pg (26-34); Mean Corpuscular Volume 94.5 fl (80-100); Mean Platelet Volume 10.3 fl (7.4-10.4); Monocytes Absolute Auto 0.8 K/mm3 (0.1-0.6); Monocytes Percent Auto 7.9 % (2.6-8.5); Neutrophils Absolute Auto 8.2 K/mm3 (1.3-6.7); Neutrophils Percent Auto 81.7 % (45.5-73.1); Platelet Count Result 249 k/mm3 (150-375); Red Blood Count 3.44 M/mm3 (4.2-5.4); Red Cell Distribution Width 21.9 % (11.5-14.5); White Blood Count 10.1 K/mm3 (4.5-10.0)
[2024-07-16 11:09] LABS: Alanine Aminotransferase 53 U/L (6-35); Albumin Level 3.2 g/dL (3.5-5.1); Alkaline Phosphatase 123 U/L (38-126); Anion Gap 8 mmol/L (4-12); Aspartate Amino Transferase 88 U/L (14-36); Bilirubin,Total 3.1 mg/dL (0.2-1.3); Blood Urea Nitrogen 14 mg/dL (7-17); Calcium 8.6 mg/dL (8.4-10.2); Carbon Dioxide 26 mmol/L (22-30); Chloride 105 mmol/L (98-107); Estimated CRCL calculation 63 ml/min; Estimated Glomerular Filt Rate 49; Glucose 193 mg/dL (65-110); Potassium 4.6 mmol/L (3.4-5.0); Sodium 139 mmol/L (137-145)
[2024-07-16 11:11] LABS: Alveolar/Arterial O2 Gradient 99.9 mmHg; Base Excess ABG -3.7 mEq/l (+/-2.0); Fractional Inspired Oxygen 30 %; HCO3 ABG 21.7 mEq/l (22.0-26.0); Oxygen Content ABG 13.1 %vol (16.0-22.0); Oxygen Saturation ABG 92.3 % (95.0-100.0); Oxyhemoglobin 89.4 % THb (90.0-100.0); PCO2 ABG 40.5 mmHg (35.0-45.0); PO2 ABG 66.4 mmHg (80.0-100.0); PO2 FiO2 Ratio Arterial Blood 2.21 %; Total Hemoglobin 10.4 g/dL (12.0-18.0); pH ABG 7.347 (7.350-7.450)
[2024-07-16 11:12] LABS: Site Drawn RIGHT BRACHIAL
[2024-07-16 11:14] LABS: Device NON-INVASIVE VENT
[2024-07-16 11:15] LABS: Non-Invasive Inspiratory Pressure 10 CMH2O
[2024-07-16 11:17] LABS: Non-Invasive Expiratory Pressure 0 CMH2O
[2024-07-16 11:18] LABS: INR 1.4; Prothrombin Time 17.8 Seconds (11.1-14.7)
[2024-07-16 11:19] LABS: Partial Thromboplastin Time 33.9 Seconds (22.3-36.8)
[2024-07-16 11:20] LABS: NT Pro B Type Natriuretic Pept 181 pg/mL (19.9-100); Troponin I < 0.012 ng/mL (0.000-0.034)
[2024-07-16 11:22] LABS: D Dimer 2.09 ug/mL (<0.48)
[2024-07-16 11:29] LABS: Influenza A QL RT-PCR Negative (Negative); Influenza B QL RT-PCR Negative (Negative); RSV RNA, RT-PCR Negative (Negative); SARS-CoV-2 RNA PCR Negative (Negative)
--- NOTE | 2024-07-16 11:44 | ED_ITS ---
HPI - SOB/Dyspnea General Chief Complaint: Shortness of Breath/Dyspnea Stated Complaint: SOB, CPAP Time Seen by Provider: 07/16/24 10:21 Source: patient, RN notes reviewed and other (Clinic) Mode of arrival: EMS Limitations: no limitations History of Present Illness HPI Narrative: Dr. Grider called to notify of this patient's arrival. States the patient has a history of alcohol abuse, CHF, diabetes mellitus (verbally stated but not listed in EMR and states she is on Farxiga for heart failure alone), HTN, and atrial fibrillation previously on anticoagulation but discontinued after recent hospitalization for a GI bleed in which her hemoglobin was less than 5 and status post 3 units of blood product discharged with a hemoglobin of 7.5 and with an SpO2 of 94%. He notes that today in clinic her SpO2 on room air was 85% and she has been complaining of shortness of breath with pleuritic chest pain and heart rate 122 beats per minute. Her initial blood pressure in clinic was 200/80, 180/88 on repeat assessment. She was placed on 2 L nasal cannula and her SpO2 it improved to 95%. He was going to discuss that the recommendation would be transporting by EMS given her new oxygen requirement. He noted that she had decreased breath sounds on the right lower lung and was concern for a pleural effusion. States history of CHF and that she has pitting in her extremities and has been dizzy while standing. He is concern for CHF exacerbation versus pulmonary embolism given that she is no longer anticoagulated. Patient states she has chest pain and shortness of breath. Also a cough. She also has been and abdominal pain, bones feeling it in her abdominal wall as within her abdomen. She trialed Metamucil for this. Has been constipated but was able to have a bowel movement this morning. Has been nauseated but without vomiting. Hemoglobin had been 4.6 to blood transfusion. EMS placed on CPAP. RT transitioned to CPAP on our machine here. States she has been taking her Farxiga and diltiazem. Her Xarelto had been discontinued. Notes that she has having increased swelling her legs as as feeling like she is having abdominal swelling. Cardiac risk factors HTN: patient does know HLD: Denies DM: denies Obese: Yes Smoker: former - quit 10 years ago Personal history ME/TIA/CVA: denies Fam Hx ME in first degree relative <65yo: Yes - mother Related Data Home Medications ?Medication ?Instructions ?Recorded ?Confirmed ?Last Taken ?Type Vitamin D2 50,000 units PO WEEKLY 03/23/23 07/06/24 Unknown History bumetanide 2 mg tablet 2 mg PO DAILY 03/23/23 07/06/24 07/05/24 History diltiazem HCl 360 mg capsule,24 360 mg PO DAILY 03/23/23 07/06/24 07/06/24 History hr,extended release levothyroxine 25 mcg tablet 25 mcg PO DAILY 03/23/23 07/06/24 07/06/24 History potassium chloride 20 mEq 20 meq PO BID 03/23/23 07/06/24 07/06/24 History tablet,extended release rivaroxaban 20 mg tablet (Xarelto) 20 mg PO DAILY 03/23/23 07/06/24 07/06/24 History dapagliflozin propanediol 10 mg 10 mg PO DAILY 04/27/23 07/06/24 07/06/24 History tablet (Farxiga) Allergies Allergy/AdvReac Type Severity Reaction Status Date / Time amiodarone Allergy Severe Hives Verified 07/08/24 09:24 codeine AdvReac Mild Itching Verified 07/08/24 09:24 [facility] Past Medical History Medical History Morbid obesity Alcoholic hepatitis Acute on chronic anemia Hypothyroidism Congestive heart failure Dyslipidemia Obstructive sleep apnea on CPAP Diverticulitis Surgical History Surgical History History of permanent cardiac pacemaker placement (09/2016) Biotronik dual chamber pacemaker implant by Dr. Garvey Family History Family History Mother Acute myocardial infarction, Onset Age: 73 versus stated <65yo when asked on 07/16/24 Cerebrovascular accident, Onset Age: 73 complication of blood transfusion Diabetes mellitus Complication of blood transfusion CVA Father Multiple myeloma Social History Social History Social History: Surrogate medical decision maker: Gracy Mccannr, friend. Code status: Do not resuscitate. Years smoked: 35 Smoking status: Former smoker Tobacco type: cigarettes Smoking end date: 06/28/16 Alcohol intake: current Drinks per week: 21 Alcohol use details: Social alcohol use in moderation. Substance use: never Substance use type: does not use Do You Feel Safe in your Home?: Yes Lack of Transportation: No Lack of Food: Never True Current Housing: I Have Housing Concerned About Future Housing: No Difficulty Paying Gas/Electric Bills: No Difficulty Paying for Meds: No Currently Unemployed: No Education: High School Diploma/GED Difficulty w/ Childcare or Family Care: No Living arrangements: with family Additional living arrangements comments: The patient lives alone. She has no children. Caregiver comes in 3 days weak. Spiritual care concerns: No Exam 2 Narrative: GENERAL: Well-appearing, well-nourished, and in no acute distress. HEAD: Normocephalic, atraumatic. EYES: Non injected, non icteric ENT: Nares clear, no rhinorrhea or epistaxis. NECK: Supple. CHEST: Speaking in multi word sentences. Mild tachypnea. Somewhat difficult to understand given CPAP mask/device. Diminished braeth sounds on the right. HEART: IRegularly IRregular rate and rhythm. . ABDOMEN: Morbidly obese but Soft, nondistended. No tenderness to palpation throughout. No michelle anasarca or grossly abdominal edema. No rigidity or guarding. Not peritoneal. EXTREMITIES: 3+ bilateral lower extremity edema. SKIN: Warm, dry, no rash. NEURO: No focal deficits. Alert and oriented x3. PSYCH: Normal mood and affect. Course Vital Signs Vital signs: Vital Signs Temperature 98.3 F 07/16/24 10:06 Pulse Rate 96 07/16/24 10:06 Respiratory Rate 24 H 07/16/24 10:06 Blood Pressure 99/77 L 07/16/24 10:06 Pulse Oximetry 100 07/16/24 10:06 Oxygen Delivery CPAP 07/16/24 10:06 Temperature 98.3 F 07/16/24 10:06 Pulse Rate 84 07/16/24 19:01 Respiratory Rate 12 07/16/24 19:01 Blood Pressure 122/65 07/16/24 18:45 Pulse Oximetry 98 07/16/24 19:01 Oxygen Delivery CPAP 07/16/24 19:01 Fraction of Inspired Oxygen 40 07/16/24 10:17 MDM - SOB/Dyspnea MDM Narrative Medical decision making narrative: Patient has past medical history heart failure, atrial fibrillation (anticoagulation discontinued after recent hospitalization for anemia <5 requiring 3U pRBCs - chronic anticoagulation removed from patient's PMH list in EMR). Was seen in primary care physician's office earlier this morning but found to be hypoxic and hypertensive. In the emergency department she is afebrile with vital signs notable for tachypnea and HYPOtension (based on SBP though narrow pulse pressure and MAP 84mmHg). Patient transition from EMS CPAP to our CPAP, 14. Very mild leukocytosis. Normocytic anemia which is stable and actually improved from recent hospital discharge. OLEKSANDR based on change of previous creatinine to today's. HEART SCORE History 2 highly suspicious 1 moderately suspicious 0 slightly suspicious History score [address] depression/elevation not due to LBBB, LVH, or digoxin [address] depression but LBBB, LVH, nonspecific repolarization changes 0 normal ECG score 0 Age 2 >/= 65 1 45-64 0 <45 Age score 1 Risk factors (HTN, hypercholesterolemia, DM, obesity with BMI >30, current smoker or cessation </=3mo), positive fam hx with parent or sibling with CVD before age 65, atherosclerotic disease (prior ME, PCI/CABG, CVA/TIA, or peripheral arterial disease) 2 >/= 3 risk factors or history of atherosclerotic dz 1 - 1-2 risk factors 0 no known risk factors Risk factor score 1 versus 2 (obesity, family history; patient denies HLD but dyslipidemia listed in EMR) Initial Troponin 2 >3 times normal limit 1 1-3 times normal limit 0 less than or equal to normal limit Troponin score 0 Total HEART Score 2 or 3. Low risk. Patient has obvious right-sided pleural effusion, likely secondary to heart failure based on history however BNP only mildly elevated and CT also concerning for cirrhosis. Patient states that she has been told that she had liver dysfunction but stated it was not quite cirrhosis previously. Tried to down titrate patient off of CPAP however RT notes she became hypoxic with increased work of breathing; placed back on CPAP and maintaining saturations. Patient would benefit from diagnostic and therapeutic thoracentesis. This is ordered along with appropriate studies/labs. Discussed with tong setter hospitalist ARIEL Musa. Will require IMU admission given on CPAP. Differential Diagnosis Differential diagnosis: Likely congestive heart failure, community acquired pneumonia, pulmonary embolism and other (Symptomatic anemia; acute viral syndrome; anasarca; pleural effusion; malignancy; hypertensive emergency/urgency/crisis - considered flash pulmonary edema/SCAPE (though hypotensive on arrival)) Medical Records Attestation: I reviewed the patient's medical records. Medical records narrative: Dr. Grider's progress note from today is reviewed Lab Data Attestation: I reviewed the patient's lab results. 07/16/24 10:45 07/16/24 10:45 Labs: Lab Results 07/16/24 07/16/24 07/16/24 Range/Units 10:45 11:06 16:05 WBC 10.1 H (4.5-10.0) K/mm3 RBC 3.44 L (4.2-5.4) M/mm3 Hgb 9.8 L (12.0-15.0) g/dL Hct 32.5 L (37.0-47.0) % MCV 94.5 (80-100) fl MCH 28.5 (26-34) pg MCHC 30.2 L (32-36) g/dl RDW 21.9 H (11.5-14.5) % Plt Count 249 (150-375) k/mm3 MPV 10.3 (7.4-10.4) fl Immature Gran % (Auto) 0.6 H (0-0.5) % Neut % (Auto) 81.7 H (45.5-73.1) % Lymph % (Auto) 8.6 L (18.3-44.2) % [place] % (Auto) 7.9 (2.6-8.5) % Eos % (Auto) 0.5 (0-4.4) % Baso % (Auto) 0.7 (0.2-1.2) % Lymph # (Auto) 0.87 L (0.9-3.2) K/mm3 [place] # (Auto) 0.8 H (0.1-0.6) K/mm3 Eos # (Auto) 0.1 (0-0.3) K/mm3 Baso # (Auto) 0.1 (0.0-0.1) K/mm3 Abs Immat Gran (auto) 0.06 H (0.00-0.031) K/mm3 Absolute Neuts (auto) 8.2 H (1.3-6.7) K/mm3 Absolute Nucleated RBC 0.000 (0.0-0.012) K/mm3 Nucleated RBC % 0.0 (0.0-0.2) % PT 17.8 H (11.1-14.7) Seconds INR 1.4 APTT 33.9 (22.3-36.8) Seconds D-Dimer 2.09 H (<0.48) ug/mL Expiratory Pressure 0 CMH2O Inspiratory Pressure 10 CMH2O Sodium 139 (137-145) mmol/L Potassium 4.6 (3.4-5.0) mmol/L Chloride 105 (98-107) mmol/L Carbon Dioxide 26 (22-30) mmol/L Anion Gap 8 (4-12) mmol/L BUN 14 D (7-17) mg/dL Creatinine 1.12 H (0.7-1.0) mg/dL Estim Creat Clear Calc 63 ml/min Estimated GFR 49 L (59 - ) Glucose 193 H (65-110) mg/dL Calcium 8.6 (8.4-10.2) mg/dL Total Bilirubin 3.1 H (0.2-1.3) mg/dL AST 88 H (14-36) U/L ALT 53 H (6-35) U/L Alkaline Phosphatase 123 (38-126) U/L Lactate Dehydrogenase 302 H (120-246) U/L Troponin I < 0.012 (0.000-0.034) ng/mL NT-Pro-B Natriuret Pep 181 H (19.9-100) pg/mL Total Protein 8.0 (6.3-8.2) g/dL Albumin 3.2 L (3.5-5.1) g/dL Pleural Fluid Source Pleural Color (Colorless) Pleural Appearance (Clear) Pleural RBC (0-24987) /uL Pleural Nuc Cells (0-1000) /uL Pleural Neutrophils (0-25) % Pleural Lymphocytes % Pleural Monocytes % Pleural Macrophages % Pleural Mesothelial % Pleural Total Protein Pending Pleural LDH Pending Pleural Glucose Pending Pleural Amylase Pending Influenza A (RT-PCR) Negative (Negative) Influenza B (RT-PCR) Negative (Negative) RSV (RT-PCR) Negative (Negative) SARS-CoV-2 RNA (RT-PCR) Negative (Negative) 07/16/24 Range/Units 16:35 WBC (4.5-10.0) K/mm3 RBC (4.2-5.4) M/mm3 Hgb (12.0-15.0) g/dL Hct (37.0-47.0) % MCV (80-100) fl MCH (26-34) pg MCHC (32-36) g/dl RDW (11.5-14.5) % Plt Count (150-375) k/mm3 MPV (7.4-10.4) fl Immature Gran % (Auto) (0-0.5) % Neut % (Auto) (45.5-73.1) % Lymph % (Auto) (18.3-44.2) % [place] % (Auto) (2.6-8.5) % Eos % (Auto) (0-4.4) % Baso % (Auto) (0.2-1.2) % Lymph # (Auto) (0.9-3.2) K/mm3 [place] # (Auto) (0.1-0.6) K/mm3 Eos # (Auto) (0-0.3) K/mm3 Baso # (Auto) (0.0-0.1) K/mm3 Abs Immat Gran (auto) (0.00-0.031) K/mm3 Absolute Neuts (auto) (1.3-6.7) K/mm3 Absolute Nucleated RBC (0.0-0.012) K/mm3 Nucleated RBC % (0.0-0.2) % PT (11.1-14.7) Seconds INR APTT (22.3-36.8) Seconds D-Dimer (<0.48) ug/mL Expiratory Pressure CMH2O Inspiratory Pressure CMH2O Sodium (137-145) mmol/L Potassium (3.4-5.0) mmol/L Chloride (98-107) mmol/L Carbon Dioxide (22-30) mmol/L Anion Gap (4-12) mmol/L BUN (7-17) mg/dL Creatinine (0.7-1.0) mg/dL Estim Creat Clear Calc ml/min Estimated GFR (59 - ) Glucose (65-110) mg/dL Calcium (8.4-10.2) mg/dL Total Bilirubin (0.2-1.3) mg/dL AST (14-36) U/L ALT (6-35) U/L Alkaline Phosphatase (38-126) U/L Lactate Dehydrogenase (120-246) U/L Troponin I (0.000-0.034) ng/mL NT-Pro-B Natriuret Pep (19.9-100) pg/mL Total Protein (6.3-8.2) g/dL Albumin (3.5-5.1) g/dL Pleural Fluid Source Pleural fluid Pleural Color Yellow (Colorless) Pleural Appearance Clear (Clear) Pleural RBC < 2000 (0-39917) /uL Pleural Nuc Cells 149 (0-1000) /uL Pleural Neutrophils 22 (0-25) % Pleural Lymphocytes 46 % Pleural Monocytes 21 % Pleural Macrophages 9 % Pleural Mesothelial 2 % Pleural Total Protein Pleural LDH Pleural Glucose Pleural Amylase Influenza A (RT-PCR) (Negative) Influenza B (RT-PCR) (Negative) RSV (RT-PCR) (Negative) SARS-CoV-2 RNA (RT-PCR) (Negative) ABG Data ABG results: 07/16/24 11:06 Puncture Site Right brachial ABG pH 7.347 L ABG pCO2 40.5 ABG pO2 66.4 L ABG PO2/FiO2 Ratio 2.21 ABG HCO3 21.7 L ABG O2 Saturation 92.3 L ABG O2 Content 13.1 L ABG Base Excess -3.7 A-a Gradient 99.9 Oxyhemoglobin 89.4 L Total Hemoglobin 10.4 L O2 Delivery Device Non-invasive vent O2 Liters/Min 0.0 Vent Rate Not Reportable FiO2 30 Attestation: I personally reviewed and interpreted this ABG as follows: Interpretation: Chronic primary respiratory acidosis; metabolic acidosis and alkalosis with: Secondary Metabolic Acidosis and Additional Metabolic Alkalosis. Imaging Data Attestation: I personally reviewed and interpreted this imaging study as follows: My impression: Obvious large right pleural effusion appreciated on independent interpretation of both chest x-ray and CT Radiologist's impression: Impressions Chest X-Ray 07/16/24 11:43 IMPRESSION: Right basal atelectasis versus pneumonia with large pleural effusion. Chest/Abdomen/Pelvis CTA 07/16/24 13:27 IMPRESSION: CHEST: 1. Large right pleural effusion with atelectasis versus pneumonia in the right upper and lower lobe. 2. No pulmonary embolism. ABDOMEN/PELVIS: 1. Ascites with fluid around the liver and in the pelvis 2. Liver cirrhosis. 3. Portal hypertension with prominent vessels in the splenic bed. 4. Distended gallbladder with slightly thickened wall. No bladder stones. Chest X-Ray 07/16/24 16:50 IMPRESSION: No pneumothorax following right-sided thoracentesis, as detailed above. ECG Data EKG #1: Attestation: I personally reviewed and interpreted this ECG as follows: ECG completion date: 07/16/24 ECG completion time: 10:16 Interpretation: Atrial fibrillation at a rate of 81 beats per minute. QRS 90. QT/QTC 353/390. Good R-wave progression across the precordial leads. T-wave inversion in 3, upright in 2 and flat verses mildly upright in normal in contiguous AVF. Discharge Plan Discharge Clinical Impression: Pleural effusion on right, Shortness of breath, OLEKSANDR (acute kidney injury), Atrial fibrillation, Hypoalbuminemia, Abdominal ascites, Cirrhosis of liver, Hypertension, portal, Enlarged gallbladder Patient Disposition: Still a Patient Condition: Stable
--- OUTSIDE RECORDS SUMMARY | 2024-07-16 12:21 | XMS_ITS | Patient Health Record ---
Author Organization [facility] Address [address] [place] [address] Care Team Providers Care Backroom Associate Name Role Phone Luis Campo Primary Care Provider [phone] Allergies Allergen (clinical drug ingredient) Drug/Non Drug Allergy documented on EMR Reaction Allergy Type Onset Date Status amiodarone Amiodarone Unknown Drug Allergy Activ e codeine Codeine Unknown Drug Allergy Active Results Component Value Reference Range Notes Anti-liver/kidney Ab (LKM-1) Reviewed date:06/11/2024 04:26:10 PM Interpretation: Performing Lab:[facility] [place], [address] [facility], Phone - [phone], Director - [facility] Notes/Report: Test(s) 191507-Cjfx-Kolsx/Kidney Ab (RDL) was developed and its performance characteristics determined by [facility]. It has not been cleared or approved by the Food and Drug Administration. Anti-Liver/Kidney Ab (RDL) <20 <20 Units Negative: <20 Equivocal: 20 - 25 Positive: >25 Prothrombin Time (PT) Reviewed date:06/11/2024 04:26:10 PM Interpretation: Performing Lab:[facility] [place], [address] [facility], [place], Phone - [phone], [facility]/Report: Test(s) 307214-Bpxf-Jmbxz/Kidney Ab (RDL) was developed and its performance characteristics determined by [facility]. It has not been cleared or approved by the Food and Drug Administration. INR 1.7 0.9-1.2 Reference interval is for non-anticoagulated patients. . Suggested INR therapeutic range for Vitamin K antagonist therapy: Standard Dose (moderate intensity therapeutic range): 2.0 - 3.0 Higher intensity therapeutic range 2.5 - 3.5 Prothrombin Time 18.3 9.1-12.0 sec Hepatic Function Panel (7)* Reviewed date:06/11/2024 04:26:10 PM Interpretation: [facility]forming [facility], [address] [facility], Phone - [phone], Director - [facility] Notes/Report: Test(s) 756469-Lcei-Wbhpm/Kidney Ab (RDL) was developed and its performance characteristics determined by [facility]. It has not been cleared or approved by the Food and Drug Administration. Protein, Total 7.4 6.0-8.5 g/dL Albumin 3.3 3.9-4.9 g/dL Bilirubin, Total 3.4 0.0-1.2 mg/dL Bilirubin, Direct 1.57 0.00-0.40 mg/dL Alkaline Phosphatase 130 44-121 IU/L AST (SGOT) 134 0-40 IU/L ALT (SGPT) 60 0-32 IU/L C-Reactive Protein, Quant Reviewed date:06/11/2024 04:26:10 PM Interpretation: Performing [facility], [address] [facility], Phone - [phone], Director - [facility] Notes/Report: Test(s) 397508-Aeqn-Fgcmu/Kidney Ab (RDL) was developed and its performance characteristics determined by [facility]. It has not been cleared or approved by the Food and Drug Administration. C-Reactive Protein, Quant 10 0-10 mg/L Urinalysis In-House, Routine Reviewed date:12/10/2023 10:38:57 AM Interpretation: Performing Lab: Notes/Report: Urine-Color dark brown Appearance clear Leukocytes small Nitrite, Urine positive Urobilinogen,Semi-Qn 1.0 Protein 30 pH 6.5 Occult Blood small Specific [place] 1.020 Ketones trace Bilirubin small Glucose 250 Hemoglobin A1c CLIA Waived Reviewed date:05/28/2024 09:46:21 AM Interpretation: Performing Lab: Notes/Report: Hemoglobin A1c 5.7 4.0 - 6.4 % Xray : Knee, right 2 views Reviewed date:06/17/2024 10:03:31 AM Interpretation:Osteoarthritis Performing Lab: Notes/Report: Osteoarthritis Hepatitis C Virus Antibody w /Rflx to Quantitative Real-time PCR ([id number]) Reviewed date:06/04/2024 05:27:32 PM Interpretation: Performing Lab:[facility] [address] [place] [address], Phone - [phone], [facility] Notes/Report: HCV Ab Non Reactive Non Reactive Interpretation: Not infected with HCV unless early or acute infection is suspected (which may be delayed in an immunocompromised individual), or other evidence exists to indicate HCV infection. Hepatitis B Surface Antigen (HBsAg Screen) Reviewed date:06/04/2024 05:27:32 PM Interpretation: Performing Lab:[address], Phone - [phone], [facility] Notes/Report: HBsAg Screen Negative Negative HIV Screen *HIV 1, 2 Ab, p24 Ag ([id number]) Reviewed date:06/04/2024 05:27:32 PM Interpretation: Performing Lab:[address], Phone - [phone], [facility] Notes/Report: HIV Ab/p24 Ag Screen Non Reactive Non Reactive HIV-1/HIV-2 antibodies and HIV-1 p24 antigen were NOT detected. There is no laboratory evidence of HIV infection. HIV Negative Iron and TIBC* Reviewed date:06/04/2024 05:27:32 PM Interpretation: Performing Lab:[address], Phone - [phone], [facility] Notes/Report: Iron Bind.Cap.(TIBC) 353 250-450 ug/dL UIBC 210 118-369 ug/dL Iron 143 27-139 ug/dL Iron Saturation 41 15-55 % CBC With Differential/Platel et* Reviewed date:06/04/2024 05:27:32 PM Interpretation: Performing Lab:[address], Phone - [phone], [facility] Notes/Report: WBC 7.3 3.4-10.8 x10E3/uL RBC 3.72 [...] % Immature Grans (Abs) 0.0 0.0-0.1 x10E3/uL TSH Rfx on Abnormal to Free T4 Reviewed date:06/04/2024 05:27:32 PM Interpretation: Performing Lab:[facility] [address], Phone - [phone], Director - [facility] Notes/Report: TSH 2.930 0.450-4.500 uIU/mL Lipid Panel* Reviewed date:06/04/2024 05:27:32 PM Interpretation: Performing Lab:[facility] [address], Phone - [phone], Director - [facility] Notes/Report: Cholesterol, Total 126 100-199 mg/dL Triglycerides 119 0-149 mg/dL HDL Cholesterol 28 >39 mg/dL VLDL Cholesterol Wil[place] 22 5-40 mg/dL LDL Chol Calc ([facility]) 76 0-99 mg/dL CMP 14 Comprehensive Metabol ic Panel* Reviewed date:06/04/2024 05:27:32 PM Interpretation: Performing Lab:[facility] [place], [address] [place] [address], Phone - [phone], Director - [facility] Notes/Report: Glucose 140 70-99 mg/dL BUN 11 [...] 0-40 IU/L ALT (SGPT) 48 0-32 IU/L Reason For Referral Reason Shalini Asher, ARIEL f or f/u BHAVIN and new CPAP Diagnosis 1 BHAVIN on CPAP (G47.33) Referral Organization [facility] Referring Provider First Name Luis Referring Provider Last Name Jahaira Referring Provider Speciality Internal M edicine Referred Provider Specialty Pulmonology General Notes DHEERAJ Cruz, Kay Villeda 10/30/2023 10:21:48 AM >Pt prefers to go to Dr. Kirby in [facility] . Referral sent to Dr. Kirby and Letter to patient., DHEERAJ Cruz Valerie A 06/17/2024 09:14:11 AM >Pt saw Pulmonology. Clinical Notes Dr. Inder Kirby, [address] [facility], [address], [facility] [address], , Referral Priority Routine Reason BILATERAL KNEE PAIN, SUSPECTED PATELLOFEMORAL SYNDROME Diagnosis 1 Patellofemoral disor ders, unspecified knee (M22.2X9) Referral Organization [facility] Referring Provider First Name Luis Referring Provider Last Name Jahaira Referring Provider Speciality Internal M edicine Referred Provider Specialty Orthopedic S urgery General Notes DHEERAJ Cruz Valeri e A 06/17/2024 09:17:14 AM >Referral sent to [facility]. Letter to Patient. Clinical Notes [facility], [address] [place] [address] [address], [address] [address], , Referral Priority Routine Reason ABNL and worsening L FT's. Diagnosis 1 Abnormal liver enzym es (R74.8) Referral Organization [facility] Referring Provider First Name Luis Referring Provider Last Name Jahaira Referring Provider Speciality Internal M edicine Referred Provider Specialty Gastroentero logy General Notes DHEERAJ Cruz, Kay Villeda 06/17/2024 09:28:33 AM > Referral to [facility]. Letter to Pt. Clinical Notes [facility], [address], [address], [facility] [address], , Referral Priority Routine Medications Medication SIG (Take, Route, Frequency, Duration) Notes Start Date End Date Status dilTIAZem HCl ER 360 MG 1 capsule Orally Once a day for 30 days Active Baclofen 10 MG 1 tablet as needed Orally Twice a day for 7 days As needed pain 02/15/2024 Active Macrobid 100 MG 1 capsule with food Orally twice a day for 5 12/10/2023 Active Klor-Con M20 20 MEQ 2 TABLETS Orally twice a day Active Levothyroxine Sodium 50 MCG 1 tablet in the morning on an empty stomach Orally Once a day for 30 days Active Xarelto 20 MG 1 tablet with food Orally Once a day for 30 days Active Semaglutide 3 MG 1 tablet Orally daily for 30 days stop acetaminophen and iron 05/28/2024 Active hydrOXYzine Pamoate 25 MG 1 capsule Orally every 6 hours for 15 days As needed itching 06/04/2024 Active Farxiga 10 MG 1 tablet Orally Once a day for 30 days Active Folic Acid 1 MG 1 tablet Orally Once a day Not-Taking Ergocalciferol 1.25 MG (52965 UT) 1 capsule Orally weekly Active Cyproheptadine HCl 4 MG 1 tablet Orally Twice a day for 30 days As needed itching stop acetaminophen and iron Active Omeprazole 40 MG 1 capsule 30 minutes before morning meal Orally Once a day for 30 day(s) 05/23/2023 Active Cholestyramine 4 GM 1 packet mixed with water or non-carbonated drink Orally twice a day for 30 days for itching due to liver disease 06/17/2024 Active Bumetanide 2 MG 1 tablet Orally TWICE DAILY Active Immunizations Vaccine Route Administration Date Status [...] Status Risk Notes Problem Morbid obesity (disorder) (371992890) Morbid (severe) obesity due to excess calories (E66.01) Active confirmed Problem Disorder of patellofemoral joint (235547871) Patellofemoral disorders, unspecified knee (M22.2X9) Active confirmed Problem Hyperlipidemia (37718250) Hyperlipidemia (E78.5) Active confirmed Problem Vitamin D deficiency (87045172) Vitamin D deficiency (E55.9) Active confirmed Problem Iron deficiency anemia (00852813) Iron deficiency anemia (D50.9) Active confirmed Problem Restless legs syndrome (56869381) Restless leg syndrome (G25.81) 01/11/20 Active confirmed Problem Chronic fatigue syndrome (70276242) Chronic fatigue (R53.82) Active confirmed Problem Atrial fibrillation (39884434) Atrial fibrillation (I48.91) Active confirmed Problem Disorder caused by alcohol (disorder) (119544745) Alcohol use disorder (F10.99) Active confirmed Problem Obstructive sleep apnea syndrome (31221128) BHAVIN on CPAP (G47.33) Active confirmed Problem Type II diabetes mellitus without complication (571242004) Controlled type 2 diabetes mellitus without complication, without long-term current use of insulin (E11.9) 01/11/20 Active confirmed Problem Hypothyroidism (31338166) Hypothyroidism (acquired) (E03.9) Active confirmed Problem Chronic diastolic heart failure (334122380) Chronic diastolic congestive heart failure (I50.32) 01/11/20 Active confirmed Vital Signs Heart Rate 122 /min 07/16/2024 Temperature 97.2 degrees Fahrenheit 12/10/2023 Respiratory Rate 20 /min 07/16/2024 Blood pressure diastolic 80 mm Hg 07/16/2024 Oximetry 85 % 07/16/2024 Height 63 in 07/16/2024 Blood pressure systolic 200 mm Hg 07/16/2024 Weight 303.0 lbs 05/28/2024 BMI 53.67 kg/m2 05/28/2024 Encounters Encounter Location Date Provider Diagnosis [address] [place] [address] 12/10/2023 Luis Campo [address] [address] 06/04/2024 Luis Campo [address] [address] 07/16/2024 Luis Campo Acute respiratory failure with hypoxia J96.01 ; Chest pain at rest R07.9 and Chronic diastolic congestive heart failure I50.[address] [address] 12/10/2023 Luis Campo UTI (urinary tract infection) N39.0 ; Chronic diastolic congestive heart failure I50.32 ; Atrial fibrillation I48.91 ; Controlled type 2 diabetes mellitus without complication, without long-term current use of insulin E11.9 ; Hyperlipidemia E78.5 ; Nutritional counseling Z71.3 ; Restless leg syndrome G25.81 ; Chronic fatigue R53.82 ; Hypothyroidism (acquired) E03.9 and Vitamin D deficiency E55.[address] [address] 05/28/2024 Luis Campo Controlled type 2 diabetes [...] screening by mammogram Z12.31 and Pruritus L29.[address] [address] 07/27/2023 Luis Campo [address] [address] 07/19/2023 Luis Campo [address] [address] 09/17/2023 Luis Campo BHAVIN on CPAP G47.[address] [address] 10/08/2023 Luis Campo Controlled type 2 diabetes mellitus without complication, without long-term current use of insulin E11.[address] [address] 01/03/2024 Luis Campo Atrial fibrillation I48.[address] [address] 02/05/2024 Luis Campo Atrial fibrillation I48.[address] [address] 02/15/2024 uLis Campo [address] [address] 05/28/2024 Luis Campo [address] [address] 05/29/2024 Luis Campo Abnormal liver enzym es R74.8 and Patellofemoral disorders, unspecified knee M22.2X9 [address] [address] 06/04/2024 Luis Campo Pruritus L29.[address] [address] 06/16/2024 Luis Campo Pruritus L29.9 Assessments Encounter Date Diagnosis (ICD Code) Assessment Notes Treatment Notes Treatment Clinical Notes Section Notes 05/29/2024 Abnormal liver enzymes (ICD-10 - R74.8) 06/04/2024 Pruritus (ICD-10 - L29.9) 07/16/2024 Acute respiratory failure with hypoxia (ICD-10 - J96.01) OXYGEN APPLIED AND SAT IMPROVED FROM 85% TO 95%. CONTACTED [facility] FOR TRASITION OF CARE AND EMS FOR TRANSPORT. 07/16/2024 Chest pain at rest (ICD-10 - R07.9) 06/16/2024 Pruritus (ICD-10 - L29.9) 12/10/2023 Chronic diastolic congestive heart failure (ICD-10 - I50.32) 01/03/2024 Atrial fibrillation (ICD-10 - I48.91) 02/05/2024 Atrial fibrillation (ICD-10 - I48.91) 05/28/2024 Patellofemoral disorders, unspecified knee (ICD-10 - M22.2X9) 05/28/2024 Controlled type 2 diabetes mellitus without complication, without long-term current use of insulin (ICD-10 - E11.9) 05/29/2024 Patellofemoral disorders, unspecified knee (ICD-10 - M22.2X9) 09/17/2023 BHAVIN on CPAP (ICD-10 - G47.33) 10/08/2023 Controlled type 2 diabetes mellitus without complication, without long-term current use of insulin (ICD-10 - E11.9) 12/10/2023 UTI (urinary tract infection) (ICD-10 - N39.0) 12/10/2023 Atrial fibrillation (ICD-10 - I48.91) 05/28/2024 Chronic diastolic congestive heart failure (ICD-10 - I50.32) 07/16/2024 Chronic diastolic congestive heart failure (ICD-10 - I50.32) 05/28/2024 Hyperlipidemia (ICD-10 - E78.5) 12/10/2023 Controlled type 2 diabetes mellitus without complication, without long-term current use of insulin (ICD-10 - E11.9) 12/10/2023 Hyperlipidemia (ICD-10 - E78.5) 05/28/2024 Atrial fibrillation (ICD-10 - I48.91) 12/10/2023 Nutritional counseling (ICD-10 - Z71.3) 05/28/2024 Hypothyroidism (acquired) (ICD-10 - E03.9) 12/10/2023 Restless leg syndrome (ICD-10 - G25.81) 05/28/2024 Restless leg syndrome (ICD-10 - G25.81) 05/28/2024 Exposure to potential infection (ICD-10 - Z20.9) 12/10/2023 Chronic fatigue (ICD-10 - R53.82) 12/10/2023 Hypothyroidism (acquired) (ICD-10 - E03.9) 05/28/2024 Abnormal liver enzymes (ICD-10 - R74.8) 05/28/2024 Screening for colon cancer (ICD-10 - Z12.11) 12/10/2023 Vitamin D deficiency (ICD-10 - E55.9) 05/28/2024 Breast cancer screening by mammogram (ICD-10 - Z12.31) 05/28/2024 Pruritus (ICD-10 - L29.9) Plan Of Treatment Future Test Test Name Order Date Xray : Knee, left 2 views 05/28/2024 Ultrasound : Right Upper Quadrant 2024 Insurance Providers Payer Name Payer Address Payer Phone Subscriber Number Group Number Insured Name Patient Relationship to Insured Coverage Start Date Coverage End Date MEDICARE PART A [address] [place] [address] [id number] Michelle Odom Self - patient is the insured 9 MEDICAID [address] [place] [phone] [id number] Michelle Odom Self - patient is the insured 9 Medical (General) History Surgical History Surgery Date(Month/Year) Hospitalization History Reason Date(Month/Year) Pacemaker 2017 Fluid in chest 12/2021
--- OUTSIDE RECORDS SUMMARY | 2024-07-16 12:21 | XMS_ITS ---
Author Organization [facility] Address [address] [place] [address] Care Team Providers Care Application Architect Manager Name Role Phone Jahaira Luis Primary Care Provider Allergies Allergen (clinical drug ingredient) Drug/Non Drug Allergy documented on EMR Reaction Allergy Type Onset Date Status amiodarone Amiodarone Unknown Drug Allergy Activ e codeine Codeine Unknown Drug Allergy Active REASON FOR VISIT Discharge: [facility] Medications Medication SIG (Take, Route, Frequency, Duration) Notes Start Date End Date Status Klor-Con M20 20 MEQ 2 TABLETS Orally twice a day Active Xarelto 20 MG 1 tablet with food Orally Once a day for 30 days Active Cyproheptadine HCl 4 MG 1 tablet Orally Twice a day for 30 days As needed itching stop acetaminophen and iron Active Cholestyramine 4 GM 1 packet mixed with water or non-carbonated drink Orally twice a day for 30 days for itching due to liver disease 06/17/2024 Active Bumetanide 2 MG 1 tablet Orally TWICE DAILY Active Baclofen 10 MG 1 tablet as needed Orally Twice a day for 7 days As needed pain 02/15/2024 Active Semaglutide 3 MG 1 tablet Orally daily for 30 days stop acetaminophen and iron 05/28/2024 Active hydrOXYzine Pamoate 25 MG 1 capsule Orally every 6 hours for 15 days As needed itching 06/04/2024 Active Farxiga 10 MG 1 tablet Orally Once a day for 30 days Active Folic Acid 1 MG 1 tablet Orally Once a day Not-Taking dilTIAZem HCl ER 360 MG 1 capsule Orally Once a day for 30 days Active Macrobid 100 MG 1 capsule with food Orally twice a day for 5 12/10/2023 Active Levothyroxine Sodium 50 MCG 1 tablet in the morning on an empty stomach Orally Once a day for 30 days Active Ergocalciferol 1.25 MG (28772 UT) 1 capsule Orally weekly Active Omeprazole 40 MG 1 capsule 30 minutes before morning meal Orally Once a day for 30 day(s) 05/23/2023 Active Social History Tobacco Use: Social History Observation Description Date Details (start date - stop date) Never Smoker NA - NA Sex Assigned At : Social History Observation Description Sex Assigned At Female Tobacco Control (Standard) Question Answer Notes Tobacco use: Nonsmoker Vital Signs Height 63 in 07/16/2024 Blood pressure systolic 200 mm Hg 07/17/19 25 Blood pressure diastolic 80 mm Hg 025 Heart Rate 122 /min 07/16/2024 Oximetry 85 % 07/16/2024 Respiratory Rate 20 /min 07/16/2024 Encounters Encounter Location Date Provider Diagnosis [address] [address] 07/16/2024 Luis Campo Acute respiratory failure with hypoxia J96.01 ; Chest pain at rest R07.9 and Chronic diastolic congestive heart failure I50.32 Assessments Encounter Date Diagnosis (ICD Code) Assessment Notes Treatment Notes Treatment Clinical Notes Section Notes 07/16/2024 Acute respiratory failure with hypoxia (ICD-10 - J96.01) OXYGEN APPLIED AND SAT IMPROVED FROM 85% TO 95%. CONTACTED [facility] FOR TRASITION OF CARE AND EMS FOR TRANSPORT. 07/16/2024 Chest pain at rest (ICD-10 - R07.9) 07/16/2024 Chronic diastolic congestive heart failure (ICD-10 - I50.32) Plan Of Treatment Next Appt Details Follow Up: 2 Weeks, Reason: HOSPITAL F/U Progress Notes * Michelle PATELDOB: [birth year] (63 yo F)Acc No.[id number]:07/16/2024 UNLOCKED PROGRESS NOTE Progress Note Patient: Michelle WICK Provider: Devyn aCmpo :1960 A ge:63 Y S ex:Female Date:07/16/2024 Address:[address] [place], [place] [id number] Subjective: * Chief Complaints: * 1 . Discharge: [facility] * HPI: D epression Screening: PHQ-9 L ittle interest or pleasure in doing things?Not at all F eeling down, depressed, or hopeless N ot at all T rouble falling or staying asleep, or sleeping too much N ot at all F eeling tired or having little energy N ot at all P oor appetite or overeating N ot at all F eeling bad about yourself or that you are a failure, or have let yourself or your family down N ot at all T rouble concentrating on things, such as reading the newspaper or watching television N ot at all M oving or speaking so slowly that other people could have noticed; or the opposite, being so fidgety or restless that you have been moving around a lot more than usual N ot at all T houghts that you would be better off or of hurting yourself in some way N ot at all T otal Score 0 S creening: [place] Suicide Severity Rating Scale (LF) D o you want to initiate with S creener form 1 . Wish to be : Have you wished you were or wished you could go to sleep and not wake up? N o 2 . Suicidal Thoughts: Have you actually had any thoughts of killing yourself? N o 6 . Suicide Behavior Question: Have you ever done anything,started to do anything, or prepared to end your life? N o I nterpretation: L ow Risk C SSRS Interpretation and Follow Up Plan: CSSRS Interpretation and Follow Up Plan C SSRS Screen documented using SF Y es R isk Disposition from L ow - No Follow Up Plan Required F ollow Up Plan N o Follow Up Plan required at this time. I nterim History: WAS IN [facility] 07/06 FOR ANEMIA (HBG 4.2) AND CHF AND AFIB RVR. RECEIVED 3 U PRBC. DISCHARGED HGB 7.5. XARELTO HELD. WAS VERY SOB THIS AM. CAN'T WALK OVER 10 FEET WITHOUT SOB. ANXIETY SEVERE WHEN THIS HAPPENS. NO BLOOD IN STOOL OR DARK, TARRY STOOLS. DIZZY WITH STANDING UP. GRADUALLY WORSE SINCE HOSPITAL DISCHARGE. CHEST PAIN THIS AM. ACHING. CRAMPING SENSATION IN UPPER BACK WITH THIS. DURATION ABOUT 5 MIN THIS AM. MORE SOB THIS AM. OCCURRED WHLE MOVING FROM ONE CHAIR TO ANOTHER. TODAY LEGS FEEL MORE SWOLLEN. NO ALCOHOL INTAKE. QUIT SMOKING ABOUT 10 YEARS AGO. * ROS: B asic ROS: Admits F athuy. A dmits S hortness of breath. A dmits C hest pain. A dmits F luid Accumulation in the legs. D enies B lood in Stool. D enies B lood in urine. * Medical History: * Surgical History: D enies Past Surgical History. * Hospitalization/Major Diagno stic Procedure: F luid in chest 12/2021, Pacemaker 2016. * Family History: F ather: . M other: . Had a brother that . * Social History: P rimary Social History: L iving Arrangement L iving Arrangement: Independent Living , Is this a supportive environment? Yes .. Alcohol Use A lcohol Use Frequency: M onthly or less Illicit Substance Usage I llicit Substance Usage: N o Employment Status E mployment Status: O n Disability On Social Security T obacco Use: T obacco Control (Standard) T obacco use: N onsmoker * Medications: T aking Ergocalciferol 1.25 MG (59448 UT) Capsule 1 capsule Orally weekly , Taking Omeprazole 40 MG Capsule Delayed Release 1 capsule 30 minutes before morning meal Orally Once a day , Taking Macrobid 100 MG Capsule 1 capsule with food Orally twice a day , Taking Levothyroxine Sodium 50 MCG Tablet 1 tablet in the morning on an empty stomach Orally Once a day , Taking dilTIAZem HCl ER 360 MG Tablet Extended Release 24 Hour 1 capsule Orally Once a day , Taking Baclofen 10 MG Tablet 1 tablet as needed Orally Twice a day As needed pain, Taking Farxiga 10 MG Tablet 1 tablet Orally Once a day , Taking Semaglutide 3 MG Tablet 1 tablet Orally daily , Notes to Pharmacist: stop acetaminophen and iron, Taking hydrOXYzine Pamoate 25 MG Capsule 1 capsule Orally every 6 hours As needed itching, Taking Bumetanide 2 MG Tablet 1 tablet Orally TWICE DAILY , Taking Cyproheptadine HCl 4 MG Tablet 1 tablet Orally Twice a day As needed itching, Notes to Pharmacist: stop acetaminophen and iron, Taking Cholestyramine 4 GM Packet 1 packet mixed with water or non-carbonated drink Orally twice a day for itching due to liver disease, Taking Klor-Con M20 20 MEQ Tablet Extended Release 2 TABLETS Orally twice a day , Taking Xarelto 20 MG Tablet 1 tablet with food Orally Once a day , Not-Taking Folic Acid 1 MG Tablet 1 tablet Orally Once a day * Allergies: A miodarone: Allergy, Codeine. Objective: * Vitals: I nitials: dt, Ht: 63, BP:200/80, 2nd BP read:180/88, HR:122, Oxygen sat %:85, RR:20, LMP: n/a, Pain scale:0. * Examination: C QM Exceptions: BMI not documented: R mariaa: M edical Reason T ype of Medical Reason: M edical contraindication Pt was brought in with a wheelchair. Pt could not stand. SOB G eneral Examination: GENERAL APPEARANCE: C HRONICALLY ILL ELDERLY FEMALE APPEARS OLDER THAN STATED AGE, MORBIDLY OBESE, DYSPNEIC AT REST. HEAD: n ormocephalic, atraumatic. EYES: P ERRLA, sclera and conjunctiva clear. EARS External ears intact. NOSE: n isacc patent, no lesions, septum intact. ORAL CAVITY: m ucosa moist. THROAT: n o erythema, no exudate, pharynx normal. NECK/THYROID: n o JVD, no goiter. SKIN: w arm and dry, no rashes. HEART: I RREGUARLY IRREGULAR, NL S1, S2, NO AUDIBLE MURMURS OR GALLOPS. LUNGS: r espirations regular and easy, DECREASED BS RLL WITH DULLNESS TO PERCUSSION. ABDOMEN: b owel sounds present, soft, PROTUBERANT, NONTENDER. MUSCULOSKELETAL: n o joint deformity, swelling, redness, or warmth . EXTREMITIES: 1 + PITTING AND 3-4+ NONPITTING EDEMA. NEUROLOGIC: c ranial nerves 2-12 grossly intact. Assessment: * Assessment: 1. A cute respiratory failure with hypoxia - J96.01 (Primary) 2 . C hest pain at rest - R07.9 3 . C hronic diastolic congestive heart failure - I50.32 Plan: * Treatment: * Recommended Wellness and Pre vention Guidelines: * S tatus A lert L ast Done N ext Due A ction Taken N ONCOMPLIANT A lcohol use screening - 0 07/16/2024 - N ONCOMPLIANT B P control in DM (130/80) 0 06/05/2024 0 07/16/2024 - N ONCOMPLIANT B reast cancer screening - 0 07/16/2024 - N ONCOMPLIANT C ervical cancer screening - 0 07/16/2024 - N ONCOMPLIANT I nfluenza vaccine (over 50) 1 0 07/16/2024 - N ONCOMPLIANT P neumococcal vaccine - 0 07/16/2024 - * Procedure Codes: G 0467 [facility] VISIT ESTABLISHED PATIENT * Follow Up: 2 Weeks (Reason: HOSPITAL F/U) * * Electronic signature of Drisskhoa deepti Campo , [id number] on 07/16/2024 at 12:21 PM CDT Sign off status: Pending * Provider: Devyn Campo Date: 0 07/16/2024 Generated for Kelly castrejon/David/eTransmitting on: 0 07/16/2024 12:21 PM CDT History and Physical Notes * HPI (History of Present Illness) Category Sub-Category Detail Notes Category Not es Depression Screening PHQ-9 Little inte rest or pleasure in doing things: Not at all Feeling down, depressed, or hopeless: No t at all Trouble falling or staying asleep, or sl eeping too much: Not at all Feeling tired or having little energy: N ot at all Poor appetite or overeating: Not at all Feeling bad about yourself o r that you are a failure, or have let yourself or your family down: Not at all Trouble concentrating on thi ngs, such as reading the newspaper or watching television: Not at all Moving or speaking so slowly that other people could have noticed; or the opposite, being so fidgety or restless that you have been moving around a lot more than usual: Not at all Thoughts that you would be b sanchez off or of hurting yourself in some way: Not at all Total Score: 0 Screening [place] Suicide Sev erity Rating Scale (LF) Do you want to initiate with: Screener form 1. Wish to be : Have you wished you were or wished you could go to sleep and not wake up?: No 2. Suicidal Thoughts: Have you actually had any thoughts of killing yourself?: No 6. Suicide Behavior Question: Have you ever done anything,started to do anything, or prepared to end your life?: No Interpretation:: Low Risk CSSRS Interpretation and Follow Up Plan CSSRS Interpretation and Follow Up Plan CSSRS Screen documented using SF: Yes Risk Disposition from SF: Low - No Follo w Up Plan Required Follow Up Plan: No Follow Up Plan requir ed at this time. Examination Category Sub-Category Detail Notes Category Not es General Examination GENERAL APPEARANCE: CHRONICA LLY ILL ELDERLY FEMALE APPEARS OLDER THAN STATED AGE, MORBIDLY OBESE, DYSPNEIC AT REST HEAD: normocephalic, atrau matic EYES: PERRLA, sclera and c onjunctiva clear EARS External ears intact NOSE: nares patent, no les ions, septum intact THROAT: no erythema, no exud ate, pharynx normal NECK/THYROID: no JVD, no goiter HEART: IRREGUARLY IRREGULAR , NL S1, S2, NO AUDIBLE MURMURS OR GALLOPS LUNGS: respirations regular and easy, DECREASED BS RLL WITH DULLNESS TO PERCUSSION ABDOMEN: bowel sounds present , soft, PROTUBERANT, NONTENDER NEUROLOGIC: cranial nerves 2-12 grossly intact SKIN: warm and dry, no essence hes EXTREMITIES: 1+ PITTING AND 3-4+ NONPITTING EDEMA MUSCULOSKELETAL: no joint deformity, swelling, redness, or warmth ORAL CAVITY: mucosa moist CQM Exceptions BMI not documented: Reason:: Medical Reason Type of Medical Reason:: Medical contraindication Pt was brought in with a wheelchair. Pt could not stand. SOB
--- OUTSIDE RECORDS SUMMARY | 2024-07-16 12:21 | XMS_ITS | Clinical Summary ---
Author Organization [facility] Address [address] [place] [address] Care Team Providers Care Spanish Instructor Name Role Phone Luis Campo MD Primary Care Provider [phone] Allergies Active Allergy Reactions Criticality Noted Date [...] on file Legal Sex Female 10:38 AM EVENTS TRAFFIC CONTROLLER Gender Identity Not on file Sexual Orientation Not on file Last Filed Vital Signs Vital Sign Reading Time Taken Comments Blood Pressure 116/77 06/13/2023 8:35 AM EVENTS TRAFFIC CONTROLLER Pulse 93 06/13/2023 8:35 AM EVENTS TRAFFIC CONTROLLER Temperature 36.4 C (97.6 F) 06/13/2023 8:35 AM EVENTS TRAFFIC CONTROLLER Respiratory Rate 18 06/13/2023 8:35 AM EVENTS TRAFFIC CONTROLLER Oxygen Saturation 90% 06/13/2023 8:35 AM EVENTS TRAFFIC CONTROLLER Inhaled Oxygen Concentration - - Weight 122.7 kg (270 lb 6.4 oz) 06/13/2023 8:35 AM EVENTS TRAFFIC CONTROLLER Height 160 cm (5' 3 ) 06/13/2023 8:35 AM EVENTS TRAFFIC CONTROLLER Body Mass Index 47.9 06/13/2023 8:35 AM EVENTS TRAFFIC CONTROLLER Plan of Treatment Health Maintenance Due Date [...] MEDICARE PART A AND B Care Teams Spanish Instructor Relationship Specialty Start Date End Date Luis Campo MD [address] [facility] [address] [facility] [address] [place] [address] PCP - General Internal Medicine 04/16/23
--- OUTSIDE RECORDS SUMMARY | 2024-07-16 12:21 | XMS_ITS | Data Portability ---
Author Organization [facility] CTPatti Barth Address [address] [place] [address] Assessment No assessment recorded. Plan of Treatment Reminders Order Date Submit Date Provider Last Modified By Organization Details Last Modified Time Details Appointments None recorded. Lab afp (alpha-fet oprotein) tumor marker, serum or plasma 2016 KIRSTY CADET, [facility], [address], [place], [address], 7 06:16:09 lipid panel, serum 2016 017 KIRSTY SCHULZRP, [address] [facility] [address], [address], [place], [address], 7 06:16:08 CMP, serum or plasma 2016 017 KIRSTY CADET, [address] [facility] [address], [address], [place], [address], 7 06:16:07 unlisted lab - compliance drug analysis, ur 2016 017 KIRSTY LABTELLYRP, [address] [facility] [address], [address], [place], [address], 7 06:16:06 PT/PTT, plasma 2016 017 KIRSTY CADET, [address] [facility] [address], [address], [place], [address], 7 06:16:08 Referral home health referral - Please call patient to schedule appt. Thank you 2018 019 [facility], 7 [facility], [place], [address], 0 13:57:29 gastroente rologist referral - Please call patient to schedule appt. Thank you 2016 017 kathe Sommer MD, [address] [place], [address], 7 14:26:30 Procedures None recorded. Surgeries None recorded. Imaging None recorded. Medication Orders folic acid 1 mg tablet 2018 019 [facility], [address] [place], [address], 9 13:57:40 thiamine HCl (vitamin B1) 100 mg tablet 2018 019 [facility] [address], [address] [place], [address], 9 13:57:42 Ativan 1 mg tablet 2018 019 [facility] [address], [address] [place], [address], 9 13:37:34 Ativan 1 mg tablet 2018 019 [facility] [address], [address] [place], [address], 9 13:37:34 hydroxyzin e HCl 25 mg tablet 2018 019 [facility] [address], [address] [place], [address], 9 13:57:41 baclofen 10 mg tablet 2016 017 [email or web address] [facility] [address], [address] [place], [address], 9 12:40:50 thiamine HCl (vitamin B1) 100 mg tablet 2016 017 [facility] [address], [address] [place], [address], 7 16:01:05 folic acid 1 mg tablet 2016 017 [email or web address] [facility] [address], [address] [place], [address], 9 12:40:41 Patient TargetsNo targets recorded. Patient Instructions Encounter Date Encounter Id Patient Instructions Last Modified By Organization Details Last Modified Time 02/08/2017 [id number] influenza (flu) vaccine: care instructions [facility] Not available 02/08/2017 15:58:10 knee arthritis: care instructions [facility] Not available 02/08/2017 15:58:10 mammogram: about this test si Not available 02/08/2017 15:58:09 deciding about using medicines to quit smoking si Not available 02/08/2017 15:58:09 Quitting Tobacco : Care Instructions [facility] Not available 02/08/2017 15:58:09 substance use disorder: care instructions [facility] Not available 02/08/2017 15:58:10 chronic obstructive pulmonary disease (COPD): care instructions [facility] Not available 02/08/2017 15:58:10 learning about copd and how to prevent lung infections [facility] Not available 02/08/2017 15:58:10 sleep apnea: car e instructions [facility] Not available 02/08/2017 15:58:09 12/18/2018 [id number] substance use disorder: care instructions [facility] Not available 12/18/2018 13:37:15 Reason for [...] ===== === Not Available [facility] [address], [place], [address], 02/15/2017 06:16:06 02/09/20 17 02/14/2017 drug scree n, urine pdf . Not Available [facility] [address] [facility], [place], [address], 02/15/2017 06:16:06 02/09/2002/09/2017 CMP, serum or plasm a glucose, serum TNP Test not perfo rmed Not Available [facility] ([facility]) [address] [place], [address], 02/15/2017 06:16:07 02/09/2002/09/2017 CMP, serum or plasm a BUN TNP mg/dL No urine speci men recei alexandra. Not Available [facility] ([facility]) [address] [place], [address], 02/15/2017 06:16:07 02/09/2002/09/2017 CMP, serum or plasm a creatinine, serum TNP Test not perfo rmed Not Available [facility] ([facility]) [address] [place], [address], 02/15/2017 06:16:07 02/09/2002/09/2017 CMP, serum or plasm a eGFR if nonafricn AM TNP mL/mi n/1.7 3 Unabl e to calcu late resul t since non-n umeri c resul t obtai joe for compo nent test. Not Available [facility] ([facility]) [address] [place], [address], 02/15/2017 06:16:07 02/09/20 17 02/09/2017 CMP, serum or plasm a eGFR if africn AM TNP mL/mi n/1.7 3 Unabl e to calcu late resul t since non-n umeri c resul t obtai joe for compo nent test. Not Available [facility] ([facility]) [address] [facility], [place], [address], 02/15/2017 06:16:07 02/09/20 17 02/09/2017 CMP, serum or plasm a BUN/creatini ne ratio TNP No urine speci men recei alexandra. Not Available [facility] ([facility]) [address] [place], [address], 02/15/2017 06:16:07 02/09/20 17 02/09/2017 CMP, serum or plasm a sodium, serum TNP Test not perfo rmed Not Available [facility] ([facility]) [address] [place], [address], 02/15/2017 06:16:07 02/09/2002/09/2017 CMP, serum or plasm a potassium, serum TNP Test not perfo rmed Not Available [facility] ([facility]) [address] [place], [address], 02/15/2017 06:16:07 02/09/2002/09/2017 CMP, serum or plasm a chloride, serum TNP Test not perfo rmed Not Available [facility] ([facility]) [address] [place], [address], 02/15/2017 06:16:07 02/09/2002/09/2017 CMP, serum or plasm a carbon dioxide, total TNP mmol/ L No urine speci men recei alexandra. Not Available [facility] ([facility]) [address] [place], [address], 02/15/2017 06:16:07 02/09/2002/09/2017 CMP, serum or plasm a calcium, serum TNP Test not perfo rmed Not Available [facility] ([facility]) [address] [place], [address], 02/15/2017 06:16:07 02/09/2002/09/2017 CMP, serum or plasm a protein, total, serum TNP Test not perfo rmed Not Available [facility] ([facility]) [address] [facility], [place], [address], 02/15/2017 06:16:07 02/09/2002/09/2017 CMP, serum or plasm a albumin, serum TNP Test not perfo rmed Not Available [facility] ([facility]) [address] [place], [address], 02/15/2017 06:16:07 02/09/2002/09/2017 CMP, serum or plasm a globulin, total TNP g/dL Unabl e to calcu late resul t since non-n umeri c resul t obtai joe for compo nent test. Not Available [facility] ([facility]) [address] [facility], [place], [address], 02/15/2017 06:16:07 02/09/2002/09/2017 CMP, serum or plasm a A/G ratio TNP No urine speci men recei alexandra. Not Available [facility] ([facility]) [address] [facility], [place], [address], 02/15/2017 06:16:07 02/09/2002/09/2017 CMP, serum or plasm a bilirubin, total TNP Test not perfo rmed Not Available [facility] ([facility]) [address] [place], [address], 02/15/2017 06:16:07 02/09/2002/09/2017 CMP, serum or plasm a alkaline phosphatase, S TNP Test not perfo rmed Not Available [facility] ([facility]) [address] [facility], [place], [address], 02/15/2017 06:16:07 02/09/2002/09/2017 CMP, serum or plasm a AST (SGOT) TNP IU/L No urine speci men recei alexandra. Not Available [facility] ([facility]) [address] [facility], [place], [address], 02/15/2017 06:16:07 02/09/2002/09/2017 CMP, serum or plasm a ALT (SGPT) TNP Test not perfo rmed Not Available [facility] ([facility]) [address] [facility], [place], [address], 02/15/2017 06:16:07 02/09/2002/09/2017 lipid panel , serum cholesterol, total TNP mg/dL No urine speci men recei alexandra. Not Available [facility] ([facility]) [address] [facility], [place], [address], 02/15/2017 06:16:07 02/09/2002/09/2017 lipid panel , serum triglyceride s TNP mg/dL No urine speci men recei alexandra. Not Available [facility] ([facility]) [address] [facility], [place], [address], 02/15/2017 06:16:07 02/09/2002/09/2017 lipid panel , serum HDL cholesterol TNP Test not perfo rmed Not Available [facility] ([facility]) [address] [place], [address], 02/15/2017 06:16:07 02/09/2002/09/2017 lipid panel , serum VLDL cholesterol jose TNP mg/dL No urine speci men recei alexandra. Not Available [facility] ([facility]) [address] [place], [address], 02/15/2017 06:16:07 02/09/2002/09/2017 lipid panel , serum LDL cholesterol calc TNP mg/dL No urine speci men recei alexandra. Not Available [facility] ([facility]) [address] 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, [place], [address], 02/15/2017 06:16:07 02/09/2002/09/2017 lipid panel , serum LDL/HDL ratio TNP ratio _unit s Unabl e to calcu late resul t since non-n umeri c resul t obtai joe for compo nent test. LDL/H DL Ratio Men Women 1/2 Avg.R isk 1.0 1.5 Avg.R isk 3.6 3.2 2X Avg.R isk 6.2 5.0 3X Avg.R isk 8.0 6.1 Not Available [facility] ([facility]) [address] [facility], [place], [address], 02/15/2017 06:16:07 02/09/2002/09/2017 PT/PT T, plasm a [...] range 2.5 - 3.5 Not Available [facility] ([facility]) [address] [facility], [place], [address], 02/15/2017 06:16:08 02/09/2002/09/2017 PT/PT T, plasm a prothrombin time TNP sec No urine speci men recei alexandra. Not Available [facility] ([facility]) [address] [facility], [place], [address], 02/15/2017 06:16:08 02/09/20 17 02/09/2017 PT/PT T, plasm a APTT TNP Test not perfo rmed Not Available [facility] ([facility]) [address] [facility], [place], [address], 02/15/2017 06:16:08 02/09/20 17 02/09/2017 afp (alph a-fet oprot ein) tumor marke r, serum or plasm a AFP, serum, tumor marker TNP NG/mL No urine speci men recei alexandra. Eusebio ECLIA metho dolog y Not Available [facility] ([facility]) [address] [facility], [place], [address], 02/15/2017 06:16:09 02/09/20 17 02/09/[address] probl em request problem TNP No urine speci men recei alexandra. TEST: 37601 0 Comp. Metab olic Panel (14) 85449 0 Lipid Panel With LDL/H DL Ratio 74178 1 PT and PTT 09914 3 AFP, Serum , Tumor Marke r Not Available [facility] ([facility]) [address] [facility], [place], [address], 02/15/2017 06:16:09 09/20/19 18 09/19/2017 cardi ac stres s test No observ ation record ed. [email or web address] [facility] [address], [place], [address], 09/20/2017 16:57:00 10/02/19 18 10/01/2017 XR, chest , 2 view No observ ation record ed. [facility] (Imaging) [address] [place], [address], 10/01/2017 15:22:44 07/10/19 21 07/09/2020 XR, shoul elvira, 2 or more view No observ ation record ed. [facility] [address] [place], [address], 07/09/2020 15:38:27 01/10/20 22 01/09/2022 XR, chest No observ ation record ed. [address] [facility] [address] [place], [address], 01/13/2022 09:42:27 01/10/20 22 01/09/2022 CT, abdom en + pelvi s, w/o contr ast No observ ation record ed. [address] [facility] [address] [place], [address], 01/13/2022 09:43:16 01/11/20 22 01/09/2022 CT, abdom en + pelvi s, w/o contr ast No observ ation record ed. [address] [facility] [address] [place], [address], 01/13/2022 09:43:31 01/29/20 22 01/28/2022 XR, chest No observ ation record ed. [facility] Orders [address] [place], [address], 01/31/2022 12:36:56 01/31/20 22 01/30/2022 XR, chest No observ ation record ed. [facility] [address] [place], [address], 01/31/2022 14:46:51 Result Notes None recorded. Problems Name Problem SNOMED Code Status Onset Date Resolution Date Notes Provider Name and Address Organization Details Recorded Time Cardiac pacemaker in situ 516476757 Active 019 TAINA Arceo [place] - [place] 9 12:42:39 Current drinker 540894 Active 019 TAINA Arceo [place] [facility] 9 12:43:09 Problem Notes None recorded. Procedures Surgical History Date Name Laterality Status Provider Name and Address Organization Details Recorded Time Pacemaker completed [employer] [place] [facility] 02/08/2017 15:01:52 Imaging Results Imaging Date Name Status [facility]Modified by [facility] Details LastModified Time 09/19/2017 cardiac stress test completed [facility] [address], [place], [address], 09/20/2017 16:57:00 10/01/2017 XR, chest, 2 view completed [facility] (Imaging) [address] [place], [address], 10/01/2017 15:22:44 07/09/2020 XR, shoulder, 2 or more view completed [facility] [address] [place], [address], 07/09/2020 15:38:27 01/09/2022 XR, chest completed [email or web address] [address] [place], [address], 01/13/2022 09:42:27 01/09/2022 CT, abdomen + pelvis, w/o contrast completed [email or web address] [facility] [address] [place], [address], 01/13/2022 09:43:16 01/09/2022 CT, abdomen + pelvis, w/o contrast completed [email or web address] [facility] [address] [place], [address], 01/13/2022 09:43:31 01/28/2022 XR, chest completed [email or web address] [address] [place], [address], 01/31/2022 12:36:56 01/30/2022 XR, chest completed [email or web address] [address] [facility] [place], [address], 01/31/2022 14:46:51 Procedure Notes None recorded. Medical Equipment None Reported. Allergies Allergen ID Allergen Name Allergen Category Reaction Reaction Severity Criticality Documentation Date Start Date Code Code System Note Provider Name and Address Organization Details Recorded Time 065524 Wellbutri n medicatio n hives itching moderate Not available Not available 12/18/2018 68979 RxNorm Not Available Not Available Not Available [...] Updated DateTime 12/18/2018 161.93 cm 51 kg/m2 087164.7 5 g 112 mm[Hg] 64 mm[Hg] Ivelisse Gray [place] - [facility] 9 12:54:00 Date Recorded Body height Body mass index (BMI) Body weight Body temperature Oxygen saturation Oxygen saturation in Arterial blood by Pulse oximetry Heart rate Systolic blood pressure Diastolic blood pressure Provider Name and Address Organization Details Last Updated DateTime 7 161.93 cm 47.7 kg/m2 248807. 49 g 98 [degF] 95 % 95 % 78 /min 128 mm[Hg] 78 mm[Hg] [employer] MA [facility] 7 15:07:44 Social History Question Answer Notes LastModified by Organizat ion Details LastModified Time Tobacco Smoking Status Former Smoker cigarettes [employer] [place] null, [facility] 02/08/2017 15:03:47 Do You Or Have You Ever Used E-cigarettes Or Vape? Never Used Electronic Cigarettes [email or web address] Information not available 12/18/2018 What Was The Date Of Your Most Recent Tobacco Screening? 02/08/2017 Information not available 11/21/2018 Do You Or Have You Ever Used Smokeless Tobacco? Never Used Smokeless Tobacco [email or web address] Information not available 12/18/2018 How Much Tobacco [...] available 01/28 15:03:30 Maternal Grandmother Diabetes mellitus [email or web address] Not available 12/18 12:44:43 Maternal Aunt Diabetes mellitus [email or web address] Not available 12/18 12:44:51 Medical History Condition Response Coronary Artery Disease N Other N Atrial Fibrillation Y High Blood Pressure N Thyroid Problems N Kidney or Bladder Problems N GI Problems N COPD Y Blood Clots N Skin Problems N Anemia N Heart Attack (ND) N Diabetes N Muscle, Joint, or Bone Problems N Seizures/Epilepsy N Acid Reflux (GERD) N Cancer N Stroke N Allergies N Asthma N High Cholesterol N Hepatitis N Liver [...] virus, quadrivalent, preservative 7 completed Not Available [facility] 05/17/2019 02:39:18 Past Encounters Encounter ID Performer Location Encounter Start Date Encounter Closed Date Diagnosis/Indication Diagnosis SNOMED-CT Code Diagnosis ICD10 Code Diagnosis Note [id number] [facility] [address] [place] [phone] 02/08/2017 14:29:17 02/12/2017 11:32:03 Screening for malignant neoplasm of colon 372845093 Z12.11 she refuses now. Screening mammography 24 071998 Z12.31 She refuses . Cardiac pa cemaker in situ 146644546 Z95.0 uNDER THE CARE OF HER CARDIOLOGI ST. On examina tion - edema of legs 346870020 R60.0 UNDER THE CARE OF HER CARDIOLOGI ST. Chronic ob structive pulmonary disease 07547771 J44.9 STABLE. 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 Alcoholism 4950726 F10.2 0 Administra tion of influenza vaccine 00867681 Z23 Osteoarthr itis of knee 166008509 M17.0 SHE REFUSES THE X-RAY. OR PT. Adult heal th examination 083284200 Z00.00 wILL OBTAIN COPIES OF MEDICAL RECORD FROM [facility]. [id number] MD Kyle Coker (Adult Med) [address] [place] [phone] 12/18/2018 11:42:09 12/18/2018 13:55:58 Alcoholism 3690396 F10.20 Discussed with patient, will prescribe ativan for 2 weeks , hopefully will help her to quit drinking. Pruritic disorder 209125 002 L29.9 Health Concerns Section Related Observation LastModified by Organization Detai ls LastModified Time None Recorded Concern Status LastModified by Organization Details LastModified Time None Recorded Advance Directives Directive None Recorded Payers Encounter Date Sequence Insurance Name Policy Number Policy Kidd Covered Member ID Kidd Member ID Guarantor Name 02/08/2017 1 [facility] (MEDICAID HMO) [id number] Sarah Odom [id number] Sarah Odom 12/18/2018 1 [facility] (MEDICAID HMO) [id number] Sarah Odom [id number] Sarah Odom Notes Date Note Type Note Provider Name and Address Organization Details Recorded Time 02/08/2017 text/html First time. history of pacemaker seeing her patient financial advocate, alcoholism, a cigarettes smoker 20 pK-year, chronic swelling of legs. Still drinks Griselda. NKDA. had bursted appendix about 10 years ago. On CAPA for thr Sleep apnea. Lorena Rios MD Attn: Accounting,[address] [place], [address], [facility] 02/08/2017 16:04:17 12/18/2018 text/html Skin rashes with itching, on wellbutrin from her patient financial advocate, but she dose not like, so she stopped, a regular drinker, allergic to wellbutrin. Lorena Rios MD Attn: Accounting,[address] [place], [address], [facility] 12/18/2018 16:29:55 OBGyn Episode No OBEpisode recorded.
--- OUTSIDE RECORDS SUMMARY | 2024-07-16 12:21 | XMS_ITS | CONTINUITY OF CARE DOCUMENT ---
Author Name mario martin Address Unknown Organization [facility] Address [address] [address] [place] [address] Phone [phone] Care Team Providers Care Friction Welding Machine Operator Name Role Phone Timbo BELTRÁN, Melvina Unavailable [phone] SHMUEL ABDUL MD Unavailable SHMUEL ABDUL MD Unavailable [phone] PROBLEMS Condition Status Date Provider Notes CHF [...] In-person encounter Office Visit Melvina Izquierdo MD [facility] - In-person encounter Office Visit Melvina Izquierdo MD [facility] Itching - In-person encounter Office Visit [facility] - In-person encounter Office Visit Angela Garvey MD [facility] Sick sinus syndrome - In-person encounter Office Visit Angela Garvey MD [facility] - In-person encounter Office Visit Melvina Izquierdo MD [facility] Atrial fibrillation - on xarelto, nl LV fcn 03/16,m s/p unsuccessful CDVN 10/2017 - In-person encounter Office Visit Melvina Izquierdo MD [facility] Atrial fibrillation - on xarelto, nl LV fcn 03/16,m s/p unsuccessful CDVN 10/2017 - In-person encounter Office Visit Melvina Izquierdo MD [facility] - In-person encounter Office Visit Angela Garvey MD [facility] Sleep apnea, obstructive - In-person encounter Office Visit Angela Garvey MD [facility] - In-person encounter Office Visit Melvina Izquierdo MD [facility] Biotronik dc (MRI Safe) pm - In-person encounter Office Visit Melvina Izquierdo MD [facility] - In-person encounter Office Visit Melvina Izquierdo MD [facility] Atrial fibrillation - on xarelto, nl LV fcn 03/16,m s/p unsuccessful CDVN 10/2017Family History of CVA or Stroke:Family History of Hyperlipidemia:Family History of Hypertension:Family History of Hypertension:Family History of Sudden Cardiac : - In-person encounter Office Visit Melvina Izquierdo MD [facility] Shortness of breath, BHAVIN on CPAP - In-person encounter Office Visit Angela Garvey MD [facility] - In-person encounter Office Visit Angela Garvey MD [facility] - In-person encounter Office Visit Angela Garvey MD [facility] - In-person encounter Office Visit Angela Garvey MD [facility] - In-person encounter Office Visit Angela Garvey MD [facility] - In-person encounter Office Visit Angela Garvey MD [facility] - In-person encounter Office Visit Melvina Izquierdo MD [facility] - In-person encounter Office Visit Melvina Izquierdo MD [facility] FAMILY HISTORY OF HEART DISEASEShortness of breath, BHAVIN on CPAPHTN essentialObesity VITAL SIGNS Date Observation Value Provider Body Mass Index (Ratio) 46.86 kg/m2 Giorgio Tinoco blood pressure, diastolic 71 mm[Hg] Mt subhash Acosta blood pressure, systolic 131 mm[Hg] [facility] mo Acosta oxygen saturation, oximetry 94 % [...] Carol G ruenenfelder pulse rate 107 /min Carol Gruenenfe lder weight E&M 292 [lb_av] Carol [...] christopher pulse rate 67 /min Carol Christina [facility] weight E&M 249 [lb_av] Carol Christina [facility] height E&M 64 [in_i] Carol Christina [facility] Body Mass Index (Ratio) 42.32 kg/m2 Juan Izquierdo MD blood pressure, resting Yes Mary [...] 3.5-5.2 06/10 sodium, serum 143 mmol/L [employer] [phone]/0 2/11 urea nitrogen/creatinin e ratio, serum 18 [...] Estab. 06/10 platelet count 214 X10E3/UL [facility] [phone]/0 2/11 red blood cell distribution width 11.6 [...] as % of total hemoglobin 6.2 % [facility] High 07/09 lipoprotein, beta, serum, point, quantitative, calculated 78 mg/dL [facility] 0-99 07/09 very low density lipoproteins 20 mg/dL [facility] 5-40 07/09 HDL cholesterol, serum 85 mg/dL [facility] >39 07/09 triglyceride, serum, random 101 mg/dL [facility] 0-149 07/09 cholesterol, serum 183 mg/dL [facility] 064-283 4486/0 3/12 alanine aminotransferase (SGPT), serum 67 1/L [facility] 0-32 High 07/09 aspartate aminotransferase (SGOT), serum 42 1/L [facility] 0-40 High 07/09 alkaline phosphatase, serum 93 1/L [facility] 39-117 07/09 bilirubin, serum, total 0.6 mg/dL [...] 3.5-5.2 07/09 sodium, serum 143 mmol/L [facility] [phone]/0 3/12 urea nitrogen/creatinin e ratio, serum 20 [...] Estab. 07/09 platelet count 237 X10E3/UL [facility] 740-188 2150/0 3/12 red blood cell distribution width 14.1 [...] Swenson Normal prothrombin time (patient) 25.1 s Estevan Swenson 01/22 coagulation managed by Michelle Urban [...] 3.5-5.2 11/17 sodium, serum 141 mmol/L [facility] [phone]/0 7/21 urea nitrogen/creatinin e ratio, serum 27 [...] 07/23 prothrombin time (patient) 19.5 s Ynes Zeio 07/17 pro brain natriuretic peptide 277 pg/mL [...] 3.5-5.2 07/17 sodium, serum 136 mmol/L [facility] 204-026 5321/0 3/20 urea nitrogen/creatinin e ratio, serum 18 [...] 33.0 10/07 protein, total, serum 7.3 g/dL [facility] 6.6 - 8.7 10/07 bilirubin, serum, total 0.4 [facility] - 1.2 10/07 urea nitrogen, blood 20.0 mg/dL [facility] 6.0 - 20.0 10/07 blood glucose, random 113.0 mg/dL [facility] 74.0 - 99.0 High 10/07 red blood cell distribution width, size density 51.8 fL [facility] 10/07 immature granulocytes, percentage of total cells, blood 0.1 % [facility] 10/07 nucleated red blood cells as percent of blood leukocytes 0.3 % [facility] 10/07 red blood cell (erythrocyte) count, per high power field 0.0 10*3/UL [facility] 10/07 eosinophils as percent of blood leukocytes 1.4 % [facility] 10/07 neutrophils as percent of blood leukocytes 69.3 % [facility] 10/07 Absolute Neutrophils 4.9 CELLS/UL [facility] 1.5 - 7.8 10/07 basophils as percent of blood leukocytes 0.4 % [facility] - 10/07 Absolute Basophils 0.0 CELLS/UL [facility] 0.0 - 0.2 10/07 monocytes as percent of blood leukocytes 6.2 % [facility] - 10/07 Absolute Monocytes 0.4 CELLS/UL [facility] 0.2 - 1.0 10/07 lymphocytes as percent of blood leukocytes 22.6 % [facility] 10/07 Absolute Lymphocytes 1.6 CELLS/UL [facility] 0.9 - 3.9 10/07 mean platelet volume 10.9 (?) [facility] - 10/07 platelet count 208.0 THOUSAND/UL [...] active TAKE 1 TABL ET ONCE DAILY [facility] bumetanide 2 mg tablet active TAKE 1 [...] 1 TABL ET EVERY NIGHT 05/04 [facility] amiodarone 200 mg tablet completed Take 1 tablet once a day - 08/30 Giorgio Tinoco amiodarone 200 mg tablet completed Take 1 tablet by mouth once a day 06/08 - 01/15 Melvina Izquierdo MD atorvastatin 20 mg tablet active TAKE 1 TABLET ONCE DAILY 06/08 [facility] metformin 500 mg tablet extended release 24hr completed Take 1 tablet by mouth once a day 05/28 - 01/15 [facility] Farxiga 10 mg tablet completed Take 1 tabl et by mouth once a day - [facility] amiodarone 200 mg tablet completed Take 1 tablet by mouth once a day - 06/08 Zehra Zapata bumetanide 2 mg tablet completed Take 1 tablet by mouth once a day - [facility] flecainide 150 mg tablet completed TAKE [...] - 01/07 Melvina Izquierdo MD VITAMIN D3 06173 UNIT ORAL TABLET completed Take 1 tablet [...] E&M revi ewed - no changes required Malissa Amaro smoking, year quit 2017 Sabrina leiva number of years as a smoker 30 a Sabrina Adams smoking history, tot al pack/day 0.5 Sabrina Adams cigarette use yes Sabrina elzama smoking status Former smoker Sabrina watson social history reviewed E&M revi ewed - no changes required Miguel Angel Matta smoking, year quit 2017 Sabrina Denise leiva number of years as a [...] smoking history, tot al pack/day 0.5 Mary Noe cigarette use yes Mary Noe smoking status Former smoker Mary Noe social history reviewed E&M revi ewed - no changes required Mary Noe social history E&M S moking History: Edgardo mares is a former smoker. [facility] social history reviewed E&M revi ewed - no changes required [facility] smoking, year quit 2017 Carol Allen juan [...] P atient has been counseled to quit. [facility] social history reviewed E&M revi ewed - no changes required [facility] alcohol use, average drinks per day social Ayaan Calabrese smoking/tobacco cess ation, patient education and counseling yes Ayaan Calabrese alcohol use yes Ayaan Cortez misha number of years as a smoker 30 a Ayaan Calabrese smoking history, tot al pack/day 0.5 [facility] cigarette use yes Ayaan Thorpe bill smoking [...] Policy type / Coverage type Shlomo red republican ID [place] MED[place] Medicare [id number] [facility] Medicaid 3 [id number] ADVANCE DIRECTIVES Name Date DISCUSSED - NO DECISION MADE TREATMENT PLAN Date Name Performer [id number],S, Giorgio Ahmedza i [id number],S, Giorgio Ahmedza i [id number],S, Giorgio Ahmedza i [id number],S, Giorgio Ahmedza i [id number],S, Giorgio Ahmedza i [id number],S, Giorgio Ahmedza i [id number],S, Giorgio Ahmedza i [id number],S, Giorgio Ahmedza i [id number],S, Giorgio Ahmedza i [id number],S, Giorgio Ahmedza i [id number],S, Giorgio Ahmedza i [id number],S, Giorgio Ahmedza i [id number],B, Melvina Izquierdo MD [id number],W, Melvina Iqzuierdo MD [id number],S, Melvina Izquierdo MD [id number],S, Melvina Izquierdo MD [id number],W, Melvina Izquierdo MD Cardiology Giorgio Ahmedzai Cardiology [...] the morning Orders: 9 9214 MOD Complex (CPT-16819) F VC - 38413 (21778) F RC - 88540 (96486) D LCO - 15889 (91093) S chedule Followup (*) Malissa Amaro Electrophysiology [...] & 1/2 tab daily Orders: E KG (CPT-00309) C OMPREHENSIVE METABOLIC PANEL, W/EGFR (27450) THYROID PANEL WITH TSH, 3RD GENERATION (0644) O ther ([id number]) S chedule Followup (*) 9 2011 HIGH Complex (CPT-66289) M AGNESIUM (622) James Barker Electrophysiology Follow [...] ..... Once daily Orders: F VC - 02629 (46689) F RC - 23883 (28764) D LCO - 45741 (26817) 9 9210 HIGH Complex (CPT-60390) James Barker Electrophysiology Follow up Paolo Schuster Electrophysiology Fo llow up :The patient was encouraged to lose weight for better health. Ko Schustre Electrophysiology Fo llow up :Most recent device check shows 100% Afib burden. [facility] Fo llow up : B [...] last PFT. Melvina Izquierdo MD Cardiology Melvina Izqueirdo MD Cardiology Melvina Izquierdo MD Cardiology Melvina [...] once finished with Amiodarone Orders: S NOMED-CT: [id number] Current Medications Documented (SCT-[id number]) 9 9214 MOD Complex (CPT-63596) Her updated medication list for this problem includes: Flecainide Acetate 100 Mg Oral Tabs (Flecainide acetate) ..... One tablet twice daily Amiodarone Hcl 200 Mg Tabs (Amiodarone hcl) ..... One tab.three times daily [facility] Electrophysiology Ho spital Follow up :Plan for cardioversion. H er updated medication list for this problem includes: Amiodarone Hcl 200 Mg Tabs (Amiodarone hcl) ..... One tab.three times daily [facility] Cardiology [facility] Cardiology:Successfu l synchronized cardioversion on 09/15/2016. She was started on Amiodarone 200mg daily. EKG shows AFIB with rate of 90 bpm. Permanent PM vs ablation. With patient with severe sleep apnea reccommend permanent pacemaker implantation. [facility] EP Faxed 09/01/16 1108 : H er updated medication list for this problem includes: Cardizem Cd 180 Mg Oral Fn09o-mot (Diltiazem hcl coated beads) ..... Take one pill twice a day Orders: C ardioversion - [facility] (CPT-91834) 9 9245 HIGH Complex (CPT-21434) Benji Em EP Faxed 09/01/16 1108 : O rders: C ardioversion - [facility] (CPT-42949) 9 9245 HIGH Complex (CPT-70267) Her updated medication list for this problem [...] Melvina Izquierdo MD Date Name DLCO - 29661 FRC - 22212 FVC - 21804 MAGNESIUM PROTHROMBIN TIME WIT H INR LIPID [...] COMPREHENSIVE METABO LIC PANEL, W/EGFR DLCO - 67983 FRC - 94362 FVC - 34096 MAGNESIUM PROTHROMBIN TIME WIT H INR BASIC METABOLIC PANE L W/EGFR DLCO - 72847 FRC - 50903 FVC - 82350 JUANA/CV - GC INR Strip TSH, 3RD GENERATION W/REFLEX TO FT4 HEMOGLOBIN A1c MAGNESIUM PROBNP, N TERMINAL LIPID PANEL COMPREHENSIVE METABO LIC PANEL, W/EGFR JUANA/CV - GC BASIC METABOLIC PANE L W/EGFR COMPREHENSIVE METABO LIC PANEL, W/EGFR DLCO - 74882 FRC - 10742 FVC - 52241 Cardioversion - GC Cardioversion - GC Other [...] Melvina Izquierdo MD INTERROGATION REMOTE </90 D AUTOMATION QA ANALYST REVIEW completed Pacemaker Interrogation, Remote (Prof) Melvina Izquierdo MD INTERROGATION EVAL REMOTE </90 D 1/2/CHIEF ENGINEER DRILLING AND RECOVERY LEAD P completed ICM Interrogation, Remote (Prof) [...] Melvina Izquierdo MD INTERROGATION REMOTE </90 D AUTOMATION QA ANALYST REVIEW completed Pacemaker Interrogation, Remote (Prof) Melvina Izquierdo MD INTERROGATION EVAL REMOTE </90 D 1/2/CHIEF ENGINEER DRILLING AND RECOVERY LEAD P completed ICM Interrogation, Remote (Prof) [...] Melvina Izquierdo MD INTERROGATION REMOTE </90 D AUTOMATION QA ANALYST REVIEW completed Pacemaker Interrogation, Remote (Prof) Melvina Izquierdo MD INTERROGATION EVAL REMOTE </90 D 1/2/CHIEF ENGINEER DRILLING AND RECOVERY LEAD P completed Poonam Black MD completed [...] Melvina Izquierdo MD INTERROGATION REMOTE </90 D AUTOMATION QA ANALYST REVIEW completed Pacemaker Interrogation, Remote (Prof) Melvina Izquierdo MD INTERROGATION EVAL REMOTE </90 D 1/2/CHIEF ENGINEER DRILLING AND RECOVERY LEAD P completed Regadenoson, 4 units Melvina [...] Melvina Izquierdo MD INTERROGATION REMOTE </90 D AUTOMATION QA ANALYST REVIEW completed Pacemaker Interrogation, Remote (Prof) Melvina Izquierdo MD INTERROGATION EVAL REMOTE </90 D 1/2/CHIEF ENGINEER DRILLING AND RECOVERY LEAD P completed Poonam presley MD completed ICM Interrogation, Remote (Prof) Melvina Izquierdo MD INTERROGATION EVAL REMOTE </30 D CV MNTR SYS completed ICM Interrogation, Remote (Tech) Melvina Izquierdo MD INTERROGATION EVAL REMOTE </30 D TECH REVIEW completed Poonam presley MD completed Poonam Izquierdo MD completed Poonam Izquierdo MD completed Poonam Izquierdo MD completed SNOMED-CT: 993965813893119 Current Medications Documented Melvina Izquierdo MD completed ICM Interrogation, Remote (Prof) Melvina Izquierdo MD INTERROGATION EVAL REMOTE </30 D CV MNTR SYS completed ICM Interrogation, Remote (Tech) Melvina Izquierdo MD INTERROGATION EVAL REMOTE </30 D TECH REVIEW completed FVC / MVV with bronchodilator - 04853 Angela Garvey MD completed BLOOD COUNT HEMOGLOBIN Angela almonte MD completed FRC - 05767 Angela presley MD completed SpO2 - 23937 Angela presley MD completed DLCO - 20045 Angela presley MD completed EKG Angela presley MD completed SNOMED-CT: 013440781566082 Current Medications Documented Angela Garvey MD completed ICM Interrogation, Remote (Prof) Melvina Izquierdo MD INTERROGATION EVAL REMOTE </30 D CV MNTR SYS completed Pacemaker Interrogation, Remote (Tech) Melvina Izquierdo MD INTERROGATION REMOTE </90 D AUTOMATION QA ANALYST REVIEW completed Pacemaker Interrogation, Remote (Prof) Melvina Izquierdo MD INTERROGATION EVAL REMOTE </90 D 1/2/CHIEF ENGINEER DRILLING AND RECOVERY LEAD P completed ICM Interrogation, Remote (Prof) [...] castellanos MD In 3 months completed SNOMED-CT: 133999855293842 Current Medications Documented Angela Garvey MD completed SNOMED-CT: 672796852812699 Current Medications Documented Angela Garvey MD completed EKG Angela presley MD completed SNOMED-CT: 525118115135749 Current Medications Documented Angela Garvey MD completed EKG Angela presley MD completed EKG Angela presley MD completed EKG Angela presley MD completed FVC / MVV with bronchodilator - 77140 Angela Garvey MD completed BLOOD COUNT HEMOGLOBIN Angela almonte MD completed FRC - 40127 Angela presley MD completed SpO2 - 37376 Angela presley MD completed DLCO - 41306 Angela presley MD completed EKG Angela presley MD completed SNOMED-CT: 022995693284171 Current Medications Documented Angela Garvey MD completed HAYLEE Izquierdo MD co mpleted SNOMED-CT: 96496879 Physical Exam, Performed: Pulse Exam of Foot Melvina Izquierdo MD completed SNOMED-CT: 333018465205221 Current Medications Documented Melvina Izquierdo MD completed SNOMED-CT: 10261297 Physical Exam, Performed: Pulse Exam of Foot Melvina Izquierdo MD completed EKG Melvina Izquierdo MD completed SNOMED-CT: 999745141036843 Current Medications Documented Melvina Izquierdo MD completed Event Monitor Melvina Izquierdo MD comple laina
--- OUTSIDE RECORDS SUMMARY | 2024-07-16 12:21 | XMS_ITS ---
Author Organization [facility] Address [address] [place] [address] Care Team Providers Care Reservoir Engineering Consultant Name Role Phone Luis Campo Primary Care [...] Encounters Encounter Location Date Provider Diagnosis [address] [address] 06/16/2024 Luis Campo Pruritus L29.9 Assessments Encounter [...] * Michelle PATELDOB: [birth year] (63 yo F)Acc No.[id number]:06/16/2024 Patient: Christiana RDISON, Michelle :1960 A ge:63 Y S ex:Female Address:[address] [place] [address], [id number] * Refills Refill Cyproheptadine HCl Tablet, 4 [...] Date: Generated for Kelly castrejon/David/Beth on: 0 07/16/2024 12:21 PM CDT
--- OUTSIDE RECORDS SUMMARY | 2024-07-16 12:21 | XMS_ITS | Data Portability ---
Author Organization [place] [facility] [employer], Main Office Address [address] [place] [address] Assessment Encounter Date Assessment Date Assessment LastModified [...] home sleep study 08/14/16 AHI = 68 [facility] titration sleep study 10/18/16, sleep onset = 136 minutes, REM onset = 28 minutes, ResMed AirFit P10 nasal pillows @ 12 cmH2O, PLMI = 0.0 [facility] titration sleep study 06/24/20 sleep onset = [...] carrier. Patient will setup an appointment with [facility] for supplies and pressure adjustments. A [...] pillows @ 12 cmH2O, PLMI = 0.0 [facility] titration sleep study 06/24/20 sleep onset = [...] carrier. Patient will setup an appointment with [facility] for supplies and pressure adjustments. A [...] 24 10/08/2017 compl ete PFT w/ post [facility] hodil ator denia metry * No observ [...] Body mass index 40+ - severely obese 208810033 Active 2017 Not Available [facility] 3 01:07:53 Cardiac pacemaker in situ 659100647 Active 2019 Not Available [facility] 3 01:07:54 Atrial fibrillation 46191732 Active 2019 Not Available [facility] 3 01:07:54 Hyperlipidemi a 06030032 Active 2019 Not Available [facility] 3 01:07:54 Obstructive sleep apnea syndrome 67036978 Active 2017 Not Available [facility] 3 01:07:54 Notes:Medical History: Alcoh ol abuse Persistent early REM onset Obesity with very severe OSAHS, AHI = 68, 08/14/16, on CPAP c/o IVRC Hypothyroidism Hyperlipidemia Hypertension Atrial fibrillation on Xarelto/diltiazem Diastolic CHF RLS Iron deficiency Vit D deficiency Procedure History: Pacemaker placement 2017 Bilateral cataract extraction with IOL 2022 Occupational History: Retired [employer] Problem Notes None recorded. Procedures Surgical History Date Name Laterality Status Provider Name and Address Organization Details Recorded Time cardioversion completed Not Available [facility] 06/28/2022 00:54:26 Pacemaker completed Not Available [facility] 0 06/28/2022 00:54:26 Imaging Results Imaging Date [...] Name and Address Organization Details Recorded Time 82546 amiodaron e medicatio n hives severe Not available 11/08/2023 703 [employer] Teresa Casillas CMA null, [place] [facility] [employer] [facility] 4 09:14:47 Medications Name Sig Start [...] DateTime 08/18/2020 53.1 kg/m2 160.02 cm 2 046626.71 g Not Available [facility] 06/28/2022 00:55:34 Date Recorded Body height Provider Name an d Address Organization Details Last Updated DateTime 10/05/2020 160.02 cm Not Available [facility] 3 00:55:31 Date Recorded Body height Provider Name an d Address Organization Details Last Updated DateTime 06/21/2021 160.02 cm Not Available [facility] 3 00:55:31 Date Recorded Body weight Body mass index (BMI) Body height Body temperature Heart rate Oxygen saturation Oxygen saturation in Arterial blood by Pulse oximetry Systolic blood pressure Diastolic blood pressure Provider Name and Address Organization Details Last Updated DateTime 4 115675. 05 g 50 kg/m2 160.02 cm 98.1 [degF] 67 /min 97 % 97 % 118 mm[Hg] 64 mm[Hg] Teresa Casillas CMA [facility] [employer] 4 09:13:00 Date Recorded Heart rate Respiratory rate Provider N kal and Address Organization Details Last Updated DateTime 11/08/2023 67 /min 15 /min Inder Kirby MD [address] [place] [address], [facility] [address], [address], [facility] [employer] 11/08/2023 09:27:39 Date Recorded Body height Body mass index (BMI) Body weight Body temperature Heart rate Oxygen saturation Oxygen saturation in Arterial blood by Pulse oximetry Systolic blood pressure Diastolic blood pressure Provider Name and Address Organization Details Last Updated DateTime 160.02 cm 51 kg/m2 732328. 6 g 98.1 [degF] 92 /min 95 % 95 % 120 mm[Hg] 66 mm[Hg] Kassandra Lilly MA [employer] 4 10:28:34 Date Recorded Heart rate Respiratory rate Provider N kal and Address Organization Details Last Updated DateTime 03/12/2024 92 /min 14 /min Inder Kirby MD [address] [facility], [facility] [address], [place], [address], [employer] 03/12/2024 10:31:02 Social History Question Answer Notes LastModified by Organization Details LastModified Time Tobacco Smoking Status Former Smoker quit 2017 Not Available [facility] 06/28/2022 00:48:51 Do You Have An Advance Directive? Yes MIGRATION.0301 [id number] Information not available 06/28/2022 What Is Your Level Of Alcohol Consumption? Occasional MIGRATION.0301 [id number] Information not available 06/28/2022 What Is Your Level Of Caffeine Consumption? Moderate MIGRATION.0301 189313 Information not available 06/28/2022 How Much Tobacco Do You Chew? None MIGRATION.0301 258985 Information not available 06/28/2022 In The 14 Days Before Symptom Onset, Have You Had Close Contact With A Laboratory-confi rmed COVID-19 While That Case Was Ill? No MIGRATION.0301 398529 Information not available 06/28/2022 In The 14 Days Before Symptom Onset, Have You Had Close Contact With A Person Who Is Under Investigation For COVID-19 While That Person Was Ill? No MIGRATION.0301 650710 Information not available 06/28/2022 What Type Of Diet Are You Following? REGULAR MIGRATION.0301 048986 Information not available 06/28/2022 Which Illicit Or Recreational Drugs Have You Used? None MIGRATION.0301 400773 Information not available 06/28/2022 Do You Or Have You Ever Used E-cigarettes Or Vape? Never Used Electronic Cigarettes MIGRATION.0301 179659 Information not available 06/28/2022 Do You Have An Electrostatic Air Filter? Yes Information not available 03/12/2024 What Is Your Occupation? Disabled MIGRATION.0301 022423 Information not available 06/28/2022 Have There Been Any Changes To Your Family Or Social Situation? No MIGRATION.0301 926167 Information not available 06/28/2022 What Is The Fluoride Status Of Your Home? Unknown MIGRATION.0301 001840 Information not available 06/28/2022 Are There Any Guns Present In Your Home? No MIGRATION.0301 466077 Information not available 06/28/2022 Do You Have A Humidifier? No Information not available 03/12/2024 Do You Use Insect Repellent Routinely? No MIGRATION.0301 374567 Information not available 06/28/2022 Where Do You Live? [place] MIGRATION.0301 235859 Information not available 06/28/2022 Do You Have Moisture Problems In Your Home? No Information not available 03/12/2024 What Was The Date Of Your Most Recent Tobacco Screening? 03/12/2024 Information not available 03/12/2024 Do You Have Any Pets? Yes MIGRATION.0301 578390 Information not available 06/28/2022 Do You Use Your Seat Belt Or Car Seat Routinely? Yes MIGRATION.0301 432650 Information not available 06/28/2022 Do You Have Smoke And Carbon Monoxide Detectors In Your Home? Yes MIGRATION.0301 639918 Information not available 06/28/2022 At What Age Did You Start Smoking Tobacco? 16 MIGRATION.0301 767125 Information not available 06/28/2022 Are You Passively Exposed To Smoke? No MIGRATION.0301 460876 Information not available 06/28/2022 Do You Or Have You Ever Used Smokeless Tobacco? Never Used Smokeless Tobacco MIGRATION.0301 108240 Information not available 06/28/2022 Are There Any Smokers In Your House? No MIGRATION.0301 427673 Information not available 06/28/2022 Do You Feel Stressed (tense, Restless, Nervous, Or Anxious, Or Unable To Sleep At Night)? RN1785-7 MIGRATION.0301 216500 Information not available 06/28/2022 Do You Use Sunscreen Routinely? No MIGRATION.0301 995826 Information not available 06/28/2022 Have You Recently Traveled Abroad? No MIGRATION.0301 965009 Information not available 06/28/2022 Sex: Unknown Functional Status Question Answer Note LastModified by Organizat ion Details LastModified Time What is your exercise level? None MIGRATION.[id number] Information not available 06/28/2022 Mental Status None recorded. Family History Relationship Description Onset Age of this Age Resolved Age Notes LastModified by Organization Details LastModified Time Mother Heart disease MIGRATION.113 [id number] Not available 06/28/2022 00:54:28 Brother Heart disease MIGRATION.266 [id number] Not available 06/28/2022 00:54:29 Mother Hypertensive disorder [...] available 2023 09:36:56 Medical History Condition Response BLINDNESS N NERVE DISEASE N RHEUMATIC FEVER N BLADDER PROBLEMS N KIDNEY STONES N OTHER # 1 N POLIO N LUNG DISEASE/DISORDER N RADIATION / CHEMOTHERAPY N COPD Y Other # 2 N BLOOD DISEASES N SURGERY N EAR OR HEARING PROBLEMS N MUMPS N DEPRESSION (INCLUDING POST ) N BOWEL PROBLEMS N STROKE/TIA N ULCERS N BENIGN PROSTATIC [...] HAVE YOU BEEN HOSPITALIZED OR SEEN IN [facility] IN THE PAST YEAR ? N ATHEROSCLEROSIS [...] SNOMED-CT Code Diagnosis ICD10 Code Diagnosis Note [id number] [facility] Pulmonolo [facility] [place] [address] [place] [address] 06/28/2020 00:00:00 06/28/2020 14:15:58 [id number] [facility] Internal Med [address] [address] 07/09/2020 00:00:00 07/09/2020 14:24:10 [id number] [facility] Ortho [address] [address] 08/18/2020 00:00:00 08/18/2020 15:39:52 [id number] [facility] Internal Med [facility] [address] [place] [address] 10/05/2020 00:00:00 10/19/2020 21:54:12 [id number] [facility] [address] [place] [address] [address] 06/21/2021 00:00:00 06/21/2021 11:56:37 [id number] Inder Kirby MD [facility] Pulmon[address] [address] 11/08/2023 08:50:58 11/09/2023 08:33:22 Obstructive sleep apnea syndrome 16233350 G47.33 [id number] Inder Kirby MD [facility] [address] [address] 03/12/2024 10:12:02 04/28/2024 10:29:11 Obstructive sleep apnea syndrome 49140715 G47.33 Health Concerns Section Related Observation LastModified by Organization Detai ls LastModified Time None Recorded Concern Status LastModified by Organization Details LastModified Time None Recorded Advance Directives Directive Y: Payers Encounter Date Sequence Insurance Name Policy Number Policy Kidd Covered Member ID Kidd Member ID Guarantor Name 11/08/2023 1 [place] Michelle D Ardison [id number] Michelle Ardison 11/08/2023 2 [place] [facility] Michelle Ardison [id number] Michelle Ardison 03/12/2024 1 [place] Michelle D Ardison [id number] Michelle Ardison 03/12/2024 2 [place] [facility] [place] [employer] Michelle Ardison [id number] Michelle Ardison Notes Date Note Type Note Provider Name and Address Organization Details Recorded Time 11/08/2023 text/html Primary care/Ref erring provider: Luis Campo MD CC: My CPAP unit is showing a warning message that it needs to be replaced soon. During the [facility] home sleep study on 08/14/16, AHI = 68. During the [facility] titration sleep study 10/18/16 During the [facility] titration sleep study on 06/24/20, sleep onset [...] slight chance of dozing. Inder Kirby MD [address] [place] [address], [address], [place] [facility] 11/08/2023 09:54:55 03/12/2024 text/html Primary care/Ref erring provider: Luis Campo MD During the [facility] home sleep study on 08/14/16, AHI = 68. During the [facility] titration sleep study 10/18/16 During the [facility] titration sleep study on 06/24/20, sleep onset [...] no chance of dozing. Inder Kirby MD [address] [place] [address], [place], [address], [place] [facility] 03/12/2024 10:36:27 OBGyn Episode No OBEpisode recorded.
--- OUTSIDE RECORDS SUMMARY | 2024-07-16 12:21 | XMS_ITS ---
Author Organization [facility] Address [address] [place] [address] Care Team Providers Care [employer] Name Role Phone Luis Campo Primary Care Provider Medications Medication SIG (Take, Route, Frequency, Duration) Notes Start Date End Date Status hydrOXYzine Pamoate 25 MG 1 capsule Orally every 6 hours for 15 days As needed itching 06/04/2024 Active Social History Sex Assigned At : Social History Observation Description Sex Assigned At Female Encounters Encounter Location Date Provider Diagnosis [address] [address] 06/04/2024 Luis Campo Pruritus L29.9 Assessments Encounter Date Diagnosis (ICD Code) Assessment Notes Treatment Notes Treatment Clinical Notes Section Notes 06/04/2024 Pruritus (ICD-10 - L29.9) Plan Of Treatment Medication Medication Name Sig Start Date Stop Date Notes hydrOXYzine Pamoate 25 MG 1 capsule Oral ly every 6 hours for 15 days 06/04/2024 Progress Notes * Sarah PATELDOB:1960 ( 63 yo F)Acc No.[id number]:06/04/2024 Patient: Sarah WICK :1960 A ge:63 Y S ex:Female Address:[address] [place] [address], [phone] * Refills Start hydrOXYzine Pamoate Capsule, 25 MG, Orally, 60 Capsule, 1 capsule, every 6 hours, 15 days, Refills=1 Subjective: * Chief Complaints: * * Medical History: * Surgical History: * Hospitalization/Major Diagno stic Procedure: * Medications: Objective: * Vitals: * Physical Examination: Assessment: * Assessment: 1. Edgardo fitzpatrick - L29.9 (Primary) Plan: * Treatment: * Procedure Codes: * true * Date: Generated for Kelly castrejon/David/Beth on: 0 07/16/2024 12:20 PM CDT
[2024-07-16 15:50] LABS: Lactate Dehydrogenase 302 U/L (120-246)
--- NOTE | 2024-07-16 16:15 | PC.NURSE ---
RADIOLOGY AT BEDSIDE WITH EDGE FINISHER FOR THORACENTESIS
[2024-07-16 17:45] LABS: Appearance Pleural Fluid Clear (Clear); Pleural fluid source Pleural fluid
[2024-07-16 17:46] LABS: Color Pleural Fluid Yellow (Colorless)
[2024-07-16 18:13] LABS: Lymphocytes Pleural Fluid 46 %; Macrophages Pleural Fluid 9 %; Mesothelial Cells Pleural Flui 2 %; Monocytes Pleural Fluid 21 %; Neutrophils Pleural Fluid 22 % (0-25); Nucleated Cell Pleural Fluid 149 /uL (0-1000); RBC Pleural Fluid < 2000 /uL (0-10000)
--- NOTE | 2024-07-16 19:40 | PM.IMHP ---
H&P: HPI History of Present Illness Date/Time: 07/16/24 20:00 Chief Complaint: Shortness of breath. Narrative: This is a 63-year-old female with atrial fibrillation not currently on anticoagulation with a recent hospitalization for acute on chronic anemia requiring blood transfusion (EGD showed mild gastritis and hiatal hernia), hypertension, diastolic dysfunction, obstructive sleep apnea on CPAP, type 2 diabetes mellitus, alcohol abuse, and hypothyroidism who presented to the emergency department from her doctor's office for evaluation of shortness of breath. The patient provides the following history. She felt pretty good on discharge however the last several days she has developed increasing edema in her legs and abdomen as well as increasing shortness of breath on lesser and lesser exertion and intermittent palpitation. Additionally she reports tightness throughout her entire chest. She has a mild but nonproductive cough. She has had some nausea but no vomiting. Abdomen feels distended and initially she thought she was constipated and she took Metamucil and was able to have a normal bowel movement this morning. She saw her doctor today in follow-up and was directed to the ED after she was found to have an SpO2 of 85% on room air and a heart rate of 122. She denies syncope, near syncope, fever, cold and flu symptoms, pleuritic pain, nausea, vomiting, diarrhea, epigastric and abdominal pain, melena, hematochezia, and dysuria. In the ED: Vital signs on arrival include a blood pressure of 112/78, pulse 81, respiratory rate 14, SpO2 100% on CPAP (placed by EMS). Labs were significant for WBC count of 10.1, hemoglobin 9.8, D-dimer 2.09, creatinine 1.12, glucose 193, total bilirubin 3.1, AST 80, ALT 53, troponin less than 0.012, proBNP 181. Respiratory panel was negative. CTA of the chest, abdomen, and pelvis was negative for pulmonary embolism but did show large right pleural effusion with atelectasis versus pneumonia, cirrhosis of the liver with ascites and portal hypertension as well as a distended gallbladder with slightly thickened wall. She was sent for diagnostic and therapeutic thoracentesis and is feeling somewhat better. She is being admitted in this setting for further treatment and evaluation. Review of Systems Review of Systems: 12 systems were reviewed and are negative except for as per HPI. [facility] Past Medical History Medical History (Updated 07/17/24 @ 00:46 by Sumaya Hyatt PA-C) Type 2 diabetes mellitus Atrial fibrillation Diastolic dysfunction Cirrhosis of liver with ascites noted on CT scan 07/16/2024 Chronic anemia Hepatic steatosis Morbid obesity Hypothyroidism Dyslipidemia Obstructive sleep apnea on CPAP Diverticulitis Surgical History Surgical History History of permanent cardiac pacemaker placement (09/2016) Biotronik dual chamber pacemaker implant by Dr. Garvey Family History Family History Mother Acute myocardial infarction, Onset Age: 73 versus stated <65yo when asked on 07/16/24 Cerebrovascular accident, Onset Age: 73 complication of blood transfusion Diabetes mellitus Complication of blood transfusion CVA Father Multiple myeloma Social History Social History Social History: Surrogate medical decision maker: Gracy Mccannr, friend. Code status: Do not resuscitate. Years smoked: 35 Smoking status: Former smoker Tobacco type: cigarettes Smoking end date: 06/28/16 Alcohol intake: former Drinks per week: 21 Alcohol use details: Social alcohol use in moderation. Substance use: never Substance use type: does not use Do You Feel Safe in your Home?: Yes Lack of Transportation: No Lack of Food: Never True Current Housing: I Have Housing Concerned About Future Housing: No Difficulty Paying Gas/Electric Bills: No Difficulty Paying for Meds: No Currently Unemployed: No Education: High School Diploma/GED Difficulty w/ Childcare or Family Care: No Living arrangements: with family Additional living arrangements comments: The patient lives alone. She has no children. Caregiver comes in 3 days weak. Spiritual care concerns: No Meds Home Medications and Allergies Home Medications ?Medication ?Instructions ?Recorded ?Confirmed ?Type Vitamin D2 50,000 units PO WEEKLY 03/23/23 07/16/24 History bumetanide 2 mg tablet 2 mg PO DAILY 03/23/23 07/16/24 History diltiazem HCl 360 mg capsule,24 360 mg PO DAILY 03/23/23 07/16/24 History hr,extended release levothyroxine 25 mcg tablet 25 mcg PO DAILY 03/23/23 07/16/24 History potassium chloride 20 mEq 20 meq PO BID 03/23/23 07/16/24 History tablet,extended release rivaroxaban 20 mg tablet (Xarelto) 20 mg PO DAILY 03/23/23 07/16/24 History ascorbic acid (vitamin C) 500 mg 500 mg PO DAILY #30 tabs 03/27/23 07/16/24 Rx tablet (Vitamin C) dapagliflozin propanediol 10 mg 10 mg PO DAILY 04/27/23 07/16/24 History tablet (Farxiga) pantoprazole 40 mg tablet,delayed 40 mg PO QAM #30 tabs 07/10/24 07/16/24 Rx release potassium chloride 20 mEq 20 meq PO BID 07/16/24 07/16/24 History tablet,extended release(part/cryst) Allergies Allergy/AdvReac Type Severity Reaction Status Date / Time amiodarone Allergy Severe Hives Verified 07/08/24 09:24 codeine AdvReac Mild Itching Verified 07/08/24 09:24 Vital Signs Vital Signs - 24 hr 07/16/24 10:06 07/16/24 10:17 07/16/24 10:20 Temperature 98.3 F Pulse Rate 96 90 Respiratory Rate 24 H 18 Blood Pressure 99/77 L Pulse Oximetry 100 100 100 Oxygen Delivery CPAP CPAP CPAP Fraction of Inspired Oxygen 40 07/16/24 10:32 07/16/24 10:47 07/16/24 11:02 Temperature Pulse Rate 103 H 81 94 Respiratory Rate 15 14 14 Blood Pressure 99/77 L 112/78 102/90 Pulse Oximetry 100 100 100 Oxygen Delivery Fraction of Inspired Oxygen 07/16/24 11:17 07/16/24 11:23 07/16/24 11:32 Temperature Pulse Rate 98 98 104 H Respiratory Rate 21 H 15 17 Blood Pressure 109/56 L 130/78 Pulse Oximetry 99 97 98 Oxygen Delivery CPAP Fraction of Inspired Oxygen 07/16/24 11:47 07/16/24 12:02 07/16/24 12:32 Temperature Pulse Rate 89 93 96 Respiratory Rate 18 18 18 Blood Pressure 119/71 123/68 140/86 Pulse Oximetry 98 97 96 Oxygen Delivery Fraction of Inspired Oxygen 07/16/24 13:02 07/16/24 13:10 07/16/24 13:26 Temperature Pulse Rate 89 89 105 H Respiratory Rate 17 24 H 23 H Blood Pressure 134/77 110/65 Pulse Oximetry 100 96 97 Oxygen Delivery CPAP Fraction of Inspired Oxygen 07/16/24 13:32 07/16/24 14:02 07/16/24 14:32 Temperature Pulse Rate 86 85 91 Respiratory Rate 16 15 19 Blood Pressure 124/60 118/79 124/53 L Pulse Oximetry 98 97 97 Oxygen Delivery Fraction of Inspired Oxygen 07/16/24 15:13 07/16/24 15:32 07/16/24 16:02 Temperature Pulse Rate 96 107 H 108 H Respiratory Rate 18 21 H 16 Blood Pressure 121/78 139/57 L Pulse Oximetry 97 97 97 Oxygen Delivery CPAP Fraction of Inspired Oxygen 07/16/24 16:31 07/16/24 17:02 07/16/24 18:45 Temperature Pulse Rate 100 98 99 Respiratory Rate 18 16 12 Blood Pressure 120/95 H 128/20 L 122/65 Pulse Oximetry 96 98 Oxygen Delivery Fraction of Inspired Oxygen 07/16/24 19:01 Temperature Pulse Rate 84 Respiratory Rate 12 Blood Pressure Pulse Oximetry 98 Oxygen Delivery CPAP Fraction of Inspired Oxygen Exam Narrative: General: Mildly ill-appearing female sitting up in bed on BiPAP in no acute distress. Weight: 140.6 kg. BMI: 56.7. HEENT: PERRL, EOMI. Mild scleral icterus. Oral mucosa appears tacky through the BiPAP mask. Neck: Supple. Limited due to neck circumference. No obvious JVD. Respiratory: Tolerating BiPAP in able to speak freely through the mask. Respirations do not seem to be labored on the BiPAP. Lung sounds are diminished at the right base with scattered crackles. Cardiovascular: Irregularly irregular rate and rhythm. Gastrointestinal: Abdomen is morbidly obese and nontender with positive bowel sounds. Negative Skelton sign. No guarding or rebound tenderness. Skin: Warm and dry. Extremities: No cyanosis or clubbing. Pitting edema of the lower extremities up to the lower abdomen. No obvious palpable knots or cords. Negative Benny sign bilaterally. Neurological: Alert and oriented. Cranial nerves 2-12 are grossly intact. No gross focal deficits to casual conversation. Psychiatric: Cooperative with appropriate mood and affect. H&P: Results Labs Labs: Short CBC 07/16/24 Range/Units 10:45 WBC 10.1 H (4.5-10.0) K/mm3 Hgb 9.8 L (12.0-15.0) g/dL Hct 32.5 L (37.0-47.0) % Plt Count 249 (150-375) k/mm3 BMP 07/16/24 10:45 Sodium 139 Potassium 4.6 Chloride 105 Carbon Dioxide 26 BUN 14 D Creatinine 1.12 H Glucose 193 H Calcium 8.6 Cardiac Enzymes 07/16/24 Range/Units 10:45 Troponin I < 0.012 (0.000-0.034) ng/mL Liver Function 07/16/24 Range/Units 10:45 Total Bilirubin 3.1 H (0.2-1.3) mg/dL AST 88 H (14-36) U/L ALT 53 H (6-35) U/L Alkaline Phosphatase 123 (38-126) U/L Albumin 3.2 L (3.5-5.1) g/dL Impressions Chest X-Ray 07/16/24 11:43 IMPRESSION: Right basal atelectasis versus pneumonia with large pleural effusion. Chest/Abdomen/Pelvis CTA 07/16/24 13:27 IMPRESSION: CHEST: 1. Large right pleural effusion with atelectasis versus pneumonia in the right upper and lower lobe. 2. No pulmonary embolism. ABDOMEN/PELVIS: 1. Ascites with fluid around the liver and in the pelvis 2. Liver cirrhosis. 3. Portal hypertension with prominent vessels in the splenic bed. 4. Distended gallbladder with slightly thickened wall. No bladder stones. Chest X-Ray 07/16/24 16:50 IMPRESSION: No pneumothorax following right-sided thoracentesis, as detailed above. Assessment and Plan Assessment and plan (1) Acute respiratory failure with hypoxia: Code(s): J96.01 - Acute respiratory failure with hypoxia Status: Acute (2) Pleural effusion on right: Code(s): J90 - Pleural effusion, not elsewhere classified Status: Acute (3) Diastolic dysfunction: Code(s): I51.89 - Other ill-defined heart diseases Status: Acute (4) Atrial fibrillation: Code(s): I48.91 - Unspecified atrial fibrillation Status: Acute (5) Cirrhosis of liver with ascites: Code(s): K74.60 - Unspecified cirrhosis of liver; R18.8 - Other ascites Status: Acute (6) Hepatic steatosis: Code(s): K76.0 - Fatty (change of) liver, not elsewhere classified Status: Acute (7) Chronic anemia: Code(s): D64.9 - Anemia, unspecified Status: Acute (8) Obstructive sleep apnea on CPAP: Code(s): G47.33 - Obstructive sleep apnea (adult) (pediatric) Status: Chronic (9) Alcohol abuse: Code(s): F10.10 - Alcohol abuse, uncomplicated Status: Acute (10) Hypothyroidism: Code(s): E03.9 - Hypothyroidism, unspecified Status: Chronic (11) Type 2 diabetes mellitus: Code(s): E11.9 - Type 2 diabetes mellitus without complications Status: Acute Plan The patient presented to the emergency department for evaluation of shortness of breath as detailed in HPI. Labs, imaging, EKG, and all reports were personally reviewed. Her SpO2 was reportedly 80% on EMS arrival and she was placed on CPAP and transitioned to BiPAP in the ED. Chest CTA was negative for pulmonary embolism but did demonstrate large right-sided pleural effusion for which she underwent diagnostic and therapeutic thoracentesis with improvement in her work of breathing. This could be secondary to congestive heart failure as she received blood transfusions and IV fluids during her recent stay versus possible hepatic hydrothorax versus other. Doubt parapneumonic infection. Pleural fluid studies and cultures are pending. BiPAP will be weaned as tolerated. An echocardiogram has been ordered. She will need to follow-up with GI regarding findings of cirrhosis noted on CT scan, may be secondary to hepatic steatosis. Her hemoglobin is stable/improved be monitored. Atrial fibrillation is rate controlled on diltiazem. Rivaroxaban is currently on hold given recent, profound anemia. Initiate sliding scale insulin, Accu-Cheks, and hypoglycemic protocol. Blood pressures were reviewed and they are stable. Continue levothyroxine; recent TSH was within normal limits. She denies having signs or symptoms of alcohol withdrawal however will initiate CIWA protocol. Her home medications will be reviewed and resumed as appropriate. Findings and treatment plan were discussed with the patient. Questions were solicited and answered to satisfaction. The patient's medical management will be taken over by the hospitalist team in a.m. Quality VTE Prophylaxis VTE prophylaxis: mechanical ordered If No VTE Prophylaxis Answer both mechanical and pharmacologic: Reason no pharmacologic proph: medical contraindication (anemia) Hospitalist MIPS Advance Care Plan I have confirmed that the patient's Advanced Care Plan is present, code status is documented, or surrogate decision maker is listed in patient medical record.: Yes Medication Reconciliation I have utilized all available resources to obtain, update and review the patients current medications (includes all prescriptions, OTC, herbals, cannabis, and nutritional supplements).: Yes
[2024-07-16] MEDS: LORazepam INJ (*CRX) 2 MG/ML VIAL 0.5 MG IV PUSH (21:07)
--- NOTE | 2024-07-16 22:17 | ADMGEN ---
This patient, Michelle Odom, was admitted to IMU Room 204-01. Patient/family oriented to hospital policies and general routines including ID bracelet, bed and alarms, visiting hours, pain management, procedures, bathroom and other care routines, personal items, smoking policy, room service/diet, and visiting hours. Information on how to activate the Rapid Response Team has been discussed. Patient/Family are encouraged to report perceived risks to care and to ask questions if they do not understand what they are told or what they should do.
[2024-07-17] VITALS (18 sets, daily range): BP systolic 102–119; BP diastolic 50–68; PULSE 59–107; RESP 14–20; TEMP 36.3–36.6; O2SAT 90–98
--- NOTE | 2024-07-17 00:39 | ECHO_ITS ---
Patient Info Name: Michelle Odom Age: 63 years : 1960 Gender: Female Ht: 62 in Wt: 309 lbs BSA: 2.57 m2 HR: 88 bpm BP: 104 / 62 mmHg Heart Rhythm: Atrial Fibrillation Technical Quality: Fair Exam Date: 07/17/2024 1:26 PM Exam Location: Echo Lab Patient Status: Inpatient Admit Date: 07/16/2024 Staff Ordering Physician: Sumaya Hyatt PA-C [facility] Worker: Chasity Huff RDCS Attending Provider: Zeb Das MD Referring Physician: Olena ABDULLAHI; Exam Type: CA echo doppler color flow Study Info Indications - Afib - CHF Complete two-dimensional, color flow and Doppler transthoracic echocardiogram is performed. Summary 1. Technically difficult study with limited views. 2. Left ventricular chamber dimension is normal. 3. Left ventricular systolic function is normal, estimated at 55-60%. 4. There is mildly increased left ventricular wall thickness. 5. Right ventricular chamber dimension is mildly enlarged. 6. Right ventricular systolic function is normal. 7. Left atrial chamber dimension is severely enlarged. 8. Right atrial chamber dimension is severely enlarged. 9. There is mild mitral valve regurgitation. 10. There is mild tricuspid valve regurgitation. Left Ventricle Left ventricular chamber dimension is normal. Left ventricular systolic function is normal, estimated at 55-60%. There is mildly increased left ventricular wall thickness. The left ventricular diastolic function is abnormal. Right Ventricle Right ventricular chamber dimension is mildly enlarged. Right ventricular systolic function is normal. Left Atria Left atrial chamber dimension is severely enlarged. Right Atria Right atrial chamber dimension is severely enlarged. Atrial Septum Intact interatrial septum visualized by color flow imaging. Aortic Valve The aortic valve is not well visualized. There is no aortic valve regurgitation. Pulmonic Valve The pulmonic valve is not well visualized. There is no pulmonic regurgitation. Mitral Valve There is mild mitral valve regurgitation. The mitral valve annulus is mildly calcified. Tricuspid Valve There is mild tricuspid valve regurgitation. Pericardium/Pleural The pericardium appears normal. There is no pericardial effusion. Inferior Vena Cava Inferior vena cava is not well visualized. Aorta The aortic root size at the sinus of Valsalva is normal. Left Ventricular Outflow Tract Name Value Normal LVOT 2D LVOT Diameter 2.0 cm LVOT Doppler LVOT Peak Gradient 7 mmHg LVOT Mean Gradient 4 mmHg LVOT VTI 24 cm LVOT VTI/AV VTI Ratio 0.7 LVOT Stroke Volume 80 ml LVOT CO 8.1 l/min LVOT CI 3.1 l/min/m2 Pulmonic Valve Name Value Normal RVOT Doppler RVOT Peak Gradient 4 mmHg PV Doppler PV Peak Gradient 7 mmHg Mitral Valve Name Value Normal MV Doppler MV Decel Jay 540 cm/s2 MV PHT 66 ms MV Area (PHT) 3.4 cm2 4.0-5.0 MV Diastolic Function MV E Peak Velocity 122 cm/s MV A Peak Velocity 1 cm/s MV E/A 123.3 MV Decel Time 226 ms MV Annular TDI MV E/e' (Septal) 15.9 <=8.0 MV E/e' (Lateral) 10.4 <=8.0 MV E/e' (Average) 13.1 Tricuspid Valve Name Value Normal TV Regurgitation Doppler TR Peak Velocity 254 cm/s TR Peak Gradient 26 mmHg Aortic Valve Name Value Normal AV Doppler AV Peak Velocity 165 cm/s AV Peak Gradient 11 mmHg AV Mean Gradient 6 mmHg AV VTI 33 cm AV Area (Cont Eq VTI) 2.4 cm2 >=3.0 AV Area (Cont Eq Charles) 2.6 cm2 AV Regurgitation 2D LVOT Area 3.3 cm2 Ventricles Name Value Normal LV Dimensions 2D/MM IVS Diastolic Thickness (2D) 1.2 cm 0.6-1.0 LVID Diastole (2D) 5.6 cm 3.8-5.2 LVIW Diastolic Thickness (2D) 1.1 cm 0.6-0.9 LVID Systole (2D) 3.8 cm 2.2-3.5 LVOT Diameter 2.0 cm LV Mass (2D Cubed) 265.47 g 67.00-162.00 LV Mass Index (2D Cubed) 103 g/m2 43-95 Relative Wall Thickness (2D) 0.41 LV Fractional Shortening/Ejection Fraction 2D/MM LV Fractional Shortening (2D) 32 % 27-45 LV EF (2D Teicholz) 59 % 54-74 LV Diastolic Volume (4C MOD) 129 ml LV EF (4C MOD) 63 % LV Diastolic Volume (2C MOD) 143 ml LV EF (2C MOD) 55 % LV Diastolic Volume (BP MOD) 136 ml 46-106 LV Diastolic Volume Index (BP MOD) 53 ml/m2 29-61 LV Systolic Volume (BP MOD) 55 ml 14-42 LV Systolic Volume Index (BP MOD) 22 ml/m2 8-24 LV EF (BP MOD) 59 % 54-74 LV Diastolic Length (4C) 8.4 cm LV Systolic Length (4C) 6.9 cm LV Stroke Volume (4C MOD) 82 ml Atria Name Value Normal LA Dimensions LA Volume (4C A-L) 127 ml LA Volume (BP A-L) 135 ml RA Dimensions RA Area (4C) 26.7 cm2 <=18.0 Report Signatures
[2024-07-17 04:45] LABS: Hematocrit 30.1 % (37.0-47.0); Hemoglobin 8.7 g/dL (12.0-15.0); Mean Corpuscular HGB Conc 28.9 g/dl (32-36); Mean Corpuscular Hemoglobin 27.9 pg (26-34); Mean Corpuscular Volume 96.5 fl (80-100); Mean Platelet Volume 10.2 fl (7.4-10.4); Platelet Count Result 197 k/mm3 (150-375); Red Blood Count 3.12 M/mm3 (4.2-5.4); Red Cell Distribution Width 21.4 % (11.5-14.5)
[2024-07-17 05:06] LABS: Alanine Aminotransferase 44 U/L (6-35); Albumin Level 2.7 g/dL (3.5-5.1); Alkaline Phosphatase 91 U/L (38-126); Anion Gap 6 mmol/L (4-12); Aspartate Amino Transferase 58 U/L (14-36); Bilirubin,Total 2.4 mg/dL (0.2-1.3); Blood Urea Nitrogen 14 mg/dL (7-17); Calcium 8.6 mg/dL (8.4-10.2); Carbon Dioxide 25 mmol/L (22-30); Chloride 107 mmol/L (98-107); Estimated CRCL calculation 77 ml/min; Estimated Glomerular Filt Rate > 60; Glucose 171 mg/dL (65-110); Potassium 4.9 mmol/L (3.4-5.0); Sodium 138 mmol/L (137-145)
[2024-07-17] MEDS: LEVOTHYROXINE SODIUM 25 MCG TABLET PO (05:54)
[2024-07-17 07:16] LABS: Glucose Point of Care 157 mg/dl (65-105)
[2024-07-17] MEDS: FOLIC ACID 1 MG TABLET PO (08:45)
[2024-07-17] MEDS: BUMETANIDE 1 MG TABLET 2 MG PO (08:45)
[2024-07-17] MEDS: THIAMINE HCL 100 MG TABLET PO (08:45)
[2024-07-17] MEDS: POTASSIUM CHLORIDE 20 MEQ ER TABLET PO ×2 (08:45→16:44)
[2024-07-17] MEDS: EMPAGLIFLOZIN 25 MG TABLET BY MOUTH (08:45)
[2024-07-17] MEDS: dilTIAZem HCL CD 180 MG CAP.24HR 360 MG PO (08:45)
[2024-07-17] MEDS: ASCORBIC ACID 500 MG TABLET PO (08:45)
[2024-07-17] MEDS: PANTOPRAZOLE 40 MG TABLET PO (08:45)
--- NOTE | 2024-07-17 09:59 | PC.NURSE ---
On 07/17/24, the student, [Otilia Moran], provided care and completed [facility] documentation on this patient. I have reviewed the student's documentation and agree with the findings.
[2024-07-17 11:09] LABS: Glucose Point of Care 169 mg/dl (65-105)
--- NOTE | 2024-07-17 13:29 | PC.NURSE ---
On 07/17/24, the student, [Gayle Montanez], provided care and completed [facility] documentation on this patient. I have reviewed the student's documentation and agree with the findings.
[2024-07-17 16:15] LABS: Glucose Point of Care 177 mg/dl (65-105)
--- NOTE | 2024-07-17 17:43 | P.PNIM_ITS ---
Progress Note: A&P Assessment and Plan (1) Acute respiratory failure with hypoxia: Code(s): J96.01 - Acute respiratory failure with hypoxia Status: Acute (2) Pleural effusion on right: Code(s): J90 - Pleural effusion, not elsewhere classified Status: Acute (3) Diastolic dysfunction: Code(s): I51.89 - Other ill-defined heart diseases Status: Acute (4) Atrial fibrillation: Code(s): I48.91 - Unspecified atrial fibrillation Status: Acute (5) Cirrhosis of liver with ascites: Code(s): K74.60 - Unspecified cirrhosis of liver; R18.8 - Other ascites Status: Acute (6) Hepatic steatosis: Code(s): K76.0 - Fatty (change of) liver, not elsewhere classified Status: Acute (7) Chronic anemia: Code(s): D64.9 - Anemia, unspecified Status: Acute (8) Obstructive sleep apnea on CPAP: Code(s): G47.33 - Obstructive sleep apnea (adult) (pediatric) Status: Chronic (9) Alcohol abuse: Code(s): F10.10 - Alcohol abuse, uncomplicated Status: Acute (10) Hypothyroidism: Code(s): E03.9 - Hypothyroidism, unspecified Status: Chronic (11) Type 2 diabetes mellitus: Code(s): E11.9 - Type 2 diabetes mellitus without complications Status: Acute Plan Right pleural effusion likely from liver cirrhosis vs CHF S/p thoracentesis and pleural studies pending CT AP showed liver cirrhosis and ascites Continue BUmex and Spironolactone monitor Liver cirrhosis Continue diuretics above Diastolic CHF Continue diuretics F/u ECHO Distended GB with slightly thickened wall US live ordered monitor Hypothyroidism continue home Levothyroxine DM2 SSI with accucheks, adjust with clinical course Alcohol abuse counseled about cessation Anemia Hb 8.7, received 3 units of pRBC last admission Soluble transferrin low GI was involved and no intervention done since minoonet did not have obvious bleed monitor H and H DVT prophylaxis on SCDs, Xarelto on hold due to GI bleed monitor Subjective Date/time seen: 07/17/24 17:43 Interval history: Patient is comfortable at bedside Review of Systems Review of Systems: 12 systems were reviewed and are negativ e except for as per HPI. Exam Narrative: General: Mildly ill-appearing female sitting up in bed on BiPAP in no acute distress. Weight: 140.6 kg. BMI: 56.7. HEENT: PERRL, EOMI. Mild scleral icterus. Oral mucosa appears tacky through the BiPAP mask. Neck: Supple. Limited due to neck circumference. No obvious JVD. Respiratory: Tolerating BiPAP in able to speak freely through the mask. Respirations do not seem to be labored on the BiPAP. Lung sounds are diminished at the right base with scattered crackles. Cardiovascular: Irregularly irregular rate and rhythm. Gastrointestinal: Abdomen is morbidly obese and nontender with positive bowel sounds. Negative Skelton sign. No guarding or rebound tenderness. Skin: Warm and dry. Extremities: No cyanosis or clubbing. Pitting edema of the lower extremities up to the lower abdomen. No obvious palpable knots or cords. Negative Benny sign bilaterally. Neurological: Alert and oriented. Cranial nerves 2-12 are grossly intact. No gross focal deficits to casual conversation. Psychiatric: Cooperative with appropriate mood and affect. Objective Data Vital Signs Vital Signs: Vital Signs - 24 hr 07/16/24 18:45 07/16/24 19:01 07/16/24 20:59 Temperature Pulse Rate 99 84 102 H Pulse Rate [Monitor] Respiratory Rate 12 12 14 Blood Pressure 122/65 Pulse Oximetry 98 98 99 Oxygen Delivery CPAP CPAP Oxygen Flow Rate Fraction of Inspired Oxygen 30 07/16/24 20:59 07/16/24 21:57 07/16/24 22:00 Temperature 97.8 F Pulse Rate 102 H 80 100 Pulse Rate [Monitor] Respiratory Rate 14 18 Blood Pressure 122/74 Pulse Oximetry 99 98 Oxygen Delivery CPAP Oxygen Flow Rate Fraction of Inspired Oxygen 07/16/24 22:58 07/16/24 22:58 07/16/24 23:40 Temperature 97.8 F Pulse Rate 100 100 86 Pulse Rate [Monitor] Respiratory Rate 18 18 Blood Pressure 133/98 H Pulse Oximetry 98 94 Oxygen Delivery CPAP Oxygen Flow Rate Fraction of Inspired Oxygen 30 07/17/24 01:33 07/17/24 02:00 07/17/24 03:23 Temperature 97.4 F L Pulse Rate 90 92 107 H Pulse Rate [Monitor] Respiratory Rate 14 18 Blood Pressure 104/62 Pulse Oximetry 94 96 Oxygen Delivery CPAP Oxygen Flow Rate Fraction of Inspired Oxygen 07/17/24 04:00 07/17/24 04:00 07/17/24 04:00 Temperature Pulse Rate 99 99 Pulse Rate [Monitor] Respiratory Rate 18 Blood Pressure 104/62 Pulse Oximetry 96 Oxygen Delivery CPAP Oxygen Flow Rate Fraction of Inspired Oxygen 30 07/17/24 05:46 07/17/24 06:00 07/17/24 07:36 Temperature 97.8 F Pulse Rate 88 95 Pulse Rate [Monitor] Respiratory Rate 18 Blood Pressure Pulse Oximetry 93 97 Oxygen Delivery Nasal Cannula Oxygen Flow Rate 2.5 Fraction of Inspired Oxygen 30 07/17/24 07:43 07/17/24 08:00 07/17/24 08:00 Temperature Pulse Rate Pulse Rate [Monitor] 92 Respiratory Rate Blood Pressure 112/68 Pulse Oximetry 94 Oxygen Delivery Nasal Cannula Oxygen Flow Rate 2.5 Fraction of Inspired Oxygen 07/17/24 08:00 07/17/24 09:24 07/17/24 09:31 Temperature Pulse Rate 101 H Pulse Rate [Monitor] Respiratory Rate Blood Pressure Pulse Oximetry 97 94 Oxygen Delivery Nasal Cannula Nasal Cannula Oxygen Flow Rate 2.5 2.5 Fraction of Inspired Oxygen 07/17/24 10:00 07/17/24 11:36 07/17/24 12:00 Temperature 98 F Pulse Rate 107 H 70 Pulse Rate [Monitor] 97 Respiratory Rate 18 Blood Pressure 119/59 L Pulse Oximetry 98 Oxygen Delivery Oxygen Flow Rate Fraction of Inspired Oxygen 07/17/24 16:00 07/17/24 16:00 Temperature 97.6 F Pulse Rate 59 L Pulse Rate [Monitor] 81 Respiratory Rate 18 Blood Pressure 102/64 Pulse Oximetry 94 Oxygen Delivery Oxygen Flow Rate Fraction of Inspired Oxygen Intake/Output Intake/Output: Intake & Output 07/14/24 07/15/24 07/16/24 07/17/24 23:59 23:59 23:59 23:59 Intake Total 870 Output Total 1700 Balance -830 Meds/Results Medications: Active Medications Generic Name Dose Route Start Last Admin Trade Name Freq PRN Reason Stop Dose Admin Acetaminophen 650 mg 07/16/24 15:30 Acetaminophen 325 Mg Tablet PO Q4H PRN Mild Pain (1-3) or Fever Ascorbic Acid 500 mg 07/17/24 09:00 07/17/24 08:45 Ascorbic Acid 500 Mg Tablet PO 500 mg DAILY JUSTIN Administration Bumetanide 2 mg 07/17/24 09:00 07/17/24 08:45 Bumetanide 1 Mg Tablet PO 2 mg DAILY JUSTIN Administration Dextrose 12.5 gm 07/17/24 11:11 Dextrose 50% 25 Gm/50 Ml Syringe IV PUSH PRN PRN Hypoglycemia Protocol Diltiazem HCl 360 mg 07/17/24 09:00 07/17/24 08:45 Diltiazem Hcl Cd 180 Mg Cap.24hr PO 360 mg QAM JUSTIN Administration Empagliflozin 25 mg 07/17/24 09:00 07/17/24 08:45 Empagliflozin 25 Mg Tablet BY MOUTH 25 mg DAILY JUSTIN Administration Folic Acid 1 mg 07/17/24 09:00 07/17/24 08:45 Folic Acid 1 Mg Tablet PO 1 mg DAILY JUSTIN Administration Glucagon 1 mg 07/17/24 11:11 Glucagon For Inj 1 Mg Vial IM PRN PRN Hypoglycemia Protocol Glucose 15 gm 07/17/24 11:11 Glucose Oral Gel 15 Gm Of Glucse In 37.5 Gm Tube PO PRN PRN Hypoglycemia Protocol Dextrose 1,000 mls @ 100 mls/hr 07/17/24 11:11 Dextrose 5% 1,000 Ml IVPB PRN PRN Hypoglycemia Protocol Insulin Aspart 2 - 5 units 07/17/24 12:00 07/17/24 16:25 Insulin Aspart (*Bkc) 100 Units/Ml SUB-Q Not Given TIDWM JUSTIN Protocol Insulin Aspart 1 - 2 units 07/17/24 21:00 Insulin Aspart (*Bkc) 100 Units/Ml SUB-Q HS JUSTIN Protocol Levothyroxine Sodium 25 mcg 07/17/24 06:30 07/17/24 05:54 Levothyroxine Sodium 25 Mcg Tablet PO 25 mcg DAILY@0630 JUSTIN Administration Ondansetron HCl 4 mg 07/16/24 15:30 Ondansetron Inj 4 Mg/2 Ml Vial IV PUSH Q4H PRN Nausea Pantoprazole Sodium 40 mg 07/17/24 09:00 07/17/24 08:45 Pantoprazole 40 Mg Tablet PO 40 mg QAM JUSTIN Administration Perflutren Lipid Microsphere 0 ml 07/17/24 00:39 Perflutren Lipid Microspheres 1.5 Ml Vial Diluted To 10 Ml Total Volume IV PUSH 07/20/24 00:39 ONCE PRN adequate visualization Protocol Potassium Chloride 20 meq 07/17/24 08:00 07/17/24 16:44 Potassium Chloride 20 Meq Er Tablet PO 20 meq BIDWM JUSTIN Administration Thiamine HCl 100 mg 07/17/24 09:00 07/17/24 08:45 Thiamine Hcl 100 Mg Tablet PO 100 mg QAM JUSTIN Administration Radiology Results: ITS Impressions Chest/Abdomen/Pelvis CTA 07/16/24 13:27 IMPRESSION: CHEST: 1. Large right pleural effusion with atelectasis versus pneumonia in the right upper and lower lobe. 2. No pulmonary embolism. ABDOMEN/PELVIS: 1. Ascites with fluid around the liver and in the pelvis 2. Liver cirrhosis. 3. Portal hypertension with prominent vessels in the splenic bed. 4. Distended gallbladder with slightly thickened wall. No bladder stones. Chest X-Ray 07/16/24 16:50 IMPRESSION: No pneumothorax following right-sided thoracentesis, as detailed above. Thoracentesis Ultrasound 07/17/24 08:58 IMPRESSION: 1. Successful ultrasound-guided thoracentesis yielding 1000 mL of yellow fluid. Venous Doppler Study 07/17/24 13:02 IMPRESSION: Negative bilateral lower extremity venous US. No deep vein thrombosis. Labs Labs: Laboratory Results - last 24 hr 07/16/24 07/17/24 07/17/24 16:35 04:05 07:13 WBC 10.0 RBC 3.12 L Hgb 8.7 L Hct 30.1 L MCV 96.5 MCH 27.9 MCHC 28.9 L RDW 21.4 H Plt Count 197 MPV 10.2 Sodium 138 Potassium 4.9 Chloride 107 Carbon Dioxide 25 Anion Gap 6 BUN 14 Creatinine 0.90 Estim Creat Clear Calc 77 Estimated GFR > 60 Glucose 171 H POC Capillary Glucose 157 H Calcium 8.6 Total Bilirubin 2.4 H AST 58 H ALT 44 H Alkaline Phosphatase 91 Total Protein 7.0 Albumin 2.7 L Pleural Fluid Source Pleural fluid Pleural Color Yellow Pleural Appearance Clear Pleural RBC < 2000 Pleural Nuc Cells 149 Pleural Neutrophils 22 Pleural Lymphocytes 46 Pleural Monocytes 21 Pleural Macrophages 9 Pleural Mesothelial 2 07/17/24 07/17/24 11:06 16:10 WBC RBC Hgb Hct MCV MCH MCHC RDW Plt Count MPV Sodium Potassium Chloride Carbon Dioxide Anion Gap BUN Creatinine Estim Creat Clear Calc Estimated GFR Glucose POC Capillary Glucose 169 H 177 H Calcium Total Bilirubin AST ALT Alkaline Phosphatase Total Protein Albumin Pleural Fluid Source Pleural Color Pleural Appearance Pleural RBC Pleural Nuc Cells Pleural Neutrophils Pleural Lymphocytes Pleural Monocytes Pleural Macrophages Pleural Mesothelial Quality VTE Prophylaxis VTE prophylaxis: mechanical ordered
[2024-07-17] MEDS: SPIRONOLACTONE 50 MG TABLET 100 MG PO (18:21)
--- NOTE | 2024-07-17 18:43 | PC.NURSE ---
This patient, Michelle Odom, was transferred to [facility] on 07/17/24 at 1901. Personal belongings sent with patient. Report given to DHEERAJ Dno. Appropriate documentation sent with patient.
[2024-07-17] MEDS: INSULIN ASPART (*BKC) 100 UNITS/ML SUB-Q (20:20)
[2024-07-17 21:44] LABS: Glucose Point of Care 227 mg/dl (65-105)
[2024-07-18] VITALS (7 sets, daily range): BP systolic 100–117; BP diastolic 45–58; PULSE 69–79; RESP 18–20; TEMP 36.6–36.9; O2SAT 90–95
[2024-07-18 05:13] LABS: Basophils Percent Auto 0.1 % (0.2-1.2); Hematocrit 28.7 % (37.0-47.0); Hemoglobin 8.5 g/dL (12.0-15.0); Immature Granulocyte Absolute 0.09 K/mm3 (0.00-0.031); Immature Granulocyte Percent A 0.7 % (0-0.5); Lymphocytes Absolute Auto 0.65 K/mm3 (0.9-3.2); Lymphocytes Percent Auto 5.1 % (18.3-44.2); Mean Corpuscular HGB Conc 29.6 g/dl (32-36); Mean Corpuscular Hemoglobin 28.1 pg (26-34); Mean Corpuscular Volume 94.7 fl (80-100); Mean Platelet Volume 10.4 fl (7.4-10.4); Monocytes Absolute Auto 0.8 K/mm3 (0.1-0.6); Monocytes Percent Auto 6.6 % (2.6-8.5); Neutrophils Absolute Auto 11.1 K/mm3 (1.3-6.7); Neutrophils Percent Auto 87.5 % (45.5-73.1); Platelet Count Result 205 k/mm3 (150-375); Red Blood Count 3.03 M/mm3 (4.2-5.4); Red Cell Distribution Width 21.2 % (11.5-14.5); White Blood Count 12.7 K/mm3 (4.5-10.0)
[2024-07-18 05:27] LABS: Alanine Aminotransferase 41 U/L (6-35); Albumin Level 2.6 g/dL (3.5-5.1); Alkaline Phosphatase 106 U/L (38-126); Anion Gap 4 mmol/L (4-12); Aspartate Amino Transferase 50 U/L (14-36); Bilirubin,Total 1.8 mg/dL (0.2-1.3); Blood Urea Nitrogen 18 mg/dL (7-17); Calcium 8.4 mg/dL (8.4-10.2); Carbon Dioxide 27 mmol/L (22-30); Chloride 107 mmol/L (98-107); Estimated CRCL calculation 68 ml/min; Estimated Glomerular Filt Rate 55; Glucose 163 mg/dL (65-110); Potassium 4.3 mmol/L (3.4-5.0); Sodium 138 mmol/L (137-145)
[2024-07-18 05:28] LABS: Lactic Acid Reflex 1.4 mmol/L (0.7-2.0)
[2024-07-18 05:42] LABS: Band Neutrophils Percent 0 % (0-6)
[2024-07-18 05:43] LABS: Anisocytosis 1+; Hypochromasia 1+; Macrocytosis 1+ (NORMAL); Platelet Estimate Adequate (Adequate); Target Cells 1+
[2024-07-18 05:44] LABS: Schistocytes None Seen
[2024-07-18] MEDS: POTASSIUM CHLORIDE 20 MEQ ER TABLET PO ×2 (08:10→16:20)
[2024-07-18] MEDS: FOLIC ACID 1 MG TABLET PO (08:10)
[2024-07-18] MEDS: ASCORBIC ACID 500 MG TABLET PO (08:10)
[2024-07-18] MEDS: SPIRONOLACTONE 50 MG TABLET 100 MG PO (08:10)
[2024-07-18] MEDS: BUMETANIDE 1 MG TABLET 2 MG PO (08:11)
[2024-07-18] MEDS: THIAMINE HCL 100 MG TABLET PO (08:11)
[2024-07-18] MEDS: EMPAGLIFLOZIN 25 MG TABLET BY MOUTH (08:11)
[2024-07-18] MEDS: PANTOPRAZOLE 40 MG TABLET PO (08:11)
[2024-07-18] MEDS: dilTIAZem HCL CD 180 MG CAP.24HR 360 MG PO (08:11)
[2024-07-18 08:23] LABS: Glucose Point of Care 131 mg/dl (65-105)
[2024-07-18] MEDS: IRON SUCROSE COMPLEX 400 MG, IRON SUCROSE COMPLEX 100 MG in SODIUM CHLORIDE 0.9% IV 250 ML 78.57 MG IVPB (09:43)
--- NOTE | 2024-07-18 10:25 | P.PNIM_ITS ---
Progress Note: A&P Assessment and Plan (1) Acute respiratory failure with hypoxia: Code(s): J96.01 - Acute respiratory failure with hypoxia Status: Acute (2) Pleural effusion on right: Code(s): J90 - Pleural effusion, not elsewhere classified Status: Acute (3) Diastolic dysfunction: Code(s): I51.89 - Other ill-defined heart diseases Status: Acute (4) Atrial fibrillation: Code(s): I48.91 - Unspecified atrial fibrillation Status: Acute (5) Cirrhosis of liver with ascites: Code(s): K74.60 - Unspecified cirrhosis of liver; R18.8 - Other ascites Status: Acute (6) Hepatic steatosis: Code(s): K76.0 - Fatty (change of) liver, not elsewhere classified Status: Acute (7) Chronic anemia: Code(s): D64.9 - Anemia, unspecified Status: Acute (8) Obstructive sleep apnea on CPAP: Code(s): G47.33 - Obstructive sleep apnea (adult) (pediatric) Status: Chronic (9) Alcohol abuse: Code(s): F10.10 - Alcohol abuse, uncomplicated Status: Acute (10) Hypothyroidism: Code(s): E03.9 - Hypothyroidism, unspecified Status: Chronic (11) Type 2 diabetes mellitus: Code(s): E11.9 - Type 2 diabetes mellitus without complications Status: Acute Plan Right pleural effusion likely from liver cirrhosis vs CHF S/p thoracentesis and pleural studies pending CT AP showed liver cirrhosis and ascites Continue Bumex and Spironolactone monitor Liver cirrhosis US liver showed liver cirrhosis Continue diuretics above Possible Acute Cholecystitis US liver showed possible Cholecystitis Blood culture Start Zosyn HIDA Scan pending monitor Diastolic CHF Continue diuretics F/u ECHO Distended GB with slightly thickened wall US live ordered monitor Hypothyroidism continue home Levothyroxine DM2 SSI with accucheks, adjust with clinical course Alcohol abuse counseled about cessation Anemia Hb 8.7, Ferritin last admission was 15 Patient received one dose of IV iron prior admission Give 500mg IV today will consider iron replete GI was involved in prior admission and no intervention done since patient did not have obvious bleed monitor DVT prophylaxis on SCDs, Xarelto on hold due to GI bleed monitor Subjective Date/time seen: 07/18/24 10:25 Interval history: Patient is comfortable at bedside US liver suspicious for Acute cholecystitis, HIDA scan ordered Review of Systems Review of Systems: 12 systems were reviewed and are negativ e except for as per HPI. Exam Narrative: General: Mildly ill-appearing female sitting up in bed on BiPAP in no acute distress. Weight: 140.6 kg. BMI: 56.7. HEENT: PERRL, EOMI. Mild scleral icterus. Oral mucosa appears tacky through the BiPAP mask. Neck: Supple. Limited due to neck circumference. No obvious JVD. Respiratory: Tolerating BiPAP in able to speak freely through the mask. Respirations do not seem to be labored on the BiPAP. Lung sounds are diminished at the right base with scattered crackles. Cardiovascular: Irregularly irregular rate and rhythm. Gastrointestinal: Abdomen is morbidly obese and nontender with positive bowel sounds. Negative Skelton sign. No guarding or rebound tenderness. Skin: Warm and dry. Extremities: No cyanosis or clubbing. Pitting edema of the lower extremities up to the lower abdomen. No obvious palpable knots or cords. Negative Benny sign bilaterally. Neurological: Alert and oriented. Cranial nerves 2-12 are grossly intact. No gross focal deficits to casual conversation. Psychiatric: Cooperative with appropriate mood and affect. Objective Data Vital Signs Vital Signs: Vital Signs - 24 hr 07/17/24 11:36 07/17/24 12:00 07/17/24 16:00 Temperature 98 F Pulse Rate 70 Pulse Rate [Monitor] 97 81 Respiratory Rate 18 Blood Pressure 119/59 L Pulse Oximetry 98 Oxygen Delivery Oxygen Flow Rate Fraction of Inspired Oxygen 07/17/24 16:00 07/17/24 18:59 07/17/24 20:00 Temperature 97.6 F 97.6 F Pulse Rate 59 L 62 Pulse Rate [Monitor] Respiratory Rate 18 17 Blood Pressure 102/64 105/62 Pulse Oximetry 94 96 90 Oxygen Delivery Nasal Cannula Oxygen Flow Rate 1 Fraction of Inspired Oxygen 07/17/24 20:52 07/18/24 01:00 07/18/24 03:10 Temperature 97.7 F Pulse Rate 91 79 Pulse Rate [Monitor] Respiratory Rate 20 18 Blood Pressure 116/50 L Pulse Oximetry 90 93 90 Oxygen Delivery CPAP Nasal Cannula Oxygen Flow Rate 2 Fraction of Inspired Oxygen 07/18/24 03:11 07/18/24 04:48 Temperature 98.4 F Pulse Rate 76 Pulse Rate [Monitor] Respiratory Rate 20 Blood Pressure 100/58 L Pulse Oximetry 92 93 Oxygen Delivery Nasal Cannula Oxygen Flow Rate 2 Fraction of Inspired Oxygen 30 Intake/Output Intake/Output: Intake & Output 07/15/24 07/16/24 07/17/24 07/18/24 23:59 23:59 23:59 23:59 Intake Total 870 240 Output Total 1700 600 Balance -830 -360 Meds/Results Medications: Active Medications Generic Name Dose Route Start Last Admin Trade Name Freq PRN Reason Stop Dose Admin Acetaminophen 650 mg 07/16/24 15:30 Acetaminophen 325 Mg Tablet PO Q4H PRN Mild Pain (1-3) or Fever Ascorbic Acid 500 mg 07/17/24 09:00 07/18/24 08:10 Ascorbic Acid 500 Mg Tablet PO 500 mg DAILY JUSTIN Administration Bumetanide 2 mg 07/17/24 09:00 07/18/24 08:11 Bumetanide 1 Mg Tablet PO 2 mg DAILY JUSTIN Administration Dextrose 12.5 gm 07/17/24 11:11 Dextrose 50% 25 Gm/50 Ml Syringe IV PUSH PRN PRN Hypoglycemia Protocol Diltiazem HCl 360 mg 07/17/24 09:00 07/18/24 08:11 Diltiazem Hcl Cd 180 Mg Cap.24hr PO 360 mg QAM JUSTIN Administration Empagliflozin 25 mg 07/17/24 09:00 07/18/24 08:11 Empagliflozin 25 Mg Tablet BY MOUTH 25 mg DAILY JUSTIN Administration Folic Acid 1 mg 07/17/24 09:00 07/18/24 08:10 Folic Acid 1 Mg Tablet PO 1 mg DAILY JUSTIN Administration Glucagon 1 mg 07/17/24 11:11 Glucagon For Inj 1 Mg Vial IM PRN PRN Hypoglycemia Protocol Glucose 15 gm 07/17/24 11:11 Glucose Oral Gel 15 Gm Of Glucse In 37.5 Gm Tube PO PRN PRN Hypoglycemia Protocol Dextrose 1,000 mls @ 100 mls/hr 07/17/24 11:11 Dextrose 5% 1,000 Ml IVPB PRN PRN Hypoglycemia Protocol Iron Sucrose 400 mg/ Iron 275 mls @ 78.571 mls/hr 07/18/24 09:00 07/18/24 09:43 Sucrose 100 mg/ Sodium IVPB 07/18/24 12:29 78.57 mls/hr Chloride ONCE ONE Administration Insulin Aspart 2 - 5 units 07/17/24 12:00 07/18/24 09:22 Insulin Aspart (*Bkc) 100 Units/Ml SUB-Q Not Given TIDWM [facility] Protocol Insulin Aspart 1 - 2 units 07/17/24 21:00 07/17/24 20:20 Insulin Aspart (*Bkc) 100 Units/Ml SUB-Q 1 units HS JUSTIN Administration Protocol Levothyroxine Sodium 25 mcg 07/17/24 06:30 07/18/24 05:34 Levothyroxine Sodium 25 Mcg Tablet PO Not Given DAILY@0630 [facility] Ondansetron HCl 4 mg 07/16/24 15:30 Ondansetron Inj 4 Mg/2 Ml Vial IV PUSH Q4H PRN Nausea Pantoprazole Sodium 40 mg 07/17/24 09:00 07/18/24 08:11 Pantoprazole 40 Mg Tablet PO 40 mg QAM [facility]IN Administration Perflutren Lipid Microsphere 0 ml 07/17/24 00:39 Perflutren Lipid Microspheres 1.5 Ml Vial Diluted To 10 Ml Total Volume IV PUSH 07/20/24 00:39 ONCE PRN adequate visualization Protocol Potassium Chloride 20 meq 07/17/24 08:00 07/18/24 08:10 Potassium Chloride 20 Meq Er Tablet PO 20 meq BIDWM [facility] Administration Spironolactone 100 mg 07/17/24 17:50 07/18/24 08:10 Spironolactone 50 Mg Tablet PO 100 mg QAM JUSTIN Administration Thiamine HCl 100 mg 07/17/24 09:00 07/18/24 08:11 Thiamine Hcl 100 Mg Tablet PO 100 mg QAM JUSTIN Administration Radiology Results: ITS Impressions Chest/Abdomen/Pelvis CTA 07/16/24 13:27 IMPRESSION: CHEST: 1. Large right pleural effusion with atelectasis versus pneumonia in the right upper and lower lobe. 2. No pulmonary embolism. ABDOMEN/PELVIS: 1. Ascites with fluid around the liver and in the pelvis 2. Liver cirrhosis. 3. Portal hypertension with prominent vessels in the splenic bed. 4. Distended gallbladder with slightly thickened wall. No bladder stones. Thoracentesis Ultrasound 07/17/24 08:58 IMPRESSION: 1. Successful ultrasound-guided thoracentesis yielding 1000 mL of yellow fluid. Venous Doppler Study 07/17/24 13:02 IMPRESSION: Negative bilateral lower extremity venous US. No deep vein thrombosis. Abdomen Ultrasound 07/18/24 08:32 IMPRESSION: Liver cirrhosis Fat infiltration of the liver. Distended gallbladder with sludge and wall thickening. Possibility of cholecystitis cannot be excluded. Clinical correlation advised. Minimal free fluid in the right upper quadrant. Chest X-Ray 07/18/24 08:40 Impression: Moderate to large right pleural effusion, similar to prior exam. Stable cardiomegaly with pacemaker device. Labs Labs: Laboratory Results - last 24 hr 07/17/24 07/17/24 07/17/24 11:06 16:10 20:19 WBC RBC Hgb Hct MCV MCH MCHC RDW Plt Count MPV Immature Gran % (Auto) Neut % (Auto) Lymph % (Auto) [place] % (Auto) Eos % (Auto) Baso % (Auto) Lymph # (Auto) [place] # (Auto) Eos # (Auto) Baso # (Auto) Abs Immat Gran (auto) Absolute Neuts (auto) Absolute Nucleated RBC Band Neutrophils % Nucleated RBC % Platelet Estimate Hypochromasia Anisocytosis Macrocytosis Target Cells Schistocytes Sodium Potassium Chloride Carbon Dioxide Anion Gap BUN Creatinine Estim Creat Clear Calc Estimated GFR Glucose POC Capillary Glucose 169 H 177 H 227 H Lactic Acid Calcium Magnesium Total Bilirubin AST ALT Alkaline Phosphatase Total Protein Albumin 07/18/24 07/18/24 04:18 08:18 WBC 12.7 H RBC 3.03 L Hgb 8.5 L Hct 28.7 L MCV 94.7 MCH 28.1 MCHC 29.6 L RDW 21.2 H Plt Count 205 MPV 10.4 Immature Gran % (Auto) 0.7 H Neut % (Auto) 87.5 H Lymph % (Auto) 5.1 L [place] % (Auto) 6.6 Eos % (Auto) 0.0 Baso % (Auto) 0.1 L Lymph # (Auto) 0.65 L [place] # (Auto) 0.8 H Eos # (Auto) 0.0 Baso # (Auto) 0.0 Abs Immat Gran (auto) 0.09 H Absolute Neuts (auto) 11.1 H Absolute Nucleated RBC 0.000 Band Neutrophils % 0 Nucleated RBC % 0.0 Platelet Estimate Adequate Hypochromasia 1+ Anisocytosis 1+ Macrocytosis 1+ Target Cells 1+ Schistocytes None seen Sodium 138 Potassium 4.3 Chloride 107 Carbon Dioxide 27 Anion Gap 4 BUN 18 H Creatinine 1.02 H Estim Creat Clear Calc 68 Estimated GFR 55 L Glucose 163 H POC Capillary Glucose 131 H Lactic Acid 1.4 Calcium 8.4 Magnesium 2.0 Total Bilirubin 1.8 H AST 50 H ALT 41 H Alkaline Phosphatase 106 Total Protein 6.0 L Albumin 2.6 L Quality VTE Prophylaxis VTE prophylaxis: mechanical ordered
[2024-07-18] MEDS: LORazepam INJ (*CRX) 2 MG/ML VIAL 0.5 MG IV PUSH (11:31)
[2024-07-18 13:14] LABS: Glucose Point of Care 149 mg/dl (65-105)
[2024-07-18] MEDS: PIPERACILLN/TAZ 3.375GM/NS50ML 3.375 GM/50 ML BAG IVPB ×3 (13:38→23:14)
[2024-07-18 17:12] LABS: Glucose Point of Care 193 mg/dl (65-105)
--- NOTE | 2024-07-18 17:40 | PC.NURSE ---
Patient went down to nuclear medicine to get HIDA scan earlier today. I had an iron infusion running on her at this time as she left the floor. IV site was in good shape. When she came back up from HIDA scan, her IV site where the iron infusion was running was very swollen and diffusely bruised. Patient stated she told staff down in nuclear medicine that her IV was hurting. I was not told this. When the patient got back to her room on the floor, I removed this IV which was obviously infiltrated and inserted a new peripheral IV before starting her first dose of zosyn. Patient given ice bag for old IV site.
[2024-07-18 20:57] LABS: Glucose Point of Care 176 mg/dl (65-105)
[2024-07-19 04:26] VITALS: BP 117/60; PULSE 100; RESP 20; TEMP 37.4; O2SAT 93
[2024-07-19 05:13] LABS: Eosinophils Percent Auto 0.1 % (0-4.4); Hematocrit 29.1 % (37.0-47.0); Hemoglobin 8.7 g/dL (12.0-15.0); Immature Granulocyte Absolute 0.07 K/mm3 (0.00-0.031); Immature Granulocyte Percent A 0.7 % (0-0.5); Lymphocytes Absolute Auto 1.16 K/mm3 (0.9-3.2); Lymphocytes Percent Auto 11.8 % (18.3-44.2); Mean Corpuscular HGB Conc 29.9 g/dl (32-36); Mean Corpuscular Volume 93.6 fl (80-100); Mean Platelet Volume 9.7 fl (7.4-10.4); Monocytes Absolute Auto 0.8 K/mm3 (0.1-0.6); Monocytes Percent Auto 7.9 % (2.6-8.5); Neutrophils Absolute Auto 7.8 K/mm3 (1.3-6.7); Neutrophils Percent Auto 79.5 % (45.5-73.1); Platelet Count Result 167 k/mm3 (150-375); Red Blood Count 3.11 M/mm3 (4.2-5.4); Red Cell Distribution Width 20.6 % (11.5-14.5); White Blood Count 9.8 K/mm3 (4.5-10.0)
[2024-07-19] MEDS: PIPERACILLN/TAZ 3.375GM/NS50ML 3.375 GM/50 ML BAG IVPB ×3 (05:18→17:52)
[2024-07-19] MEDS: LEVOTHYROXINE SODIUM 25 MCG TABLET PO (05:19)
[2024-07-19 05:29] LABS: Lactic Acid Reflex 1.2 mmol/L (0.7-2.0)
[2024-07-19 05:31] LABS: Alanine Aminotransferase 47 U/L (6-35); Albumin Level 2.6 g/dL (3.5-5.1); Alkaline Phosphatase 82 U/L (38-126); Anion Gap 5 mmol/L (4-12); Aspartate Amino Transferase 62 U/L (14-36); Bilirubin,Total 2.4 mg/dL (0.2-1.3); Blood Urea Nitrogen 18 mg/dL (7-17); Calcium 8.3 mg/dL (8.4-10.2); Carbon Dioxide 30 mmol/L (22-30); Chloride 105 mmol/L (98-107); Estimated CRCL calculation 68 ml/min; Estimated Glomerular Filt Rate 54; Glucose 149 mg/dL (65-110); Magnesium 1.9 mg/dL (1.6-2.3); Potassium 4.3 mmol/L (3.4-5.0); Sodium 140 mmol/L (137-145)
[2024-07-19 05:53] LABS: Platelet Estimate Adequate (Adequate); Schistocytes None Seen
[2024-07-19 05:54] LABS: Anisocytosis 1+; Hypochromasia 2+
[2024-07-19 05:59] LABS: Band Neutrophils Percent 0 % (0-6)
[2024-07-19 08:05] LABS: Glucose Point of Care 132 mg/dl (65-105)
[2024-07-19 08:40] VITALS: O2SAT 94
--- NOTE | 2024-07-19 09:01 | PM.IMPN ---
Progress Note: A&P Assessment and Plan (1) Acute respiratory failure with hypoxia: Code(s): J96.01 - Acute respiratory failure with hypoxia Status: Acute (2) Pleural effusion on right: Code(s): J90 - Pleural effusion, not elsewhere classified Status: Acute (3) Diastolic dysfunction: Code(s): I51.89 - Other ill-defined heart diseases Status: Acute (4) Atrial fibrillation: Code(s): I48.91 - Unspecified atrial fibrillation Status: Acute (5) Cirrhosis of liver with ascites: Code(s): K74.60 - Unspecified cirrhosis of liver; R18.8 - Other ascites Status: Acute (6) Hepatic steatosis: Code(s): K76.0 - Fatty (change of) liver, not elsewhere classified Status: Acute (7) Chronic anemia: Code(s): D64.9 - Anemia, unspecified Status: Acute (8) Obstructive sleep apnea on CPAP: Code(s): G47.33 - Obstructive sleep apnea (adult) (pediatric) Status: Chronic (9) Alcohol abuse: Code(s): F10.10 - Alcohol abuse, uncomplicated Status: Acute (10) Hypothyroidism: Code(s): E03.9 - Hypothyroidism, unspecified Status: Chronic (11) Type 2 diabetes mellitus: Code(s): E11.9 - Type 2 diabetes mellitus without complications Status: Acute Plan Right pleural effusion likely from liver cirrhosis vs CHF S/p thoracentesis and pleural studies pending CT AP showed liver cirrhosis and ascites Continue Bumex and Spironolactone monitor Liver cirrhosis US liver showed liver cirrhosis Continue diuretics above Possible Acute Cholecystitis US liver showed possible Cholecystitis HIDA scan showed acute cholecystitis vs Chronic cholecystitis vs prolonged fasting vs artifact of poor hepatic excretion of activity or of prolonged fasting. Blood culture on Zosyn Gen surgery consulted, awaiting eval monitor Diastolic CHF Continue diuretics ECHO showed EF 55-60% continue Bumex 2mg daily Distended GB with slightly thickened wall US live ordered monitor Hypothyroidism continue home Levothyroxine DM2 SSI with accucheks, adjust with clinical course Alcohol abuse counseled about cessation Anemia Hb 8.7, Ferritin last admission was 15 Patient received one dose of IV iron prior admission Give 500mg IV today, and given that she got one dose of IV iron prior admission i will consider her iron replete GI was involved in prior admission and no intervention done since patient did not have obvious bleed monitor DVT prophylaxis on SCDs, Xarelto on hold due to GI bleed monitor Awaiting Surgery eval for discharge disposition Subjective Date/time seen: 07/19/24 09:01 Interval history: Patient is comfortable at bedside HIDA scan acute cholecystitis, chronic cholecystitis vs artifact of poor hepatic activity or of prolonged fasting Review of Systems Review of Systems: 12 systems were reviewed and are negative except for as per HPI. Exam Narrative: General: alert and in no acute distress HEENT: PERRL, EOMI. Mild scleral icterus. Oral mucosa appears tacky through the BiPAP mask. Neck: Supple. Limited due to neck circumference. No obvious JVD. Respiratory: Tolerating BiPAP in able to speak freely through the mask. Respirations do not seem to be labored on the BiPAP. Lung sounds are diminished at the right base with scattered crackles. Cardiovascular: Irregularly irregular rate and rhythm. Gastrointestinal: Abdomen is morbidly obese and RUQ tenderness. Negative Skelton sign. No guarding or rebound tenderness. Skin: Warm and dry. Extremities: No cyanosis or clubbing. Pitting edema of the lower extremities up to the lower abdomen. No obvious palpable knots or cords. Negative Benny sign bilaterally. Neurological: Alert and oriented. Cranial nerves 2-12 are grossly intact. No gross focal deficits to casual conversation. Psychiatric: Cooperative with appropriate mood and affect. Objective Data Vital Signs Vital Signs: Vital Signs - 24 hr 07/18/24 13:23 07/18/24 20:00 07/18/24 20:15 Temperature 97.8 F 97.8 F Pulse Rate 69 78 78 Respiratory Rate 18 20 20 Blood Pressure 113/45 L 117/51 L Pulse Oximetry 95 92 92 Oxygen Delivery Nasal Cannula Oxygen Flow Rate 2 Fraction of Inspired Oxygen 30 07/19/24 04:26 07/19/24 08:40 Temperature 99.3 F Pulse Rate 100 Respiratory Rate 20 Blood Pressure 117/60 Pulse Oximetry 93 94 Oxygen Delivery Room Air Oxygen Flow Rate Fraction of Inspired Oxygen Intake/Output Intake/Output: Intake & Output 07/16/24 07/17/24 07/18/24 07/19/24 23:59 23:59 23:59 23:59 Intake Total 870 870 640 Output Total 1700 2200 300 Balance -830 -1330 340 Meds/Results Medications: Active Medications Generic Name Dose Route Start Last Admin Trade Name Freq PRN Reason Stop Dose Admin Acetaminophen 650 mg 07/16/24 15:30 Acetaminophen 325 Mg Tablet PO Q4H PRN Mild Pain (1-3) or Fever Ascorbic Acid 500 mg 07/17/24 09:00 07/18/24 08:10 Ascorbic Acid 500 Mg Tablet PO 500 mg DAILY JUSTIN Administration Bumetanide 2 mg 07/17/24 09:00 07/18/24 08:11 Bumetanide 1 Mg Tablet PO 2 mg DAILY JUSTIN Administration Dextrose 12.5 gm 07/17/24 11:11 Dextrose 50% 25 Gm/50 Ml Syringe IV PUSH PRN PRN Hypoglycemia Protocol Diltiazem HCl 360 mg 07/17/24 09:00 07/18/24 08:11 Diltiazem Hcl Cd 180 Mg Cap.24hr PO 360 mg QAM JUSTIN Administration Empagliflozin 25 mg 07/17/24 09:00 07/18/24 08:11 Empagliflozin 25 Mg Tablet BY MOUTH 25 mg DAILY JUST[facility] Administration Folic Acid 1 mg 07/17/24 09:00 07/18/24 08:10 Folic Acid 1 Mg Tablet PO 1 mg DAILY JUSTIN Administration Glucagon 1 mg 07/17/24 11:11 Glucagon For Inj 1 Mg Vial IM PRN PRN Hypoglycemia Protocol Glucose 15 gm 07/17/24 11:11 Glucose Oral Gel 15 Gm Of Glucse In 37.5 Gm Tube PO PRN PRN Hypoglycemia Protocol Dextrose 1,000 mls @ 100 mls/hr 07/17/24 11:11 Dextrose 5% 1,000 Ml IVPB PRN PRN Hypoglycemia Protocol Piperacillin/Tazobactam/Dextrose 3.375 gm in 50 mls @ 100 mls/hr 07/18/24 11:00 07/19/24 05:18 Zosyn 3.375 Gm/Ns 50 Ml IVPB 100 mls/hr Q6HR JUSTIN Administration Insulin Aspart 2 - 5 units 07/17/24 12:00 07/18/24 17:11 Insulin Aspart (*Bkc) 100 Units/Ml SUB-Q Not Given TIDWM [facility] Protocol Insulin Aspart 1 - 2 units 07/17/24 21:00 07/18/24 21:14 Insulin Aspart (*Bkc) 100 Units/Ml SUB-Q Not Given HS [facility] Protocol Levothyroxine Sodium 25 mcg 07/17/24 06:30 07/19/24 05:19 Levothyroxine Sodium 25 Mcg Tablet PO 25 mcg DAILY@0630 JUSTIN Administration Lorazepam 0.5 mg 07/18/24 21:03 Lorazepam (*Crx) 0.5 Mg Tablet PO HS PRN Anxiety Ondansetron HCl 4 mg 07/16/24 15:30 Ondansetron Inj 4 Mg/2 Ml Vial IV PUSH Q4H PRN Nausea Pantoprazole Sodium 40 mg 07/17/24 09:00 07/18/24 08:11 Pantoprazole 40 Mg Tablet PO 40 mg QAM JUSTIN Administration Perflutren Lipid Microsphere 0 ml 07/17/24 00:39 Perflutren Lipid Microspheres 1.5 Ml Vial Diluted To 10 Ml Total Volume IV PUSH 07/20/24 00:39 ONCE PRN adequate visualization Protocol Potassium Chloride 20 meq 07/17/24 08:00 07/18/24 16:20 Potassium Chloride 20 Meq Er Tablet PO 20 meq BIDWM [facility] Administration Spironolactone 100 mg 07/17/24 17:50 07/18/24 08:10 Spironolactone 50 Mg Tablet PO 100 mg QAM JUSTIN Administration Thiamine HCl 100 mg 07/17/24 09:00 07/18/24 08:11 Thiamine Hcl 100 Mg Tablet PO 100 mg QAM JUSTIN Administration Radiology Results: ITS Impressions Chest/Abdomen/Pelvis CTA 07/16/24 13:27 IMPRESSION: CHEST: 1. Large right pleural effusion with atelectasis versus pneumonia in the right upper and lower lobe. 2. No pulmonary embolism. ABDOMEN/PELVIS: 1. Ascites with fluid around the liver and in the pelvis 2. Liver cirrhosis. 3. Portal hypertension with prominent vessels in the splenic bed. 4. Distended gallbladder with slightly thickened wall. No bladder stones. Thoracentesis Ultrasound 07/17/24 08:58 IMPRESSION: 1. Successful ultrasound-guided thoracentesis yielding 1000 mL of yellow fluid. Venous Doppler Study 07/17/24 13:02 IMPRESSION: Negative bilateral lower extremity venous US. No deep vein thrombosis. Abdomen Ultrasound 07/18/24 08:32 IMPRESSION: Liver cirrhosis Fat infiltration of the liver. Distended gallbladder with sludge and wall thickening. Possibility of cholecystitis cannot be excluded. Clinical correlation advised. Minimal free fluid in the right upper quadrant. Chest X-Ray 07/18/24 08:40 Impression: Moderate to large right pleural effusion, similar to prior exam. Stable cardiomegaly with pacemaker device. Hepatobiliary Scan Nuclear Medicine 07/18/24 13:19 IMPRESSION: 1. Delayed hepatic excretion of activity without evident biliary ductal dilation on prior ultrasound or CT which could be consistent with hepatic dysfunction likely related to cirrhosis which is evident on the prior CT imaging. 2. No gallbladder activity evident over the course of 1 hour of imaging. In the absence of either morphine administration or more delayed imaging this remains indeterminate with differential including acute cholecystitis, chronic cholecystitis, artifact of the poor hepatic excretion of activity or of prolonged fasting. Labs Labs: Laboratory Results - last 24 hr 07/18/24 07/18/24 07/18/24 13:11 17:03 20:26 WBC RBC Hgb Hct MCV MCH MCHC RDW Plt Count MPV Immature Gran % (Auto) Neut % (Auto) Lymph % (Auto) [place] % (Auto) Eos % (Auto) Baso % (Auto) Lymph # (Auto) [place] # (Auto) Eos # (Auto) Baso # (Auto) Abs Immat Gran (auto) Absolute Neuts (auto) Absolute Nucleated RBC Band Neutrophils % Nucleated RBC % Platelet Estimate Hypochromasia Anisocytosis Schistocytes Sodium Potassium Chloride Carbon Dioxide Anion Gap BUN Creatinine Estim Creat Clear Calc Estimated GFR Glucose POC Capillary Glucose 149 H 193 H 176 H Lactic Acid Calcium Magnesium Total Bilirubin AST ALT Alkaline Phosphatase Total Protein Albumin 07/19/24 07/19/24 05:05 08:00 WBC 9.8 RBC 3.11 L Hgb 8.7 L Hct 29.1 L MCV 93.6 MCH 28.0 MCHC 29.9 L RDW 20.6 H Plt Count 167 MPV 9.7 Immature Gran % (Auto) 0.7 H Neut % (Auto) 79.5 H Lymph % (Auto) 11.8 L [place] % (Auto) 7.9 Eos % (Auto) 0.1 Baso % (Auto) 0.0 L Lymph # (Auto) 1.16 [place] # (Auto) 0.8 H Eos # (Auto) 0.0 Baso # (Auto) 0.0 Abs Immat Gran (auto) 0.07 H Absolute Neuts (auto) 7.8 H Absolute Nucleated RBC 0.000 Band Neutrophils % 0 Nucleated RBC % 0.0 Platelet Estimate Adequate Hypochromasia 2+ Anisocytosis 1+ Schistocytes None seen Sodium 140 Potassium 4.3 Chloride 105 Carbon Dioxide 30 Anion Gap 5 BUN 18 H Creatinine 1.03 H Estim Creat Clear Calc 68 Estimated GFR 54 L Glucose 149 H POC Capillary Glucose 132 H Lactic Acid 1.2 Calcium 8.3 L Magnesium 1.9 Total Bilirubin 2.4 H AST 62 H ALT 47 H Alkaline Phosphatase 82 Total Protein 6.0 L Albumin 2.6 L Quality VTE Prophylaxis VTE prophylaxis: mechanical ordered
--- NOTE | 2024-07-19 09:32 | P.CONGS_ITS ---
Assessment and Plan Assessment and plan (1) Chronic cholecystitis: Code(s): K81.1 - Chronic cholecystitis Status: Acute Assessment and Plan: Exam largely benign, elevated liver enzymes likely more secondary to cirrhosis, continue conservative management with low-fat diet, patient is a poor surgical candidate given her multiple comorbidities and would only proceed with cholecystectomy an emergent situation (2) Cirrhosis of liver with ascites: Code(s): K74.60 - Unspecified cirrhosis of liver; R18.8 - Other ascites Status: Acute Assessment and Plan: Likely secondary to alcohol abuse, continue current management (3) Acute respiratory failure with hypoxia: Code(s): J96.01 - Acute respiratory failure with hypoxia Status: Acute Assessment and Plan: Improving, continue management per primary team (4) Congestive heart failure: Code(s): I50.9 - Heart failure, unspecified Status: Chronic Assessment and Plan: Exacerbation improving, continue management per primary team (5) Type 2 diabetes mellitus: Code(s): E11.9 - Type 2 diabetes mellitus without complications Status: Acute Assessment and Plan: Continue management per primary team History of Present Illness Consult details Consult date: 07/19/24 Reason for consult: abdominal pain Requesting physician: Anirudh Dhaliwal MD Narrative: The patient is a 63-year-old female with multiple medical issues including cirrhosis, CHF admitted for shortness of breath, generalized malaise. Over the course of her hospital stay, the patient is noted to have likely chronic cholecystitis. Upon questioning, the patient does endorse some mild right upper quadrant, epigastric abdominal pain. The patient reports occasional episodes of bloating, nausea. Currently, the patient reports that she does not have any abdominal pain. She currently is tolerating a diabetic diet without issue. Review of Systems 2 Review of Systems: All systems reviewed & are unremarkable except as noted in HPI and below PMFSH Past Medical History Medical History Type 2 diabetes mellitus Atrial fibrillation Diastolic dysfunction Cirrhosis of liver with ascites noted on CT scan 07/16/2024 Chronic anemia Hepatic steatosis Morbid obesity Hypothyroidism Dyslipidemia Obstructive sleep apnea on CPAP Diverticulitis Surgical History Surgical History History of permanent cardiac pacemaker placement (09/2016) Biotronik dual chamber pacemaker implant by Dr. Kalvaitis Family History Family History Mother Acute myocardial infarction, Onset Age: 73 versus stated <65yo when asked on 07/16/24 Cerebrovascular accident, Onset Age: 73 complication of blood transfusion Diabetes mellitus Complication of blood transfusion CVA Father Multiple myeloma Social History Social History Social History: Surrogate medical decision maker: Gracy Mouser, friend. Code status: Do not resuscitate. Years smoked: 35 Smoking status: Former smoker Tobacco type: cigarettes Smoking end date: 06/28/16 Alcohol intake: former Drinks per week: 21 Alcohol use details: Social alcohol use in moderation. Substance use: never Substance use type: does not use Do You Feel Safe in your Home?: Yes Lack of Transportation: No Lack of Food: Never True Current Housing: I Have Housing Concerned About Future Housing: No Difficulty Paying Gas/Electric Bills: No Difficulty Paying for Meds: No Currently Unemployed: No Education: High School Diploma/GED Difficulty w/ Childcare or Family Care: No Living arrangements: with family Additional living arrangements comments: The patient lives alone. She has no children. Caregiver comes in 3 days weak. Spiritual care concerns: No Meds Home Medications and Allergies Home Medications ?Medication ?Instructions ?Recorded ?Confirmed ?Type Vitamin D2 50,000 units PO WEEKLY 03/23/23 07/16/24 History bumetanide 2 mg tablet 2 mg PO DAILY 03/23/23 07/16/24 History diltiazem HCl 360 mg capsule,24 360 mg PO DAILY 03/23/23 07/16/24 History hr,extended release levothyroxine 25 mcg tablet 25 mcg PO DAILY 03/23/23 07/16/24 History potassium chloride 20 mEq 20 meq PO BID 03/23/23 07/16/24 History tablet,extended release rivaroxaban 20 mg tablet (Xarelto) 20 mg PO DAILY 03/23/23 07/16/24 History ascorbic acid (vitamin C) 500 mg 500 mg PO DAILY #30 tabs 03/27/23 07/16/24 Rx tablet (Vitamin C) dapagliflozin propanediol 10 mg 10 mg PO DAILY 04/27/23 07/16/24 History tablet (Farxiga) pantoprazole 40 mg tablet,delayed 40 mg PO QAM #30 tabs 07/10/24 07/16/24 Rx release potassium chloride 20 mEq 20 meq PO BID 07/16/24 07/16/24 History tablet,extended release(part/cryst) Allergies Allergy/AdvReac Type Severity Reaction Status Date / Time amiodarone Allergy Severe Hives Verified 07/08/24 09:24 codeine AdvReac Mild Itching Verified 07/08/24 09:24 Vital Signs Vital Signs - 24 hr 07/18/24 13:23 07/18/24 20:00 07/18/24 20:15 Temperature 36.6 C 36.6 C Pulse Rate 69 78 78 Respiratory Rate 18 20 20 Blood Pressure 113/45 L 117/51 L Pulse Oximetry 95 92 92 Oxygen Delivery Nasal Cannula Oxygen Flow Rate 2 Fraction of Inspired Oxygen 30 07/19/24 04:26 07/19/24 08:40 Temperature 37.4 C Pulse Rate 100 Respiratory Rate 20 Blood Pressure 117/60 Pulse Oximetry 93 94 Oxygen Delivery Room Air Oxygen Flow Rate Fraction of Inspired Oxygen Exam 2 Const: General: cooperative, comfortable, no acute distress, ill appearing and obese HENMT: Head: normal to inspection, normocephalic and atraumatic Eyes: General: appearance normal, both eyes and all related structures Neck: Neck: normal visual inspection, full ROM and no lymphadenopathy Resp: Auscultation: crackles and diminished lung sounds Cardio: Rate: regular rate Rhythm: regular rhythm GI: Inspection: normal to inspection, Abdominal wall edema, non-distended, Pannus present and obesity GI Palp: No abdominal tenderness, Yes Soft to palpation, No Tenderness to palpation present (GI), No Guarding due to palpation present (GI) and No Rigid due to palpation Skin: General skin exam: normal color and no rashes or lesions noted Neuro: General: patient oriented x3 and CN's II-XI intact bilaterally Extrem: General: normal to inspection and full ROM Results Labs 07/19/24 05:05 07/19/24 05:05 Labs: Abnormal lab results 07/18/24 07/18/24 07/18/24 Range/Units 13:11 17:03 20:26 RBC (4.2-5.4) M/mm3 Hgb (12.0-15.0) g/dL Hct (37.0-47.0) % MCHC (32-36) g/dl RDW (11.5-14.5) % Immature Gran % (Auto) (0-0.5) % Neut % (Auto) (45.5-73.1) % Lymph % (Auto) (18.3-44.2) % Baso % (Auto) (0.2-1.2) % [place] # (Auto) (0.1-0.6) K/mm3 Abs Immat Gran (auto) (0.00-0.031) K/mm3 Absolute Neuts (auto) (1.3-6.7) K/mm3 BUN (7-17) mg/dL Creatinine (0.7-1.0) mg/dL Estimated GFR (59 - ) Glucose (65-110) mg/dL POC Capillary Glucose 149 H 193 H 176 H (65-105) mg/dl Calcium (8.4-10.2) mg/dL Total Bilirubin (0.2-1.3) mg/dL AST (14-36) U/L ALT (6-35) U/L Total Protein (6.3-8.2) g/dL Albumin (3.5-5.1) g/dL 07/19/24 07/19/24 Range/Units 05:05 08:00 RBC 3.11 L (4.2-5.4) M/mm3 Hgb 8.7 L (12.0-15.0) g/dL Hct 29.1 L (37.0-47.0) % MCHC 29.9 L (32-36) g/dl RDW 20.6 H (11.5-14.5) % Immature Gran % (Auto) 0.7 H (0-0.5) % Neut % (Auto) 79.5 H (45.5-73.1) % Lymph % (Auto) 11.8 L (18.3-44.2) % Baso % (Auto) 0.0 L (0.2-1.2) % [place] # (Auto) 0.8 H (0.1-0.6) K/mm3 Abs Immat Gran (auto) 0.07 H (0.00-0.031) K/mm3 Absolute Neuts (auto) 7.8 H (1.3-6.7) K/mm3 BUN 18 H (7-17) mg/dL Creatinine 1.03 H (0.7-1.0) mg/dL Estimated GFR 54 L (59 - ) Glucose 149 H (65-110) mg/dL POC Capillary Glucose 132 H (65-105) mg/dl Calcium 8.3 L (8.4-10.2) mg/dL Total Bilirubin 2.4 H (0.2-1.3) mg/dL AST 62 H (14-36) U/L ALT 47 H (6-35) U/L Total Protein 6.0 L (6.3-8.2) g/dL Albumin 2.6 L (3.5-5.1) g/dL Diabetes panel 07/19/24 Range/Units 05:05 Sodium 140 (137-145) mmol/L Potassium 4.3 (3.4-5.0) mmol/L Chloride 105 (98-107) mmol/L Carbon Dioxide 30 (22-30) mmol/L BUN 18 H (7-17) mg/dL Creatinine 1.03 H (0.7-1.0) mg/dL Glucose 149 H (65-110) mg/dL Calcium 8.3 L (8.4-10.2) mg/dL AST 62 H (14-36) U/L ALT 47 H (6-35) U/L Alkaline Phosphatase 82 (38-126) U/L Total Protein 6.0 L (6.3-8.2) g/dL Albumin 2.6 L (3.5-5.1) g/dL Calcium panel 07/19/24 Range/Units 05:05 Calcium 8.3 L (8.4-10.2) mg/dL Albumin 2.6 L (3.5-5.1) g/dL Pituitary panel 07/19/24 Range/Units 05:05 Sodium 140 (137-145) mmol/L Potassium 4.3 (3.4-5.0) mmol/L Chloride 105 (98-107) mmol/L Carbon Dioxide 30 (22-30) mmol/L BUN 18 H (7-17) mg/dL Creatinine 1.03 H (0.7-1.0) mg/dL Glucose 149 H (65-110) mg/dL Calcium 8.3 L (8.4-10.2) mg/dL Adrenal panel 07/19/24 Range/Units 05:05 Sodium 140 (137-145) mmol/L Potassium 4.3 (3.4-5.0) mmol/L Chloride 105 (98-107) mmol/L Carbon Dioxide 30 (22-30) mmol/L BUN 18 H (7-17) mg/dL Creatinine 1.03 H (0.7-1.0) mg/dL Glucose 149 H (65-110) mg/dL Calcium 8.3 L (8.4-10.2) mg/dL Total Bilirubin 2.4 H (0.2-1.3) mg/dL AST 62 H (14-36) U/L ALT 47 H (6-35) U/L Alkaline Phosphatase 82 (38-126) U/L Total Protein 6.0 L (6.3-8.2) g/dL Albumin 2.6 L (3.5-5.1) g/dL All other labs normal. Imaging Abdomen CT scan report/results: report reviewed and image reviewed Abdominal ultrasound report/results: report reviewed Additional studies: HIDA scan reviewed
[2024-07-19] MEDS: BUMETANIDE 1 MG TABLET 2 MG PO (09:43)
[2024-07-19] MEDS: SPIRONOLACTONE 50 MG TABLET 100 MG PO (09:43)
[2024-07-19] MEDS: EMPAGLIFLOZIN 25 MG TABLET BY MOUTH (09:43)
[2024-07-19] MEDS: dilTIAZem HCL CD 180 MG CAP.24HR 360 MG PO (09:43)
[2024-07-19] MEDS: ASCORBIC ACID 500 MG TABLET PO (09:43)
[2024-07-19] MEDS: THIAMINE HCL 100 MG TABLET PO (09:43)
[2024-07-19] MEDS: FOLIC ACID 1 MG TABLET PO (09:43)
[2024-07-19] MEDS: PANTOPRAZOLE 40 MG TABLET PO (09:44)
[2024-07-19] MEDS: POTASSIUM CHLORIDE 20 MEQ ER TABLET PO ×2 (09:44→17:31)
[2024-07-19 09:45] VITALS: O2SAT 94
[2024-07-19 12:14] LABS: Glucose Point of Care 154 mg/dl (65-105)
[2024-07-19 13:25] VITALS: BP 130/64; PULSE 84; RESP 18; TEMP 36.3; O2SAT 94
--- NOTE | 2024-07-19 14:26 | PCOTNOTE ---
Attempted OT evaluation. Patient declines at this time but requests therapy try again tomorrow.
[2024-07-19 14:52] LABS: Amylase, Pleural Fluid 10 U/L
[2024-07-19 17:38] LABS: Glucose Point of Care 150 mg/dl (65-105)
[2024-07-19 21:09] VITALS: BP 103/60; PULSE 81; RESP 16; TEMP 36.6; O2SAT 95
[2024-07-19 21:31] LABS: Glucose Point of Care 162 mg/dl (65-105)
[2024-07-20 05:32] VITALS: BP 114/59; PULSE 75; RESP 16; TEMP 37.2; O2SAT 92
[2024-07-20 05:54] LABS: Eosinophils Absolute Auto 0.1 K/mm3 (0-0.3); Eosinophils Percent Auto 1.6 % (0-4.4); Hematocrit 29.5 % (37.0-47.0); Hemoglobin 8.6 g/dL (12.0-15.0); Immature Granulocyte Absolute 0.04 K/mm3 (0.00-0.031); Immature Granulocyte Percent A 0.5 % (0-0.5); Lymphocytes Absolute Auto 1.88 K/mm3 (0.9-3.2); Lymphocytes Percent Auto 24.7 % (18.3-44.2); Mean Corpuscular HGB Conc 29.2 g/dl (32-36); Mean Corpuscular Hemoglobin 27.1 pg (26-34); Mean Corpuscular Volume 93.1 fl (80-100); Mean Platelet Volume 9.7 fl (7.4-10.4); Monocytes Absolute Auto 0.8 K/mm3 (0.1-0.6); Monocytes Percent Auto 10.2 % (2.6-8.5); Neutrophils Absolute Auto 4.8 K/mm3 (1.3-6.7); Nucleated Red Blood Cells Perc 0.7 % (0.0-0.2); Platelet Count Result 160 k/mm3 (150-375); Red Blood Count 3.17 M/mm3 (4.2-5.4); Red Cell Distribution Width 20.9 % (11.5-14.5); White Blood Count 7.6 K/mm3 (4.5-10.0)
[2024-07-20 06:08] LABS: Alanine Aminotransferase 48 U/L (6-35); Albumin Level 2.5 g/dL (3.5-5.1); Alkaline Phosphatase 71 U/L (38-126); Anion Gap 6 mmol/L (4-12); Aspartate Amino Transferase 60 U/L (14-36); Bilirubin,Total 2.4 mg/dL (0.2-1.3); Blood Urea Nitrogen 14 mg/dL (7-17); Carbon Dioxide 29 mmol/L (22-30); Chloride 103 mmol/L (98-107); Estimated CRCL calculation 74 ml/min; Estimated Glomerular Filt Rate > 60; Glucose 123 mg/dL (65-110); Magnesium 1.7 mg/dL (1.6-2.3); Potassium 3.8 mmol/L (3.4-5.0); Sodium 138 mmol/L (137-145)
[2024-07-20] MEDS: PIPERACILLN/TAZ 3.375GM/NS50ML 3.375 GM/50 ML BAG IVPB ×4 (06:13→23:15)
[2024-07-20] MEDS: LEVOTHYROXINE SODIUM 25 MCG TABLET PO (06:14)
[2024-07-20 06:50] LABS: Anisocytosis 1+; Hypochromasia 1+; Platelet Estimate Adequate (Adequate); Schistocytes None Seen
[2024-07-20 08:00] VITALS: BP 115/72; PULSE 77; RESP 18; TEMP 36.3; O2SAT 94
[2024-07-20] MEDS: polyethylene glycoL 3350 17 GM POWD.PACK PO (09:22)
[2024-07-20] MEDS: POTASSIUM CHLORIDE 20 MEQ ER TABLET PO ×2 (09:24→17:31)
[2024-07-20] MEDS: ASCORBIC ACID 500 MG TABLET PO (09:25)
[2024-07-20] MEDS: PANTOPRAZOLE 40 MG TABLET PO (09:25)
[2024-07-20] MEDS: dilTIAZem HCL CD 180 MG CAP.24HR 360 MG PO (09:25)
[2024-07-20] MEDS: EMPAGLIFLOZIN 25 MG TABLET BY MOUTH (09:25)
[2024-07-20] MEDS: FOLIC ACID 1 MG TABLET PO (09:25)
[2024-07-20] MEDS: SPIRONOLACTONE 50 MG TABLET 100 MG PO (09:25)
[2024-07-20] MEDS: BUMETANIDE 1 MG TABLET 2 MG PO (09:26)
[2024-07-20] MEDS: THIAMINE HCL 100 MG TABLET PO (09:26)
[2024-07-20 09:40] LABS: Glucose Point of Care 119 mg/dl (65-105)
--- NOTE | 2024-07-20 11:56 | PM.IMPN ---
Progress Note: A&P Assessment and Plan (1) Acute respiratory failure with hypoxia: Code(s): J96.01 - Acute respiratory failure with hypoxia Status: Acute Assessment and Plan: Much improved, will continue continue monitor closely. (2) Pleural effusion on right: Code(s): J90 - Pleural effusion, not elsewhere classified Status: Acute Assessment and Plan: Stable, continue current treatment. (3) Diastolic dysfunction: Code(s): I51.89 - Other ill-defined heart diseases Status: Acute Assessment and Plan: Much improved, continue current treatment. (4) Atrial fibrillation: Code(s): I48.91 - Unspecified atrial fibrillation Status: Acute Assessment and Plan: Patient's ultrasound hold because of anemia. Once cleared by Cardiology and surgery very soon. (5) Cirrhosis of liver with ascites: Code(s): K74.60 - Unspecified cirrhosis of liver; R18.8 - Other ascites Status: Acute Assessment and Plan: Counseling given to patient regarding alcohol use. (6) Hepatic steatosis: Code(s): K76.0 - Fatty (change of) liver, not elsewhere classified Status: Acute Assessment and Plan: HIDA scan ordered. (7) Chronic anemia: Code(s): D64.9 - Anemia, unspecified Status: Acute Assessment and Plan: Stable monitor closely. (8) Obstructive sleep apnea on CPAP: Code(s): G47.33 - Obstructive sleep apnea (adult) (pediatric) Status: Chronic Assessment and Plan: Stable. (9) Alcohol abuse: Code(s): F10.10 - Alcohol abuse, uncomplicated Status: Acute Assessment and Plan: Counseling given. (10) Hypothyroidism: Code(s): E03.9 - Hypothyroidism, unspecified Status: Chronic Assessment and Plan: Stable on current medication, continue current treatment. (11) Type 2 diabetes mellitus: Code(s): E11.9 - Type 2 diabetes mellitus without complications Status: Acute Assessment and Plan: Stable, continue current Plan Right pleural effusion likely from liver cirrhosis vs CHF S/p thoracentesis and pleural studies pending CT AP showed liver cirrhosis and ascites Continue Bumex and Spironolactone monitor Liver cirrhosis US liver showed liver cirrhosis Continue diuretics above Possible Acute Cholecystitis US liver showed possible Cholecystitis HIDA scan showed acute cholecystitis vs Chronic cholecystitis vs prolonged fasting vs artifact of poor hepatic excretion of activity or of prolonged fasting. Blood culture on Zosyn Gen surgery consulted, awaiting eval monitor Diastolic CHF Continue diuretics ECHO showed EF 55-60% continue Bumex 2mg daily Distended GB with slightly thickened wall US live ordered monitor Hypothyroidism continue home Levothyroxine DM2 SSI with accucheks, adjust with clinical course Alcohol abuse counseled about cessation Anemia Hb 8.7, Ferritin last admission was 15 Patient received one dose of IV iron prior admission Give 500mg IV today, and given that she got one dose of IV iron prior admission i will consider her iron replete GI was involved in prior admission and no intervention done since patient did not have obvious bleed monitor DVT prophylaxis on SCDs, Xarelto on hold due to GI bleed monitor Awaiting Surgery eval for discharge disposition Subjective Date/time seen: 07/20/24 11:56 Interval history: Patient was seen during morning rounds today. Patient is feeling better. No shortness of breath or chest pain. Abdominal pain, nausea, no vomiting Patient is comfortable at bedside HIDA scan acute cholecystitis, chronic cholecystitis vs artifact of poor hepatic activity or of prolonged fasting Review of Systems Review of Systems: 12 systems were reviewed and are negative except for as per HPI. Exam Narrative: General: alert and in no acute distress HEENT: PERRL, EOMI. Mild scleral icterus. Oral mucosa appears tacky through the BiPAP mask. Neck: Supple. Limited due to neck circumference. No obvious JVD. Respiratory: Tolerating BiPAP in able to speak freely through the mask. Respirations do not seem to be labored on the BiPAP. Lung sounds are diminished at the right base with scattered crackles. Cardiovascular: Irregularly irregular rate and rhythm. Gastrointestinal: Abdomen is morbidly obese and RUQ tenderness. Negative Skelton sign. No guarding or rebound tenderness. Skin: Warm and dry. Extremities: No cyanosis or clubbing. Pitting edema of the lower extremities up to the lower abdomen. No obvious palpable knots or cords. Negative Benny sign bilaterally. Neurological: Alert and oriented. Cranial nerves 2-12 are grossly intact. No gross focal deficits to casual conversation. Psychiatric: Cooperative with appropriate mood and affect. Objective Data Vital Signs Vital Signs: Vital Signs - 24 hr 07/19/24 13:25 07/19/24 20:00 07/19/24 21:09 Temperature 36.3 C L 36.6 C Pulse Rate 84 81 Respiratory Rate 18 16 Blood Pressure 130/64 103/60 Pulse Oximetry 94 95 Oxygen Delivery Room Air 07/20/24 05:32 07/20/24 08:00 07/20/24 09:39 Temperature 37.2 C 36.3 C L Pulse Rate 75 77 Respiratory Rate 16 18 Blood Pressure 114/59 L 115/72 Pulse Oximetry 92 94 Oxygen Delivery Room Air Intake/Output Intake/Output: Intake & Output 07/17/24 07/18/24 07/19/24 07/20/24 23:59 23:59 23:59 23:59 Intake Total 489 252 4324 540 Output Total 1700 2200 1200 1500 Balance -830 -1330 70 -960 Meds/Results Medications: Active Medications Generic Name Dose Route Start Last Admin Trade Name Freq PRN Reason Stop Dose Admin Acetaminophen 650 mg 07/16/24 15:30 Acetaminophen 325 Mg Tablet PO Q4H PRN Mild Pain (1-3) or Fever Ascorbic Acid 500 mg 07/17/24 09:00 07/20/24 09:25 Ascorbic Acid 500 Mg Tablet PO 500 mg DAILY JUSTIN Administration Bumetanide 2 mg 07/17/24 09:00 07/20/24 09:26 Bumetanide 1 Mg Tablet PO 2 mg DAILY JUSTIN Administration Dextrose 12.5 gm 07/17/24 11:11 Dextrose 50% 25 Gm/50 Ml Syringe IV PUSH PRN PRN Hypoglycemia Protocol Diltiazem HCl 360 mg 07/17/24 09:00 07/20/24 09:25 Diltiazem Hcl Cd 180 Mg Cap.24hr PO 360 mg QAM JUSTIN Administration Empagliflozin 25 mg 07/17/24 09:00 07/20/24 09:25 Empagliflozin 25 Mg Tablet BY MOUTH 25 mg DAILY JUSTIN Administration Folic Acid 1 mg 07/17/24 09:00 07/20/24 09:25 Folic Acid 1 Mg Tablet PO 1 mg DAILY JUSTIN Administration Glucagon 1 mg 07/17/24 11:11 Glucagon For Inj 1 Mg Vial IM PRN PRN Hypoglycemia Protocol Glucose 15 gm 07/17/24 11:11 Glucose Oral Gel 15 Gm Of Glucse In 37.5 Gm Tube PO PRN PRN Hypoglycemia Protocol Dextrose 1,000 mls @ 100 mls/hr 07/17/24 11:11 Dextrose 5% 1,000 Ml IVPB PRN PRN Hypoglycemia Protocol Piperacillin/Tazobactam/Dextrose 3.375 gm in 50 mls @ 100 mls/hr 07/18/24 11:00 07/20/24 06:13 Zosyn 3.375 Gm/Ns 50 Ml IVPB 100 mls/hr Q6HR JUSTIN Administration Insulin Aspart 2 - 5 units 07/17/24 12:00 07/20/24 09:22 Insulin Aspart (*Bkc) 100 Units/Ml SUB-Q Not Given TIDWM [facility] Protocol Insulin Aspart 1 - 2 units 07/17/24 21:00 07/20/24 06:04 Insulin Aspart (*Bkc) 100 Units/Ml SUB-Q Not Given HS JUSTIN Protocol Levothyroxine Sodium 25 mcg 07/17/24 06:30 07/20/24 06:14 Levothyroxine Sodium 25 Mcg Tablet PO 25 mcg DAILY@0630 JUSTIN Administration Lorazepam 0.5 mg 07/18/24 21:03 Lorazepam (*Crx) 0.5 Mg Tablet PO HS PRN Anxiety Ondansetron HCl 4 mg 07/16/24 15:30 Ondansetron Inj 4 Mg/2 Ml Vial IV PUSH Q4H PRN Nausea Pantoprazole Sodium 40 mg 07/17/24 09:00 07/20/24 09:25 Pantoprazole 40 Mg Tablet PO 40 mg QAM JUSTIN Administration Polyethylene Glycol 17 gm 07/20/24 09:00 07/20/24 09:22 Polyethylene Glycol 3350 17 Gm Powd.Pack PO 17 gm QAM JUSTIN Administration Potassium Chloride 20 meq 07/17/24 08:00 07/20/24 09:24 Potassium Chloride 20 Meq Er Tablet PO 20 meq BIDWM JUSTIN Administration Spironolactone 100 mg 07/17/24 17:50 07/20/24 09:25 Spironolactone 50 Mg Tablet PO 100 mg QAM JUSTIN Administration Thiamine HCl 100 mg 07/17/24 09:00 07/20/24 09:26 Thiamine Hcl 100 Mg Tablet PO 100 mg QAM JUSTIN Administration Radiology Results: ITS Impressions Chest/Abdomen/Pelvis CTA 07/16/24 13:27 IMPRESSION: CHEST: 1. Large right pleural effusion with atelectasis versus pneumonia in the right upper and lower lobe. 2. No pulmonary embolism. ABDOMEN/PELVIS: 1. Ascites with fluid around the liver and in the pelvis 2. Liver cirrhosis. 3. Portal hypertension with prominent vessels in the splenic bed. 4. Distended gallbladder with slightly thickened wall. No bladder stones. Thoracentesis Ultrasound 07/17/24 08:58 IMPRESSION: 1. Successful ultrasound-guided thoracentesis yielding 1000 mL of yellow fluid. Venous Doppler Study 07/17/24 13:02 IMPRESSION: Negative bilateral lower extremity venous US. No deep vein thrombosis. Abdomen Ultrasound 07/18/24 08:32 IMPRESSION: Liver cirrhosis Fat infiltration of the liver. Distended gallbladder with sludge and wall thickening. Possibility of cholecystitis cannot be excluded. Clinical correlation advised. Minimal free fluid in the right upper quadrant. Chest X-Ray 07/18/24 08:40 Impression: Moderate to large right pleural effusion, similar to prior exam. Stable cardiomegaly with pacemaker device. Hepatobiliary Scan Nuclear Medicine 07/18/24 13:19 IMPRESSION: 1. Delayed hepatic excretion of activity without evident biliary ductal dilation on prior ultrasound or CT which could be consistent with hepatic dysfunction likely related to cirrhosis which is evident on the prior CT imaging. 2. No gallbladder activity evident over the course of 1 hour of imaging. In the absence of either morphine administration or more delayed imaging this remains indeterminate with differential including acute cholecystitis, chronic cholecystitis, artifact of the poor hepatic excretion of activity or of prolonged fasting. Labs Labs: Laboratory Results - last 24 hr 07/16/24 07/19/24 07/19/24 16:05 12:09 16:46 WBC RBC Hgb Hct MCV MCH MCHC RDW Plt Count MPV Immature Gran % (Auto) Neut % (Auto) Lymph % (Auto) [place] % (Auto) Eos % (Auto) Baso % (Auto) Lymph # (Auto) [place] # (Auto) Eos # (Auto) Baso # (Auto) Abs Immat Gran (auto) Absolute Neuts (auto) Absolute Nucleated RBC Band Neutrophils % Nucleated RBC % Platelet Estimate Hypochromasia Anisocytosis Schistocytes Sodium Potassium Chloride Carbon Dioxide Anion Gap BUN Creatinine Estim Creat Clear Calc Estimated GFR Glucose POC Capillary Glucose 154 H 150 H Calcium Magnesium Total Bilirubin AST ALT Alkaline Phosphatase Total Protein Albumin Pleural Amylase 10 07/19/24 07/20/24 07/20/24 21:17 05:24 08:18 WBC 7.6 RBC 3.17 L Hgb 8.6 L Hct 29.5 L MCV 93.1 MCH 27.1 MCHC 29.2 L RDW 20.9 H Plt Count 160 MPV 9.7 Immature Gran % (Auto) 0.5 Neut % (Auto) 63.0 Lymph % (Auto) 24.7 [place] % (Auto) 10.2 H Eos % (Auto) 1.6 Baso % (Auto) 0.0 L Lymph # (Auto) 1.88 [place] # (Auto) 0.8 H Eos # (Auto) 0.1 Baso # (Auto) 0.0 Abs Immat Gran (auto) 0.04 H Absolute Neuts (auto) 4.8 Absolute Nucleated RBC 0.050 H Band Neutrophils % Not Reportable Nucleated RBC % 0.7 H Platelet Estimate Adequate Hypochromasia 1+ Anisocytosis 1+ Schistocytes None seen Sodium 138 Potassium 3.8 Chloride 103 Carbon Dioxide 29 Anion Gap 6 BUN 14 Creatinine 0.92 Estim Creat Clear Calc 74 Estimated GFR > 60 Glucose 123 H POC Capillary Glucose 162 H 119 H Calcium 8.0 L Magnesium 1.7 Total Bilirubin 2.4 H AST 60 H ALT 48 H Alkaline Phosphatase 71 Total Protein 6.0 L Albumin 2.5 L Pleural Amylase Quality VTE Prophylaxis VTE prophylaxis: mechanical ordered
--- NOTE | 2024-07-20 12:06 | P.PNGS_ITS ---
Progress Note: A&P Assessment and Plan (1) Chronic cholecystitis: Code(s): K81.1 - Chronic cholecystitis Status: Acute Assessment and Plan: exam completely benign, continue diabetic low-fat diet, okay to transition to oral antibiotics when appropriate, no acute surgical issues, patient is a poor surgical candidate given her multiple comorbidities, will sign off, call with questions or concerns Subjective Subjective Date/Time Seen: 07/20/24 12:06 Interval history: feels good, alexys diabetic diet, no pain Review of Systems Review of Systems: All systems reviewed & are unremarkable except as noted in HPI and below Exam Const: General: cooperative, comfortable and no acute distress Resp: Auscultation: clear to auscultation bilaterally Cardio: Rate: regular rate Rhythm: regular rhythm GI: Inspection: normal to inspection and obesity GI Palp: No abdominal tenderness, Yes Soft to palpation, No Tenderness to palpation present (GI), No Guarding due to palpation present (GI) and No Rigid due to palpation Objective Data Vital Signs Vital Signs: Vital Signs - 24 hr 07/19/24 13:25 07/19/24 20:00 07/19/24 21:09 Temperature 36.3 C L 36.6 C Pulse Rate 84 81 Respiratory Rate 18 16 Blood Pressure 130/64 103/60 Pulse Oximetry 94 95 Oxygen Delivery Room Air 07/20/24 05:32 07/20/24 08:00 07/20/24 09:39 Temperature 37.2 C 36.3 C L Pulse Rate 75 77 Respiratory Rate 16 18 Blood Pressure 114/59 L 115/72 Pulse Oximetry 92 94 Oxygen Delivery Room Air Intake/Output Intake/Output: Intake & Output 07/17/24 07/18/24 07/19/24 07/20/24 23:59 23:59 23:59 23:59 Intake Total 774 287 1664 540 Output Total 1700 2200 1200 1500 Balance -830 -1330 70 -960 Meds/Results Medications: Active Medications Generic Name Dose Route Start Last Admin Trade Name Freq PRN Reason Stop Dose Admin Acetaminophen 650 mg 07/16/24 15:30 Acetaminophen 325 Mg Tablet PO Q4H PRN Mild Pain (1-3) or Fever Ascorbic Acid 500 mg 07/17/24 09:00 07/20/24 09:25 Ascorbic Acid 500 Mg Tablet PO 500 mg DAILY JUSTIN Administration Bumetanide 2 mg 07/17/24 09:00 07/20/24 09:26 Bumetanide 1 Mg Tablet PO 2 mg DAILY JUSTIN Administration Dextrose 12.5 gm 07/17/24 11:11 Dextrose 50% 25 Gm/50 Ml Syringe IV PUSH PRN PRN Hypoglycemia Protocol Diltiazem HCl 360 mg 07/17/24 09:00 07/20/24 09:25 Diltiazem Hcl Cd 180 Mg Cap.24hr PO 360 mg QAM JUSTIN Administration Empagliflozin 25 mg 07/17/24 09:00 07/20/24 09:25 Empagliflozin 25 Mg Tablet BY MOUTH 25 mg DAILY JUSTIN Administration Folic Acid 1 mg 07/17/24 09:00 07/20/24 09:25 Folic Acid 1 Mg Tablet PO 1 mg DAILY JUSTIN Administration Glucagon 1 mg 07/17/24 11:11 Glucagon For Inj 1 Mg Vial IM PRN PRN Hypoglycemia Protocol Glucose 15 gm 07/17/24 11:11 Glucose Oral Gel 15 Gm Of Glucse In 37.5 Gm Tube PO PRN PRN Hypoglycemia Protocol Dextrose 1,000 mls @ 100 mls/hr 07/17/24 11:11 Dextrose 5% 1,000 Ml IVPB PRN PRN Hypoglycemia Protocol Piperacillin/Tazobactam/Dextrose 3.375 gm in 50 mls @ 100 mls/hr 07/18/24 11:00 07/20/24 06:13 Zosyn 3.375 Gm/Ns 50 Ml IVPB 100 mls/hr Q6HR JUSTIN Administration Insulin Aspart 2 - 5 units 07/17/24 12:00 07/20/24 09:22 Insulin Aspart (*Bkc) 100 Units/Ml SUB-Q Not Given TIDWM JUSTIN Protocol Insulin Aspart 1 - 2 units 07/17/24 21:00 07/20/24 06:04 Insulin Aspart (*Bkc) 100 Units/Ml SUB-Q Not Given HS JUSTIN Protocol Levothyroxine Sodium 25 mcg 07/17/24 06:30 07/20/24 06:14 Levothyroxine Sodium 25 Mcg Tablet PO 25 mcg DAILY@0630 JUSTIN Administration Lorazepam 0.5 mg 07/18/24 21:03 Lorazepam (*Crx) 0.5 Mg Tablet PO HS PRN Anxiety Ondansetron HCl 4 mg 07/16/24 15:30 Ondansetron Inj 4 Mg/2 Ml Vial IV PUSH Q4H PRN Nausea Pantoprazole Sodium 40 mg 07/17/24 09:00 07/20/24 09:25 Pantoprazole 40 Mg Tablet PO 40 mg QAM JUSTIN Administration Polyethylene Glycol 17 gm 07/20/24 09:00 07/20/24 09:22 Polyethylene Glycol 3350 17 Gm Powd.Pack PO 17 gm QAM JUSTIN Administration Potassium Chloride 20 meq 07/17/24 08:00 07/20/24 09:24 Potassium Chloride 20 Meq Er Tablet PO 20 meq BIDWM JUSTIN Administration Spironolactone 100 mg 07/17/24 17:50 07/20/24 09:25 Spironolactone 50 Mg Tablet PO 100 mg QAM JUSTIN Administration Thiamine HCl 100 mg 07/17/24 09:00 07/20/24 09:26 Thiamine Hcl 100 Mg Tablet PO 100 mg QAM JUSTIN Administration Radiology Results: ITS Impressions Chest/Abdomen/Pelvis CTA 07/16/24 13:27 IMPRESSION: CHEST: 1. Large right pleural effusion with atelectasis versus pneumonia in the right upper and lower lobe. 2. No pulmonary embolism. ABDOMEN/PELVIS: 1. Ascites with fluid around the liver and in the pelvis 2. Liver cirrhosis. 3. Portal hypertension with prominent vessels in the splenic bed. 4. Distended gallbladder with slightly thickened wall. No bladder stones. Thoracentesis Ultrasound 07/17/24 08:58 IMPRESSION: 1. Successful ultrasound-guided thoracentesis yielding 1000 mL of yellow fluid. Venous Doppler Study 07/17/24 13:02 IMPRESSION: Negative bilateral lower extremity venous US. No deep vein thrombosis. Abdomen Ultrasound 07/18/24 08:32 IMPRESSION: Liver cirrhosis Fat infiltration of the liver. Distended gallbladder with sludge and wall thickening. Possibility of cholecyst itis cannot be excluded. Clinical correlation advised. Minimal free fluid in the right upper quadrant. Chest X-Ray 07/18/24 08:40 Impression: Moderate to large right pleural effusion, similar to prior exam. Stable cardiomegaly with pacemaker device. Hepatobiliary Scan Nuclear Medicine 07/18/24 13:19 IMPRESSION: 1. Delayed hepatic excretion of activity without evident biliary ductal dilation on prior ultrasound or CT which could be consistent with hepatic dysfunction likely related to cirrhosis which is evident on the prior CT imaging. 2. No gallbladder activity evident over the course of 1 hour of imaging. In the absence of either morphine administration or more delayed imaging this remains indeterminate with differential including acute cholecystitis, chronic cholecystitis, artifact of the poor hepatic excretion of activity or of prolonged fasting. Labs Labs: Laboratory Results - last 24 hr 07/16/24 07/19/24 07/19/24 16:05 12:09 16:46 WBC RBC Hgb Hct MCV MCH MCHC RDW Plt Count MPV Immature Gran % (Auto) Neut % (Auto) Lymph % (Auto) [place] % (Auto) Eos % (Auto) Baso % (Auto) Lymph # (Auto) [place] # (Auto) Eos # (Auto) Baso # (Auto) Abs Immat Gran (auto) Absolute Neuts (auto) Absolute Nucleated RBC Band Neutrophils % Nucleated RBC % Platelet Estimate Hypochromasia Anisocytosis Schistocytes Sodium Potassium Chloride Carbon Dioxide Anion Gap BUN Creatinine Estim Creat Clear Calc Estimated GFR Glucose POC Capillary Glucose 154 H 150 H Calcium Magnesium Total Bilirubin AST ALT Alkaline Phosphatase Total Protein Albumin Pleural Amylase 10 07/19/24 07/20/24 07/20/24 21:17 05:24 08:18 WBC 7.6 RBC 3.17 L Hgb 8.6 L Hct 29.5 L MCV 93.1 MCH 27.1 MCHC 29.2 L RDW 20.9 H Plt Count 160 MPV 9.7 Immature Gran % (Auto) 0.5 Neut % (Auto) 63.0 Lymph % (Auto) 24.7 [place] % (Auto) 10.2 H Eos % (Auto) 1.6 Baso % (Auto) 0.0 L Lymph # (Auto) 1.88 [place] # (Auto) 0.8 H Eos # (Auto) 0.1 Baso # (Auto) 0.0 Abs Immat Gran (auto) 0.04 H Absolute Neuts (auto) 4.8 Absolute Nucleated RBC 0.050 H Band Neutrophils % Not Reportable Nucleated RBC % 0.7 H Platelet Estimate Adequate Hypochromasia 1+ Anisocytosis 1+ Schistocytes None seen Sodium 138 Potassium 3.8 Chloride 103 Carbon Dioxide 29 Anion Gap 6 BUN 14 Creatinine 0.92 Estim Creat Clear Calc 74 Estimated GFR > 60 Glucose 123 H POC Capillary Glucose 162 H 119 H Calcium 8.0 L Magnesium 1.7 Total Bilirubin 2.4 H AST 60 H ALT 48 H Alkaline Phosphatase 71 Total Protein 6.0 L Albumin 2.5 L Pleural Amylase
[2024-07-20 12:19] LABS: Glucose Point of Care 155 mg/dl (65-105)
--- NOTE | 2024-07-20 13:11 | PCPTNOTE ---
Attempted physical therapy evaluation. Pt declined stating she had just got cleaned up and settled. Educated pt needs to do PT to show she can get around her home and into home safely as she has 3 steps to enter her home. Pt states she is able to navigate her home with her equipment and doesn't require PT at this time. Educated pt PT nedessary to show her mobility in case she were to need other services to return to [facility]. Pt cont to decline services. Will reattempt as able.
[2024-07-20 16:00] VITALS: BP 110/53; PULSE 92; RESP 20; TEMP 36.5; O2SAT 96
[2024-07-20 18:09] LABS: Glucose Point of Care 169 mg/dl (65-105)
[2024-07-20 21:39] VITALS: BP 118/64; PULSE 100; RESP 16; TEMP 36.6; O2SAT 93
[2024-07-20 23:05] LABS: Glucose Point of Care 176 mg/dl (65-105)
[2024-07-20] MEDS: LORazepam (*CRX) 0.5 MG TABLET PO (23:19)
[2024-07-21] MEDS: PIPERACILLN/TAZ 3.375GM/NS50ML 3.375 GM/50 ML BAG IVPB ×2 (05:18→12:50)
[2024-07-21 05:38] LABS: Basophils Percent Auto 0.1 % (0.2-1.2); Eosinophils Absolute Auto 0.3 K/mm3 (0-0.3); Eosinophils Percent Auto 3.5 % (0-4.4); Hemoglobin 8.5 g/dL (12.0-15.0); Immature Granulocyte Absolute 0.03 K/mm3 (0.00-0.031); Immature Granulocyte Percent A 0.4 % (0-0.5); Lymphocytes Absolute Auto 1.58 K/mm3 (0.9-3.2); Lymphocytes Percent Auto 20.7 % (18.3-44.2); Mean Corpuscular HGB Conc 29.3 g/dl (32-36); Mean Corpuscular Hemoglobin 27.5 pg (26-34); Mean Corpuscular Volume 93.9 fl (80-100); Mean Platelet Volume 10.2 fl (7.4-10.4); Monocytes Absolute Auto 0.8 K/mm3 (0.1-0.6); Neutrophils Percent Auto 65.3 % (45.5-73.1); Nucleated Red Blood Cells Perc 0.4 % (0.0-0.2); Platelet Count Result 154 k/mm3 (150-375); Red Blood Count 3.09 M/mm3 (4.2-5.4); Red Cell Distribution Width 21.2 % (11.5-14.5); White Blood Count 7.6 K/mm3 (4.5-10.0)
[2024-07-21] MEDS: LEVOTHYROXINE SODIUM 25 MCG TABLET PO (05:52)
[2024-07-21 06:03] LABS: Alanine Aminotransferase 45 U/L (6-35); Albumin Level 2.4 g/dL (3.5-5.1); Alkaline Phosphatase 91 U/L (38-126); Anion Gap 4 mmol/L (4-12); Aspartate Amino Transferase 48 U/L (14-36); Bilirubin,Total 2.4 mg/dL (0.2-1.3); Blood Urea Nitrogen 11 mg/dL (7-17); Calcium 8.3 mg/dL (8.4-10.2); Carbon Dioxide 30 mmol/L (22-30); Chloride 104 mmol/L (98-107); Estimated CRCL calculation 76 ml/min; Estimated Glomerular Filt Rate > 60; Glucose 128 mg/dL (65-110); Potassium 3.9 mmol/L (3.4-5.0); Sodium 138 mmol/L (137-145)
[2024-07-21 06:15] VITALS: BP 108/59; PULSE 77; RESP 14; TEMP 36.4; O2SAT 94
[2024-07-21 06:15] LABS: Anisocytosis 1+; Hypochromasia 1+; Ovalocytes 1+; Platelet Estimate Adequate (Adequate); Schistocytes None Seen; Target Cells 1+
[2024-07-21 08:20] LABS: Glucose Point of Care 128 mg/dl (65-105)
[2024-07-21] MEDS: POTASSIUM CHLORIDE 20 MEQ ER TABLET PO ×2 (08:58→17:27)
[2024-07-21] MEDS: ASCORBIC ACID 500 MG TABLET PO (08:58)
[2024-07-21] MEDS: THIAMINE HCL 100 MG TABLET PO (08:59)
[2024-07-21] MEDS: PANTOPRAZOLE 40 MG TABLET PO (08:59)
[2024-07-21] MEDS: FOLIC ACID 1 MG TABLET PO (08:59)
[2024-07-21] MEDS: dilTIAZem HCL CD 180 MG CAP.24HR 360 MG PO (08:59)
[2024-07-21] MEDS: EMPAGLIFLOZIN 25 MG TABLET BY MOUTH (08:59)
--- NOTE | 2024-07-21 09:06 | PC.NURSE ---
pt does not want diuretics this morning because she is wanting to be discharged and does not want to pee in the car
[2024-07-21] MEDS: SPIRONOLACTONE 50 MG TABLET 100 MG PO (11:19)
[2024-07-21] MEDS: BUMETANIDE 1 MG TABLET 2 MG PO (11:19)
[2024-07-21 12:03] LABS: Glucose Point of Care 139 mg/dl (65-105)
[2024-07-21 16:00] VITALS: BP 110/61; PULSE 63; RESP 16; TEMP 36.4; O2SAT 96
[2024-07-21 17:14] LABS: Glucose Point of Care 193 mg/dl (65-105)
[2024-07-21] MEDS: AMOXICILLIN/CLAVULANATE K 875-125 MG TAB 1 TABLET PO (17:27)
[2024-07-21] MEDS: metroNIDAZOLE 500 MG TABLET PO (17:27)
--- NOTE | 2024-07-21 17:44 | P.PNIM_ITS ---
Progress Note: A&P Assessment and Plan (1) Acute respiratory failure with hypoxia: Code(s): J96.01 - Acute respiratory failure with hypoxia Status: Acute Assessment and Plan: Much improved, will continue continue monitor closely. (2) Pleural effusion on right: Code(s): J90 - Pleural effusion, not elsewhere classified Status: Acute Assessment and Plan: Stable, continue current treatment. (3) Diastolic dysfunction: Code(s): I51.89 - Other ill-defined heart diseases Status: Acute Assessment and Plan: Much improved, continue current treatment. (4) Atrial fibrillation: Code(s): I48.91 - Unspecified atrial fibrillation Status: Acute Assessment and Plan: Patient's ultrasound hold because of anemia. Once cleared by Cardiology and surgery very soon. (5) Cirrhosis of liver with ascites: Code(s): K74.60 - Unspecified cirrhosis of liver; R18.8 - Other ascites Status: Acute Assessment and Plan: Counseling given to patient regarding alcohol use. (6) Hepatic steatosis: Code(s): K76.0 - Fatty (change of) liver, not elsewhere classified Status: Acute Assessment and Plan: HIDA scan ordered. (7) Chronic anemia: Code(s): D64.9 - Anemia, unspecified Status: Acute Assessment and Plan: Stable monitor closely. (8) Obstructive sleep apnea on CPAP: Code(s): G47.33 - Obstructive sleep apnea (adult) (pediatric) Status: Chronic Assessment and Plan: Stable. (9) Alcohol abuse: Code(s): F10.10 - Alcohol abuse, uncomplicated Status: Acute Assessment and Plan: Counseling given. (10) Hypothyroidism: Code(s): E03.9 - Hypothyroidism, unspecified Status: Chronic Assessment and Plan: Stable on current medication, continue current treatment. (11) Type 2 diabetes mellitus: Code(s): E11.9 - Type 2 diabetes mellitus without complications Status: Acute Assessment and Plan: Stable, continue current Plan Right pleural effusion likely from liver cirrhosis vs CHF S/p thoracentesis and pleural studies pending CT AP showed liver cirrhosis and ascites Continue Bumex and Spironolactone monitor Liver cirrhosis US liver showed liver cirrhosis Continue diuretics above Possible Acute Cholecystitis US liver showed possible Cholecystitis HIDA scan showed acute cholecystitis vs Chronic cholecystitis vs prolonged fasting vs artifact of poor hepatic excretion of activity or of prolonged fasting. Blood culture on Zosyn Gen surgery consulted, awaiting eval monitor Diastolic CHF Continue diuretics ECHO showed EF 55-60% continue Bumex 2mg daily Distended GB with slightly thickened wall US live ordered monitor Hypothyroidism continue home Levothyroxine DM2 SSI with accucheks, adjust with clinical course Alcohol abuse counseled about cessation Anemia Hb 8.7, Ferritin last admission was 15 Patient received one dose of IV iron prior admission Give 500mg IV today, and given that she got one dose of IV iron prior admission i will consider her iron replete GI was involved in prior admission and no intervention done since patient did not have obvious bleed monitor DVT prophylaxis on SCDs, Xarelto on hold due to GI bleed monitor Awaiting Surgery eval for discharge disposition Subjective Date/time seen: 07/21/24 17:44 Interval history: Discontinued IV antibiotic and started on Augmentin. Will continue monitor until tomorrow. Review of Systems Review of Systems: 12 systems were reviewed and are negativ e except for as per HPI. Exam Narrative: General: alert and in no acute distress HEENT: PERRL, EOMI. Mild scleral icterus. Oral mucosa appears tacky through the BiPAP mask. Neck: Supple. Limited due to neck circumference. No obvious JVD. Respiratory: Tolerating BiPAP in able to speak freely through the mask. Respirations do not seem to be labored on the BiPAP. Lung sounds are diminished at the right base with scattered crackles. Cardiovascular: Irregularly irregular rate and rhythm. Gastrointestinal: Abdomen is morbidly obese and RUQ tenderness. Negative Skelton sign. No guarding or rebound tenderness. Skin: Warm and dry. Extremities: No cyanosis or clubbing. Pitting edema of the lower extremities up to the lower abdomen. No obvious palpable knots or cords. Negative Benny sign bilaterally. Neurological: Alert and oriented. Cranial nerves 2-12 are grossly intact. No gross focal deficits to casual conversation. Psychiatric: Cooperative with appropriate mood and affect. Objective Data Vital Signs Vital Signs: Vital Signs - 24 hr 07/20/24 21:00 07/20/24 21:39 07/21/24 06:15 Temperature 97.8 F 97.6 F Pulse Rate 100 77 Respiratory Rate 16 14 Blood Pressure 118/64 108/59 L Pulse Oximetry 93 94 Oxygen Delivery Room Air 07/21/24 08:45 07/21/24 10:30 07/21/24 16:00 Temperature 97.6 F Pulse Rate 63 Respiratory Rate 16 Blood Pressure 110/61 Pulse Oximetry 96 Oxygen Delivery Room Air Room Air Intake/Output Intake/Output: Intake & Output 07/18/24 07/19/24 07/20/24 07/21/24 23:59 23:59 23:59 23:59 Intake Total 870 1270 1220 1000 Output Total 2200 1200 2600 900 Balance -1330 70 -1380 100 Meds/Results Medications: Active Medications Generic Name Dose Route Start Last Admin Trade Name Freq PRN Reason Stop Dose Admin Acetaminophen 650 mg 07/16/24 15:30 Acetaminophen 325 Mg Tablet PO Q4H PRN Mild Pain (1-3) or Fever Amoxicillin/Clavulanate Potassium 1 tablet 07/21/24 19:00 07/21/24 17:27 Amoxicillin/Clavulanate K 875-125 Mg Tab PO 07/25/24 21:01 1 tablet Q12HR JUSTIN Administration Ascorbic Acid 500 mg 07/17/24 09:00 07/21/24 08:58 Ascorbic Acid 500 Mg Tablet PO 500 mg DAILY JUSTIN Administration Bumetanide 2 mg 07/17/24 09:00 07/21/24 11:19 Bumetanide 1 Mg Tablet PO 2 mg DAILY JUSTIN Administration Dextrose 12.5 gm 07/17/24 11:11 Dextrose 50% 25 Gm/50 Ml Syringe IV PUSH PRN PRN Hypoglycemia Protocol Diltiazem HCl 360 mg 07/17/24 09:00 07/21/24 08:59 Diltiazem Hcl Cd 180 Mg Cap.24hr PO 360 mg QAM JUSTIN Administration Empagliflozin 25 mg 07/17/24 09:00 07/21/24 08:59 Empagliflozin 25 Mg Tablet BY MOUTH 25 mg DAILY JUSTIN Administration Folic Acid 1 mg 07/17/24 09:00 07/21/24 08:59 Folic Acid 1 Mg Tablet PO 1 mg DAILY JUSTIN Administration Glucagon 1 mg 07/17/24 11:11 Glucagon For Inj 1 Mg Vial IM PRN PRN Hypoglycemia Protocol Glucose 15 gm 07/17/24 11:11 Glucose Oral Gel 15 Gm Of Glucse In 37.5 Gm Tube PO PRN PRN Hypoglycemia Protocol Dextrose 1,000 mls @ 100 mls/hr 07/17/24 11:11 Dextrose 5% 1,000 Ml IVPB PRN PRN Hypoglycemia Protocol Insulin Aspart 2 - 5 units 07/17/24 12:00 07/21/24 17:26 Insulin Aspart (*Bkc) 100 Units/Ml SUB-Q Not Given TIDWM JUSTIN Protocol Insulin Aspart 1 - 2 units 07/17/24 21:00 07/20/24 21:15 Insulin Aspart (*Bkc) 100 Units/Ml SUB-Q Not Given HS JUSTIN Protocol Levothyroxine Sodium 25 mcg 07/17/24 06:30 07/21/24 05:52 Levothyroxine Sodium 25 Mcg Tablet PO 25 mcg DAILY@0630 JUSTIN Administration Lorazepam 0.5 mg 07/18/24 21:03 07/20/24 23:19 Lorazepam (*Crx) 0.5 Mg Tablet PO 0.5 mg HS PRN Administration Anxiety Metronidazole 500 mg 07/21/24 19:00 07/21/24 17:27 Metronidazole 500 Mg Tablet PO 07/25/24 22:01 500 mg Q8HR JUSTIN Administration Ondansetron HCl 4 mg 07/16/24 15:30 Ondansetron Inj 4 Mg/2 Ml Vial IV PUSH Q4H PRN Nausea Pantoprazole Sodium 40 mg 07/17/24 09:00 07/21/24 08:59 Pantoprazole 40 Mg Tablet PO 40 mg QAM JUSTIN Administration Polyethylene Glycol 17 gm 07/20/24 09:00 07/21/24 08:59 Polyethylene Glycol 3350 17 Gm Powd.Pack PO Not Given QAM JUSTIN Potassium Chloride 20 meq 07/17/24 08:00 07/21/24 17:27 Potassium Chloride 20 Meq Er Tablet PO 20 meq BIDWM JUSTIN Administration Spironolactone 100 mg 07/17/24 17:50 07/21/24 11:19 Spironolactone 50 Mg Tablet PO 100 mg QAM JUSTIN Administration Thiamine HCl 100 mg 07/17/24 09:00 07/21/24 08:59 Thiamine Hcl 100 Mg Tablet PO 100 mg QAM JUSTIN Administration Radiology Results: ITS Impressions Chest/Abdomen/Pelvis CTA 07/16/24 13:27 IMPRESSION: CHEST: 1. Large right pleural effusion with atelectasis versus pneumonia in the right upper and lower lobe. 2. No pulmonary embolism. ABDOMEN/PELVIS: 1. Ascites with fluid around the liver and in the pelvis 2. Liver cirrhosis. 3. Portal hypertension with prominent vessels in the splenic bed. 4. Distended gallbladder with slightly thickened wall. No bladder stones. Thoracentesis Ultrasound 07/17/24 08:58 IMPRESSION: 1. Successful ultrasound-guided thoracentesis yielding 1000 mL of yellow fluid. Venous Doppler Study 07/17/24 13:02 IMPRESSION: Negative bilateral lower extremity venous US. No deep vein thrombosis. Abdomen Ultrasound 07/18/24 08:32 IMPRESSION: Liver cirrhosis Fat infiltration of the liver. Distended gallbladder with sludge and wall thickening. Possibility of cholecystitis cannot be excluded. Clinical correlation advised. Minimal free fluid in the right upper quadrant. Chest X-Ray 07/18/24 08:40 Impression: Moderate to large right pleural effusion, similar to prior exam. Stable cardiomegaly with pacemaker device. Hepatobiliary Scan Nuclear Medicine 07/18/24 13:19 IMPRESSION: 1. Delayed hepatic excretion of activity without evident biliary ductal dilation on prior ultrasound or CT which could be consistent with hepatic dy sfunction likely related to cirrhosis which is evident on the prior CT imaging. 2. No gallbladder activity evident over the course of 1 hour of imaging. In the absence of either morphine administration or more delayed imaging this remains indeterminate with differential including acute cholecystitis, chronic cholecystitis, artifact of the poor hepatic excretion of activity or of prolon ged fasting. Labs Labs: Laboratory Results - last 24 hr 07/20/24 07/20/24 07/21/24 16:31 21:15 05:01 WBC 7.6 RBC 3.09 L Hgb 8.5 L Hct 29.0 L MCV 93.9 MCH 27.5 MCHC 29.3 L RDW 21.2 H Plt Count 154 MPV 10.2 Immature Gran % (Auto) 0.4 Neut % (Auto) 65.3 Lymph % (Auto) 20.7 [place] % (Auto) 10.0 H Eos % (Auto) 3.5 Baso % (Auto) 0.1 L Lymph # (Auto) 1.58 [place] # (Auto) 0.8 H Eos # (Auto) 0.3 Baso # (Auto) 0.0 Abs Immat Gran (auto) 0.03 Absolute Neuts (auto) 5.0 Absolute Nucleated RBC 0.030 H Band Neutrophils % Not Reportable Nucleated RBC % 0.4 H Platelet Estimate Adequate Hypochromasia 1+ Anisocytosis 1+ Target Cells 1+ Ovalocytes 1+ Schistocytes None seen Sodium 138 Potassium 3.9 Chloride 104 Carbon Dioxide 30 Anion Gap 4 BUN 11 Creatinine 0.90 Estim Creat Clear Calc 76 Estimated GFR > 60 Glucose 128 H POC Capillary Glucose 169 H 176 H Calcium 8.3 L Total Bilirubin 2.4 H AST 48 H ALT 45 H Alkaline Phosphatase 91 Total Protein 6.0 L Albumin 2.4 L 07/21/24 07/21/24 07/21/24 08:14 11:55 17:10 WBC RBC Hgb Hct MCV MCH MCHC RDW Plt Count MPV Immature Gran % (Auto) Neut % (Auto) Lymph % (Auto) [place] % (Auto) Eos % (Auto) Baso % (Auto) Lymph # (Auto) [place] # (Auto) Eos # (Auto) Baso # (Auto) Abs Immat Gran (auto) Absolute Neuts (auto) Absolute Nucleated RBC Band Neutrophils % Nucleated RBC % Platelet Estimate Hypochromasia Anisocytosis Target Cells Ovalocytes Schistocytes Sodium Potassium Chloride Carbon Dioxide Anion Gap BUN Creatinine Estim Creat Clear Calc Estimated GFR Glucose POC Capillary Glucose 128 H 139 H 193 H Calcium Total Bilirubin AST ALT Alkaline Phosphatase Total Protein Albumin Quality VTE Prophylaxis VTE prophylaxis: mechanical ordered Hospitalist MIPS Advance Care Plan I have confirmed that the patient's Advanced Care Plan is present, code status is documented, or surrogate decision maker is listed in patient medical record.: Yes Medication Reconciliation I have utilized all available resources to obtain, update and review the patients current medications (includes all prescriptions, OTC, herbals, cannabis, and nutritional supplements).: Yes
[2024-07-21 20:09] LABS: Glucose Pleural Fluid 183 mg/dL; LDH Pleural Fluid 32 U/L; Total Protein Pleural Fluid <3.0 g/dL
[2024-07-21 20:36] VITALS: BP 121/58; PULSE 88; RESP 14; TEMP 36.7; O2SAT 95
[2024-07-21] MEDS: LORazepam (*CRX) 0.5 MG TABLET PO (20:47)
[2024-07-22 00:10] LABS: Glucose Point of Care 151 mg/dl (65-105)
[2024-07-22 03:30] VITALS: BP 121/54; PULSE 80; RESP 16; TEMP 36.6; O2SAT 95
[2024-07-22] MEDS: LEVOTHYROXINE SODIUM 25 MCG TABLET PO (05:53)
[2024-07-22] MEDS: metroNIDAZOLE 500 MG TABLET PO (05:53)
[2024-07-22 08:00] VITALS: BP 110/73; PULSE 62; RESP 17; TEMP 36.9; O2SAT 94
[2024-07-22 08:34] LABS: Glucose Point of Care 127 mg/dl (65-105)
[2024-07-22] MEDS: FOLIC ACID 1 MG TABLET PO (09:08)
[2024-07-22] MEDS: AMOXICILLIN/CLAVULANATE K 875-125 MG TAB 1 TABLET PO (09:08)
[2024-07-22] MEDS: POTASSIUM CHLORIDE 20 MEQ ER TABLET PO (09:08)
[2024-07-22] MEDS: SPIRONOLACTONE 50 MG TABLET 100 MG PO (09:08)
[2024-07-22] MEDS: THIAMINE HCL 100 MG TABLET PO (09:08)
[2024-07-22] MEDS: EMPAGLIFLOZIN 25 MG TABLET BY MOUTH (09:08)
[2024-07-22] MEDS: ASCORBIC ACID 500 MG TABLET PO (09:08)
[2024-07-22] MEDS: dilTIAZem HCL CD 180 MG CAP.24HR 360 MG PO (09:08)
[2024-07-22] MEDS: BUMETANIDE 1 MG TABLET 2 MG PO (09:09)
[2024-07-22] MEDS: PANTOPRAZOLE 40 MG TABLET PO (09:09)
[2024-07-22] MEDS: polyethylene glycoL 3350 17 GM POWD.PACK PO (09:09)
[2024-07-22 09:47] LABS: Hematocrit 31.2 % (37.0-47.0); Hemoglobin 9.1 g/dL (12.0-15.0); Mean Corpuscular HGB Conc 29.2 g/dl (32-36); Mean Corpuscular Hemoglobin 27.2 pg (26-34); Mean Corpuscular Volume 93.1 fl (80-100); Mean Platelet Volume 10.4 fl (7.4-10.4); Platelet Count Result 155 k/mm3 (150-375); Red Blood Count 3.35 M/mm3 (4.2-5.4); Red Cell Distribution Width 22.4 % (11.5-14.5)
[2024-07-22 10:07] LABS: Alanine Aminotransferase 40 U/L (6-35); Albumin Level 2.5 g/dL (3.5-5.1); Alkaline Phosphatase 80 U/L (38-126); Anion Gap 6 mmol/L (4-12); Aspartate Amino Transferase 42 U/L (14-36); Bilirubin,Total 3.2 mg/dL (0.2-1.3); Blood Urea Nitrogen 9 mg/dL (7-17); Calcium 8.1 mg/dL (8.4-10.2); Carbon Dioxide 29 mmol/L (22-30); Chloride 102 mmol/L (98-107); Estimated CRCL calculation 82 ml/min; Estimated Glomerular Filt Rate > 60; Glucose 157 mg/dL (65-110); Sodium 137 mmol/L (137-145)
--- NOTE | 2024-07-22 11:47 | PCOTNOTE ---
Patient refused treatment this session. Patient reports she is going home today and does not have any concerns at this time.
--- NOTE | 2024-07-22 12:10 | PM.DS ---
DS: Admitting Diagnosis Discharge Date 07/22/2024 Admitting Diagnosis Shortness of breath DS: Discharge Diagnosis Discharge Diagnosis (1) Acute respiratory failure with hypoxia: Code(s): J96.01 - Acute respiratory failure with hypoxia Status: Acute Assessment and Plan: Much improved, will continue continue monitor closely. (2) Pleural effusion on right: Code(s): J90 - Pleural effusion, not elsewhere classified Status: Acute Assessment and Plan: Stable, continue current treatment. (3) Diastolic dysfunction: Code(s): I51.89 - Other ill-defined heart diseases Status: Acute Assessment and Plan: Much improved, continue current treatment. (4) Atrial fibrillation: Code(s): I48.91 - Unspecified atrial fibrillation Status: Acute Assessment and Plan: Patient's ultrasound hold because of anemia. Once cleared by Cardiology and surgery very soon. (5) Cirrhosis of liver with ascites: Code(s): K74.60 - Unspecified cirrhosis of liver; R18.8 - Other ascites Status: Acute Assessment and Plan: Counseling given to patient regarding alcohol use. (6) Hepatic steatosis: Code(s): K76.0 - Fatty (change of) liver, not elsewhere classified Status: Acute Assessment and Plan: HIDA scan ordered. (7) Chronic anemia: Code(s): D64.9 - Anemia, unspecified Status: Acute Assessment and Plan: Stable monitor closely. (8) Obstructive sleep apnea on CPAP: Code(s): G47.33 - Obstructive sleep apnea (adult) (pediatric) Status: Chronic Assessment and Plan: Stable. (9) Alcohol abuse: Code(s): F10.10 - Alcohol abuse, uncomplicated Status: Acute Assessment and Plan: Counseling given. (10) Hypothyroidism: Code(s): E03.9 - Hypothyroidism, unspecified Status: Chronic Assessment and Plan: Stable on current medication, continue current treatment. (11) Type 2 diabetes mellitus: Code(s): E11.9 - Type 2 diabetes mellitus without complications Status: Acute Assessment and Plan: Stable, continue current Plan Right pleural effusion likely from liver cirrhosis vs CHF S/p thoracentesis and pleural studies pending CT AP showed liver cirrhosis and ascites Continue Bumex and Spironolactone monitor Liver cirrhosis US liver showed liver cirrhosis Continue diuretics above Possible Acute Cholecystitis US liver showed possible Cholecystitis HIDA scan showed acute cholecystitis vs Chronic cholecystitis vs prolonged fasting vs artifact of poor hepatic excretion of activity or of prolonged fasting. Blood culture on Zosyn Gen surgery consulted, awaiting eval monitor Diastolic CHF Continue diuretics ECHO showed EF 55-60% continue Bumex 2mg daily Distended GB with slightly thickened wall US live ordered monitor Hypothyroidism continue home Levothyroxine DM2 SSI with accucheks, adjust with clinical course Alcohol abuse counseled about cessation Anemia Hb 8.7, Ferritin last admission was 15 Patient received one dose of IV iron prior admission Give 500mg IV today, and given that she got one dose of IV iron prior admission i will consider her iron replete GI was involved in prior admission and no intervention done since patient did not have obvious bleed monitor DS: Summary Hospital Course Hospital Course: 63-year-old female with atrial fibrillation not currently on anticoagulation with a recent hospitalization for acute on chronic anemia requiring blood transfusion (EGD showed mild gastritis and hiatal hernia), hypertension, diastolic dysfunction, obstructive sleep apnea on CPAP, type 2 diabetes mellitus, alcohol abuse, and hypothyroidism who presented to the emergency department from her doctor's office for evaluation of shortness of breath. The patient provides the following history. She felt pretty good on discharge however the last several days she has developed increasing edema in her legs and abdomen as well as increasing shortness of breath on lesser and lesser exertion and intermittent palpitation. Additionally she reports tightness throughout her entire chest. She has a mild but nonproductive cough. She has had some nausea but no vomiting. Abdomen feels distended and initially she thought she was constipated and she took Metamucil and was able to have a normal bowel movement this morning. She saw her doctor today in follow-up and was directed to the ED after she was found to have an SpO2 of 85% on room air and a heart rate of 122. She denies syncope, near syncope, fever, cold and flu symptoms, pleuritic pain, nausea, vomiting, diarrhea, epigastric and abdominal pain, melena, hematochezia, and dysuria. In the ED: Vital signs on arrival include a blood pressure of 112/78, pulse 81, respiratory rate 14, SpO2 100% on CPAP (placed by EMS). Labs were significant for WBC count of 10.1, hemoglobin 9.8, D-dimer 2.09, creatinine 1.12, glucose 193, total bilirubin 3.1, AST 80, ALT 53, troponin less than 0.012, proBNP 181. Respiratory panel was negative. CTA of the chest, abdomen, and pelvis was negative for pulmonary embolism but did show large right pleural effusion with atelectasis versus pneumonia, cirrhosis of the liver with ascites and portal hypertension as well as a distended gallbladder with slightly thickened wall. She was sent for diagnostic and therapeutic thoracentesis and is feeling somewhat better. She is being admitted in this setting for further treatment and evaluation. I assumed care on 07/21: During the hospitalization patient was treated for chronic cholecystitis and surgery was consulted who recommended oral antibiotic during discharge since the patient is a poor surgical candidate given multiple comorbid conditions. Patient also had a right pleural effusion and thoracocentesis shows transudate. So patient can continue Bumex and spironolactone. In regards to liver cirrhosis the patient has chronic alcoholism and advised to discontinue alcohol and ultrasound of the liver shows liver cirrhosis. In regards to diastolic CHF patient needs to continue Bumex 2 mg. Status at Discharge Cognitive/behavioral status at discharge: Stable Time Spent with Patient Time attestation: Total time spent providing and/or coordinating discharge services: 45 minutes Exam Narrative: General: alert and in no acute distress HEENT: PERRL, EOMI. Mild scleral icterus. Oral mucosa appears tacky through the BiPAP mask. Neck: Supple. Limited due to neck circumference. No obvious JVD. Respiratory: Tolerating BiPAP in able to speak freely through the mask. Respirations do not seem to be labored on the BiPAP. Lung sounds are diminished at the right base with scattered crackles. Cardiovascular: Irregularly irregular rate and rhythm. Gastrointestinal: Abdomen is morbidly obese and RUQ tenderness. Negative Skelton sign. No guarding or rebound tenderness. Skin: Warm and dry. Extremities: No cyanosis or clubbing. Pitting edema of the lower extremities up to the lower abdomen. No obvious palpable knots or cords. Negative Benny sign bilaterally. Neurological: Alert and oriented. Cranial nerves 2-12 are grossly intact. No gross focal deficits to casual conversation. Psychiatric: Cooperative with appropriate mood and affect. DS: Data Data Completed and Pending Completed studies during hospitalization: Pending at discharge 07/16/24 16:35 Cytology [PTH] Routine Labs on day of discharge: Labs from last 24 hours 07/22/24 07/22/24 07/21/24 09:31 08:29 20:40 WBC 7.0 RBC 3.35 L Hgb 9.1 L Hct 31.2 L MCV 93.1 MCH 27.2 MCHC 29.2 L RDW 22.4 H Plt Count 155 MPV 10.4 Sodium 137 Potassium 4.0 Chloride 102 Carbon Dioxide 29 Anion Gap 6 BUN 9 Creatinine 0.83 Estim Creat Clear Calc 82 Estimated GFR > 60 Glucose 157 H POC Capillary Glucose 127 H 151 H Calcium 8.1 L Total Bilirubin 3.2 H AST 42 H ALT 40 H Alkaline Phosphatase 80 Total Protein 6.0 L Albumin 2.5 L Pleural Total Protein Pleural LDH Pleural Glucose 07/21/24 07/16/24 17:10 16:05 WBC RBC Hgb Hct MCV MCH MCHC RDW Plt Count MPV Sodium Potassium Chloride Carbon Dioxide Anion Gap BUN Creatinine Estim Creat Clear Calc Estimated GFR Glucose POC Capillary Glucose 193 H Calcium Total Bilirubin AST ALT Alkaline Phosphatase Total Protein Albumin Pleural Total Protein <3.0 Pleural LDH 32 Pleural Glucose 183 Preliminary micro results at discharge 07/18/24 10:41 Blood Culture - Preliminary Blood 07/18/24 10:39 Blood Culture - Preliminary Blood Imaging Radiologist's impression: ITS Impressions Chest X-Ray 07/16/24 11:43 IMPRESSION: Right basal atelectasis versus pneumonia with large pleural effusion. Chest/Abdomen/Pelvis CTA 07/16/24 13:27 IMPRESSION: CHEST: 1. Large right pleural effusion with atelectasis versus pneumonia in the right upper and lower lobe. 2. No pulmonary embolism. ABDOMEN/PELVIS: 1. Ascites with fluid around the liver and in the pelvis 2. Liver cirrhosis. 3. Portal hypertension with prominent vessels in the splenic bed. 4. Distended gallbladder with slightly thickened wall. No bladder stones. Chest X-Ray 07/16/24 16:50 IMPRESSION: No pneumothorax following right-sided thoracentesis, as detailed above. Thoracentesis Ultrasound 07/17/24 08:58 IMPRESSION: 1. Successful ultrasound-guided thoracentesis yielding 1000 mL of yellow fluid. Venous Doppler Study 07/17/24 13:02 IMPRESSION: Negative bilateral lower extremity venous US. No deep vein thrombosis. Abdomen Ultrasound 07/18/24 08:32 IMPRESSION: Liver cirrhosis Fat infiltration of the liver. Distended gallbladder with sludge and wall thickening. Possibility of cholecystitis cannot be excluded. Clinical correlation advised. Minimal free fluid in the right upper quadrant. Chest X-Ray 07/18/24 08:40 Impression: Moderate to large right pleural effusion, similar to prior exam. Stable cardiomegaly with pacemaker device. Hepatobiliary Scan Nuclear Medicine 07/18/24 13:19 IMPRESSION: 1. Delayed hepatic excretion of activity without evident biliary ductal dilation on prior ultrasound or CT which could be consistent with hepatic dysfunction likely related to cirrhosis which is evident on the prior CT imaging. 2. No gallbladder activity evident over the course of 1 hour of imaging. In the absence of either morphine administration or more delayed imaging this remains indeterminate with differential including acute cholecystitis, chronic cholecystitis, artifact of the poor hepatic excretion of activity or of prolonged fasting. Discharge Plan Discharge Attending physician on discharge: Refugio Thompson Consulting providers: Maty Ventura Discharging Clinician: Refugio Thompson Anticipated Discharge Date/Time: 07/22/24 12:03 Patient Disposition: Home, Self-Care Activity: as tolerated Diet: diabetic Discharge Instructions: Check blood pressure 1 to 2 times a day. Record and bring into your doctor for review. Call your doctor if your blood pressure is greater than 180/110 or less than 90/45. Walk with cane or other assist device. Take precautions to avoid falls. Rise slowly from a lying or sitting position. Pause before standing or walking. Contact your doctor or call 911 and come to the Emergency Room if you have any type of trauma, lightheadedness with standing or other worrisome symptoms. Avoid NSAIDs (ibuprofen, naproxen, Aleve). Tylenol is safe to take. Follow-up with your primary care provider in 1-2 weeks. Please call for appointment. Follow-up with surgery in 2-4 weeks. Please call for an appointment. Thank you for using [facility] for your health care needs. Patient Instructions: Antibiotic Form Patient Language: Cameroonian Stand Alone Forms: General Discharge Information Follow-up/Referrals: Maty Ventura MD [Physician] - Luis Campo MD [Primary Care Provider] - Discharge Medications: New metronidazole 500 mg Tablet 500 mg PO Q8HR Qty: 20 0RF Rx Instructions: Please complete the course on 07/25 folic acid 1 mg Tablet 1 mg PO DAILY Qty: 30 0RF polyethylene glycol 3350 [Miralax] 17 gram Powder In Packet 17 g PO QAM Qty: 30 0RF thiamine HCl (vitamin B1) [Vitamin B-1] 100 mg Tablet 100 mg PO QAM Qty: 30 0RF spironolactone [Aldactone] 50 mg Tablet 100 mg PO QAM Qty: 30 0RF amoxicillin-pot clavulanate 875-125 mg tablet 1 tablet PO Q12H Qty: 20 0RF Rx Instructions: Please complete the course on 07/25 Continued bumetanide 2 mg Tablet 2 mg PO DAILY diltiazem HCl 360 mg Capsule,Extended Release 24 Hr 360 mg PO DAILY levothyroxine 25 mcg Tablet 25 mcg PO DAILY potassium chloride 20 mEq Tablet Extended Release 20 meq PO BID Vitamin D2 50,000 units capsule 50,000 units PO WEEKLY ascorbic acid (vitamin C) [Vitamin C] 500 mg Tablet 500 mg PO DAILY Qty: 30 0RF dapagliflozin propanediol [Farxiga] 10 mg tablet 10 mg PO DAILY pantoprazole 40 mg Tablet,Delayed Release (Dr/Ec) 40 mg PO QAM Qty: 30 0RF Held Xarelto 20 mg Tablet 20 mg PO DAILY Hold Instructions: Resume on 09/06/24. Holding Xarelto due to low hemoglobin and discussed with her PCP if needs to be continued Patient Comments: ON HOLD Rx Instructions: must administer with evening meal Discontinued potassium chloride 20 mEq tablet,ER particles/crystals 20 meq PO BID Date of admission: 07/16/24 18:19 Primary Care Provider: Luis Campo Admitting Provider: Zeb Das Attending physician on admission: Zeb Das Condition: Stable
[2024-07-22 12:21] LABS: Glucose Point of Care 159 mg/dl (65-105)
== END 2024-07-22 13:15 | disposition home or self-care (01) | DRG 432 ==
LOC: ANHED 16:42 → ANHIMU 16:58 → ANH2MED 07-21 11:18 → ANHIMU 07-23 13:07
PROVIDERS: Internal Medicine; Physician Assistant; Admitting Provider Hospitalist; Emergency Provider Student in an Organized Health Care Education/Training Program; PCP Internal Medicine; Visit Provider General Practice
DX: K70.31 Alcoholic cirrhosis of liver with ascites (principal); J96.01 Acute respiratory failure with hypoxia; J91.8 Pleural effusion in other conditions classified elsewhere; K81.0 Acute cholecystitis; I50.32 Chronic diastolic (congestive) heart failure; N17.9 Acute kidney failure, unspecified; I11.0 Hypertensive heart disease with heart failure; K81.1 Chronic cholecystitis; K76.0 Fatty (change of) liver, not elsewhere classified; D64.9 Anemia, unspecified; F10.10 Alcohol abuse, uncomplicated; E03.9 Hypothyroidism, unspecified; E11.9 Type 2 diabetes mellitus without complications; G47.33 Obstructive sleep apnea (adult) (pediatric); E66.01 Morbid (severe) obesity due to excess calories; E78.5 Hyperlipidemia, unspecified; Z66 Do not resuscitate; Z95.0 Presence of cardiac pacemaker; Z87.891 Personal history of nicotine dependence
CPT/HCPCS: 32555; 36415; 36600; 71045; 71275; 74177; 76705; 78226; 80053; 82150; 82805; 82945; 82948; 83605; 83615; 83735; 83880; 84157; 84484; 85018; 85025; 85027; 85380; 85610; 85730; 87040; 87070; 87075; 87205; 87637; 88108; 88305; 88342; 89051; 93005; 93306; 93970; 94002; 94003; 96374; 96375; 97161; 97165; 99285; A9270; A9537; G0378; J1756; J1815; J2060; J2543; J7050; Q9967

== ENCOUNTER 2025-04-10 11:38 | Inpatient (IN) | payer MEDICARE, MEDICAID, SELFPAY ==
[2025-04-10] VITALS (74 sets, daily range): BP systolic 96–136; BP diastolic 42–93; PULSE 66–98; RESP 14–35; TEMP 36.4–36.7; O2SAT 90–99
--- NOTE | ~2025-04-10 | XR_ITS ---
EXAMINATION: XR chest 2V DATE: 04/10/2025 12:37 INDICATION: CHF TECHNIQUE: Frontal and lateral views of the chest were obtained. COMPARISON: July 18, 2024 FINDINGS: Moderate to large right-sided pleural effusion similar to the previous exam. Prominent vascular markings. Mild to moderately enlarged heart shadow. Left-sided pacemaking device and wires stable. No pneumothorax or subphrenic free air seen. IMPRESSION: 1. Cardiomegaly with moderate to large right-sided pleural effusion. Mild pulmonary edema may also be present. Reviewed, dictated and finalized at location A. ENTER MINE IMPRESSION: 1. Cardiomegaly with moderate to large right-sided pleural effusion. Mild pulmo nary edema may also be present.
--- NOTE | ~2025-04-10 | CT_ITS ---
EXAMINATION: CT abdomen pelvis w con DATE: 04/10/2025 16:09 INDICATION: History of cirrhosis of the liver. Elevated liver function. Elevated INR. TECHNIQUE: Computed tomography (CT) of the abdomen and pelvis was performed with 100 cc of Omnipaque 350 intravenous contrast. Automated exposure control and iterative reconstruction technique were employed. The dose-length product was 1740.47 mGy-cm. COMPARISON: Hepatobiliary nuclear scan dated 07/18/2024. Ultrasound abdomen dated 07/18/2024. CT dated 08/23/2005. FINDINGS: Large right pleural effusion is noted in the lower chest. Cardiomegaly is noted. Contracted nodular liver consistent with cirrhosis of the liver. Craniocaudal span of the liver measures 14 cm. Significantly distended gallbladder similar to prior imaging studies. Thickening of the wall of the gallbladder. No localized calcified stones. Bile ducts are normal in size. Pancreas shows no acute findings. Venous sinuses are noted in the upper left abdomen at the hilum of the spleen suggestive of portal venous hypertension. Mild, paraumbilical venous varices are noted. No evidence of small bowel obstruction. No free fluid in the peritoneal cavity. Normal postmenopausal size uterus. Larger cystic mass of the left ovary is noted measuring 6 cm in diameter. Smaller cystic mass of the right ovary measures 3 cm. No fluid collections in the pelvis. Degenerative disc disease at L4-5 level. IMPRESSION: 1. Changes of cirrhosis of the liver with evidence of portosystemic varices in the upper left abdomen indicating portal venous hypertension. There is no splenomegaly. There is no ascites. Distended gallbladder with diffuse wall thickening of the gallbladder wall similar to some of the prior imaging studies. Bile ducts are normal in size. 2. Moderate size right pleural effusion. 3. Bilateral cystic masses, larger on the left side measuring 6 cm with smaller 3 cm cyst in the right ovary. These should be considered possible neoplastic cyst. Close imaging follow-up is recommended. 4. Calcific atherosclerotic changes of abdominal aorta. Degenerative disc disease at L4-5 level. Reviewed, dictated and finalized at location T. S DEPARTMENT MANAGER IMPRESSION: 1. Changes of cirrhosis of the liver with evidence of portosystemic varices in the upper left abdomen indicating portal venous hypertension. There is no splen omegaly. There is no ascites. Distended gallbladder with diffuse wall thickenin g of the gallbladder wall similar to some of the prior imaging studies. Bile du cts are normal in size. 2. Moderate size right pleural effusion. 3. Bilateral cystic masses, larger on the left side measuring 6 cm with smaller 3 cm cyst in the right ovary. These should be considered possible neoplastic c yst. Close imaging follow-up is recommended. 4. Calcific atherosclerotic changes of abdominal aorta. Degenerative disc disea se at L4-5 level.
--- NOTE | ~2025-04-10 | XR_ITS ---
EXAMINATION: XR chest 1V portable DATE: 04/13/2025 08:57 INDICATION: Pleural effusion. TECHNIQUE: frontal view of the chest was obtained. COMPARISON: Chest CT dated 04/10/2025 FINDINGS: Opacities in the right mid to lower lung zone with blunting at the costophrenic and cardiophrenic angles consistent with persistent small to moderate-sized pleural effusion with associated atelectasis and/or pneumonia in the lower lung zones. Persistent mild streaky lingular atelectasis/scarring at the left costophrenic angle. No pulmonary edema, pneumothorax or left-sided pleural effusion. Cardiomegaly. Dual lead pacemaker seen with leads projecting over the expected locations of the right atrium and right ventricle. IMPRESSION: 1. Persistent small to moderate-sized right pleural effusion with associated atelectasis and/or pneumonia in the right mid to lower lung zone. 2. Cardiomegaly. Reviewed, dictated and finalized at location A. R INSTALLER PV IMPRESSION: 1. Persistent small to moderate-sized right pleural effusion with associated at electasis and/or pneumonia in the right mid to lower lung zone. 2. Cardiomegaly.
--- NOTE | ~2025-04-10 | CT_ITS ---
EXAMINATION: CT diagnostic chest wo con DATE: 04/10/2025 16:16 INDICATION: fluid in lungs TECHNIQUE: Computed tomography (CT) of the chest was performed without intravenous contrast. Additional 3D reconstructions utilizing coronal maximum intensity projection (MIP) were performed. Automated exposure control and iterative reconstruction technique were employed. The dose-length product was 84 8.00 mGy-cm. COMPARISON: 07/16/2024 FINDINGS: Moderate-sized posterior layering right pleural effusion with complete collapse of the right lower lobe, partial collapse of the right middle lobe and mild dependent atelectasis in the right upper lobe. There is a new 1.8 cm focal groundglass opacity at the anterior segment of the left upper lobe. No pulmonary edema or left-sided pleural effusion. Cardiomegaly. Dual lead pacemaker seen with lead tips at the right atrial appendage and and near the apex of the right ventricle. No pericardial effusion. Thoracic aorta is normal in caliber. No pathologically enlarged thoracic lymphadenopathy. Nodular cirrhotic liver. A prominent splenorenal collaterals and likely recanalized umbilical vein consistent with secondary portal venous hypertension. There is haziness to the pericholecystic fat. Mild to moderate lower cervical and mild thoracic spondylosis. IMPRESSION: 1. Moderate-sized right pleural effusion with right lower lobe collapse and partial collapse of the right middle lobe. 2. New 1.8 cm groundglass opacity in the intersegment the left upper lobe which most likely infectious or inflammatory in etiology. Consider 3 month follow-up low-dose noncontrast chest CT. 3. Cardiomegaly. 4. Cirrhosis with stigmata of portal venous hypertension. 5. Haziness to the pericholecystic fat for which differential would include acute cholecystitis, liver disease, heart disease or other generalized edema forming states. Reviewed, dictated and finalized at location A. ORARY RECEPTIONIST IMPRESSION: 1. Moderate-sized right pleural effusion with right lower lobe collapse and par tial collapse of the right middle lobe. 2. New 1.8 cm groundglass opacity in the intersegment the left upper lobe which most likely infectious or inflammatory in etiology. Consider 3 month follow-up low-dose noncontrast chest CT. 3. Cardiomegaly. 4. Cirrhosis with stigmata of portal venous hypertension. 5. Haziness to the pericholecystic fat for which differential would include acu te cholecystitis, liver disease, heart disease or other generalized edema formi ng states.
--- NOTE | 2025-04-10 11:42 | ECG_ITS ---
Test Date: 2025-04-10 12:06:43 Measurements Intervals Grethel Rate: 82 P: 0 AR: 0 QRS: 20 QRSD: 85 T: 0 QT: 374 QTc: 439 Interpretive Statements ATRIAL FIBRILLATION WITH VENTRICULAR PREMATURE COMPLEXES LOW QRS VOLTAGE IN PRECORDIAL LEADS BORDERLINE ST-T WAVE ABNORMALITY- DIFFUSE LEADS BASELINE ARTIFACT- I, II, AVR ,AVL, AVF, V1-V6 ABNORMAL ECG Compared to ECG 07/16/2024 10:16:08 VENTRICULAR PREMATURE COMPLEXES NOW PRESENT Electronically Signed On 04-10-2025 12:42:06 CHEMICAL PROCESSING EQUIPMENT REPAIRER by Yared Briceno D.O.
[2025-04-10 12:29] LABS: Immature Granulocyte Percent A 0.7 % (0-0.5); Lymphocytes Absolute Auto 0.93 K/mm3 (0.9-3.2); Mean Corpuscular HGB Conc 27.9 g/dl (32-36); Mean Corpuscular Hemoglobin 22.9 pg (26-34); Mean Corpuscular Volume 81.9 fl (80-100); Nucleated Red Blood Cells Absolute Auto 0.020 K/mm3 (0.0-0.012); Nucleated Red Blood Cells Perc 0.3 % (0.0-0.2); Platelet Count Result 186 k/mm3 (150-375); Red Blood Count 2.10 M/mm3 (4.2-5.4); White Blood Count 5.9 K/mm3 (4.5-10.0)
[2025-04-10 12:31] LABS: Hematocrit 17.2 % (37.0-47.0); Hemoglobin 4.8 g/dL (12.0-15.0)
[2025-04-10 12:41] LABS: Partial Thromboplastin Time 50.7 Seconds (22.3-36.8); Prothrombin Time 84.3 Seconds (11.1-14.7)
[2025-04-10 12:44] LABS: Alanine Aminotransferase 44 U/L (6-35); Albumin Level 3.2 g/dL (3.5-5.1); Alkaline Phosphatase 92 U/L (38-126); Anion Gap 11 mmol/L (4-12); Aspartate Amino Transferase 46 U/L (14-36); Bilirubin,Total 3.0 mg/dL (0.2-1.3); Blood Urea Nitrogen 19 mg/dL (7-17); Calcium 8.6 mg/dL (8.4-10.2); Carbon Dioxide 23 mmol/L (22-30); Chloride 98 mmol/L (98-107); Estimated CRCL calculation 53 ml/min; Estimated Glomerular Filt Rate 41; Glucose 155 mg/dL (65-110); Potassium 2.7 mmol/L (3.4-5.0); Sodium 132 mmol/L (137-145); Total Protein 7.5 g/dL (6.3-8.2)
[2025-04-10 12:53] LABS: Anisocytosis 2+
[2025-04-10 12:54] LABS: Hypochromasia 2+; Ovalocytes 1+; Target Cells 2+
[2025-04-10 12:56] LABS: Polychromasia Occasional; Schistocytes None Seen; Tear Drop Cells Occasional
[2025-04-10 12:58] LABS: Basophilic Stippling Occasional
[2025-04-10 12:59] LABS: NT Pro B Type Natriuretic Pept 406 pg/mL (19.9-100); Troponin I < 0.012 ng/mL (0.000-0.034)
[2025-04-10 13:06] LABS: INR 12.0
[2025-04-10] MEDS: FUROSEMIDE INJ 40 MG/4 ML VIAL IV PUSH (13:19)
[2025-04-10] MEDS: KCL 20 MEQ/SW 100 ML 100 ML 50 MEQ IVPB ×2 (13:21→20:54)
[2025-04-10] MEDS: SODIUM CHLORIDE 0.9% IV 250 ML 30 ML IV CONT (13:22)
--- NOTE | 2025-04-10 13:25 | ED.GENADULT ---
HPI - General Adult General Chief complaint: Weakness <Shun Lincoln MD - Last Filed: 04/11/25 13:02> Stated complaint: weak <Shun Lincoln MD - Last Filed: 04/11/25 13:02> Time Seen by Provider: 04/10/25 12:42 <Shun Lincoln MD - Last Filed: 04/11/25 13:02> History of Present Illness HPI narrative: Patient is 64-year-old female who presents emergency department chief complaint of shortness of breath and generalized weakness. Patient reports that she has history of chronic kidney disease also history of congestive heart failure and reports that she has anemia the patient reports that she takes Xarelto and reports that she has been having dyspnea with exertion. <Shun Lincoln MD - Last Filed: 04/11/25 13:02> Related Data Home medications: Home Medications ?Medication ?Instructions ?Recorded ?Confirmed ?Last Taken ?Type bumetanide 2 mg tablet 2 mg PO DAILY 03/23/23 04/10/25 07/05/24 History diltiazem HCl 360 mg capsule,24 360 mg PO DAILY 03/23/23 04/10/25 07/06/24 History hr,extended release levothyroxine 25 mcg tablet 25 mcg PO DAILY 03/23/23 04/10/25 07/06/24 History rivaroxaban 20 mg tablet (Xarelto) 20 mg PO DAILY 03/23/23 04/10/25 07/06/24 History dapagliflozin propanediol 10 mg 10 mg PO DAILY 04/27/23 04/10/25 07/06/24 History tablet (Farxiga) <Shun Lincoln MD - Last Filed: 04/11/25 13:02> Allergies/adverse reactions: Allergies Allergy/AdvReac Type Severity Reaction Status Date / Time amiodarone Allergy Severe Hives Verified 04/11/25 15:38 codeine AdvReac Mild Itching Verified 04/11/25 15:38 <Shun Lincoln MD - Last Filed: 04/11/25 13:02> Review of Systems Review of Systems: A 10 system review of systems was completed on the patient and is negative except for what is stated in the HPI. Nursing and ancillary documentation was reviewed. <Shun Lincoln MD - Last Filed: 04/11/25 13:02> [facility] Past Medical History Medical History: Medical History Left knee DJD Right knee DJD NSAID long-term use BMI 50.0-59.9, adult Degenerative joint disease of knee Type 2 diabetes mellitus Diastolic dysfunction Cirrhosis of liver with ascites noted on CT scan 07/16/2024 Chronic anemia Hepatic steatosis Morbid obesity Hypothyroidism Dyslipidemia Obstructive sleep apnea on CPAP Diverticulitis <Shun Lincoln MD - Last Filed: 04/11/25 13:02> Surgical History Surgical History: Surgical History History of permanent cardiac pacemaker placement (09/2016) Biotronik dual chamber pacemaker implant by Dr. Garvey <Shun Lincoln MD - Last Filed: 04/11/25 13:02> Family History Family History: Family History Mother Acute myocardial infarction, Onset Age: 73 versus stated <65yo when asked on 07/16/24 Cerebrovascular accident, Onset Age: 73 complication of blood transfusion Diabetes mellitus Complication of blood transfusion CVA Father Multiple myeloma <Shun Lincoln MD - Last Filed: 04/11/25 13:02> Social History Social History: Social History Social History: Surrogate medical decision maker: Gracy Banuelos, friend. Code status: Do not resuscitate. Years smoked: 35 Smoking status: Former smoker Alcohol intake: former Drinks per week: 21 Alcohol use details: Social alcohol use in moderation. Substance use: never Substance use type: does not use Lack of Transportation: No Lack of Food: Never True Current Housing: I Have Housing Concerned About Future Housing: No Difficulty Paying Gas/Electric Bills: No Difficulty Paying for Meds: No Currently Unemployed: No Education: High School Diploma/GED Difficulty w/ Childcare or Family Care: No Living arrangements: with family Additional living arrangements comments: The patient lives alone. She has no children. Caregiver comes in 3 days weak. Spiritual care concerns: No <Shun Lincoln MD - Last Filed: 04/11/25 13:02> Exam Narrative: GENERAL: Well-appearing, well-nourished, and in no acute distress. HEAD: Normocephalic, atraumatic. EYES: PERRLA and EOMI. ENT: Nares clear, no rhinorrhea or epistaxis. Mucous membranes moist. NECK: Supple. CHEST: Clear to auscultation. No respiratory distress. HEART: Regular rate and rhythm. No murmur heard. Normal peripheral pulses. ABDOMEN: Soft, nontender, nondistended, normal active bowel sounds. EXTREMITIES: Normal range of motion. 2+ edema. SKIN: Warm, dry, no rash. NEURO: No focal deficits. Alert and oriented x3. PSYCH: Normal mood and affect. <Shun Lincoln MD - Last Filed: 04/11/25 13:02> Course Course Emergency Course: i assumed care at shift change , pt endorsed to Dr. Lincoln , as he knows the pt . <Cole Brantley MD - Last Filed: 04/11/25 17:14> Vital Signs Vital signs: Vital Signs Temperature 36.6 C 04/10/25 11:42 Pulse Rate 77 04/10/25 11:42 Respiratory Rate 16 04/10/25 11:42 Blood Pressure 125/75 04/10/25 11:42 Pulse Oximetry 95 04/10/25 11:42 Oxygen Delivery Room Air 04/10/25 11:42 Temperature 36.7 C 04/11/25 15:25 Pulse Rate 68 04/11/25 15:25 Respiratory Rate 22 H 04/11/25 15:25 Blood Pressure 116/62 04/11/25 15:25 Pulse Oximetry 100 04/11/25 16:00 Oxygen Delivery Nasal Cannula 04/11/25 16:00 Oxygen Flow Rate 4 04/11/25 16:00 <Shun Lincoln MD - Last Filed: 04/11/25 13:02> Vital Signs Temperature 36.6 C 04/10/25 11:42 Pulse Rate 77 04/10/25 11:42 Respiratory Rate 16 04/10/25 11:42 Blood Pressure 125/75 04/10/25 11:42 Pulse Oximetry 95 04/10/25 11:42 Oxygen Delivery Room Air 04/10/25 11:42 Temperature 36.7 C 04/11/25 15:25 Pulse Rate 68 04/11/25 15:25 Respiratory Rate 22 H 04/11/25 15:25 Blood Pressure 116/62 04/11/25 15:25 Pulse Oximetry 100 04/11/25 16:00 Oxygen Delivery Nasal Cannula 04/11/25 16:00 Oxygen Flow Rate 4 04/11/25 16:00 <Emiliano Estrada DO - Last Filed: 04/11/25 06:07> Vital Signs Temperature 36.6 C 04/10/25 11:42 Pulse Rate 77 04/10/25 11:42 Respiratory Rate 16 04/10/25 11:42 Blood Pressure 125/75 04/10/25 11:42 Pulse Oximetry 95 04/10/25 11:42 Oxygen Delivery Room Air 04/10/25 11:42 Temperature 36.7 C 04/11/25 15:25 Pulse Rate 68 04/11/25 15:25 Respiratory Rate 22 H 04/11/25 15:25 Blood Pressure 116/62 04/11/25 15:25 Pulse Oximetry 100 04/11/25 16:00 Oxygen Delivery Nasal Cannula 04/11/25 16:00 Oxygen Flow Rate 4 04/11/25 16:00 <Cole Brantley MD - Last Filed: 04/11/25 17:14> MDM MDM Narrative Medical decision making narrative: Laboratory studies were obtained on the patient showed a hemoglobin of 4.8 the patient is guaiac positive Potassium is 2.7 Patient's creatinine 1 1 troponin was negative BNP was 406 The patient's INR was 12 The patient has prior history of cirrhosis and CT scan showed evidence of cirrhosis with varices the patient also had a large right-sided pleural effusion The patient's calculated meld score is 40 Due to this after discussion with the hospitalist locally was felt the patient would be better served facility with hepatology the patient was discussed with Dr. Santo who accepted the patient currently the patient is on a wait list as the emergency department is on time critical accepting status the plan will be for the transfer center reassess the trunk vertical status availability of the ER and plan will be to transfer the patient to the emergency department at [facility] there is capacity Patient signed out to me pending bed availability. Remained stable throughout my care. She was placed on her home CPAP. Patient signed out pending bed availability every assumed care this morning patient is still pending a bed at [facility] and will not have availability until most likely Sunday the patient's INR has improved the case was discussed with the hospitalist for observation admission until bed becomes available the patient was accepted <Shun Lincoln MD - Last Filed: 04/11/25 13:02> Laboratory studies were obtained on the patient showed a hemoglobin of 4.8 the patient is guaiac positive Potassium is 2.7 Patient's creatinine 1 1 troponin was negative BNP was 406 The patient's INR was 12 The patient has prior history of cirrhosis and CT scan showed evidence of cirrhosis with varices the patient also had a large right-sided pleural effusion The patient's calculated meld score is 40 Due to this after discussion with the hospitalist locally was felt the patient would be better served facility with hepatology the patient was discussed with Dr. Santo who accepted the patient currently the patient is on a wait list as the emergency department is on time critical accepting status the plan will be for the transfer center reassess the trunk vertical status availability of the ER and plan will be to transfer the patient to the emergency department at [facility] there is capacity Patient signed out to me pending bed availability. Remained stable throughout my care. She was placed on her home CPAP. Patient signed out pending bed availability <Emiliano Estrada DO - Last Filed: 04/11/25 06:07> Differential Diagnosis Differential Diagnosis: CHF, anemia, electrolyte abnormality, <Shun Lincoln MD - Last Filed: 04/11/25 13:02> Lab Data MDM Lab Attestation statement: I personally reviewed the patient's lab results. <Shun Lincoln MD - Last Filed: 04/11/25 13:02> Result diagrams: 04/11/25 15:37 04/11/25 00:33 <Shun Lincoln MD - Last Filed: 04/11/25 13:02> Labs: Lab Results 04/10/25 04/10/25 04/10/25 Range/Units 12:21 12:44 14:09 WBC 5.9 (4.5-10.0) K/mm3 RBC 2.10 L (4.2-5.4) M/mm3 Hgb 4.8 L* D (12.0-15.0) g/dL Hct 17.2 L* (37.0-47.0) % MCV 81.9 (80-100) fl MCH 22.9 L (26-34) pg MCHC 27.9 L (32-36) g/dl RDW 24.5 H (11.5-14.5) % Plt Count 186 (150-375) k/mm3 MPV 10.0 (7.4-10.4) fl Immature Gran % (Auto) 0.7 H (0-0.5) % Neut % (Auto) 67.1 (45.5-73.1) % Lymph % (Auto) 15.9 L (18.3-44.2) % Payne % (Auto) 14.3 H (2.6-8.5) % Eos % (Auto) 1.5 (0-4.4) % Baso % (Auto) 0.5 (0.2-1.2) % Lymph # (Auto) 0.93 (0.9-3.2) K/mm3 Payne # (Auto) 0.8 H (0.1-0.6) K/mm3 Eos # (Auto) 0.1 (0-0.3) K/mm3 Baso # (Auto) 0.0 (0.0-0.1) K/mm3 Abs Immat Gran (auto) 0.04 H (0.00-0.031) K/mm3 Absolute Neuts (auto) 3.9 (1.3-6.7) K/mm3 Absolute Nucleated RBC 0.020 H (0.0-0.012) K/mm3 Band Neutrophils % Not Reportable Nucleated RBC % 0.3 H (0.0-0.2) % Platelet Estimate Adequate (Adequate) Large Platelets Present Polychromasia Occasional Hypochromasia 2+ Basophilic Stippling Occasional Anisocytosis 2+ Target Cells 2+ Tear Drop Cells Occasional Ovalocytes 1+ Schistocytes None seen PT 84.3 H 81.6 H (11.1-14.7) Seconds INR 12.0 H* 11.5 H* APTT 50.7 H (22.3-36.8) Seconds Sodium 132 L (137-145) mmol/L Potassium 2.7 L* (3.4-5.0) mmol/L Chloride 98 (98-107) mmol/L Carbon Dioxide 23 (22-30) mmol/L Anion Gap 11 (4-12) mmol/L BUN 19 H D (7-17) mg/dL Creatinine 1.31 H (0.7-1.0) mg/dL Estim Creat Clear Calc 53 ml/min Estimated GFR 41 L (59 - ) Glucose 155 H (65-110) mg/dL Calcium 8.6 (8.4-10.2) mg/dL Magnesium 1.7 (1.6-2.3) mg/dL Total Bilirubin 3.0 H (0.2-1.3) mg/dL AST 46 H (14-36) U/L ALT 44 H (6-35) U/L Alkaline Phosphatase 92 (38-126) U/L Troponin I < 0.012 (0.000-0.034) ng/mL NT-Pro-B Natriuret Pep 406 H (19.9-100) pg/mL Total Protein 7.5 (6.3-8.2) g/dL Albumin 3.2 L (3.5-5.1) g/dL Blood Type A Positive Antibody Screen Negative Crossmatch See Detail 04/10/25 04/10/25 04/11/25 Range/Units 16:54 20:53 00:33 WBC (4.5-10.0) K/mm3 RBC (4.2-5.4) M/mm3 Hgb 6.7 L* 8.1 L (12.0-15.0) g/dL Hct 22.2 L 26.3 L (37.0-47.0) % MCV (80-100) fl MCH (26-34) pg MCHC (32-36) g/dl RDW (11.5-14.5) % Plt Count (150-375) k/mm3 MPV (7.4-10.4) fl Immature Gran % (Auto) (0-0.5) % Neut % (Auto) (45.5-73.1) % Lymph % (Auto) (18.3-44.2) % Payne % (Auto) (2.6-8.5) % Eos % (Auto) (0-4.4) % Baso % (Auto) (0.2-1.2) % Lymph # (Auto) (0.9-3.2) K/mm3 Payne # (Auto) (0.1-0.6) K/mm3 Eos # (Auto) (0-0.3) K/mm3 Baso # (Auto) (0.0-0.1) K/mm3 Abs Immat Gran (auto) (0.00-0.031) K/mm3 Absolute Neuts (auto) (1.3-6.7) K/mm3 Absolute Nucleated RBC (0.0-0.012) K/mm3 Band Neutrophils % Nucleated RBC % (0.0-0.2) % Platelet Estimate (Adequate) Large Platelets Polychromasia Hypochromasia Basophilic Stippling Anisocytosis Target Cells Tear Drop Cells Ovalocytes Schistocytes PT (11.1-14.7) Seconds INR APTT (22.3-36.8) Seconds Sodium 130 L 131 L (137-145) mmol/L Potassium 2.9 L 3.2 L (3.4-5.0) mmol/L Chloride 99 100 (98-107) mmol/L Carbon Dioxide 25 24 (22-30) mmol/L Anion Gap 6 7 (4-12) mmol/L BUN 18 H 17 (7-17) mg/dL Creatinine 1.20 H 1.19 H (0.7-1.0) mg/dL Estim Creat Clear Calc 57 58 ml/min Estimated GFR 45 L 46 L (59 - ) Glucose 140 H 157 H (65-110) mg/dL Calcium 8.2 L 8.3 L (8.4-10.2) mg/dL Magnesium (1.6-2.3) mg/dL Total Bilirubin (0.2-1.3) mg/dL AST (14-36) U/L ALT (6-35) U/L Alkaline Phosphatase (38-126) U/L Troponin I (0.000-0.034) ng/mL NT-Pro-B Natriuret Pep (19.9-100) pg/mL Total Protein (6.3-8.2) g/dL Albumin (3.5-5.1) g/dL Blood Type Antibody Screen Crossmatch 04/11/25 04/11/25 Range/Units 02:59 10:36 WBC (4.5-10.0) K/mm3 RBC (4.2-5.4) M/mm3 Hgb 7.4 L 7.5 L (12.0-15.0) g/dL Hct 23.6 L 24.6 L (37.0-47.0) % MCV (80-100) fl MCH (26-34) pg MCHC (32-36) g/dl RDW (11.5-14.5) % Plt Count (150-375) k/mm3 MPV (7.4-10.4) fl Immature Gran % (Auto) (0-0.5) % Neut % (Auto) (45.5-73.1) % Lymph % (Auto) (18.3-44.2) % Payne % (Auto) (2.6-8.5) % Eos % (Auto) (0-4.4) % Baso % (Auto) (0.2-1.2) % Lymph # (Auto) (0.9-3.2) K/mm3 Payne # (Auto) (0.1-0.6) K/mm3 Eos # (Auto) (0-0.3) K/mm3 Baso # (Auto) (0.0-0.1) K/mm3 Abs Immat Gran (auto) (0.00-0.031) K/mm3 Absolute Neuts (auto) (1.3-6.7) K/mm3 Absolute Nucleated RBC (0.0-0.012) K/mm3 Band Neutrophils % Nucleated RBC % (0.0-0.2) % Platelet Estimate (Adequate) Large Platelets Polychromasia Hypochromasia Basophilic Stippling Anisocytosis Target Cells Tear Drop Cells Ovalocytes Schistocytes PT 48.9 H D (11.1-14.7) Seconds INR 5.8 H* APTT 42.5 H (22.3-36.8) Seconds Sodium (137-145) mmol/L Potassium (3.4-5.0) mmol/L Chloride (98-107) mmol/L Carbon Dioxide (22-30) mmol/L Anion Gap (4-12) mmol/L BUN (7-17) mg/dL Creatinine (0.7-1.0) mg/dL Estim Creat Clear Calc ml/min Estimated GFR (59 - ) Glucose (65-110) mg/dL Calcium (8.4-10.2) mg/dL Magnesium (1.6-2.3) mg/dL Total Bilirubin (0.2-1.3) mg/dL AST (14-36) U/L ALT (6-35) U/L Alkaline Phosphatase (38-126) U/L Troponin I (0.000-0.034) ng/mL NT-Pro-B Natriuret Pep (19.9-100) pg/mL Total Protein (6.3-8.2) g/dL Albumin (3.5-5.1) g/dL Blood Type Antibody Screen Crossmatch <Shun Lincoln MD - Last Filed: 04/11/25 13:02> Lab Results 04/10/25 04/10/25 04/10/25 Range/Units 12:21 12:44 14:09 WBC 5.9 (4.5-10.0) K/mm3 RBC 2.10 L (4.2-5.4) M/mm3 Hgb 4.8 L* D (12.0-15.0) g/dL Hct 17.2 L* (37.0-47.0) % MCV 81.9 (80-100) fl MCH 22.9 L (26-34) pg MCHC 27.9 L (32-36) g/dl RDW 24.5 H (11.5-14.5) % Plt Count 186 (150-375) k/mm3 MPV 10.0 (7.4-10.4) fl Immature Gran % (Auto) 0.7 H (0-0.5) % Neut % (Auto) 67.1 (45.5-73.1) % Lymph % (Auto) 15.9 L (18.3-44.2) % Payne % (Auto) 14.3 H (2.6-8.5) % Eos % (Auto) 1.5 (0-4.4) % Baso % (Auto) 0.5 (0.2-1.2) % Lymph # (Auto) 0.93 (0.9-3.2) K/mm3 Payne # (Auto) 0.8 H (0.1-0.6) K/mm3 Eos # (Auto) 0.1 (0-0.3) K/mm3 Baso # (Auto) 0.0 (0.0-0.1) K/mm3 Abs Immat Gran (auto) 0.04 H (0.00-0.031) K/mm3 Absolute Neuts (auto) 3.9 (1.3-6.7) K/mm3 Absolute Nucleated RBC 0.020 H (0.0-0.012) K/mm3 Band Neutrophils % Not Reportable Nucleated RBC % 0.3 H (0.0-0.2) % Platelet Estimate Adequate (Adequate) Large Platelets Present Polychromasia Occasional Hypochromasia 2+ Basophilic Stippling Occasional Anisocytosis 2+ Target Cells 2+ Tear Drop Cells Occasional Ovalocytes 1+ Schistocytes None seen PT 84.3 H 81.6 H (11.1-14.7) Seconds INR 12.0 H* 11.5 H* APTT 50.7 H (22.3-36.8) Seconds Sodium 132 L (137-145) mmol/L Potassium 2.7 L* (3.4-5.0) mmol/L Chloride 98 (98-107) mmol/L Carbon Dioxide 23 (22-30) mmol/L Anion Gap 11 (4-12) mmol/L BUN 19 H D (7-17) mg/dL Creatinine 1.31 H (0.7-1.0) mg/dL Estim Creat Clear Calc 53 ml/min Estimated GFR 41 L (59 - ) Glucose 155 H (65-110) mg/dL Calcium 8.6 (8.4-10.2) mg/dL Magnesium 1.7 (1.6-2.3) mg/dL Total Bilirubin 3.0 H (0.2-1.3) mg/dL AST 46 H (14-36) U/L ALT 44 H (6-35) U/L Alkaline Phosphatase 92 (38-126) U/L Troponin I < 0.012 (0.000-0.034) ng/mL NT-Pro-B Natriuret Pep 406 H (19.9-100) pg/mL Total Protein 7.5 (6.3-8.2) g/dL Albumin 3.2 L (3.5-5.1) g/dL Blood Type A Positive Antibody Screen Negative Crossmatch See Detail 04/10/25 04/10/25 04/11/25 Range/Units 16:54 20:53 00:33 WBC (4.5-10.0) K/mm3 RBC (4.2-5.4) M/mm3 Hgb 6.7 L* 8.1 L (12.0-15.0) g/dL Hct 22.2 L 26.3 L (37.0-47.0) % MCV (80-100) fl MCH (26-34) pg MCHC (32-36) g/dl RDW (11.5-14.5) % Plt Count (150-375) k/mm3 MPV (7.4-10.4) fl Immature Gran % (Auto) (0-0.5) % Neut % (Auto) (45.5-73.1) % Lymph % (Auto) (18.3-44.2) % Payne % (Auto) (2.6-8.5) % Eos % (Auto) (0-4.4) % Baso % (Auto) (0.2-1.2) % Lymph # (Auto) (0.9-3.2) K/mm3 Payne # (Auto) (0.1-0.6) K/mm3 Eos # (Auto) (0-0.3) K/mm3 Baso # (Auto) (0.0-0.1) K/mm3 Abs Immat Gran (auto) (0.00-0.031) K/mm3 Absolute Neuts (auto) (1.3-6.7) K/mm3 Absolute Nucleated RBC (0.0-0.012) K/mm3 Band Neutrophils % Nucleated RBC % (0.0-0.2) % Platelet Estimate (Adequate) Large Platelets Polychromasia Hypochromasia Basophilic Stippling Anisocytosis Target Cells Tear Drop Cells Ovalocytes Schistocytes PT (11.1-14.7) Seconds INR APTT (22.3-36.8) Seconds Sodium 130 L 131 L (137-145) mmol/L Potassium 2.9 L 3.2 L (3.4-5.0) mmol/L Chloride 99 100 (98-107) mmol/L Carbon Dioxide 25 24 (22-30) mmol/L Anion Gap 6 7 (4-12) mmol/L BUN 18 H 17 (7-17) mg/dL Creatinine 1.20 H 1.19 H (0.7-1.0) mg/dL Estim Creat Clear Calc 57 58 ml/min Estimated GFR 45 L 46 L (59 - ) Glucose 140 H 157 H (65-110) mg/dL Calcium 8.2 L 8.3 L (8.4-10.2) mg/dL Magnesium (1.6-2.3) mg/dL Total Bilirubin (0.2-1.3) mg/dL AST (14-36) U/L ALT (6-35) U/L Alkaline Phosphatase (38-126) U/L Troponin I (0.000-0.034) ng/mL NT-Pro-B Natriuret Pep (19.9-100) pg/mL Total Protein (6.3-8.2) g/dL Albumin (3.5-5.1) g/dL Blood Type Antibody Screen Crossmatch 04/11/25 04/11/25 Range/Units 02:59 10:36 WBC (4.5-10.0) K/mm3 RBC (4.2-5.4) M/mm3 Hgb 7.4 L 7.5 L (12.0-15.0) g/dL Hct 23.6 L 24.6 L (37.0-47.0) % MCV (80-100) fl MCH (26-34) pg MCHC (32-36) g/dl RDW (11.5-14.5) % Plt Count (150-375) k/mm3 MPV (7.4-10.4) fl Immature Gran % (Auto) (0-0.5) % Neut % (Auto) (45.5-73.1) % Lymph % (Auto) (18.3-44.2) % Payne % (Auto) (2.6-8.5) % Eos % (Auto) (0-4.4) % Baso % (Auto) (0.2-1.2) % Lymph # (Auto) (0.9-3.2) K/mm3 Payne # (Auto) (0.1-0.6) K/mm3 Eos # (Auto) (0-0.3) K/mm3 Baso # (Auto) (0.0-0.1) K/mm3 Abs Immat Gran (auto) (0.00-0.031) K/mm3 Absolute Neuts (auto) (1.3-6.7) K/mm3 Absolute Nucleated RBC (0.0-0.012) K/mm3 Band Neutrophils % Nucleated RBC % (0.0-0.2) % Platelet Estimate (Adequate) Large Platelets Polychromasia Hypochromasia Basophilic Stippling Anisocytosis Target Cells Tear Drop Cells Ovalocytes Schistocytes PT 48.9 H D (11.1-14.7) Seconds INR 5.8 H* APTT 42.5 H (22.3-36.8) Seconds Sodium (137-145) mmol/L Potassium (3.4-5.0) mmol/L Chloride (98-107) mmol/L Carbon Dioxide (22-30) mmol/L Anion Gap (4-12) mmol/L BUN (7-17) mg/dL Creatinine (0.7-1.0) mg/dL Estim Creat Clear Calc ml/min Estimated GFR (59 - ) Glucose (65-110) mg/dL Calcium (8.4-10.2) mg/dL Magnesium (1.6-2.3) mg/dL Total Bilirubin (0.2-1.3) mg/dL AST (14-36) U/L ALT (6-35) U/L Alkaline Phosphatase (38-126) U/L Troponin I (0.000-0.034) ng/mL NT-Pro-B Natriuret Pep (19.9-100) pg/mL Total Protein (6.3-8.2) g/dL Albumin (3.5-5.1) g/dL Blood Type Antibody Screen Crossmatch <Emiliano Estrada DO - Last Filed: 04/11/25 06:07> Lab Results 04/10/25 04/10/25 04/10/25 Range/Units 12:21 12:44 14:09 WBC 5.9 (4.5-10.0) K/mm3 RBC 2.10 L (4.2-5.4) M/mm3 Hgb 4.8 L* D (12.0-15.0) g/dL Hct 17.2 L* (37.0-47.0) % MCV 81.9 (80-100) fl MCH 22.9 L (26-34) pg MCHC 27.9 L (32-36) g/dl RDW 24.5 H (11.5-14.5) % Plt Count 186 (150-375) k/mm3 MPV 10.0 (7.4-10.4) fl Immature Gran % (Auto) 0.7 H (0-0.5) % Neut % (Auto) 67.1 (45.5-73.1) % Lymph % (Auto) 15.9 L (18.3-44.2) % Payne % (Auto) 14.3 H (2.6-8.5) % Eos % (Auto) 1.5 (0-4.4) % Baso % (Auto) 0.5 (0.2-1.2) % Lymph # (Auto) 0.93 (0.9-3.2) K/mm3 Payne # (Auto) 0.8 H (0.1-0.6) K/mm3 Eos # (Auto) 0.1 (0-0.3) K/mm3 Baso # (Auto) 0.0 (0.0-0.1) K/mm3 Abs Immat Gran (auto) 0.04 H (0.00-0.031) K/mm3 Absolute Neuts (auto) 3.9 (1.3-6.7) K/mm3 Absolute Nucleated RBC 0.020 H (0.0-0.012) K/mm3 Band Neutrophils % Not Reportable Nucleated RBC % 0.3 H (0.0-0.2) % Platelet Estimate Adequate (Adequate) Large Platelets Present Polychromasia Occasional Hypochromasia 2+ Basophilic Stippling Occasional Anisocytosis 2+ Target Cells 2+ Tear Drop Cells Occasional Ovalocytes 1+ Schistocytes None seen PT 84.3 H 81.6 H (11.1-14.7) Seconds INR 12.0 H* 11.5 H* APTT 50.7 H (22.3-36.8) Seconds Sodium 132 L (137-145) mmol/L Potassium 2.7 L* (3.4-5.0) mmol/L Chloride 98 (98-107) mmol/L Carbon Dioxide 23 (22-30) mmol/L Anion Gap 11 (4-12) mmol/L BUN 19 H D (7-17) mg/dL Creatinine 1.31 H (0.7-1.0) mg/dL Estim Creat Clear Calc 53 ml/min Estimated GFR 41 L (59 - ) Glucose 155 H (65-110) mg/dL Calcium 8.6 (8.4-10.2) mg/dL Magnesium 1.7 (1.6-2.3) mg/dL Total Bilirubin 3.0 H (0.2-1.3) mg/dL AST 46 H (14-36) U/L ALT 44 H (6-35) U/L Alkaline Phosphatase 92 (38-126) U/L Troponin I < 0.012 (0.000-0.034) ng/mL NT-Pro-B Natriuret Pep 406 H (19.9-100) pg/mL Total Protein 7.5 (6.3-8.2) g/dL Albumin 3.2 L (3.5-5.1) g/dL Blood Type A Positive Antibody Screen Negative Crossmatch See Detail 04/10/25 04/10/25 04/11/25 Range/Units 16:54 20:53 00:33 WBC (4.5-10.0) K/mm3 RBC (4.2-5.4) M/mm3 Hgb 6.7 L* 8.1 L (12.0-15.0) g/dL Hct 22.2 L 26.3 L (37.0-47.0) % MCV (80-100) fl MCH (26-34) pg MCHC (32-36) g/dl RDW (11.5-14.5) % Plt Count (150-375) k/mm3 MPV (7.4-10.4) fl Immature Gran % (Auto) (0-0.5) % Neut % (Auto) (45.5-73.1) % Lymph % (Auto) (18.3-44.2) % Payne % (Auto) (2.6-8.5) % Eos % (Auto) (0-4.4) % Baso % (Auto) (0.2-1.2) % Lymph # (Auto) (0.9-3.2) K/mm3 Payne # (Auto) (0.1-0.6) K/mm3 Eos # (Auto) (0-0.3) K/mm3 Baso # (Auto) (0.0-0.1) K/mm3 Abs Immat Gran (auto) (0.00-0.031) K/mm3 Absolute Neuts (auto) (1.3-6.7) K/mm3 Absolute Nucleated RBC (0.0-0.012) K/mm3 Band Neutrophils % Nucleated RBC % (0.0-0.2) % Platelet Estimate (Adequate) Large Platelets Polychromasia Hypochromasia Basophilic Stippling Anisocytosis Target Cells Tear Drop Cells Ovalocytes Schistocytes PT (11.1-14.7) Seconds INR APTT (22.3-36.8) Seconds Sodium 130 L 131 L (137-145) mmol/L Potassium 2.9 L 3.2 L (3.4-5.0) mmol/L Chloride 99 100 (98-107) mmol/L Carbon Dioxide 25 24 (22-30) mmol/L Anion Gap 6 7 (4-12) mmol/L BUN 18 H 17 (7-17) mg/dL Creatinine 1.20 H 1.19 H (0.7-1.0) mg/dL Estim Creat Clear Calc 57 58 ml/min Estimated GFR 45 L 46 L (59 - ) Glucose 140 H 157 H (65-110) mg/dL Calcium 8.2 L 8.3 L (8.4-10.2) mg/dL Magnesium (1.6-2.3) mg/dL Total Bilirubin (0.2-1.3) mg/dL AST (14-36) U/L ALT (6-35) U/L Alkaline Phosphatase (38-126) U/L Troponin I (0.000-0.034) ng/mL NT-Pro-B Natriuret Pep (19.9-100) pg/mL Total Protein (6.3-8.2) g/dL Albumin (3.5-5.1) g/dL Blood Type Antibody Screen Crossmatch 04/11/25 04/11/25 Range/Units 02:59 10:36 WBC (4.5-10.0) K/mm3 RBC (4.2-5.4) M/mm3 Hgb 7.4 L 7.5 L (12.0-15.0) g/dL Hct 23.6 L 24.6 L (37.0-47.0) % MCV (80-100) fl MCH (26-34) pg MCHC (32-36) g/dl RDW (11.5-14.5) % Plt Count (150-375) k/mm3 MPV (7.4-10.4) fl Immature Gran % (Auto) (0-0.5) % Neut % (Auto) (45.5-73.1) % Lymph % (Auto) (18.3-44.2) % Payne % (Auto) (2.6-8.5) % Eos % (Auto) (0-4.4) % Baso % (Auto) (0.2-1.2) % Lymph # (Auto) (0.9-3.2) K/mm3 Payne # (Auto) (0.1-0.6) K/mm3 Eos # (Auto) (0-0.3) K/mm3 Baso # (Auto) (0.0-0.1) K/mm3 Abs Immat Gran (auto) (0.00-0.031) K/mm3 Absolute Neuts (auto) (1.3-6.7) K/mm3 Absolute Nucleated RBC (0.0-0.012) K/mm3 Band Neutrophils % Nucleated RBC % (0.0-0.2) % Platelet Estimate (Adequate) Large Platelets Polychromasia Hypochromasia Basophilic Stippling Anisocytosis Target Cells Tear Drop Cells Ovalocytes Schistocytes PT 48.9 H D (11.1-14.7) Seconds INR 5.8 H* APTT 42.5 H (22.3-36.8) Seconds Sodium (137-145) mmol/L Potassium (3.4-5.0) mmol/L Chloride (98-107) mmol/L Carbon Dioxide (22-30) mmol/L Anion Gap (4-12) mmol/L BUN (7-17) mg/dL Creatinine (0.7-1.0) mg/dL Estim Creat Clear Calc ml/min Estimated GFR (59 - ) Glucose (65-110) mg/dL Calcium (8.4-10.2) mg/dL Magnesium (1.6-2.3) mg/dL Total Bilirubin (0.2-1.3) mg/dL AST (14-36) U/L ALT (6-35) U/L Alkaline Phosphatase (38-126) U/L Troponin I (0.000-0.034) ng/mL NT-Pro-B Natriuret Pep (19.9-100) pg/mL Total Protein (6.3-8.2) g/dL Albumin (3.5-5.1) g/dL Blood Type Antibody Screen Crossmatch <Cole Brantley MD - Last Filed: 04/11/25 17:14> Imaging Data Radiologist's impression: ITS Impressions Chest X-Ray 04/10/25 12:37 IMPRESSION: 1. Cardiomegaly with moderate to large right-sided pleural effusion. Mild pulmonary edema may also be present. Abdomen/Pelvis CT 04/10/25 16:10 IMPRESSION: 1. Changes of cirrhosis of the liver with evidence of portosystemic varices in the upper left abdomen indicating portal venous hypertension. There is no splenomegaly. There is no ascites. Distended gallbladder with diffuse wall thickening of the gallbladder wall similar to some of the prior imaging studies. Bile ducts are normal in size. 2. Moderate size right pleural effusion. 3. Bilateral cystic masses, larger on the left side measuring 6 cm with smaller 3 cm cyst in the right ovary. These should be considered possible neoplastic cyst. Close imaging follow-up is recommended. 4. Calcific atherosclerotic changes of abdominal aorta. Degenerative disc disease at L4-[address] 04/10/25 16:17 IMPRESSION: 1. Moderate-sized right pleural effusion with right lower lobe collapse and partial collapse of the right middle lobe. 2. New 1.8 cm groundglass opacity in the intersegment the left upper lobe which most likely infectious or inflammatory in etiology. Consider 3 month follow-up low-dose noncontrast chest CT. 3. Cardiomegaly. 4. Cirrhosis with stigmata of portal venous hypertension. 5. Haziness to the pericholecystic fat for which differential would include acute cholecystitis, liver disease, heart disease or other generalized edema forming states. <Shun Lincoln MD - Last Filed: 04/11/25 13:02> ITS Impressions Chest X-Ray 04/10/25 12:37 IMPRESSION: 1. Cardiomegaly with moderate to large right-sided pleural effusion. Mild pulmonary edema may also be present. Abdomen/Pelvis CT 04/10/25 16:10 IMPRESSION: 1. Changes of cirrhosis of the liver with evidence of portosystemic varices in the upper left abdomen indicating portal venous hypertension. There is no splenomegaly. There is no ascites. Distended gallbladder with diffuse wall thickening of the gallbladder wall similar to some of the prior imaging studies. Bile ducts are normal in size. 2. Moderate size right pleural effusion. 3. Bilateral cystic masses, larger on the left side measuring 6 cm with smaller 3 cm cyst in the right ovary. These should be considered possible neoplastic cyst. Close imaging follow-up is recommended. 4. Calcific atherosclerotic changes of abdominal aorta. Degenerative disc disease at L4-[address] 04/10/25 16:17 IMPRESSION: 1. Moderate-sized right pleural effusion with right lower lobe collapse and partial collapse of the right middle lobe. 2. New 1.8 cm groundglass opacity in the intersegment the left upper lobe which most likely infectious or inflammatory in etiology. Consider 3 month follow-up low-dose noncontrast chest CT. 3. Cardiomegaly. 4. Cirrhosis with stigmata of portal venous hypertension. 5. Haziness to the pericholecystic fat for which differential would include acute cholecystitis, liver disease, heart disease or other generalized edema forming states. <Emiliano Estrada, - Last Filed: 04/11/25 06:07> ITS Impressions Chest X-Ray 04/10/25 12:37 IMPRESSION: 1. Cardiomegaly with moderate to large right-sided pleural effusion. Mild pulmonary edema may also be present. Abdomen/Pelvis CT 04/10/25 16:10 IMPRESSION: 1. Changes of cirrhosis of the liver with evidence of portosystemic varices in the upper left abdomen indicating portal venous hypertension. There is no splenomegaly. There is no ascites. Distended gallbladder with diffuse wall thickening of the gallbladder wall similar to some of the prior imaging studies. Bile ducts are normal in size. 2. Moderate size right pleural effusion. 3. Bilateral cystic masses, larger on the left side measuring 6 cm with smaller 3 cm cyst in the right ovary. These should be considered possible neoplastic cyst. Close imaging follow-up is recommended. 4. Calcific atherosclerotic changes of abdominal aorta. Degenerative disc disease at L4-[address] 04/10/25 16:17 IMPRESSION: 1. Moderate-sized right pleural effusion with right lower lobe collapse and partial collapse of the right middle lobe. 2. New 1.8 cm groundglass opacity in the intersegment the left upper lobe which most likely infectious or inflammatory in etiology. Consider 3 month follow-up low-dose noncontrast chest CT. 3. Cardiomegaly. 4. Cirrhosis with stigmata of portal venous hypertension. 5. Haziness to the pericholecystic fat for which differential would include acute cholecystitis, liver disease, heart disease or other generalized edema forming states. <Cole Brantley MD - Last Filed: 04/11/25 17:14> Critical Care Time Critical Care Time Critical Care Time: Yes <Shun Lincoln MD - Last Filed: 04/11/25 13:02> Indication: Acute anemia, liver failure <Shun Lincoln MD - Last Filed: 04/11/25 13:02> Time Type: Intermittent <Shun Lincoln MD - Last Filed: 04/11/25 13:02> Initial evaluation, discuss w/ involved parties, attempting to gather old records: 15 minutes <Shun Lincoln MD - Last Filed: 04/11/25 13:02> Documenting medical record: 10 minutes <Shun Lincoln MD - Last Filed: 04/11/25 13:02> Review of results (EKG's, labs, imaging): 10 minutes <Shun Lincoln MD - Last Filed: 04/11/25 13:02> Serial repeat bedside evaluation: 20 minutes <Shun Lincoln MD - Last Filed: 04/11/25 13:02> Discussing case with multiple memebers of the care team and consultants: 20 minutes <Shun Lincoln MD - Last Filed: 04/11/25 13:02> Total Critical Care Time: 75 <Shun Lincoln MD - Last Filed: 04/11/25 13:02> 75 <Emiliano Estrada DO - Last Filed: 04/11/25 06:07> 75 <Cole Brantley MD - Last Filed: 04/11/25 17:14> Discharge Plan Discharge Clinical Impression: Acute anemia, Acute hypokalemia, Acute hepatic failure, Pleural effusion <Shun Lincoln MD - Last Filed: 04/11/25 13:02> Patient Disposition: Still a Patient <Shun Lincoln MD - Last Filed: 04/11/25 13:02> Condition: Stable <Shun Lincoln MD - Last Filed: 04/11/25 13:02>
[2025-04-10 13:30] LABS: Magnesium 1.7 mg/dL (1.6-2.3)
[2025-04-10 14:31] LABS: Prothrombin Time 81.6 Seconds (11.1-14.7)
[2025-04-10 16:13] LABS: INR 11.5
[2025-04-10 17:01] LABS: Hematocrit 22.2 % (37.0-47.0)
[2025-04-10 17:08] LABS: Hemoglobin 6.7 g/dL (12.0-15.0)
[2025-04-10 17:22] LABS: Anion Gap 6 mmol/L (4-12); Blood Urea Nitrogen 18 mg/dL (7-17); Calcium 8.2 mg/dL (8.4-10.2); Carbon Dioxide 25 mmol/L (22-30); Chloride 99 mmol/L (98-107); Estimated CRCL calculation 57 ml/min; Estimated Glomerular Filt Rate 45; Glucose 140 mg/dL (65-110); Potassium 2.9 mmol/L (3.4-5.0); Sodium 130 mmol/L (137-145)
--- NOTE | 2025-04-10 17:40 | PC.NURSE ---
triage given to [facility] medical team at this time
--- NOTE | 2025-04-10 17:53 | PC.NURSE ---
attempted to call blood bank for an update on ETA for PBCs. no answer at this time
[2025-04-10] MEDS: MAGNESIUM SULF 1 GM/D5W 100 ML 1 GM/100 ML BAG IVPB (18:15)
--- NOTE | 2025-04-10 20:00 | PC.NURSE ---
pt requesting food and ice chips at this time. per provider, pt is not allowed to eat or drink at this time.
[2025-04-10] MEDS: SODIUM CHLORIDE 0.9% IV 250 ML 25 ML (20:54)
[2025-04-10 20:59] LABS: Hematocrit 26.3 % (37.0-47.0); Hemoglobin 8.1 g/dL (12.0-15.0)
--- NOTE | 2025-04-10 21:57 | PC.NURSE ---
Patient placed in a hospital bed for comfort. Patient given food and ice chips as well.
--- NOTE | 2025-04-10 22:02 | PC.NURSE ---
EDP Lipsmeyer VORB 1 mg Ativan PO.
[2025-04-10] MEDS: FUROSEMIDE INJ 40 MG/4 ML VIAL 20 MG IV PUSH (22:40)
[2025-04-10] MEDS: LORazepam (*CRX) 1 MG TABLET PO (22:40)
[2025-04-11] VITALS (19 sets, daily range): BP systolic 100–130; BP diastolic 50–97; PULSE 68–97; RESP 9–22; TEMP 36.7–36.9; O2SAT 65–100; BMI 52.9
[2025-04-11 00:50] LABS: Anion Gap 7 mmol/L (4-12); Blood Urea Nitrogen 17 mg/dL (7-17); Calcium 8.3 mg/dL (8.4-10.2); Carbon Dioxide 24 mmol/L (22-30); Chloride 100 mmol/L (98-107); Estimated CRCL calculation 58 ml/min; Estimated Glomerular Filt Rate 46; Glucose 157 mg/dL (65-110); Potassium 3.2 mmol/L (3.4-5.0); Sodium 131 mmol/L (137-145)
--- NOTE | 2025-04-11 02:04 | PC.NURSE ---
This RN spoke to Lucie ESQUEDA from [facility] transfer center and gave update on pt status.
[2025-04-11 03:06] LABS: Hematocrit 23.6 % (37.0-47.0); Hemoglobin 7.4 g/dL (12.0-15.0)
[2025-04-11] MEDS: POTASSIUM CHLORIDE 20 MEQ PACKET (FOR LIQUID) 40 MEQ PO (04:34)
[2025-04-11] MEDS: PHYTONADIONE ADULT INJ 10 MG in DEXTROSE 5% IN WATER 50 ML 100 MG IVPB (09:35)
[2025-04-11 10:45] LABS: Hematocrit 24.6 % (37.0-47.0); Hemoglobin 7.5 g/dL (12.0-15.0)
[2025-04-11 11:38] LABS: Partial Thromboplastin Time 42.5 Seconds (22.3-36.8)
[2025-04-11 11:39] LABS: Prothrombin Time 48.9 Seconds (11.1-14.7)
[2025-04-11 11:42] LABS: INR 5.8
--- NOTE | 2025-04-11 14:06 | WPCEDHO ---
ED Hand Off Checklist All vitals saved:y IV Site documented:y All med administrations documented:y Triage Note Triage Note Pt arrives to the ED [facility] 04/10/25 11:42 EMS for weakness. Pt has PMH of CHF and anemia. Pt states that she feels as if she has gained about 20 lbs in the past 2 weeks. Pt reports that she has felt extremely weak and has had SOB on exertion for the past few weeks as well. Pt lives at home alone but has a caregiver. Pt reports some nausea but no diarrhea or vomiting. Allergies amiodarone Allergy (Severe, Verified 02/27/25 11:02) Hives ITCHING, LESIONS codeine Adverse Reaction (Mild, Verified 02/27/25 11:02) Itching Family History (Last Reviewed 04/10/25 @ 13:25 by Shun Lincoln MD) Mother Acute myocardial infarction Cerebrovascular accident Diabetes mellitus Complication of blood transfusion Father Multiple myeloma Administered/Completed Medications Discontinued Medications Diphenhydramine HCl (Diphenhydramine Hcl Inj 50 Mg/Ml Vial) 12.5 mg IV PUSH ONCE STA Stop: 04/11/25 12:53 Last Admin: 04/11/25 13:08 Dose: 12.5 mg Documented By: JOSÉ Furosemide (Furosemide Inj 40 Mg/4 Ml Vial) 40 mg IV PUSH ONCE STA Stop: 04/10/25 13:02 Last Admin: 04/10/25 13:19 Dose: 40 mg Documented By: RUBEN Furosemide (Furosemide Inj 40 Mg/4 Ml Vial) 20 mg IV PUSH ONCE STA Stop: 04/10/25 21:36 Last Admin: 04/10/25 22:40 Dose: 20 mg Documented By: LOYDA Sodium Chloride (Normal Saline Iv) 250 mls @ 30 mls/hr IV CONT .Q8H20M STA Stop: 04/10/25 21:20 Last Infusion: 04/10/25 15:37 Dose: Infused Documented By: Admin: 04/10/25 13:22 Dose: 30 mls/hr Documented By: RUBEN Potassium Chloride (Kcl 20 Meq/Sw 100 Ml) 100 mls @ 50 mls/hr IVPB ONCE STA Stop: 04/10/25 15:00 Last Infusion: 04/10/25 15:34 Dose: Infused Documented By: Admin: 04/10/25 13:21 Dose: 50 mls/hr Documented By: RUBEN Co-signed By: DIANNA Sodium Chloride (Normal Saline Iv) Confirm Administered Dose 250 mls @ as directed .ROUTE .STK-MED ONE Stop: 04/10/25 13:32 Last Admin: 04/10/25 14:32 Dose: Not Given Documented By: DIANNA Non-Admin Reason: Duplicate Dose Sodium Chloride (Normal Saline Iv) 250 mls @ 30 mls/hr IV CONT .Q8H20M STA Stop: 04/11/25 01:30 Last Admin: 04/10/25 18:24 Dose: Not Given Documented By: RUBEN Non-Admin Reason: No Dose Required Magnesium Sulfate/Dextrose (Magnesium Sulf 1 Gm/D5w 100 Ml) 1 gm in 100 mls @ 100 mls/hr IVPB ONCE ONE Stop: 04/10/25 18:11 Last Infusion: 04/10/25 19:16 Dose: Infused Documented By: Admin: 04/10/25 18:15 Dose: 100 mls/hr Documented By: LOYDA Co-signed By: TAMIKA Sodium Chloride (Normal Saline Iv) Confirm Administered Dose 250 mls @ as directed .ROUTE .STK-MED ONE Stop: 04/10/25 18:19 Last Admin: 04/10/25 19:12 Dose: Not Given Documented By: LOYDA Non-Admin Reason: See Notes Potassium Chloride (Kcl 20 Meq/Sw 100 Ml) 100 mls @ 50 mls/hr IVPB ONCE STA Stop: 04/10/25 22:35 Last Infusion: 04/11/25 01:48 Dose: Infused Documented By: Admin: 04/10/25 20:54 Dose: 50 mls/hr Documented By: LOYDA Co-signed By: RUBEN Sodium Chloride (Normal Saline Iv) Confirm Administered Dose 250 mls @ as directed .ROUTE .STK-MED ONE Stop: 04/10/25 20:48 Last Infusion: 04/11/25 04:28 Dose: Infused Documented By: Infusion: 04/10/25 20:54 Dose: 30 mls/hr Documented By: Admin: 04/10/25 20:54 Dose: 25 mls/hr Documented By: LOYDA Sodium Chloride (Normal Saline Iv) 250 mls @ 30 mls/hr IV CONT .Q8H20M STA Stop: 04/11/25 05:31 Last Admin: 04/10/25 21:14 Dose: Not Given Documented By: RUBEN Non-Admin Reason: Duplicate Dose Phytonadione 10 mg/ Dextrose 51 mls @ 100 mls/hr IVPB ONCE ONE Stop: 04/11/25 09:10 Last Infusion: 04/11/25 10:15 Dose: Infused Documented By: Admin: 04/11/25 09:35 Dose: 100 mls/hr Documented By: CFG IV Miscellaneous Supplies (Tubing, Blood Set) Confirm Administered Dose 1 each XX .STK-MED ONE Stop: 04/10/25 13:32 Last Admin: 04/10/25 14:32 Dose: Not Given Documented By: KLM Non-Admin Reason: Duplicate Dose IV Miscellaneous Supplies (Tubing, Blood Set) Confirm Administered Dose 1 each XX .STK-MED ONE Stop: 04/10/25 18:18 Last Admin: 04/10/25 19:12 Dose: Not Given Documented By: AMH Non-Admin Reason: See Notes Lorazepam (Lorazepam (*Crx) 1 Mg Tablet) 1 mg PO ONCE STA Stop: 04/10/25 22:03 Last Admin: 04/10/25 22:40 Dose: 1 mg Documented By: LOYDA Potassium Chloride (Potassium Chloride 20 Meq Packet (For Liquid)) 40 meq PO ONCE STA Stop: 04/11/25 03:53 Last Admin: 04/11/25 04:34 Dose: 40 meq Documented By: KALEE Notes 04/11/25 02:04 Nurse Note by Ai Israel This RN spoke to Lucie ESQUEDA from [facility] transfer center and gave update on pt status. Initialized on 04/11/25 02:04 - END OF NOTE 04/10/25 22:02 Nurse Note by Ai Israel EDP Lipsmeyer VORB 1 mg Ativan PO. Initialized on 04/10/25 22:02 - END OF NOTE 04/10/25 21:57 Nurse Note by Dana Joe Patient placed in a hospital bed for comfort. Patient given food and ice chips as well. Initialized on 04/10/25 21:57 - END OF NOTE 04/10/25 20:00 (created 04/10/25 21:30) Nurse Note by Vira Ceja pt requesting food and ice chips at this time. per provider, pt is not allowed to eat or drink at this time. Initialized on 04/10/25 21:30 - END OF NOTE 04/10/25 17:53 Nurse Note by Vira Ceja attempted to call blood bank for an update on ETA for PBCs. no answer at this time Initialized on 04/10/25 17:53 - END OF NOTE 04/10/25 17:40 Nurse Note by Vira Ceja triage given to [facility] medical team at this time Initialized on 04/10/25 17:40 - END OF NOTE Interventions/Assessments Cardiac Monitoring Start: 04/10/25 11:31 Freq: Status: Active Protocol: Document 04/11/25 05:12 EMW (Rec: 04/11/25 05:13 EMW [id number]) Groundskeeping Yardman Assessment Groundskeeping Yardman Yes Applied Pulse Rate (60-100 80 beats/min) IV / Saline Lock, Insert Start: 04/10/25 11:42 Freq: STAT Status: Active Protocol: Document 04/10/25 12:30 RUBEN (Rec: 04/10/25 13:22 RUBEN [id number]) IV Assessment Peripheral Access Left Antecubital IV Catheter Access Initiated IV Insertion Date 04/10/25 IV Insertion Time 13:22 Catheter Gauge 20 IV Insertion 3 Attempts Ultrasound Used for Yes Placement IV Site Assessment WNL IV Care and WNL Maintenance Additional IV dana joe Comments PA: Cardiovascular Assessment Start: 04/10/25 11:31 Freq: Status: Complete Protocol: Document 04/10/25 11:42 RUBEN (Rec: 04/10/25 11:48 RUBEN [id number]) Cardiovascular Assessment Cardiovascular Nausea Symptoms Skin Description Normal Color Jugular Vein None Distention PA: Neurological Assessment Start: 04/10/25 11:31 Freq: Status: Complete Protocol: Document 04/10/25 11:42 RUBEN (Rec: 04/10/25 11:48 RUBEN [id number]) Yumiko Coma Scale Eyes Open Verbal Oriented and Alert Motor Follows Commands Yumiko Coma Total 15 Score Neurological Assessment Level of Alert,Awake Consciousness Arousable to Verbal Orientation Oriented to Person Neurological Nausea/Vomiting Symptoms Hallucination Type None Unable to Redirect No Behavior Behavior Cooperative Memory Description Intact Ability to Maintain Normal Balance Facial Symmetry Symmetrical Speech Pattern Clear Ability to Swallow Normal Tongue Position Midline Finger to Nose Test Normal Performance Heel to Wisdom Test Normal Performance Last Vital Signs Temperature 98 F 04/10/25 19:35 Pulse Rate 81 04/11/25 13:22 Respiratory Rate 20 04/11/25 13:22 Pulse Oximetry 100 04/11/25 13:22 Blood Pressure 111/50 L 04/11/25 13:22 Blood Pressure Mean 70 04/11/25 13:22 Blood Pressure Position Supine 04/11/25 05:44 Oxygen Delivery CPAP 04/11/25 05:44 Oxygen Flow Rate 2 04/10/25 22:00 Weight 132.8 kg 04/10/25 11:42 Last Result - Abnormals Only RBC 2.10 M/mm3 (4.2-5.4) L 04/10/25 12:21 Hgb 7.5 g/dL (12.0-15.0) L 04/11/25 10:36 Hct 24.6 % (37.0-47.0) L 04/11/25 10:36 MCH 22.9 pg (26-34) L 04/10/25 12:21 MCHC 27.9 g/dl (32-36) L 04/10/25 12:21 RDW 24.5 % (11.5-14.5) H 04/10/25 12:21 Immature Gran % (Auto) 0.7 % (0-0.5) H 04/10/25 12:21 Lymph % (Auto) 15.9 % (18.3-44.2) L 04/10/25 12:21 Branch % (Auto) 14.3 % (2.6-8.5) H 04/10/25 12:21 Branch # (Auto) 0.8 K/mm3 (0.1-0.6) H 04/10/25 12:21 Abs Immat Gran (auto) 0.04 K/mm3 (0.00-0.031) H 04/10/25 12:21 Absolute Nucleated RBC 0.020 K/mm3 (0.0-0.012) H 04/10/25 12:21 Nucleated RBC % 0.3 % (0.0-0.2) H 04/10/25 12:21 PT 48.9 Seconds (11.1-14.7) H D 04/11/25 10:36 INR 5.8 H* 04/11/25 10:36 APTT 42.5 Seconds (22.3-36.8) H 04/11/25 10:36 Sodium 131 mmol/L (137-145) L 04/11/25 00:33 Potassium 3.2 mmol/L (3.4-5.0) L 04/11/25 00:33 BUN 18 mg/dL (7-17) H 04/10/25 16:54 Creatinine 1.19 mg/dL (0.7-1.0) H 04/11/25 00:33 Estimated GFR 46 (59-) L 04/11/25 00:33 Glucose 157 mg/dL (65-110) H 04/11/25 00:33 Calcium 8.3 mg/dL (8.4-10.2) L 04/11/25 00:33 Total Bilirubin 3.0 mg/dL (0.2-1.3) H 04/10/25 12:21 AST 46 U/L (14-36) H 04/10/25 12:21 ALT 44 U/L (6-35) H 04/10/25 12:21 NT-Pro-B Natriuret Pep 406 pg/mL (19.9-100) H 04/10/25 12:21 Albumin 3.2 g/dL (3.5-5.1) L 04/10/25 12:21 Crossmatch See Detail 04/10/25 12:44 Most Recent Suicide Severity Rating Suicide Severity Rating NO RISK INDICATED 04/10/25 11:42
[2025-04-11] MEDS: FUROSEMIDE INJ 40 MG/4 ML VIAL IV PUSH ×2 (14:11→21:10)
--- NOTE | 2025-04-11 15:30 | ADMGEN ---
This patient, Michelle Odom, was admitted to IMU Room 209-01. Patient/family oriented to hospital policies and general routines including ID bracelet, bed and alarms, visiting hours, pain management, procedures, bathroom and other care routines, personal items, smoking policy, room service/diet, and visiting hours. Information on how to activate the Rapid Response Team has been discussed. Patient/Family are encouraged to report perceived risks to care and to ask questions if they do not understand what they are told or what they should do.
[2025-04-11 15:43] LABS: Hematocrit 25.8 % (37.0-47.0); Hemoglobin 7.9 g/dL (12.0-15.0)
--- NOTE | 2025-04-11 15:52 | PM.IMHP2 ---
H&P: HPI History of Present Illness Date/Time: 04/11/25 15:52 Chief Complaint: Weakness Narrative: 64-year-old female past medical history of DM 2, CHF s/p pacemaker, cirrhosis of liver, hypothyroidism, BHAVIN on CPAP, hyperlipidemia presents to the ED on 04/10/2025 with complaints of weakness and shortness of breath. Patient has a history of anemia and is is worried that her hemoglobin is low. Takes Xarelto at home. Room air at baseline. Denies fever. DNR. Patient does not follow hepatology outpatient. hemoglobin of 4.8. Guaiac positive. Potassium 2.7. troponin negative. BNP 406 and INR 12 The patient has prior history of cirrhosis and CT scan showed evidence of cirrhosis with varices the patient also had a large right-sided pleural effusion. mild pulm edema may be present as well. Due to her acute hepatic failure, ED provider discussed patient with Dr. Santo at [place] who accepts the patient for transfer. Awaiting bed. ED treatment: 10 mg vitamin K for INR--> now 5.8 4 PRBC--> now 7.5 40 mEq PO and 40 mEq IVPB potassium--> now 3.2 1 G IVPB magnesium 60 mg IVP lasix Patient has been in the ED for over 24 hr and is more stable. Will be admitted to the hospital while waiting for bed at [facility]. Review of Systems Review of Systems: All systems reviewed & are unremarkable except as noted in HPI and below PMFSH Past Medical History Medical History Left knee DJD Right knee DJD NSAID long-term use BMI 50.0-59.9, adult Degenerative joint disease of knee Type 2 diabetes mellitus Diastolic dysfunction Cirrhosis of liver with ascites noted on CT scan 07/16/2024 Chronic anemia Hepatic steatosis Morbid obesity Hypothyroidism Dyslipidemia Obstructive sleep apnea on CPAP Diverticulitis Surgical History Surgical History History of permanent cardiac pacemaker placement (09/2016) Biotronik dual chamber pacemaker implant by Dr. Garvey Family History Family History Mother Acute myocardial infarction, Onset Age: 73 versus stated <65yo when asked on 07/16/24 Cerebrovascular accident, Onset Age: 73 complication of blood transfusion Diabetes mellitus Complication of blood transfusion CVA Father Multiple myeloma Social History Social History Social History: Surrogate medical decision maker: Gracy Mccannr, friend. Code status: Do not resuscitate. Years smoked: 35 Smoking status: Former smoker Alcohol intake: former Drinks per week: 21 Alcohol use details: Social alcohol use in moderation. Substance use: never Substance use type: does not use Lack of Transportation: No Lack of Food: Never True Current Housing: I Have Housing Concerned About Future Housing: No Difficulty Paying Gas/Electric Bills: No Difficulty Paying for Meds: No Currently Unemployed: No Education: High School Diploma/GED Difficulty w/ Childcare or Family Care: No Living arrangements: with family Additional living arrangements comments: The patient lives alone. She has no children. Caregiver comes in 3 days weak. Spiritual care concerns: No Meds Home Medications and Allergies Home Medications ?Medication ?Instructions ?Recorded ?Confirmed ?Type bumetanide 2 mg tablet 2 mg PO DAILY 03/23/23 04/10/25 History diltiazem HCl 360 mg capsule,24 360 mg PO DAILY 03/23/23 04/10/25 History hr,extended release levothyroxine 25 mcg tablet 25 mcg PO DAILY 03/23/23 04/10/25 History rivaroxaban 20 mg tablet (Xarelto) 20 mg PO DAILY 03/23/23 04/10/25 History dapagliflozin propanediol 10 mg 10 mg PO DAILY 04/27/23 04/10/25 History tablet (Farxiga) spironolactone 50 mg tablet 100 mg (2 x 50 mg) PO QAM #30 tabs 07/22/24 04/10/25 Rx (Aldactone) Allergies Allergy/AdvReac Type Severity Reaction Status Date / Time amiodarone Allergy Severe Hives Verified 04/11/25 15:38 codeine AdvReac Mild Itching Verified 04/11/25 15:38 Vital Signs Vital Signs - 24 hr 04/10/25 16:40 04/10/25 16:41 04/10/25 16:41 Temperature 97.6 F Pulse Rate 79 90 90 Respiratory Rate 18 16 18 Blood Pressure 127/66 127/66 Pulse Oximetry 94 94 93 Oxygen Delivery Oxygen Flow Rate 04/10/25 16:45 04/10/25 16:47 04/10/25 16:52 Temperature 97.8 F Pulse Rate 79 69 Respiratory Rate 19 16 Blood Pressure 100/62 100/62 Pulse Oximetry 90 92 95 Oxygen Delivery Oxygen Flow Rate 04/10/25 17:00 04/10/25 17:01 04/10/25 17:16 Temperature Pulse Rate 85 Respiratory Rate 18 Blood Pressure 112/68 96/56 L Pulse Oximetry 92 92 92 Oxygen Delivery Oxygen Flow Rate 04/10/25 17:17 04/10/25 17:30 04/10/25 17:31 Temperature Pulse Rate 80 97 80 Respiratory Rate 14 15 16 Blood Pressure 113/56 L Pulse Oximetry 93 Oxygen Delivery Oxygen Flow Rate 04/10/25 17:46 04/10/25 17:47 04/10/25 18:00 Temperature Pulse Rate 80 81 92 Respiratory Rate 16 20 16 Blood Pressure 118/48 L Pulse Oximetry Oxygen Delivery Oxygen Flow Rate 04/10/25 18:01 04/10/25 18:16 04/10/25 18:17 Temperature Pulse Rate 81 91 86 Respiratory Rate 15 20 21 H Blood Pressure 134/71 122/67 Pulse Oximetry Oxygen Delivery Oxygen Flow Rate 04/10/25 18:20 04/10/25 18:21 04/10/25 18:30 Temperature 98 F Pulse Rate 73 78 73 Respiratory Rate 16 17 18 Blood Pressure 128/76 128/76 Pulse Oximetry 94 99 98 Oxygen Delivery Oxygen Flow Rate 04/10/25 18:31 04/10/25 18:36 04/10/25 18:49 Temperature 98 F Pulse Rate 76 78 82 Respiratory Rate 17 16 18 Blood Pressure 106/63 108/68 Pulse Oximetry 96 96 Oxygen Delivery Oxygen Flow Rate 04/10/25 19:08 04/10/25 19:15 04/10/25 19:16 Temperature Pulse Rate 72 83 75 Respiratory Rate 15 19 18 Blood Pressure 107/69 Pulse Oximetry Oxygen Delivery Oxygen Flow Rate 04/10/25 19:17 04/10/25 19:30 04/10/25 19:31 Temperature Pulse Rate 66 71 83 Respiratory Rate 17 20 15 Blood Pressure 116/65 Pulse Oximetry Oxygen Delivery Oxygen Flow Rate 04/10/25 19:35 04/10/25 19:50 04/10/25 20:54 Temperature 98 F Pulse Rate 69 86 73 Respiratory Rate 16 24 H 17 Blood Pressure 116/65 105/51 L Pulse Oximetry 92 91 Oxygen Delivery Oxygen Flow Rate 04/10/25 21:15 04/10/25 21:16 04/10/25 21:17 Temperature Pulse Rate 98 87 75 Respiratory Rate 21 H 16 17 Blood Pressure 136/64 Pulse Oximetry 90 Oxygen Delivery Oxygen Flow Rate 04/10/25 21:30 04/10/25 21:32 04/10/25 21:54 Temperature Pulse Rate 91 84 78 Respiratory Rate 23 H 24 H 18 Blood Pressure 110/93 H Pulse Oximetry Oxygen Delivery Oxygen Flow Rate 04/10/25 21:56 04/10/25 21:57 04/10/25 22:00 Temperature Pulse Rate 83 85 80 Respiratory Rate 24 H 20 17 Blood Pressure 135/85 Pulse Oximetry 94 99 Oxygen Delivery Oxygen Flow Rate 04/10/25 22:00 04/10/25 22:01 04/10/25 22:37 Temperature Pulse Rate 72 80 Respiratory Rate 17 16 Blood Pressure 130/85 Pulse Oximetry 98 99 99 Oxygen Delivery Nasal Cannula Oxygen Flow Rate 2 04/11/25 00:21 04/11/25 01:16 04/11/25 01:32 Temperature Pulse Rate 78 97 85 Respiratory Rate 19 17 14 Blood Pressure 100/86 130/97 H 105/75 Pulse Oximetry 94 94 94 Oxygen Delivery Oxygen Flow Rate 04/11/25 03:03 04/11/25 05:12 04/11/25 05:44 Temperature Pulse Rate 82 80 87 Respiratory Rate 21 H 20 Blood Pressure 101/58 L Pulse Oximetry 93 94 Oxygen Delivery Autopap Oxygen Flow Rate 04/11/25 05:44 04/11/25 06:30 04/11/25 08:36 Temperature Pulse Rate 73 77 Respiratory Rate 9 L 15 Blood Pressure 124/62 Pulse Oximetry 94 65 L 100 Oxygen Delivery CPAP Oxygen Flow Rate 04/11/25 10:03 04/11/25 10:04 04/11/25 13:22 Temperature Pulse Rate 85 76 81 Respiratory Rate 17 16 20 Blood Pressure 117/68 117/68 111/50 L Pulse Oximetry 100 100 100 Oxygen Delivery Oxygen Flow Rate 04/11/25 15:25 Temperature 98.0 F Pulse Rate 68 Respiratory Rate 22 H Blood Pressure 116/62 Pulse Oximetry 100 Oxygen Delivery Oxygen Flow Rate Exam Const: General: no acute distress HENMT: Mouth: Yes moist mucous membranes Eyes: General: appearance normal, both eyes and all related structures EOM: EOMs intact bilaterally Neck: Neck: supple Resp: Auscultation: diminished lung sounds Other: abd breathing Cardio: Rate: regular rate Rhythm: regular rhythm GI: Inspection: non-distended GI Palp: Yes Soft to palpation Auscultation: normal bowel sounds Skin: General skin exam: normal color Wounds: no wounds Neuro: Speech: normal speech Extrem: General: edema (+ 2) bilateral Psych: Mental Status: mental status grossly normal Results Labs Labs: Short CBC 04/10/25 04/10/25 04/11/25 Range/Units 16:54 20:53 02:59 Hgb 6.7 L* 8.1 L 7.4 L (12.0-15.0) g/dL Hct 22.2 L 26.3 L 23.6 L (37.0-47.0) % 04/11/25 04/11/25 Range/Units 10:36 15:37 Hgb 7.5 L 7.9 L (12.0-15.0) g/dL Hct 24.6 L 25.8 L (37.0-47.0) % BMP 04/10/25 04/11/25 16:54 00:33 Sodium 130 L 131 L Potassium 2.9 L 3.2 L Chloride 99 100 Carbon Dioxide 25 24 BUN 18 H 17 Creatinine 1.20 H 1.19 H Glucose 140 H 157 H Calcium 8.2 L 8.3 L Quality VTE Prophylaxis VTE prophylaxis: mechanical ordered If No VTE Prophylaxis Answer both mechanical and pharmacologic: Reason no mechanical VTE proph: medical contraindication Assessment and Plan Assessment and plan (1) Acute hepatic failure: Code(s): K72.00 - Acute and subacute hepatic failure without coma Status: Acute Assessment and Plan: Pt with history of cirrhosis now in acute liver failure. INR 12 on presentation. -trend coags -vitamin K if INR continues to rise -Waiting for bed at [facility] for hgb < 7 (2) Pleural effusion: Code(s): J90 - Pleural effusion, not elsewhere classified Status: Acute Assessment and Plan: Large right pleural effusion noted on imaging. -Monitor resp status -O2 per NS -lasix 40 IVP Q12H -consisder FFP or vitamin K on 04/12 should pt need thoracentesis (3) Type 2 diabetes mellitus: Code(s): E11.9 - Type 2 diabetes mellitus without complications Status: Chronic Assessment and Plan: - hypoglycemia protocol - POC blood glucose ACHS - correct regimen ordered: low dose sliding scale Plan Diet: Heart healthy DVT prophylaxis: SCDs lines/drains: PIV Fluids: NA Code status: DNR Prior Studies I have reviewed the following patient records and this information was taken into consideration when formulating the assessment and plan.: previous labs, previous ER visits, previous hospitalizations and previous clinic visits Time Spent with Patient Time with patient: 75 minutes or greater Hospitalist [facility] Advance Care Plan I have confirmed that the patient's Advanced Care Plan is present, code status is documented, or surrogate decision maker is listed in patient medical record.: Yes Medication Reconciliation I have utilized all available resources to obtain, update and review the patients current medications (includes all prescriptions, OTC, herbals, cannabis, and nutritional supplements).: Yes
[2025-04-11 22:45] LABS: Hematocrit 24.6 % (37.0-47.0); Hemoglobin 7.5 g/dL (12.0-15.0)
[2025-04-12] VITALS (23 sets, daily range): BP systolic 103–129; BP diastolic 48–71; PULSE 70–98; RESP 14–24; TEMP 36.4–36.9; O2SAT 86–99
[2025-04-12] MEDS: LEVOTHYROXINE SODIUM 25 MCG TABLET PO (06:03)
[2025-04-12 06:12] LABS: Hematocrit 24.3 % (37.0-47.0); Hemoglobin 7.4 g/dL (12.0-15.0); Immature Granulocyte Percent A 0.5 % (0-0.5); Lymphocytes Absolute Auto 0.99 K/mm3 (0.9-3.2); Mean Corpuscular HGB Conc 30.5 g/dl (32-36); Mean Corpuscular Hemoglobin 25.3 pg (26-34); Mean Corpuscular Volume 83.2 fl (80-100); Nucleated Red Blood Cells Absolute Auto 0.030 K/mm3 (0.0-0.012); Nucleated Red Blood Cells Perc 0.4 % (0.0-0.2); Platelet Count Result 141 k/mm3 (150-375); Red Blood Count 2.92 M/mm3 (4.2-5.4); White Blood Count 7.4 K/mm3 (4.5-10.0)
[2025-04-12 06:20] LABS: Ammonia 45 umol/L (9-30)
[2025-04-12 06:24] LABS: Anion Gap 5 mmol/L (4-12); Blood Urea Nitrogen 14 mg/dL (7-17); Calcium 8.1 mg/dL (8.4-10.2); Carbon Dioxide 27 mmol/L (22-30); Chloride 102 mmol/L (98-107); Estimated CRCL calculation 68 ml/min; Estimated Glomerular Filt Rate 55; Glucose 145 mg/dL (65-110); Potassium 3.3 mmol/L (3.4-5.0); Sodium 134 mmol/L (137-145)
[2025-04-12] MEDS: SPIRONOLACTONE 50 MG TABLET 100 MG PO (08:11)
[2025-04-12] MEDS: dilTIAZem HCL CD 180 MG CAP.24HR 360 MG PO (08:11)
[2025-04-12] MEDS: FUROSEMIDE INJ 40 MG/4 ML VIAL IV PUSH ×2 (08:11→20:03)
--- NOTE | 2025-04-12 08:35 | PC.NURSE ---
At 0833 on 04/12/25, Radha from [facility] called. Updated her on Labs and Vitals. No bed at this time.
[2025-04-12 11:52] LABS: Hematocrit 24.6 % (37.0-47.0); Hemoglobin 7.5 g/dL (12.0-15.0)
[2025-04-12 12:10] LABS: INR 4.0; Prothrombin Time 37.3 Seconds (11.1-14.7)
[2025-04-12 12:11] LABS: Partial Thromboplastin Time 39.6 Seconds (22.3-36.8)
--- NOTE | 2025-04-12 13:39 | PM.IMPN2 ---
Assessment and Plan Assessment and Plan (1) Acute hepatic failure: Code(s): K72.00 - Acute and subacute hepatic failure without coma Status: Acute Assessment and Plan: Pt with history of cirrhosis now in acute liver failure. INR 12 on presentation. -trend coags -vitamin K if INR continues to rise -Waiting for bed at [facility] for hgb < 7 Lactulose (2) Pleural effusion: Code(s): J90 - Pleural effusion, not elsewhere classified Status: Acute Assessment and Plan: Large right pleural effusion noted on imaging. -Monitor resp status -O2 per NS -lasix 40 IVP Q12H -consisder FFP or vitamin K on 04/12 should pt need thoracentesis (3) Type 2 diabetes mellitus: Code(s): E11.9 - Type 2 diabetes mellitus without complications Status: Chronic Assessment and Plan: - hypoglycemia protocol - POC blood glucose ACHS - correct regimen ordered: low dose sliding scale Plan 64-year-old female past medical history of DM 2, CHF s/p pacemaker, cirrhosis of liver, hypothyroidism, BHAVIN on CPAP, hyperlipidemia presents to the ED on 04/10/2025 with complaints of weakness and shortness of breath. Patient has a history of anemia and is is worried that her hemoglobin is low. Takes Xarelto at home. Room air at baseline. Denies fever. DNR. Patient does not follow hepatology outpatient. hemoglobin of 4.8. Guaiac positive. Potassium 2.7. troponin negative. BNP 406 and INR 12 The patient has prior history of cirrhosis and CT scan showed evidence of cirrhosis with varices the patient also had a large right-sided pleural effusion. mild pulm edema may be present as well. Due to her acute hepatic failure, ED provider discussed patient with Dr. Santo at [place] who accepts the patient for transfer. Awaiting bed. ED treatment: 10 mg vitamin K for INR--> now 5.8 4 PRBC--> now 7.5 40 mEq PO and 40 mEq IVPB potassium--> now 3.2 1 G IVPB magnesium 60 mg IVP lasix Patient has been in the ED for over 24 hr and is more stable. Will be admitted to the hospital while waiting for bed at [place]. 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 No signs of bleeding. H&H now stable Diet: Heart healthy DVT prophylaxis: SCDs lines/drains: PIV Fluids: NA Code status: DNR Subjective Date/time seen: 04/12/25 13:39 Interval history: Complains of itching excessively. No other complaints shortness of breath has improved. Labs reviewed. Awaiting bed at [place]. Review of Systems Review of Systems: All systems reviewed & are unremarkable except as noted in HPI and below Exam Narrative: GENERAL: Well-appearing, well-nourished, and in no acute distress. HEAD: Normocephalic, atraumatic. EYES: PERRLA and EOMI. ENT: Nares clear, no rhinorrhea or epistaxis. Mucous membranes moist. NECK: Supple. CHEST: Clear to auscultation. No respiratory distress. HEART: Regular rate and rhythm. No murmur heard. Normal peripheral pulses. ABDOMEN: Soft, nontender, nondistended, normal active bowel sounds. EXTREMITIES: Normal range of motion. 1+ edema SKIN: Warm, dry, no rash. NEURO: No focal deficits. Alert and oriented x3. PSYCH: Normal mood and affect. Objective Data Vital Signs Vital Signs: Vital Signs - 24 hr 04/11/25 15:00 04/11/25 15:25 04/11/25 16:00 Temperature 98.0 F Pulse Rate 95 68 Respiratory Rate 22 H Blood Pressure 116/62 Pulse Oximetry 100 100 Oxygen Delivery Nasal Cannula Oxygen Flow Rate 4 Fraction of Inspired Oxygen 04/11/25 16:00 04/11/25 18:00 04/11/25 20:00 Temperature 98.4 F Pulse Rate 73 94 73 Respiratory Rate 20 Blood Pressure 121/59 L Pulse Oximetry 93 Oxygen Delivery Oxygen Flow Rate Fraction of Inspired Oxygen 04/11/25 20:00 04/11/25 20:49 04/11/25 20:50 Temperature Pulse Rate 93 84 87 Respiratory Rate 20 10 L Blood Pressure Pulse Oximetry 96 96 Oxygen Delivery Nasal Cannula Autopap Oxygen Flow Rate 3 Fraction of Inspired Oxygen 04/11/25 20:50 04/11/25 22:00 04/12/25 00:00 Temperature 98.5 F Pulse Rate 73 90 96 Respiratory Rate 20 24 H Blood Pressure 129/71 Pulse Oximetry 93 94 Oxygen Delivery Room Air Oxygen Flow Rate Fraction of Inspired Oxygen 04/12/25 00:00 04/12/25 00:18 04/12/25 00:54 Temperature Pulse Rate 96 96 89 Respiratory Rate 24 H 22 H Blood Pressure Pulse Oximetry 94 86 L Oxygen Delivery CPAP Room Air Oxygen Flow Rate Fraction of Inspired Oxygen 04/12/25 01:15 04/12/25 01:32 04/12/25 01:39 Temperature Pulse Rate 98 76 75 Respiratory Rate 22 H Blood Pressure Pulse Oximetry 93 91 Oxygen Delivery Nasal Cannula Nasal Cannula Oxygen Flow Rate 2 Fraction of Inspired Oxygen 04/12/25 01:39 04/12/25 04:00 04/12/25 04:00 Temperature 98.2 F Pulse Rate 75 91 90 Respiratory Rate 20 20 Blood Pressure 123/55 L Pulse Oximetry 91 94 Oxygen Delivery Nasal Cannula Oxygen Flow Rate 2 Fraction of Inspired Oxygen 28 04/12/25 04:00 04/12/25 06:00 04/12/25 08:00 Temperature 97.8 F Pulse Rate 90 81 88 Respiratory Rate 20 22 H Blood Pressure 117/64 Pulse Oximetry 94 98 Oxygen Delivery Nasal Cannula Oxygen Flow Rate 2 Fraction of Inspired Oxygen 04/12/25 08:00 04/12/25 08:00 04/12/25 10:00 Temperature Pulse Rate 81 83 Respiratory Rate Blood Pressure Pulse Oximetry 98 Oxygen Delivery Nasal Cannula Oxygen Flow Rate 2 Fraction of Inspired Oxygen 04/12/25 11:43 04/12/25 11:53 04/12/25 12:00 Temperature 98.3 F Pulse Rate 80 85 Respiratory Rate 22 H Blood Pressure 116/55 L Pulse Oximetry 99 94 Oxygen Delivery Nasal Cannula Oxygen Flow Rate 2 Fraction of Inspired Oxygen Intake/Output Intake/Output: Intake & Output 04/09/25 04/10/25 04/11/25 04/12/25 23:59 23:59 23:59 23:59 Intake Total 3076 853 1280 Output Total 300 1000 Balance 1310 281 80 Meds/Results Medications: Active Medications Generic Name Dose Route Start Last Admin Trade Name Freq PRN Reason Stop Dose Admin Dextrose 12.5 gm 04/11/25 16:08 Dextrose 50% 25 Gm/50 Ml Syringe IV PUSH PRN PRN Hypoglycemia Protocol Diltiazem HCl 360 mg 04/12/25 09:00 04/12/25 08:11 Diltiazem Hcl Cd 180 Mg Cap.24hr PO 360 mg QAM JUSTIN Administration Furosemide 40 mg 04/11/25 13:00 04/12/25 08:11 Furosemide Inj 40 Mg/4 Ml Vial IV PUSH 40 mg Q12HR JUSTIN Administration Glucagon 1 mg 04/11/25 16:08 Glucagon For Inj 1 Mg Vial IM PRN PRN Hypoglycemia Protocol Glucose 15 gm 04/11/25 16:08 Glucose Oral Gel 15 Gm Of Glucse In 37.5 Gm Tube PO PRN PRN Hypoglycemia Protocol Hydroxyzine HCl 25 mg 04/11/25 18:29 04/12/25 11:49 Hydroxyzine Hcl 25 Mg Tablet PO 25 mg Q6H PRN Administration Itching Dextrose 1,000 mls @ 100 mls/hr 04/11/25 16:08 Dextrose 5% 1,000 Ml IVPB PRN PRN Hypoglycemia Protocol Insulin Aspart 2 - 5 units 04/11/25 17:00 04/12/25 11:43 Insulin Aspart (*Bkc) 100 Units/Ml SUB-Q Not Given TIDWM JUSTIN Protocol Levothyroxine Sodium 25 mcg 04/12/25 06:30 04/12/25 06:03 Levothyroxine Sodium 25 Mcg Tablet PO 25 mcg DAILY@0630 JUSTIN Administration Spironolactone 100 mg 04/12/25 09:00 04/12/25 08:11 Spironolactone 50 Mg Tablet PO 100 mg QAM JUSTIN Administration Radiology Results: ITS Impressions Chest X-Ray 04/10/25 12:37 IMPRESSION: 1. Cardiomegaly with moderate to large right-sided pleural effusion. Mild pulmonary edema may also be present. Abdomen/Pelvis CT 04/10/25 16:10 IMPRESSION: 1. Changes of cirrhosis of the liver with evidence of portosystemic varices in the upper left abdomen indicating portal venous hypertension. There is no splenomegaly. There is no ascites. Distended gallbladder with diffuse wall thickening of the gallbladder wall similar to some of the prior imaging studies. Bile ducts are normal in size. 2. Moderate size right pleural effusion. 3. Bilateral cystic masses, larger on the left side measuring 6 cm with smaller 3 cm cyst in the right ovary. These should be considered possible neoplastic cyst. Close imaging follow-up is recommended. 4. Calcific atherosclerotic changes of abdominal aorta. Degenerative disc disease at L4-[address] 04/10/25 16:17 IMPRESSION: 1. Moderate-sized right pleural effusion with right lower lobe collapse and partial collapse of the right middle lobe. 2. New 1.8 cm groundglass opacity in the intersegment the left upper lobe which most likely infectious or inflammatory in etiology. Consider 3 month follow-up low-dose noncontrast chest CT. 3. Cardiomegaly. 4. Cirrhosis with stigmata of portal venous hypertension. 5. Haziness to the pericholecystic fat for which differential would include acute cholecystitis, liver disease, heart disease or other generalized edema forming states. Labs Labs: Laboratory Results - last 24 hr 04/11/25 04/11/25 04/11/25 15:37 20:13 22:02 WBC RBC Hgb 7.9 L 7.5 L Hct 25.8 L 24.6 L MCV MCH MCHC RDW Plt Count MPV Immature Gran % (Auto) Neut % (Auto) Lymph % (Auto) [place] % (Auto) Eos % (Auto) Baso % (Auto) Lymph # (Auto) [place] # (Auto) Eos # (Auto) Baso # (Auto) Abs Immat Gran (auto) Absolute Neuts (auto) Absolute Nucleated RBC Nucleated RBC % PT INR APTT Sodium Potassium Chloride Carbon Dioxide Anion Gap BUN Creatinine Estim Creat Clear Calc Estimated GFR Glucose POC Capillary Glucose 173 H Calcium Ammonia 04/12/25 04/12/25 04/12/25 06:03 07:21 11:25 WBC 7.4 RBC 2.92 L Hgb 7.4 L Hct 24.3 L MCV 83.2 MCH 25.3 L D MCHC 30.5 L RDW 20.7 H Plt Count 141 L MPV 9.9 Immature Gran % (Auto) 0.5 Neut % (Auto) 68.3 Lymph % (Auto) 13.4 L [place] % (Auto) 14.3 H Eos % (Auto) 2.8 Baso % (Auto) 0.7 Lymph # (Auto) 0.99 [place] # (Auto) 1.1 H Eos # (Auto) 0.2 Baso # (Auto) 0.1 Abs Immat Gran (auto) 0.04 H Absolute Neuts (auto) 5.0 Absolute Nucleated RBC 0.030 H Nucleated RBC % 0.4 H PT INR APTT Sodium 134 L Potassium 3.3 L Chloride 102 Carbon Dioxide 27 Anion Gap 5 BUN 14 Creatinine 1.01 H Estim Creat Clear Calc 68 Estimated GFR 55 L Glucose 145 H POC Capillary Glucose 152 H 134 H Calcium 8.1 L Ammonia 45 H 04/12/25 11:46 WBC RBC Hgb 7.5 L Hct 24.6 L MCV MCH MCHC RDW Plt Count MPV Immature Gran % (Auto) Neut % (Auto) Lymph % (Auto) [place] % (Auto) Eos % (Auto) Baso % (Auto) Lymph # (Auto) [place] # (Auto) Eos # (Auto) Baso # (Auto) Abs Immat Gran (auto) Absolute Neuts (auto) Absolute Nucleated RBC Nucleated RBC % PT 37.3 H D INR 4.0 APTT 39.6 H Sodium Potassium Chloride Carbon Dioxide Anion Gap BUN Creatinine Estim Creat Clear Calc Estimated GFR Glucose POC Capillary Glucose Calcium Ammonia
[2025-04-12] MEDS: POTASSIUM CHLORIDE 20 MEQ ER TABLET 40 MEQ PO (14:18)
[2025-04-12] MEDS: CHOLESTYRAMINE (W/ SUGAR) 4 GM POWD.PACK PO ×2 (14:18→17:40)
[2025-04-12] MEDS: LACTULOSE 20 GM/30 ML UDC PO (14:19)
[2025-04-13] VITALS (9 sets, daily range): BP systolic 103–144; BP diastolic 72–82; PULSE 57–90; RESP 14–22; TEMP 36.6–36.7; O2SAT 93–99
[2025-04-13 04:27] LABS: Hematocrit 25.9 % (37.0-47.0); Hemoglobin 7.7 g/dL (12.0-15.0); Immature Granulocyte Percent A 0.6 % (0-0.5); Lymphocytes Absolute Auto 1.51 K/mm3 (0.9-3.2); Mean Corpuscular HGB Conc 29.7 g/dl (32-36); Mean Corpuscular Hemoglobin 25.0 pg (26-34); Mean Corpuscular Volume 84.1 fl (80-100); Nucleated Red Blood Cells Absolute Auto 0.030 K/mm3 (0.0-0.012); Nucleated Red Blood Cells Perc 0.6 % (0.0-0.2); Platelet Count Result 145 k/mm3 (150-375); Red Blood Count 3.08 M/mm3 (4.2-5.4); White Blood Count 5.3 K/mm3 (4.5-10.0)
[2025-04-13 04:55] LABS: Alanine Aminotransferase 31 U/L (6-35); Albumin Level 2.9 g/dL (3.5-5.1); Alkaline Phosphatase 80 U/L (38-126); Anion Gap 5 mmol/L (4-12); Aspartate Amino Transferase 39 U/L (14-36); Bilirubin,Total 3.7 mg/dL (0.2-1.3); Blood Urea Nitrogen 12 mg/dL (7-17); Calcium 8.1 mg/dL (8.4-10.2); Carbon Dioxide 26 mmol/L (22-30); Chloride 103 mmol/L (98-107); Estimated CRCL calculation 74 ml/min; Estimated Glomerular Filt Rate > 60; Glucose 125 mg/dL (65-110); Magnesium 1.7 mg/dL (1.6-2.3); Potassium 3.3 mmol/L (3.4-5.0); Sodium 134 mmol/L (137-145); Total Protein 7.0 g/dL (6.3-8.2)
[2025-04-13 05:19] LABS: Anisocytosis 1+; Hypochromasia 2+; Schistocytes None Seen
[2025-04-13] MEDS: LEVOTHYROXINE SODIUM 25 MCG TABLET PO (05:40)
[2025-04-13] MEDS: dilTIAZem HCL CD 180 MG CAP.24HR 360 MG PO (08:47)
[2025-04-13] MEDS: POTASSIUM CHLORIDE 20 MEQ ER TABLET 40 MEQ PO (08:48)
[2025-04-13] MEDS: SPIRONOLACTONE 50 MG TABLET 100 MG PO (08:48)
[2025-04-13] MEDS: FUROSEMIDE INJ 40 MG/4 ML VIAL IV PUSH (08:49)
[2025-04-13] MEDS: LACTULOSE 20 GM/30 ML UDC PO (08:50)
[2025-04-13 09:02] LABS: INR 3.4; Prothrombin Time 33.1 Seconds (11.1-14.7)
--- NOTE | 2025-04-13 10:00 | PC.NURSE ---
spoke with rajwinder from [facility] transfer center, gave pt update, no beds available at this time but she is on the list
[2025-04-13] MEDS: CHOLESTYRAMINE (W/ SUGAR) 4 GM POWD.PACK PO (10:41)
--- NOTE | 2025-04-13 11:28 | PC.NURSE ---
pt wishes to leave [facility], pt states that she is feeling much better and she does not feel that she wants to wait for a bed at [facility], pt notified of risks and need to come back to er if trouble breathing comes back or she feels that her hg levels are dropping again
--- NOTE | 2025-04-13 12:01 | PC.NURSE ---
pt refusing to put tele back on, she agrees to wait for dr zhu to put in some perscriptions before she leaves
--- NOTE | 2025-04-13 15:04 | PM.DS ---
DS: Admitting Diagnosis Discharge Date 04/13/25 Admitting Diagnosis Anemia DS: Discharge Diagnosis Discharge Diagnosis (1) Acute hepatic failure: Code(s): K72.00 - Acute and subacute hepatic failure without coma Status: Acute (2) Pleural effusion: Code(s): J90 - Pleural effusion, not elsewhere classified Status: Acute (3) Type 2 diabetes mellitus: Code(s): E11.9 - Type 2 diabetes mellitus without complications Status: Chronic DS: Summary Hospital Course Hospital Course: 64-year-old female past medical history of DM 2, CHF s/p pacemaker, cirrhosis of liver, hypothyroidism, BHAVIN on CPAP, hyperlipidemia presents to the ED on 04/10/2025 with complaints of weakness and shortness of breath. Patient has a history of anemia and is is worried that her hemoglobin is low. Takes Xarelto at home. Room air at baseline. Denies fever. DNR. Patient does not follow hepatology outpatient. On ED evaluation, hemoglobin of 4.8. Guaiac positive. Potassium 2.7. troponin negative. BNP 406 and INR 12 The patient has prior history of cirrhosis and CT scan showed evidence of cirrhosis with varices the patient also had a large right-sided pleural effusion. mild pulm edema may be present as well. Due to her acute hepatic failure, ED provider discussed patient with Dr. Santo at [facility] who accepts the patient for transfer. ED treatment: 10 mg vitamin K for INR--> now 5.8 4 PRBC--> now 7.5 40 mEq PO and 40 mEq IVPB potassium--> now 3.2 1 G IVPB magnesium 60 mg IVP lasix Patient has been in the ED for over 24 hr and is more stable. She was then admitted to the hospital while awaiting bed placement at [facility]. While awaiting bed placement at [facility], patient refused any further treatment and refused to be transferred and wanted to leave against medical advise. All risks associated with this decision was discussed with the patient and patient alert and oriented and decisional on evaluation. Patient subsequently left against medical advise on 04/13/2025. She is strongly advised to follow-up with liver specialist as an outpatient basis. She is also made aware of for high meld score during the hospital stay which significantly increases her short-term mortality Shortness of breath with severe anemia on presentation received transfusion of 3 units of PRBC during the hospital stay. Post transfusion her H&H remained stable. 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 Anemia Acute on chronic hemoglobin of 4 on admission required transfusion. No signs of bleeding. H&H now stable post transfusion Diet: Heart healthy DVT prophylaxis: SCDs lines/drains: PIV Fluids: NA Code status: DNR Time Spent with Patient Time attestation: Total time spent providing and/or coordinating discharge services: 40 minutes Exam Narrative: GENERAL: Well-appearing, well-nourished, and in no acute distress. HEAD: Normocephalic, atraumatic. EYES: PERRLA and EOMI. ENT: Nares clear, no rhinorrhea or epistaxis. Mucous membranes moist. NECK: Supple. CHEST: Clear to auscultation. No respiratory distress. HEART: Regular rate and rhythm. No murmur heard. Normal peripheral pulses. ABDOMEN: Soft, nontender, nondistended, normal active bowel sounds. EXTREMITIES: Normal range of motion. 1+ edema SKIN: Warm, dry, no rash. NEURO: No focal deficits. Alert and oriented x3. PSYCH: Normal mood and affect. DS: Data Data Completed and Pending Labs on day of discharge: Labs from last 24 hours 04/13/25 04/13/25 04/13/25 11:02 08:39 07:21 WBC RBC Hgb Hct MCV MCH MCHC RDW Plt Count MPV Immature Gran % (Auto) Neut % (Auto) Lymph % (Auto) [place] % (Auto) Eos % (Auto) Baso % (Auto) Lymph # (Auto) [place] # (Auto) Eos # (Auto) Baso # (Auto) Abs Immat Gran (auto) Absolute Neuts (auto) Absolute Nucleated RBC Band Neutrophils % Nucleated RBC % Platelet Estimate Hypochromasia Anisocytosis Schistocytes PT 33.1 H INR 3.4 Sodium Potassium Chloride Carbon Dioxide Anion Gap BUN Creatinine Estim Creat Clear Calc Estimated GFR Glucose POC Capillary Glucose 152 H 136 H Calcium Magnesium Total Bilirubin Direct Bilirubin AST ALT Alkaline Phosphatase Total Protein Albumin 04/13/25 04/12/25 04/12/25 03:58 19:55 17:59 WBC 5.3 RBC 3.08 L Hgb 7.7 L Hct 25.9 L MCV 84.1 MCH 25.0 L MCHC 29.7 L RDW 21.6 H Plt Count 145 L MPV 9.8 Immature Gran % (Auto) 0.6 H Neut % (Auto) 50.4 Lymph % (Auto) 28.4 [place] % (Auto) 15.4 H Eos % (Auto) 4.1 Baso % (Auto) 1.1 Lymph # (Auto) 1.51 [place] # (Auto) 0.8 H Eos # (Auto) 0.2 Baso # (Auto) 0.1 Abs Immat Gran (auto) 0.03 Absolute Neuts (auto) 2.7 Absolute Nucleated RBC 0.030 H Band Neutrophils % Not Reportable Nucleated RBC % 0.6 H Platelet Estimate Adequate Hypochromasia 2+ Anisocytosis 1+ Schistocytes None seen PT INR Sodium 134 L Potassium 3.3 L Chloride 103 Carbon Dioxide 26 Anion Gap 5 BUN 12 Creatinine 0.92 Estim Creat Clear Calc 74 Estimated GFR > 60 Glucose 125 H POC Capillary Glucose 136 H Calcium 8.1 L Magnesium 1.7 Total Bilirubin 3.7 H Direct Bilirubin 0.0 AST 39 H ALT 31 Alkaline Phosphatase 80 Total Protein 7.0 Albumin 2.9 L 04/12/25 16:15 WBC RBC Hgb Hct MCV MCH MCHC RDW Plt Count MPV Immature Gran % (Auto) Neut % (Auto) Lymph % (Auto) [place] % (Auto) Eos % (Auto) Baso % (Auto) Lymph # (Auto) [place] # (Auto) Eos # (Auto) Baso # (Auto) Abs Immat Gran (auto) Absolute Neuts (auto) Absolute Nucleated RBC Band Neutrophils % Nucleated RBC % Platelet Estimate Hypochromasia Anisocytosis Schistocytes PT INR Sodium Potassium Chloride Carbon Dioxide Anion Gap BUN Creatinine Estim Creat Clear Calc Estimated GFR Glucose POC Capillary Glucose 163 H Calcium Magnesium Total Bilirubin Direct Bilirubin AST ALT Alkaline Phosphatase Total Protein Albumin Imaging Radiologist's impression: ITS Impressions Chest X-Ray 04/10/25 12:37 IMPRESSION: 1. Cardiomegaly with moderate to large right-sided pleural effusion. Mild pulmonary edema may also be present. Abdomen/Pelvis CT 04/10/25 16:10 IMPRESSION: 1. Changes of cirrhosis of the liver with evidence of portosystemic varices in the upper left abdomen indicating portal venous hypertension. There is no splenomegaly. There is no ascites. Distended gallbladder with diffuse wall thickening of the gallbladder wall similar to some of the prior imaging studies. Bile ducts are normal in size. 2. Moderate size right pleural effusion. 3. Bilateral cystic masses, larger on the left side measuring 6 cm with smaller 3 cm cyst in the right ovary. These should be considered possible neoplastic cyst. Close imaging follow-up is recommended. 4. Calcific atherosclerotic changes of abdominal aorta. Degenerative disc disease at L4-[address] 04/10/25 16:17 IMPRESSION: 1. Moderate-sized right pleural effusion with right lower lobe collapse and partial collapse of the right middle lobe. 2. New 1.8 cm groundglass opacity in the intersegment the left upper lobe which most likely infectious or inflammatory in etiology. Consider 3 month follow-up low-dose noncontrast chest CT. 3. Cardiomegaly. 4. Cirrhosis with stigmata of portal venous hypertension. 5. Haziness to the pericholecystic fat for which differential would include acute cholecystitis, liver disease, heart disease or other generalized edema forming states. Chest X-Ray 04/13/25 09:00 IMPRESSION: 1. Persistent small to moderate-sized right pleural effusion with associated atelectasis and/or pneumonia in the right mid to lower lung zone. 2. Cardiomegaly. Discharge Plan Discharge Attending physician on discharge: Gareth Spicer Discharging Clinician: Gareth Spicer Patient Disposition: Left Against Medical Advice Patient Instructions: Rivaroxaban (By mouth), Heart Failure (DC), ARDS (Acute Respiratory Distress Syndrome) (DC), Acute Liver Failure (DC) Patient Language: Turkish Discharge Medications: New hydroxyzine HCl 50 mg tablet 50 mg PO QID PRN (Reason: itching) Qty: 30 0RF lactulose 10 gram/15 mL solution 20 g PO BID PRN (Reason: laxative effect) Qty: 3785 0RF nadolol 20 mg tablet 20 mg PO DAILY Qty: 30 0RF Continued spironolactone [Aldactone] 50 mg Tablet 100 mg PO QAM Qty: 30 0RF bumetanide 2 mg Tablet 2 mg PO DAILY diltiazem HCl 360 mg Capsule,Extended Release 24 Hr 360 mg PO DAILY levothyroxine 25 mcg Tablet 25 mcg PO DAILY dapagliflozin propanediol [Farxiga] 10 mg tablet 10 mg PO DAILY Discontinued Xarelto 20 mg Tablet 20 mg PO DAILY Patient Comments: ON HOLD Rx Instructions: must administer with evening meal Date of admission: 04/11/25 14:09 Primary Care Provider: Luis Campo Admitting Provider: Anirudh Dhaliwal Attending physician on admission: Anirudh Dhaliwal Condition: Stable
--- NOTE | 2025-04-14 07:29 | P.CDI_ITS ---
CDI Query Clarification Request 1)Please clarify the status of the patient's anemia, if known. Anemia has been documented, please specify type of anemia if known: * Acute blood loss anemia * Chronic blood loss anemia * Anemia of chronic disease (CKD,neoplasm, other) * Aplastic anemia * Dilutional anemia * Iron Deficiency anemia * Pernicious anemia * Nutritional anemia (e.g., scorbutic anemia) * Other anemia * Unknown/unable to determine 2)Patient with a BMI of 52.4 please provide a diagnosis to accompany this finding: * Overweight * Obesity * Morbid Obesity * Other/Unknown Assessment and Plan (1) Acute hepatic failure: Code(s): K72.00 - Acute and subacute hepatic failure without coma Status: Acute Assessment and Plan: Pt with history of cirrhosis now in acute liver failure. INR 12 on presentation. -trend coags -vitamin K if INR continues to rise -Waiting for bed at [facility] -PRBC for hgb < 7 Lactulose (2) Pleural effusion: Code(s): J90 - Pleural effusion, not elsewhere classified Status: Acute Assessment and Plan: Large right pleural effusion noted on imaging. -Monitor resp status -O2 per NS -lasix 40 IVP Q12H -consisder FFP or vitamin K on 04/12 should pt need thoracentesis (3) Type 2 diabetes mellitus: Code(s): E11.9 - Type 2 diabetes mellitus without complications Status: Chronic Assessment and Plan: - hypoglycemia protocol - POC blood glucose ACHS - correct regimen ordered: low dose sliding scale Plan 64-year-old female past medical history of DM 2, CHF s/p pacemaker, cirrhosis of liver, hypothyroidism, BHAVIN on CPAP, hyperlipidemia presents to the ED on 04/10/2025 with complaints of weakness and shortness of breath. Patient has a history of anemia and is is worried that her hemoglobin is low. Takes Xarelto at home. Room air at baseline. Denies fever. DNR. Patient does not follow hepatology outpatient. hemoglobin of 4.8. Guaiac positive. Potassium 2.7. troponin negative. BNP 406 and INR 12 The patient has prior history of cirrhosis and CT scan showed evidence of cirrhosis with varices the patient also had a large right-sided pleural effusion. mild pulm edema may be present as well. Due to her acute hepatic failure, ED provider discussed patient with Dr. Santo at [facility] who accepts the patient for transfer. Awaiting bed. ED treatment: 10 mg vitamin K for INR--> now 5.8 4 PRBC--> now 7.5 40 mEq PO and 40 mEq IVPB potassium--> now 3.2 1 G IVPB magnesium 60 mg IVP lasix Patient has been in the ED for over 24 hr and is more stable. Will be admitted to the hospital while waiting for bed at [facility]. 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 No signs of bleeding. H&H now stable Diet: Heart healthy DVT prophylaxis: SCDs lines/drains: PIV Fluids: NA Code status: DNR <Dinora Hinkle RN - Last Filed: 04/14/25 07:30> Provider Comments Anemia: Unable to determine Morbid obesity <Gareth Spicer MD - Last Filed: 04/14/25 18:20>
== END 2025-04-13 12:24 | disposition left against medical advice (07) | DRG 442 ==
LOC: ANHED 15:06 → ANHIMU 04-11 13:55
PROVIDERS: Emergency Medicine; Nurse Practitioner Adult Health; Admitting Provider Internal Medicine; Emergency Provider Emergency Medicine; PCP Internal Medicine; Visit Provider Internal Medicine
DX: K72.00 Acute and subacute hepatic failure without coma (principal); I50.32 Chronic diastolic (congestive) heart failure; Z68.43 Body mass index [BMI] 50.0-59.9, adult; D64.9 Anemia, unspecified; E66.01 Morbid (severe) obesity due to excess calories; E11.9 Type 2 diabetes mellitus without complications; E78.5 Hyperlipidemia, unspecified; E03.9 Hypothyroidism, unspecified; G47.33 Obstructive sleep apnea (adult) (pediatric); K74.60 Unspecified cirrhosis of liver; Z66 Do not resuscitate; Z95.0 Presence of cardiac pacemaker; Z79.01 Long term (current) use of anticoagulants; Z79.1 Long term (current) use of non-steroidal anti-inflammatories (NSAID); Z99.89 Dependence on other enabling machines and devices
CPT/HCPCS: 36415; 36430; 71045; 71046; 71250; 74177; 80048; 80053; 82140; 82248; 82948; 83735; 83880; 84484; 85014; 85018; 85025; 85610; 85730; 86850; 86900; 86901; 86923; 93005; 96365; 96375; 99285; A9270; G0378; J1200; J1938; J3430; J3475; J3480; J7050; P9016; Q9967